=== PATIENT | female | born 1955 | race Caucasian/White ===

== ENCOUNTER 2018-04-10 16:06 | Emergency (ER) | payer OTHER ==
--- NOTE | 2018-04-10 16:34 | EDPHYS ---
Physician Documentation [facility] Name: Nicole Martínez Age: 62 yrs Sex: Female : 1955 Arrival Date: 04/10/2018 Time: 16:09 Bed 19 Private MD: ED Physician Mark Will HPI: 04/10 16:40 This 62 yrs old Female presents to ER via Ambulatory with complaints of Toe snw Injury. 16:40 The patient presents with pain, swelling, erythema . The complaints affect the Left snw first toenail. Context: The problem was sustained at home, resulted from a chronic condition. Onset: The symptoms/episode began/occurred pt states she noted problem today. Associated signs and symptoms: Pertinent positives: swelling, warmth. Severity of symptoms: At their worst the symptoms were mild, moderate. The patient has not experienced similar symptoms in the past. It is unknown whether or not the patient has recently seen a physician. Historical: - Allergies: 16:12 Percodan; la1 - PMHx: 16:12 None; la1 - PSHx: 16:18 ; tw2 - Immunization history:: Adult Immunizations up to date. - Social history:: Smoking status: Patient uses tobacco products, smokes one pack cigarettes per day. - Ebola Screening: : No symptoms or risks identified at this time. ROS: 16:39 Constitutional: Negative for fever, chills, and weight loss, Eyes: Negative for injury, snw pain, redness, and discharge, ENT: Negative for injury, pain, and discharge, Neck: Negative for injury, pain, and swelling, Cardiovascular: Negative for chest pain, palpitations, and edema, Respiratory: Negative for shortness of breath, cough, wheezing, and pleuritic chest pain, Abdomen/GI: Negative for abdominal pain, nausea, vomiting, diarrhea, and constipation, Back: Negative for injury and pain, : Negative for injury, bleeding, discharge, and swelling, Skin: Negative for injury, rash, and discoloration, Neuro: Negative for headache, weakness, numbness, tingling, and seizure. 16:39 MS/extremity: Positive for erythema, pain, swelling, of the left first toe. Exam: 16:36 Constitutional: This is a well developed, well nourished patient who is awake, alert, snw and in no acute distress. 16:36 Eyes: Pupils equal round and reactive to light, extra-ocular motions intact. Lids and lashes normal. Conjunctiva and sclera are non-icteric and not injected. Cornea within normal limits. Periorbital areas with no swelling, redness, or edema. ENT: Nares patent. No nasal discharge, no septal abnormalities noted. Tympanic membranes are normal and external auditory canals are clear. Oropharynx with no redness, swelling, or masses, exudates, or evidence of obstruction, uvula midline. Mucous membranes moist. Neck: Trachea midline, no thyromegaly or masses palpated, and no cervical lymphadenopathy. Supple, full range of motion without nuchal rigidity, or vertebral point tenderness. No Meningismus. Chest/axilla: Normal chest wall appearance and motion. Nontender with no deformity. No lesions are appreciated. Cardiovascular: Regular rate and rhythm with a normal S1 and S2. No gallops, murmurs, or rubs. Normal PMI, no JVD. No pulse deficits. Respiratory: Lungs have equal breath sounds bilaterally, clear to auscultation and percussion. No rales, rhonchi or wheezes noted. No increased work of breathing, no retractions or nasal flaring. Abdomen/GI: Soft, non-tender, with normal bowel sounds. No distension or tympany. No guarding or rebound. No evidence of tenderness throughout. Back: No spinal tenderness. No costovertebral tenderness. Full range of motion. MS/ Extremity: Pulses equal, no cyanosis. Neurovascular intact. Full, normal range of motion. Neuro: Awake and alert, GCS 15, oriented to person, place, time, and situation. Cranial nerves II-XII grossly intact. Motor strength 5/5 in all extremities. Sensory grossly intact. Cerebellar exam normal. Normal gait. Psych: Awake, alert, with orientation to person, place and time. Behavior, mood, and affect are within normal limits. 16:36 Head/face: Noted is swelling, rosacea appearance to nose. 16:36 Skin: Appearance: normal except for affected area, cellulitis, that is moderate, on the Left first toenail, nail brittle, raised, discolored with obvious fungal infection. Vital Signs: 16:12 BP 180 / 95; Pulse 75; Resp 18; Temp 97.8; Pulse Ox 97% on R/A; Weight 136.08 kg; la1 Height 5 ft. 4 in. (162.56 cm); 16:12 Body Mass Index 51.49 (136.08 kg, 162.56 cm) la1 MDM: 16:10 Patient medically screened. snw 16:40 Data reviewed: vital signs, nurses notes. Data interpreted: Pulse oximetry: on room air snw is 97 %. Interpretation: normal. Counseling: I had a detailed discussion with the patient and/or guardian regarding: the historical points, exam findings, and any diagnostic results supporting the discharge/admit diagnosis, the presence of at least one elevated blood pressure reading (>120/80) during this emergency department visit, the need for outpatient follow up, to return to the emergency department if symptoms worsen or persist or if there are any questions or concerns that arise at home. Special discussion: I have referred the patient to see his PCP for further evaluation of high blood pressure. I discussed in detail with the patient the higher chance of wound infection based on his presenting history. Based on the history and exam findings, there is no indication for further emergent testing or inpatient evaluation. I discussed with the patient/guardian the need to see the it training specialist for further evaluation of the symptoms. I discussed with the patient/guardian the need to see the primary care provider for further evaluation of the symptoms. Administered Medications: 16:33 Drug: DiFLUcan 200 mg Route: PO; tw2 16:46 Follow up: Response: No adverse reaction tw2 16:33 Drug: Clindamycin 300 mg Route: PO; tw2 16:46 Follow up: Response: No adverse reaction tw2 16:33 Drug: [place] 5 mg-325 mg 1 tabs Route: PO; tw2 16:45 Follow up: Response: No adverse reaction; Pain is decreased tw2 Disposition: 17:44 Co-signature as Attending Physician, Mark Will MD. rn Disposition: 04/10/18 16:34 Discharged to Home. Impression: Tinea unguium, Cellulitis of left toe. - Condition is Stable. - Discharge Instructions: Cellulitis, Adult, Hypertension, Fungal Nail Infection. - Prescriptions for Clindamycin HCl 300 mg Oral Capsule - take 1 capsule by ORAL route every 6 hours for 10 days; 40 capsule. - Medication Reconciliation Form, Thank You Letter, Antibiotic Education, Prescription Opioid Use form. - Follow up: Private Physician; When: 2 - 3 days; Reason: Recheck today's complaints, Continuance of care, Re-evaluation by your physician. Follow up: Emergency Department; When: As needed; Reason: Worsening of condition. Signatures: Nory Cam, YARDING ENGINEER-C YARDING ENGINEER-Csnw Mark Will MD MD rn Attema, JENNI Ribera RN la1 Rufina Kearns RN RN tw2 Corrections: (The following items were deleted from the chart) 16:46 16:34 04/10/2018 16:34 Discharged to Home. Impression: Tinea unguium; Cellulitis of tw2 left toe. Condition is Stable. Forms are Medication Reconciliation Form, Thank You Letter, Antibiotic Education, Prescription Opioid Use. Follow up: Private Physician; When: 2 - 3 days; Reason: Recheck today's complaints, Continuance of care, Re-evaluation by your physician. Follow up: Emergency Department; When: As needed; Reason: Worsening of condition. snw
--- NOTE | 2018-04-10 16:34 | ER ---
Nurse's Notes [facility] Name: Nicole Martínez Age: 62 yrs Sex: Female : 1955 Arrival Date: 04/10/2018 Time: 16:09 Bed 19 Private MD: Diagnosis: Tinea unguium;Cellulitis of left toe Presentation: 04/10 16:11 Presenting complaint: Patient states: My left big toe is big and red, I just noticed it la1 this morning. Transition of care: patient was not received from another setting of care. Onset of symptoms was April 10, 2018. Risk Assessment: Do you want to hurt yourself or someone else? Patient reports no desire to harm self or others. Initial Sepsis Screen: Does the patient meet any 2 criteria? No. Patient's initial sepsis screen is negative. Does the patient have a suspected source of infection? No. Patient's initial sepsis screen is negative. Care prior to arrival: None. 16:11 Method Of Arrival: Ambulatory la1 16:11 Acuity: KAELYN 3 la1 Historical: - Allergies: 16:12 Percodan; la1 - PMHx: 16:12 None; la1 - PSHx: 16:18 ; tw2 - Immunization history:: Adult Immunizations up to date. - Social history:: Smoking status: Patient uses tobacco products, smokes one pack cigarettes per day. - Ebola Screening: : No symptoms or risks identified at this time. Screenin:17 Abuse screen: Denies threats or abuse. Nutritional screening: No deficits noted. tw2 Tuberculosis screening: No symptoms or risk factors identified. Fall Risk None identified. Assessment: 16:24 General: Appears in no apparent distress. obese, unkempt, Behavior is calm, tw2 cooperative, appropriate for age. General: Smells of cigarette smoke. Pain: Complains of pain in left first toe and Left first toenail. Neuro: Level of Consciousness is awake, alert, obeys commands, Oriented to person, place, time, situation. Cardiovascular: Heart tones S1 S2 Capillary refill < 3 seconds Patient's skin is warm and dry. Respiratory: Airway is patent Respiratory effort is even, unlabored, Respiratory pattern is regular, symmetrical, Breath sounds are clear bilaterally. GI: No signs and/or symptoms were reported involving the gastrointestinal system. Abdomen is round non-distended, obese, Bowel sounds present X 4 quads. : No signs and/or symptoms were reported regarding the genitourinary system. EENT: No signs and/or symptoms were reported regarding the EENT system. Derm: Reports increased redness in LEFT great toe. Musculoskeletal: Circulation, motion, and sensation intact. Range of motion: intact in all extremities. 16:46 Reassessment: Patient appears in no apparent distress at this time. No changes from tw2 previously documented assessment. Patient is alert, oriented x 3, equal unlabored respirations, skin warm/dry/pink. Vital Signs: 16:12 BP 180 / 95; Pulse 75; Resp 18; Temp 97.8; Pulse Ox 97% on R/A; Weight 136.08 kg; la1 Height 5 ft. 4 in. (162.56 cm); 16:12 Body Mass Index 51.49 (136.08 kg, 162.56 cm) la1 ED Course: 16:09 Patient arrived in ED. mr 16:09 Nory Cam FNP-C [facility]. snw 16:09 Mark Will MD is Attending Physician. snw 16:12 Triage completed. la1 16:12 Arm band placed on right wrist. la1 16:16 Rufina Kearns, RN is Primary Nurse. tw2 16:17 Bed in low position. Call light in reach. Adult w/ patient. Pulse ox on. NIBP on. tw2 16:38 No provider procedures requiring assistance completed. Patient did not have IV access tw2 during this emergency room visit. Administered Medications: 16:33 Drug: DiFLUcan 200 mg Route: PO; tw2 16:46 Follow up: Response: No adverse reaction tw2 16:33 Drug: Clindamycin 300 mg Route: PO; tw2 16:46 Follow up: Response: No adverse reaction tw2 16:33 Drug: [place] 5 mg-325 mg 1 tabs Route: PO; tw2 16:45 Follow up: Response: No adverse reaction; Pain is decreased tw2 Outcome: 16:34 Discharge ordered by . snw 16:46 Discharged to home ambulatory, with family. tw2 16:46 Condition: stable 16:46 Discharge instructions given to patient, family, Instructed on discharge instructions, follow up and referral plans. medication usage, Demonstrated understanding of instructions, follow-up care, medications, Prescriptions given X 1. 16:46 Patient left the ED. tw2 Signatures: Nory Cam, ELLIEC LIBRARY CIRCULATION TECHNICIAN-[place] Brooek Diaz Lee RN RN la1 Rufina Kearns RN RN tw2
[2018-04-10] MEDS ORDERED: FLUCONAZOLE 100 MG TAB ONE (16:42)
[2018-04-10] MEDS ORDERED: CLINDAMYCIN HCL 150 MG CAP ONE (16:42)
[2018-04-10] MEDS ORDERED: HYDROCODONE/APAP 5/325 MG TAB ONE (16:42)
[2018-04-10 16:50] VITALS: BP 180/95; TEMP 97.8; O2SAT 97
== END 2018-04-10 16:46 | disposition home or self-care (01) ==
LOC: ER 16:06
DX: B35.1 Tinea unguium (principal); L03.032 Cellulitis of left toe; F17.210 Nicotine dependence, cigarettes, uncomplicated; Z88.5 Allergy status to narcotic agent
CPT/HCPCS: 99283

== ENCOUNTER 2018-04-19 08:31 | Observation (INO) | payer OTHER ==
[2018-04-19] MEDS ORDERED: METHYLPREDNISOLONE 125 MG INJ ONE (08:52)
[2018-04-19] MEDS ORDERED: LEVALBUTEROL 1.25 MG/3 ML NEB ONE (08:53)
[2018-04-19 09:09] LABS: Absolute Lymphocytes (CBC) 0.4 K/uL (0.7-4.9); Absolute Monocytes 0.5 K/uL (0.1-1.3); Absolute Neutrophil 7.3 K/uL (1.8-8.0); Basophils % 0.2 % (0-1.3); Eosinophils % 0.2 % (0-4.4); Hematocrit 47.1 % (36.0-45.0); Lymphocytes % 4.6 % (15.3-44.8); MPV 9.1 fL (7.6-11.3); Monocytes % 6.5 % (3.3-12.3); RBC Red Blood Cell Count 5.64 M/uL (3.86-4.86)
[2018-04-19 09:27] LABS: BUN Blood Urea Nitrogen 8 mg/dL (7-18); Bicarbonate 30 mmol/L (21-32); Glucose Level 198 mg/dL (74-106); NT PRO-BNP 442 pg/mL (<125); Sodium Level 134 mmol/L (136-145); Troponin (Emerg Dept Use Only) < 0.02 ng/mL (0.0-0.045)
--- NOTE | 2018-04-19 09:42 | RAD REPORT ---
EXAM DESCRIPTION: Susie Single View04/19/2018 9:26 am CLINICAL HISTORY: Cough COMPARISON: And 2015 FINDINGS: The lungs appear clear of acute infiltrate. The heart is mildly enlarged IMPRESSION: No acute abnormalities displayed
--- NOTE | 2018-04-19 10:26 | ER ---
Nurse's Notes [facility] Name: Nicole Martínez Age: 62 yrs Sex: Female : 1955 Arrival Date: 04/19/2018 Time: 08:34 Bed 4 Private MD: Diagnosis: Dyspnea, unspecified;Hypoxemia;Chronic obstructive pulmonary disease, unspecified Presentation: 04/19 08:34 Presenting complaint: EMS states: Called for difficulty breathing, Spo2 88% RA, believes that she has COPD but has not been dx, BP 180/90 HR 90-110, BGL 200, Spo2 improved to 95% on 4 LNC. Transition of care: patient was not received from another setting of care. Onset of symptoms was April 19, 2018. Risk Assessment: Do you want to hurt yourself or someone else? Patient reports no desire to harm self or others. Initial Sepsis Screen: Does the patient meet any 2 criteria? No. Patient's initial sepsis screen is negative. Does the patient have a suspected source of infection? Yes: Productive cough/pneumonia. Care prior to arrival: Glucose check: 200. 08:34 Method Of Arrival: EMS: [facility] 08:34 Acuity: KAELYN 2 hb Historical: - Allergies: 08:41 Percodan; ph - Home Meds: 08:41 Aspirin Oral [Active]; ph - PSHx: 08:41 ; ph - Immunization history:: Adult Immunizations unknown. - Social history:: Smoking status: Patient uses tobacco products, smokes two packs cigarettes per day. - Ebola Screening: : No symptoms or risks identified at this time. - Family history:: not pertinent. - Hospitalizations: : No recent hospitalization is reported. Screenin:00 Abuse screen: Denies threats or abuse. Denies injuries from another. Nutritional hb screening: No deficits noted. Tuberculosis screening: No symptoms or risk factors identified. Fall Risk Total David Fall Scale indicates Low Risk Score (25-44 pts). Fall prevention measures have been instituted. Side Rails Up X 2 Frequent Obs/Assesments occuring As available Patient and Family Educated on Fall Prevention Program and strategies. Assessment: 09:05 General: Appears in no apparent distress. Behavior is cooperative, anxious. Pain: hb Denies pain. Neuro: Level of Consciousness is awake, alert, obeys commands, Oriented to person, place, time, situation. Cardiovascular: Heart tones S1 S2 present Capillary refill < 3 seconds Patient's skin is warm and dry. Rhythm is regular. Respiratory: Airway is patent Trachea midline Respiratory effort is labored, Respiratory pattern is tachypnea Breath sounds are diminished bilaterally. GI: No signs and/or symptoms were reported involving the gastrointestinal system. : No signs and/or symptoms were reported regarding the genitourinary system. EENT: No signs and/or symptoms were reported regarding the EENT system. Derm: Skin is intact, is healthy with good turgor. Musculoskeletal: No signs and/or symptoms reported regarding the musculoskeletal system. 10:00 Reassessment: No changes from previously documented assessment. Patient and/or family hb updated on plan of care and expected duration. Pain level reassessed. 11:00 Reassessment: No changes from previously documented assessment. Patient and/or family hb updated on plan of care and expected duration. Pain level reassessed. 11:49 Reassessment: No changes from previously documented assessment. Patient and/or family hb updated on plan of care and expected duration. Pain level reassessed. Admission ordered, awaiting room assignment at this time. 12:45 Reassessment: No changes from previously documented assessment. Patient and/or family hb updated on plan of care and expected duration. Pain level reassessed. Vital Signs: 08:39 BP 159 / 81; Pulse 81; Resp 34; Temp 98.2; Pulse Ox 81% on R/A; Weight 136.08 kg; hb Height 4 ft. 54 in. (259.08 cm); 09:30 BP 146 / 68; Pulse 74; Resp 34; Pulse Ox 95% on 3 lpm NC; hb 10:09 BP 148 / 58; Pulse 78; Resp 30; Pulse Ox 94% on 3 lpm NC; hb 11:00 BP 142 / 79; Pulse 89; Resp 24; Pulse Ox 95% on 3 lpm NC; hb 08:39 Body Mass Index 20.27 (136.08 kg, 259.08 cm) hb 08:39 improved to 97% on 4L NC hb ED Course: 08:34 Patient arrived in ED. ph 08:35 Mark Will MD is Attending Physician. rn 08:39 Triage completed. ph 08:42 Arm band placed on. ph 08:43 Gloria Yin RN is Primary Nurse. ph 08:50 Patient has correct armband on for positive identification. Placed in gown. Bed in low hb position. Call light in reach. Side rails up X 1. 08:51 EKG done, by nutrition tech. reviewed by Mark Will MD. at1 09:05 Inserted saline lock: 20 gauge in right hand, using aseptic technique. Blood collected. hb 09:27 XRAY CXR (1 view) In Process Unspecified. EDMS 10:25 Sy Solorzano DO is Hospitalizing Provider. rn 13:50 No provider procedures requiring assistance completed. Patient admitted, IV remains in ph place. Administered Medications: 08:44 Drug: Xopenex (3) 1.25 mg Route: Inhalation; hb 09:40 Follow up: Response: No adverse reaction hb 08:59 Drug: SOLU-Medrol 125 mg Route: IVP; Site: right hand; hb 09:45 Follow up: Response: No adverse reaction hb Outcome: 10:25 Decision to Hospitalize by Provider. rn 13:04 Admitted to Med/surg accompanied by tech, via wheelchair, room 426, with oxygen, with hb chart, Report called to JENNI Velazquez 13:04 Condition: stable 13:04 Instructed on the need for admit, Demonstrated understanding of instructions. 13:55 Patient left the ED. ph Signatures: Dispatcher [employer] EDMS Mark Will MD MD rn Gonzales, Amanda, records section supervisor EKG Tat1 Gloria Yin RN RN ph Baxter, Heather, RN RN hb Corrections: (The following items were deleted from the chart) 09:00 08:34 Acuity: KAELYN 3 ph hb 10:10 08:39 BP 159 / 81; Pulse 81bpm; Resp 24bpm; Pulse Ox 81% RA; Temp 98.2F; 136.08 kg; hb Height 4 ft. 54 in.; BMI: 20.2; improved to 97% on 4L NC; ph 10:11 09:30 Pulse 74bpm; Resp 34bpm; Pulse Ox 95% 3 lpm Nasal Cannula; hb hb 11:49 10:00 Reassessment: No changes from previously documented assessment. Patient and/or hb family updated on plan of care and expected duration. Pain level reassessed. Patient is alert, oriented x 3, equal unlabored respirations, skin warm/dry/pink. hb
--- NOTE | 2018-04-19 10:27 | EDPHYS ---
Physician Documentation [facility] Name: Nicole Martínez Age: 62 yrs Sex: Female : 1955 Arrival Date: 04/19/2018 Time: 08:34 Bed 4 Private MD: ED Physician Mark Will HPI: 04/19 08:57 This 62 yrs old Female presents to ER via EMS with complaints of Breathing rn Difficulty. 08:57 The patient has shortness of breath at rest. Onset: The symptoms/episode began/occurred rn yesterday. Duration: The symptoms are continuous. The patient's shortness of breath is aggravated by coughing, light activity. Severity of symptoms: At their worst the symptoms were moderate in the emergency department the symptoms are unchanged. The patient has not experienced similar symptoms in the past. Reports subjective fever and chills, + cough, + sob, for 2 days, thinks may have COPD but no clear diagnosis. NO chest pain/abd pain.. Historical: - Allergies: 08:41 Percodan; ph - Home Meds: 08:41 Aspirin Oral [Active]; ph - PSHx: 08:41 ; ph - Immunization history:: Adult Immunizations unknown. - Social history:: Smoking status: Patient uses tobacco products, smokes two packs cigarettes per day. - Ebola Screening: : No symptoms or risks identified at this time. - Family history:: not pertinent. - Hospitalizations: : No recent hospitalization is reported. ROS: 08:57 Constitutional: + fever and chills Eyes: Negative for injury, pain, redness, and rn integrity, Neck: Negative for injury, pain, and swelling, Cardiovascular: Negative for chest pain, palpitations, and edema, Respiratory: + cough and sob Abdomen/GI: Negative for abdominal pain, nausea, vomiting, diarrhea, and constipation, MS/Extremity: Negative for injury and deformity, Skin: Negative for injury, rash, and discoloration, Neuro: Negative for headache, weakness, numbness, tingling, and seizure. Exam: 08:57 Constitutional: Overweight female, sitting upright with tachypnea Head/Face: rn Normocephalic, atraumatic. Eyes: Pupils equal round and reactive to light, extra-ocular motions intact. Lids and lashes normal. Conjunctiva and sclera are non-icteric and not injected. Cornea within normal limits. Periorbital areas with no swelling, redness, or edema. ENT: dry MM Cardiovascular: Regular rate and rhythm, No pulse deficits. Respiratory: + mild tachypnea, no retractions, no wheezing, diminished breath sounds bilateral lung harris. Abdomen/GI: soft, non-tender Skin: Warm, dry with normal turgor. Normal color with no rashes, no lesions, and no evidence of cellulitis. MS/ Extremity: Pulses equal, no cyanosis. Neurovascular intact. Full, normal range of motion. Equal circumference. Neuro: Awake and alert, GCS 15, oriented to person, place, time, and situation. Cranial nerves II-XII grossly intact. Motor strength 5/5 in all extremities. Sensory grossly intact Vital Signs: 08:39 BP 159 / 81; Pulse 81; Resp 34; Temp 98.2; Pulse Ox 81% on R/A; Weight 136.08 kg; hb Height 4 ft. 54 in. (259.08 cm); 09:30 BP 146 / 68; Pulse 74; Resp 34; Pulse Ox 95% on 3 lpm NC; hb 10:09 BP 148 / 58; Pulse 78; Resp 30; Pulse Ox 94% on 3 lpm NC; hb 11:00 BP 142 / 79; Pulse 89; Resp 24; Pulse Ox 95% on 3 lpm NC; hb 08:39 Body Mass Index 20.27 (136.08 kg, 259.08 cm) hb 08:39 improved to 97% on 4L NC hb MDM: 08:35 Patient medically screened. rn 10:24 Differential diagnosis: Chronic Obstructive Pulmonary Disease Myocardial Infarction rn pneumonia, Pneumothorax pulmonary edema. Data reviewed: vital signs, nurses notes, lab test result(s), EKG, radiologic studies, plain films, and as a result, I will admit patient. Counseling: I had a detailed discussion with the patient and/or guardian regarding: the historical points, exam findings, and any diagnostic results supporting the discharge/admit diagnosis, lab results, radiology results, the need for further work-up and treatment in the hospital. Response to treatment: the patient's symptoms have mildly improved after treatment, and as a result, I will admit patient. Admission orders: after a detailed discussion of the patient's condition and case, the admit orders are written by me. 04/19 08:36 Order name: Blood Culture Adult (2) rn 04/19 08:36 Order name: BMP; Complete Time: 09:44 rn 04/19 08:36 Order name: CBC with Diff rn 04/19 08:36 Order name: NT PRO-BNP; Complete Time: 09:44 rn 04/19 08:36 Order name: Troponin (emerg Dept Use Only); Complete Time: 09:44 rn 04/19 08:36 Order name: Procalcitonin; Complete Time: 09:44 rn 04/19 08:36 Order name: XRAY CXR (1 view); Complete Time: 09:44 rn 04/19 08:36 Order name: EKG; Complete Time: 08:37 rn 04/19 08:36 Order name: Cardiac monitoring; Complete Time: 10:14 rn 04/19 08:36 Order name: Lactate; Complete Time: 10:46 rn 04/19 08:36 Order name: Flu; Complete Time: 09:44 rn 04/19 12:59 Order name: Diet Regular; Complete Time: 13:00 bd 04/19 08:36 Order name: EKG - Nurse/Tech; Complete Time: 10:14 rn 04/19 08:36 Order name: IV Saline Lock; Complete Time: 10:14 rn 04/19 08:36 Order name: Labs collected and sent; Complete Time: 10:15 rn 04/19 08:36 Order name: O2 Per Protocol; Complete Time: 10:15 rn 04/19 08:36 Order name: O2 Sat Monitoring; Complete Time: 10:15 rn 04/19 09:11 Order name: Labs - recollect needed; Complete Time: 10:14 bd Administered Medications: 08:44 Drug: Xopenex (3) 1.25 mg Route: Inhalation; hb 09:40 Follow up: Response: No adverse reaction hb 08:59 Drug: SOLU-Medrol 125 mg Route: IVP; Site: right hand; hb 09:45 Follow up: Response: No adverse reaction hb Disposition: 04/19/18 10:25 Hospitalization ordered by Sy Solorzano for Inpatient Admission. Preliminary diagnosis are Dyspnea, unspecified, Hypoxemia, Chronic obstructive pulmonary disease, unspecified. - Bed requested for Telemetry/MedSurg (Inpatient). - Status is Inpatient Admission. ph - Condition is Stable. - Problem is new. - Symptoms have improved. UTI on Admission? No Signatures: Dispatcher [employer] EDMS Wandy Rutherford Ann-Marie Barros RN RN dw Mark Will MD MD rn Hall, Patricia, RN RN Kayla Walls RN RN Corrections: (The following items were deleted from the chart) 12:27 10:25 Hospitalization Ordered by Sy Solorzano DO for Inpatient Admission. Preliminary dw diagnosis is Dyspnea, unspecified; Hypoxemia; Chronic obstructive pulmonary disease, unspecified. Bed requested for Telemetry/MedSurg (Inpatient). Status is Inpatient Admission. Condition is Stable. Problem is new. Symptoms have improved. UTI on Admission? No. rn 13:55 12:27 04/19/2018 10:25 Hospitalization Ordered by Sy Solorzano DO for Inpatient ph Admission. Preliminary diagnosis is Dyspnea, unspecified; Hypoxemia; Chronic obstructive pulmonary disease, unspecified. Bed requested for Telemetry/MedSurg (Inpatient). Status is Inpatient Admission. Condition is Stable. Problem is new. Symptoms have improved. UTI on Admission? No. dw
--- NOTE | 2018-04-19 12:19 | EKG ---
Test Date: 2018-03-19 Test Time: 08:50:14 [employer] System Maintenance Supervisor: ELIAS MEASUREMENT RESULTS: Intervals: Rate: 78 MO: 134 QRSD: 80 QT: 364 QTc: 414 [place]: P: 7 MO: 134 QRS: 28 T: 87 INTERPRETIVE STATEMENTS: Normal sinus rhythm T wave abnormality, consider lateral ischemia Abnormal ECG Compared to ECG 03/07/2015 23:49:24 T-wave abnormality now present Possible ischemia now present Sinus tachycardia no longer present Myocardial infarct finding no longer present Electronically Signed On 04-19-18 12:18:43 ZYGLO TECHNICIAN by Nilson Estes
[2018-04-19] MEDS ORDERED: ONDANSETRON 4 MG/2 ML VIAL IV PRN (13:52)
[2018-04-19] MEDS ORDERED: ACETAMINOPHEN 500 MG TAB PO PRN (13:52)
[2018-04-19] MEDS ORDERED: TRAMADOL HCL 50 MG TAB PO PRN (13:52)
[2018-04-19 14:26] VITALS: BMI 50.8
[2018-04-19] MEDS: predniSONE 20 MG TAB PO SCH ×2 (14:57→20:39)
[2018-04-19] MEDS: ENOXAPARIN 40 MG/0.4 ML SQ SCH (14:57)
[2018-04-19] MEDS: GUAIFENESIN 600 MG SA TAB PO SCH ×2 (14:57→20:39)
[2018-04-19] MEDS: NICOTINE 21 MG/PAT TD SCH (14:57)
--- NOTE | 2018-04-19 15:29 | P.HP ---
Certification for Inpatient Patient admitted to: Observation With expected LOS: <2 Midnights Patient will require the following post-hospital care: None Practitioner: I am a practitioner with admitting privileges, knowledge of patient current condition, hospital course, and medical plan of care. Services: Services provided to patient in accordance with Admission requirements found in Title 42 Section 412.3 of the Code of Federal Regulations Patient History Date of Service: 04/19/18 Primary Care Provider: None Reason for admission: Shortness of breath History of Present Illness: 62-year-old female presented to emergency room with shortness of breath. This started over the past day. Patient reports history of chronic back pain and tobacco abuse. She does not taking any medication on a regular basis. Patient came to the ER for further evaluation. In the ER patient found to be hypoxic and tachypneic. Initial chest x-ray unremarkable. Initial lab work shows pro calcitonin negative. Troponin negative. Patient found to have COPD exacerbation. Patient was admitted for observation. When I saw the patient the ER, she appeared stable. Patient reports chronic back pain. She only takes aspirin. Patient still smokes on a regular basis but plans to quit. Allergies oxycodone HCl [From Percodan] Allergy (Unknown, Verified 04/19/18 14:31) Itching/Hives/Rash oxycodone terephthalate [From Percodan] Allergy (Unknown, Verified 04/19/18 14: 31) Itching/Hives/Rash Home Medications: Aspirin Chewable [Aspirin Chewable*] 81 mg PO DAILY 04/19/18 - Past Medical/Surgical History Has patient received pneumonia vaccine in the past: No Diabetic: No -: COPD -: Chronic back pain -: Obesity, BMI 50 -: Borderline diabetes -: x3 -: foot surgery-gangre abscess* -: "Bleeders" in R. eye that had to be repaired with a laser -: I&D of cysts to the left groin Psychosocial/ Personal History: Patient lives by herself but has a boyfriend. She has 3 children. She does not work. - Family History Mother -: Other (see notes) Notes: [employer] Father -: Heart disease, Hypertension Brother -: Stroke - Social History Smoking Status: Heavy Tobacco smoker (>10 cigarettes/day) Counseled patient to stop smoking for: less than 10 minutes Smoking therapy provided: Yes Patient receptive to therapy: Yes Alcohol use: No CD- Drugs: No Caffeine use: Yes Place of Residence: Home Review of Systems General: As per HPI Eyes: As per HPI, Unremarkable ENT: Nose Congestion, As per HPI Respiratory: Cough, Shortness of Breath, Wheezing, As per HPI Cardiovascular: Unremarkable Gastrointestinal: Unremarkable Genitourinary: Unremarkable Musculoskeletal: Back Pain, As per HPI Integumentary: Unremarkable Neurological: Unremarkable Lymphatics: Unremarkable Physical Examination - Vital Signs Temperature: 97.4 F Blood Pressure: 191/74 Pulse: 79 Respirations: 28 Pulse Ox (%): 96 - Physical Exam General: Alert, In no apparent distress, Oriented x3, Cooperative, Disheveled HEENT: Atraumatic, Normocephalic, Other (Nasal congestion noted) Neck: Supple, No Thyromegaly Respiratory: Expiratory wheezes, Inspiratory wheezes Cardiovascular: Normal pulses, Regular rate/rhythm Gastrointestinal: Normal bowel sounds, Soft and benign, Non-distended, No tenderness, No masses, No rebound, No guarding Musculoskeletal: No erythema, No tenderness, No warmth Integumentary: No tenderness/swelling, No erythema, No warmth, No cyanosis Neurological: Normal speech, Normal strength at 5/5 x4 extr, Normal tone, Normal affect - Studies Laboratory Data (last 24 hrs) 04/19/18 08:45: WBC 8.2, Hgb 15.4 H, Hct 47.1 H, Plt Count 255 04/19/18 08:45: Sodium 134 L, Potassium 4.0, BUN 8, Creatinine 0.72, Glucose 198 H Microbiology Data (last 24 hrs): 04/19/18 08:45 Nasopharnyx Influenza Type A Antigen Screen - Final 04/19/18 08:45 Nasopharnyx Influenza Type B Antigen Screen - Final Assessment and Plan - Plan Impression: Shortness of breath secondary to COPD exacerbation with hypoxia and tachypnea Tobacco abuse Chronic back pain Pre diabetes Obesity, BMI 50 Plan: Shortness of breath secondary to COPD exacerbation with hypoxia and tachypnea: Will start COPD treatment. This will include steroid medication and nebulized treatments. Will try to wean off oxygen. Anticipate discharge in the next 24- 48 hr. Patient will need COPD medication at discharge. Tobacco abuse: Tobacco cessation addressed in detail. Patient plans to quit. Will provide nicotine patch. Chronic back pain: Patient reports history of chronic back pain. Will provide medication as needed. Will check back x-ray. Pre diabetes: Will send for hemoglobin A1c. Will monitor closely. Obesity, BMI 50: Continue with lifestyle modification education. Discharge Plan: Home Plan to discharge in: 24 Hours - Advance Directives Does patient have a Living Will: No Does patient have a Durable POA for Healthcare: No - Code Status/Comfort Care Code Status Assessed: Yes (Patient full code.) Time Spent Managing Pts Care (In Minutes): 55
[2018-04-19 16:20] LABS: Thyroid Stimulating Hormone 0.388 uIU/mL (0.360-3.740)
[2018-04-19 16:26] LABS: Anisocytosis 1+; Blood Morphology Comment NOTED (NOT SEEN); Platelet Estimate ADEQ; Platelets, Giant PRESENT; Urine White Blood Cell Casts OK
--- NOTE | 2018-04-19 19:46 | RAD REPORT ---
EXAM DESCRIPTION: NM - Thoracolumbar Spine Ap Lat - 04/19/2018 7:22 pm CLINICAL HISTORY: BACK PAIN, CHRONIC Radiculopathy COMPARISON: No comparisons FINDINGS: Mild disc thinning is present throughout the thoracolumbar spine. No acute compression fra cture or significant malalignment seen. No aggressive marrow lesion. IMPRESSION: Mild spondylosis involving the thoracolumbar junction.
[2018-04-19] MEDS: IPRATROPIUM BROM 0.5MG/2.5ML NEB PRN (19:50)
[2018-04-19] MEDS: ALBUTEROL 2.5 MG/3 ML NEB SOL NEB PRN (19:50)
[2018-04-19] MEDS: DULERA 200/5 (MOMETASONE/FORMOTEROL) INHALER IH SCH (20:39)
[2018-04-19 20:47] LABS: Urine Appearance CLEAR; Urine Bilirubin NEGATIVE (NEG); Urine Blood 2+ (NEG); Urine Color YELLOW; Urine Glucose 3+ (NEG); Urine Microscopic Reflex ORDER UMIC; Urine Protein TRACE (NEG); Urine Specific Gravity 1.015 (1.005-1.030); Urine Urobilinogen 0.2 mg/dL (0.2-1.0); Urine pH 5.5 (5.0-7.0)
[2018-04-19 20:54] LABS: Urine Bacteria <20 /HPF (<20); Urine Culture Reflex Order NOT NEEDED; Urine RBC <5 /HPF (NONE SEEN)
[2018-04-20] MEDS: BENZONATATE 100 MG CAP PO PRN ×2 (03:55→19:36)
[2018-04-20 04:59] LABS: Absolute Lymphocytes (CBC) 0.9 K/uL (0.7-4.9); Absolute Monocytes 0.8 K/uL (0.1-1.3); Absolute Neutrophil 4.1 K/uL (1.8-8.0); Basophils % 0.2 % (0-1.3); Hematocrit 47.7 % (36.0-45.0); Lymphocytes % 15.2 % (15.3-44.8); Monocytes % 13.5 % (3.3-12.3); RBC Red Blood Cell Count 5.61 M/uL (3.86-4.86)
[2018-04-20 05:20] LABS: Magnesium 2.1 mg/dL (1.8-2.4); Potassium 4.1 mmol/L (3.5-5.1)
--- NOTE | 2018-04-20 07:26 | ECHO ---
HEIGHT: 5 ft 4 in WEIGHT: 296 lb 0 oz DATE OF STUDY: 04/19/[address]: Sy Solorzano DO 2-DIMENSIONAL: YES M.MODE: YES DOPPLER: YES COLOR FLOW: YES TDS: YES PORTABLE: DEFINITY: BUBBLE STUDY: DIAGNOSIS: SHORTNESS OF BREATH, EVALUATE FOR CONGESTIVE HEART FAILURE CARDIAC HISTORY: CATHERIZATION: NO SURGERY: NO PROSTHETIC VALVE: NO PACEMAKER: NO MEASUREMENTS (cm) DIASTOLIC (NORMALS) SYSTOLIC (NORMALS) IVSd (0.6-1.2) LA Diam (1.9-4.0) LVEF 50% LVIDd (3.5-5.7) LVIDs (2.0-3.5) %FS % LVPWd (0.6-1.2) Ao Diam (2.0-3.7) 2 DIMENSIONAL ASSESSMENT: RIGHT ATRIUM: LEFT ATRIUM: RIGHT VENTRICLE: LEFT VENTRICLE: TRICUSPID VALVE: MITRAL VALVE: PULMONIC VALVE: AORTIC VALVE: PERICARDIAL EFFUSION: AORTIC ROOT: LEFT VENTRICULAR WALL MOTION: TECHNICALLY DIFFICULT STUDY DOPPLER/COLOR FLOW: IMPAIRED LEFT VENTRICULAR RELAXATION. TECHNICALLY DIFFICULT STUDY. COMMENTS: LEFT VENTRICULAR EJECTION FRACTION MORE THAN 50%. IMPAIRED LEFT VENTRICULAR RELAXATION. TECHNICALLY DIFFICULT STUDY. TECHNOLOGIST: TISH MARIEE
[2018-04-20] MEDS: ALBUTEROL 2.5 MG/3 ML NEB SOL NEB PRN ×2 (07:35→14:09)
[2018-04-20] MEDS: IPRATROPIUM BROM 0.5MG/2.5ML NEB PRN ×2 (07:35→14:09)
[2018-04-20] MEDS: NICOTINE 21 MG/PAT TD SCH (09:00)
--- NOTE | 2018-04-20 09:13 | RAD REPORT ---
EXAM DESCRIPTION: RAD - Chest Pa And Lat (2 Views) - 04/20/2018 8:43 am CLINICAL HISTORY: follow up COPD Chest pain. COMPARISON: Chest Single View dated 04/19/2018; CHEST SINGLE VIEW dated 03/07/2015; CHEST SINGLE VIEW dated 07/20/2009 FINDINGS: The lungs are mildly emphysematous but clear. The heart is upper limit of normal in size. No displaced fractures. IMPRESSION: Mild cardiomegaly. Mild COPD
[2018-04-20] MEDS: ENOXAPARIN 40 MG/0.4 ML SQ SCH (09:50)
[2018-04-20] MEDS: predniSONE 20 MG TAB PO SCH ×2 (09:51→22:18)
[2018-04-20] MEDS: ASPIRIN 81 MG CHEWABLE TABLET PO SCH (09:51)
[2018-04-20] MEDS: DULERA 200/5 (MOMETASONE/FORMOTEROL) INHALER IH SCH ×2 (09:52→22:18)
[2018-04-20] MEDS: GUAIFENESIN 600 MG SA TAB PO SCH ×2 (09:52→22:18)
[2018-04-20] MEDS ORDERED: D50W 25 GM/50 ML SYRINGE IV PRN (09:57)
[2018-04-20] MEDS ORDERED: GLUCAGON 1 MG/VIAL IM PRN (09:57)
--- NOTE | 2018-04-20 09:59 | P.PN ---
Subjective Date of Service: 04/20/18 Primary Care Provider: None Chief Complaint: Shortness of breath Subjective: Improving (Patient doing better. Still with cough and congestion. Still requiring oxygen.) Physical Examination - Vital Signs Temperature: 97.9 F Blood Pressure: 153/59 Pulse: 72 Respirations: 20 Pulse Ox (%): 94 - Physical Exam General: Alert, In no apparent distress, Oriented x3 HEENT: Atraumatic Neck: Supple Respiratory: Expiratory wheezes, Inspiratory wheezes Cardiovascular: Normal pulses, Regular rate/rhythm Gastrointestinal: Normal bowel sounds, Soft and benign, Non-distended, No tenderness, No masses, No rebound, No guarding Musculoskeletal: No erythema, No tenderness, No warmth Integumentary: No erythema, No warmth, No cyanosis Neurological: Normal speech, Normal strength at 5/5 x4 extr, Normal tone, Normal affect - Studies Laboratory Data (last 24 hrs) 04/19/18 08:45: WBC 8.2, Hgb 15.4 H, Hct 47.1 H, Plt Count 255 Microbiology Data (last 24 hrs): 04/19/18 09:00 Blood - Blood Anaerobic Blood Culture - Final 04/19/18 08:45 Nasopharnyx Influenza Type A Antigen Screen - Final 04/19/18 08:45 Nasopharnyx Influenza Type B Antigen Screen - Final Medications List Reviewed: Yes Assessment & Plan Discharge Plan: Home Plan to discharge in: 24 Hours Physician Review Additional Text: Impression: Shortness of breath secondary to COPD exacerbation with hypoxia and tachypnea Tobacco abuse Chronic back pain with mild spondylosis to the thoracolumbar region Diabetes mellitus type 2 Hypertension Obesity, BMI 50 Plan: Shortness of breath secondary to COPD exacerbation with hypoxia and tachypnea: Patient doing well today but still requiring oxygen. Will continue with COPD treatment. Will wean off oxygen. Will consult pulmonology for further recommendation. Anticipate discharge in the next 24 hr. Patient still may require oxygen at discharge. At discharge patient will require PCP and possible home health. Tobacco abuse: Tobacco cessation addressed in detail. Patient plans to quit. Will provide nicotine patch if needed. Chronic back pain with mild spondylosis to the thoracolumbar region: Continue with medication for pain as needed. Will physical therapy assess ambulation. Patient may benefit with walker at discharge. Diabetes mellitus type 2: A1c 7.7. Will start metformin. Will teach on diabetic education. Patient will require medicine at discharge. Hypertension: Will start lisinopril. Will monitor and adjust appropriately. Obesity, BMI 50: Continue with lifestyle modification education. Time Spent Managing Pts Care (In Minutes): 55
[2018-04-20] MEDS: INSULIN -REGULAR HUMAN 50 UNIT/0.5 ML ML SQ SCH ×3 (11:30→21:00)
[2018-04-20] MEDS: METFORMIN HCL 500 MG TAB PO SCH (17:50)
[2018-04-21] MEDS: INSULIN -REGULAR HUMAN 50 UNIT/0.5 ML ML SQ SCH ×2 (07:30→11:30)
--- NOTE | 2018-04-21 08:45 | P.CNS ---
Date of Consult: 04/21/18 Primary Care Provider: None Chief Complaint: Shortness of breath History of Present Illness: Is 63 years of age a heavy smoker formal 3 pack-a-day currently smokes 1-1/2 packs admitted with acute onset of shortness of breath she has a history of obstructive airways disease as not take any bronchodilators or oxygen does not have any physicians does not take any inhalers or any other medications no other significant medical history had apart from some back problems she is to sleep upright complains of mild snoring a does not really ambulate much no prior history of coronary artery disease feeling better Allergies oxycodone HCl [From Percodan] Allergy (Unknown, Verified 04/19/18 14:31) Itching/Hives/Rash oxycodone terephthalate [From Percodan] Allergy (Unknown, Verified 04/19/18 14: 31) Itching/Hives/Rash Home Medications: Aspirin Chewable [Aspirin Chewable*] 81 mg PO DAILY 04/19/18 - Past Medical/Surgical History Diabetic: No -: COPD -: Chronic back pain -: Obesity, BMI 50 -: Borderline diabetes -: x3 -: foot surgery-gangre abscess* -: "Bleeders" in R. eye that had to be repaired with a laser -: I&D of cysts to the left groin Psychosocial/ Personal History: Patient lives by herself but has a boyfriend. She has 3 children. She does not work. - Family History Mother Medical History: Other (see notes) Notes: [employer] Father Medical History: Heart disease, Hypertension Brother Medical History: Stroke - Social History Smoking Status: Current every day smoker Alcohol use: No CD- Drugs: No Caffeine use: Yes Place of Residence: Home Review of Systems 10-point ROS is otherwise unremarkable Physical Examination Temp Pulse Resp BP Pulse Ox 97 F 66 20 120/70 96 04/21/18 08:00 04/21/18 08:00 04/21/18 08:00 04/21/18 08:00 04/21/18 08:00 General: Alert, Oriented x3 HEENT: Atraumatic Neck: Supple Respiratory: Clear to auscultation bilaterally, Diminished Cardiovascular: No edema, Regular rate/rhythm, Normal S1 S2 Gastrointestinal: Normal bowel sounds, Soft and benign - Problems (1) COPD exacerbation Onset Date: 04/20/18 Current Visit: Yes Status: Acute Plan: Patient is 63 years of age with a history of COPD very heavy smoker admitted with acute shortness of breath presumed COPD exacerbation patient has a normal echocardiogram chest x-ray no obvious infiltrates in can be discharged home on low-dose prednisone 10 mg twice a day for about 7 days in addition to the long- acting bronchodilator to be taken on a scheduled basis consultation not to smoke until follow up with me in 2 weeks she will need outpatient pulmonary function testing does not have a regular physician I have ordered arterial blood gases she may qualify for home O2 room-air sat was low
[2018-04-21] MEDS ORDERED: LISINOPRIL 10 MG TAB PO SCH (09:00)
[2018-04-21] MEDS: METFORMIN HCL 500 MG TAB PO SCH (09:16)
[2018-04-21] MEDS: predniSONE 20 MG TAB PO SCH (09:16)
[2018-04-21] MEDS: ASPIRIN 81 MG CHEWABLE TABLET PO SCH (09:16)
[2018-04-21] MEDS: GUAIFENESIN 600 MG SA TAB PO SCH (09:16)
[2018-04-21] MEDS: NICOTINE 21 MG/PAT TD SCH (09:17)
[2018-04-21] MEDS: DULERA 200/5 (MOMETASONE/FORMOTEROL) INHALER IH SCH (09:17)
[2018-04-21] MEDS: ENOXAPARIN 40 MG/0.4 ML SQ SCH (09:17)
--- NOTE | 2018-04-21 10:17 | P.DS ---
Admission Date: 04/19/18 Discharge Date: 04/21/18 Primary Care Provider: None Disposition: ROUTINE DISCHARGE Discharge Condition: GOOD Reason for Admission: Shortness of breath Consultations: Pulmonary-Dr. Cornell Procedures: CXR: COMPARISON: Chest Single View dated 04/19/2018; CHEST SINGLE VIEW dated 2014; CHEST SINGLE VIEW dated 07/20/2009 FINDINGS: The lungs are mildly emphysematous but clear. The heart is upper limit of normal in size. No displaced fractures. IMPRESSION: Mild cardiomegaly. Mild COPD ECHO: EF 50% LEFT VENTRICULAR WALL MOTION: TECHNICALLY DIFFICULT STUDY DOPPLER/COLOR FLOW: IMPAIRED LEFT VENTRICULAR RELAXATION. TECHNICALLY DIFFICULT STUDY. COMMENTS: LEFT VENTRICULAR EJECTION FRACTION MORE THAN 50%. IMPAIRED LEFT VENTRICULAR RELAXATION. TECHNICALLY DIFFICULT STUDY Xray: COMPARISON: No comparisons FINDINGS: Mild disc thinning is present throughout the thoracolumbar spine. No acute compression fracture or significant malalignment seen. No aggressive marrow lesion. IMPRESSION: Mild spondylosis involving the thoracolumbar junction. Impression: Shortness of breath secondary to COPD exacerbation with hypoxia and tachypnea Tobacco abuse Chronic back pain with mild spondylosis to the thoracolumbar region Diabetes mellitus type 2, new diagnosis Hypertension, new diagnosis Suspect obstructive sleep apnea Obesity, BMI 50 Brief History of Present Illness: 62-year-old female presented to emergency room with shortness of breath. This started over the past day. Patient reports history of chronic back pain and tobacco abuse. She does not taking any medication on a regular basis. Patient came to the ER for further evaluation. In the ER patient found to be hypoxic and tachypneic. Initial chest x-ray unremarkable. Initial lab work shows pro calcitonin negative. Troponin negative. Patient found to have COPD exacerbation. Patient was admitted for observation. When I saw the patient the ER, she appeared stable. Patient reports chronic back pain. She only takes aspirin. Patient still smokes on a regular basis but plans to quit. Hospital Course: Patient admitted for shortness of breath secondary to COPD exacerbation with hypoxia and tachypnea. Patient was treated in the hospital. Her symptoms improved. Chest x-ray showed no pneumonia. Echocardiogram showed normal ejection fraction. Patient seen and evaluated by pulmonology. COPD is a new diagnosis for the patient. At discharge patient will continue with prednisone 10 mg 1 pill twice daily for 5 days then 1 pill once daily for 5 days. At discharge she will continue with Dulera 2 puffs twice daily and Pro air 2 puffs 3 times a day as needed for shortness of breath. Patient will also be provided Mucinex 600 mg twice daily for congestion. Patient did qualify for home oxygen. She is to maintain sats above 90%. This can be weaned off with the help of pulmonology as an outpatient. Recommend to follow up with pulmonology in 1-2 weeks to follow up this hospitalization and continue her care. Patient will establish care with a PCP in the area. Patient with tobacco abuse. Patient desires to quit. Patient provided nicotine patch to help her in this process. This can be further addressed by her PCP. Patient with chronic back pain shows mild spondylosis of the thoracolumbar region. Patient may use Tylenol as needed for pain. A limited supply of tramadol 50 mg 1 pill 3 times a day as needed for pain will be provided. This can be further addressed by her PCP. Patient did work with physical therapy. Patient will continue with rolling walker to help with her progress. Fall precautions recommended. Patient has diabetes mellitus type 2. This is a new diagnosis for her. A1c 7.7. Patient was started on metformin. At discharge she will continue with metformin 500 mg 1 pill twice daily. Recommend to maintain blood sugars less 140 fasting and less than 200 after meals. Further adjustment can be done by her PCP. Patient has hypertension. This is a new diagnosis for the patient. Patient was started on medication. At discharge she will continue with lisinopril 10 mg daily. Recommend to maintain blood pressures less 150/80. Further adjustment can be done by her PCP. Patient likely has underlying obstructive sleep apnea. Patient will follow up with pulmonology to further evaluate. Lifestyle modification education will be provided. Vital Signs/Physical Exam: Temp Pulse Resp BP Pulse Ox 97 F 66 20 120/70 96 04/21/18 08:00 04/21/18 08:00 04/21/18 08:00 04/21/18 08:00 04/21/18 08:00 General: Alert, In no apparent distress, Oriented x3, Cooperative HEENT: Atraumatic Neck: Supple Respiratory: Clear to auscultation bilaterally, Normal air movement Cardiovascular: Normal pulses, Regular rate/rhythm Gastrointestinal: Normal bowel sounds, Soft and benign, Non-distended, No masses , No rebound, No guarding Musculoskeletal: No erythema, No tenderness, No warmth Integumentary: No tenderness/swelling, No erythema, No warmth, No cyanosis Neurological: Normal speech, Normal strength at 5/5 x4 extr, Normal tone, Normal affect Laboratory Data at Discharge: WBC 5.8 K/uL (4.3-10.9) D 04/20/18 04:39 Hgb 15.3 g/dL (12.0-15.0) H 04/20/18 04:39 Hct 47.7 % (36.0-45.0) H 04/20/18 04:39 Plt Count 234 K/uL (152-406) 04/20/18 04:39 Sodium 136 mmol/L (136-145) 04/20/18 04:39 Potassium 4.1 mmol/L (3.5-5.1) 04/20/18 04:39 BUN 13 mg/dL (7-18) 04/20/18 04:39 Creatinine 0.83 mg/dL (0.55-1.3) 04/20/18 04:39 Glucose 233 mg/dL (74-106) H 04/20/18 04:39 Magnesium 2.1 mg/dL (1.8-2.4) 04/20/18 04:39 Triglycerides 101 mg/dL (<150) 04/20/18 04:39 Cholesterol 159 mg/dL (<200) 04/20/18 04:39 HDL Cholesterol 40 mg/dL (40-60) 04/20/18 04:39 Cholesterol/HDL Ratio 3.98 04/20/18 04:39 Home Medications: Aspirin Chewable [Aspirin Chewable*] 81 mg PO DAILY 04/19/18 Albuterol Sulfate [Proair Hfa] 2 puff IH TID PRN #1 hfa.aer.ad 04/21/18 Guaifenesin [Mucinex] 600 mg PO BID #15 tab.er.12h 04/21/18 Lisinopril [Prinivil*] 10 mg PO DAILY #30 tab 04/21/18 Metformin HCl [Glucophage*] 500 mg PO BIDWM #60 tab 04/21/18 Mometasone/Formoterol [Dulera 200 Mcg/5 Mcg Inhaler] 2 puff IH BID #1 inhaler Nicotine [Nicoderm*] 21 mg TD DAILY #30 patch.td24 04/21/18 predniSONE [Deltasone*] 10 mg PO SEECOM #15 tab 04/21/18 traMADol HCL [Ultram*] 50 mg PO TID PRN #10 tab 04/21/18 New Medications: Albuterol Sulfate [Proair Hfa] 2 puff IH TID PRN #1 hfa.aer.ad PRN Reason: Shortness Of Breath Guaifenesin [Mucinex] 600 mg PO BID #15 tab.er.12h Lisinopril [Prinivil*] 10 mg PO DAILY #30 tab Metformin HCl [Glucophage*] 500 mg PO BIDWM #60 tab Mometasone/Formoterol [Dulera 200 Mcg/5 Mcg Inhaler] 2 puff IH BID #1 inhaler Nicotine [Nicoderm*] 21 mg TD DAILY #30 patch.td24 predniSONE [Deltasone*] 10 mg PO SEECOM #15 tab traMADol HCL [Ultram*] 50 mg PO TID PRN #10 tab PRN Reason: Pain Scale 5-7 (Moderate) Patient Discharge Instructions: 1. Patient will establish care with a PCP to follow up this hospitalization. 2. Patient admitted for shortness of breath secondary to COPD exacerbation with hypoxia and tachypnea. Patient was treated in the hospital. Her symptoms improved. Chest x-ray showed no pneumonia. Echocardiogram showed normal ejection fraction. Patient seen and evaluated by pulmonology. COPD is a new diagnosis for the patient. At discharge patient will continue with prednisone 10 mg 1 pill twice daily for 5 days then 1 pill once daily for 5 days. At discharge she will continue with Dulera 2 puffs twice daily and Pro air 2 puffs 3 times a day as needed for shortness of breath. Patient will also be provided Mucinex 600 mg twice daily for congestion. Patient did qualify for home oxygen. She is to maintain sats above 90%. This can be weaned off with the help of pulmonology as an outpatient. Recommend to follow up with pulmonology in 1-2 weeks to follow up this hospitalization and continue her care. Patient will establish care with a PCP in the area. 3. Patient with tobacco abuse. Patient desires to quit. Patient provided nicotine patch to help her in this process. This can be further addressed by her PCP. 4. Patient with chronic back pain shows mild spondylosis of the thoracolumbar region. Patient may use Tylenol as needed for pain. A limited supply of tramadol 50 mg 1 pill 3 times a day as needed for pain will be provided. This can be further addressed by her PCP. Patient did work with physical therapy. Patient will continue with rolling walker to help with her progress. Fall precautions recommended. 5. Patient has diabetes mellitus type 2. This is a new diagnosis for her. A1c 7.7. Patient was started on metformin. At discharge she will continue with metformin 500 mg 1 pill twice daily. Recommend to maintain blood sugars less 140 fasting and less than 200 after meals. Further adjustment can be done by her PCP. 6. Patient has hypertension. This is a new diagnosis for the patient. Patient was started on medication. At discharge she will continue with lisinopril 10 mg daily. Recommend to maintain blood pressures less 150/80. Further adjustment can be done by her PCP. 7. Patient likely has underlying obstructive sleep apnea. Patient will follow up with pulmonology to further evaluate. 8. Lifestyle modification education will be provided. Diet: ADA Activity: Fall precautions Time spent managing pt's care (in minutes): 55
[2018-04-21 12:05] LABS: Arterial Blood Carboxyhemoglob 1.4 % (0-1.5); Blood O2 Saturation 89.6 % (92-98.5)
[2018-04-21 12:28] VITALS: BP 139/65; TEMP 98.8
[2018-04-21 14:19] VITALS: O2SAT 96
== END 2018-04-21 15:37 | disposition home or self-care (01) ==
LOC: ER 08:31 → ERHOLD 11:10 → 4TH 13:07
PROVIDERS: ADMIT Family Medicine; ATTEND Family Medicine
DX: J44.1 Chronic obstructive pulmonary disease with (acute) exacerbation (principal); R09.02 Hypoxemia; R06.82 Tachypnea, not elsewhere classified; M47.895 Other spondylosis, thoracolumbar region; E11.9 Type 2 diabetes mellitus without complications; I10 Essential (primary) hypertension; E66.9 Obesity, unspecified; Z68.43 Body mass index [BMI] 50.0-59.9, adult; F17.210 Nicotine dependence, cigarettes, uncomplicated
CPT/HCPCS: 36415; 71045; 71046; 72080; 80048; 80061; 81003; 81015; 82805; 82962; 83036; 83605; 83735; 83880; 84145; 84439; 84443; 84484; 85025; 87040; 87070; 87077; 87086; 87088; 87186; 87205; 87804; 93005; 93306; 96374; 97162; 99285; G0378; J1650; J2930; J7512; J7606

== ENCOUNTER 2018-05-10 14:49 | Emergency (ER) | payer OTHER ==
[2018-05-10 16:10] LABS: Absolute Lymphocytes (CBC) 1.7 K/uL (0.7-4.9); Absolute Monocytes 0.5 K/uL (0.1-1.3); Absolute Neutrophil 4.7 K/uL (1.8-8.0); Basophils % 0.5 % (0-1.3); Eosinophils % 0.9 % (0-4.4); Hematocrit 46.2 % (36.0-45.0); Lymphocytes % 24.6 % (15.3-44.8); MPV 9.8 fL (7.6-11.3); Monocytes % 7.1 % (3.3-12.3); RBC Red Blood Cell Count 5.56 M/uL (3.86-4.86)
--- NOTE | 2018-05-10 16:24 | RAD REPORT ---
EXAM DESCRIPTION: US - Abdomen Exam Limited - 05/10/2018 3:40 pm CLINICAL HISTORY: Abdominal pain COMPARISON: None. FINDINGS: No gallstones, sludge or other abnormalities within the gallbladder lumen. There is no wal l thickening or pericholecystic fluid. No common duct stone or biliary tree dilatation identified. IMPRESSION: Normal gallbladder and biliary tree ultrasound.
[2018-05-10 16:35] LABS: ALT/SGPT 36 U/L (12-78); AST/SGOT 17 U/L (15-37); Albumin 3.2 g/dL (3.4-5.0); Alkaline Phosphatase 89 U/L (45-117); BUN Blood Urea Nitrogen 11 mg/dL (7-18); Bicarbonate 32 mmol/L (21-32); Bilirubin Direct < 0.1 mg/dL (0-0.2); Bilirubin Total 0.4 mg/dL (0.2-1.0); Glucose Level 124 mg/dL (74-106); Lipase 65 U/L (73-393); Potassium 3.9 mmol/L (3.5-5.1); Protein, Total 7.2 g/dL (6.4-8.2); Sodium Level 140 mmol/L (136-145)
--- NOTE | 2018-05-10 16:44 | RAD REPORT ---
EXAM DESCRIPTION: RAD - Chest Pa And Lat (2 Views) - 05/10/2018 3:46 pm CLINICAL HISTORY: Cough and congestion, hypertension COMPARISON: April 20 TECHNIQUE: PA and lateral views of the chest were obtained. FINDINGS: The lungs are normal volume. Stranding changes are present in each lung base not clearly d ifferent from comparison. Patient has an underlying interstitial fibrotic pattern. No consolidation i dentified. No failure or volume overload. Heart size is normal and central vasculature is within no rmal limits. No pleural effusion or pneumothorax seen. No acute bony finding noted. No aortic abno rmality. IMPRESSION: Interstitial fibrotic pattern not clearly different from April 20 imaging. Extent of chronic disease in each lung base could mask early interstitial edema or infiltrate.
--- NOTE | 2018-05-10 17:15 | EDPHYS ---
Physician Documentation [facility] Name: Nicole Martínez Age: 63 yrs Sex: Female : 1955 Arrival Date: 05/10/2018 Time: 14:57 Bed 23 Private MD: ED Physician Basil Henry HPI: 05/10 16:22 This 63 yrs old Female presents to ER via EMS with complaints of Cough and jr8 back pain. 16:23 Patient stated that she has coughing that has been persistent for the past couple of jr8 weeks. Now having mid right back pain radiating to right upper abdomen. Denies fevers, n/v/d, or shortness of breath. Also today started to have right nare epistaxis . Severity of symptoms: At their worst the symptoms were moderate in the emergency department the symptoms are unchanged. It is unknown whether or not the patient has had similar symptoms in the past. The patient has not recently seen a physician. Historical: - Allergies: 15:12 Percodan; mg2 - Home Meds: 15:12 Aspirin Oral [Active]; mg2 - PMHx: 15:12 Diabetes - NIDDM; Hypertension; mg2 - PSHx: 15:12 ; mg2 - Immunization history:: Flu vaccine is not up to date. - Social history:: Smoking status: Patient/guardian denies using tobacco, the patient reports quitting approximately .2 years ago, Patient/guardian denies using alcohol, street drugs, IV drugs. - Ebola Screening: : No symptoms or risks identified at this time. ROS: 16:23 Eyes: Negative for injury, pain, redness, and discharge, Neck: Negative for injury, jr8 pain, and swelling, Cardiovascular: Negative for chest pain, palpitations, and edema, MS/Extremity: Negative for injury and deformity, Skin: Negative for injury, rash, and discoloration, Neuro: Negative for headache, weakness, numbness, tingling, and seizure. 16:23 ENT: Positive for nose bleed, Negative for drainage from ear(s), ear pain, sinus congestion, sinus pain, difficulty swallowing, difficulty handling secretions, hoarseness. 16:23 Respiratory: Positive for cough, Negative for dyspnea on exertion, shortness of breath, sputum production, wheezing. 16:23 Abdomen/GI: Positive for abdominal pain, Negative for nausea, vomiting, and diarrhea, abdominal distension, anorexia, dysphagia, hematemesis, black/tarry stool, rectal pain, rectal bleeding, bowel incontinence, flatulence. 16:23 Back: Positive for pain at rest, pain with movement, of the right mid back. Exam: 16:25 Head/Face: Normocephalic, atraumatic. Eyes: Pupils equal round and reactive to light, jr8 extra-ocular motions intact. Lids and lashes normal. Conjunctiva and sclera are non-icteric and not injected. Cornea within normal limits. Periorbital areas with no swelling, redness, or edema. ENT: Nares patent. No nasal discharge, no septal abnormalities noted. Dried blood right nare. Tympanic membranes are normal and external auditory canals are clear. Oropharynx with no redness, swelling, or masses, exudates, or evidence of obstruction, uvula midline. Mucous membranes moist. Neck: Trachea midline, no thyromegaly or masses palpated, and no cervical lymphadenopathy. Supple, full range of motion without nuchal rigidity, or vertebral point tenderness. No Meningismus. Cardiovascular: Regular rate and rhythm with a normal S1 and S2. No gallops, murmurs, or rubs. Normal PMI, no JVD. No pulse deficits. Respiratory: Lungs have equal breath sounds bilaterally, clear to auscultation and percussion. No rales, rhonchi or wheezes noted. No increased work of breathing, no retractions or nasal flaring. Skin: Warm, dry with normal turgor. Normal color with no rashes, no lesions, and no evidence of cellulitis. MS/ Extremity: Pulses equal, no cyanosis. Neurovascular intact. Full, normal range of motion. Neuro: Awake and alert, GCS 15, oriented to person, place, time, and situation. Cranial nerves II-XII grossly intact. Motor strength 5/5 in all extremities. Sensory grossly intact. Cerebellar exam normal. Normal gait. 16:25 Abdomen/GI: Inspection: obese Bowel sounds: active, all quadrants, Palpation: soft, in all quadrants, moderate abdominal tenderness, in the right upper quadrant, mass, is not appreciated, rebound tenderness, is not appreciated, voluntary guarding, is not appreciated, involuntary guarding, is not appreciated, no appreciated organomegaly, Indicators: McBurney's point is not tender, Mcgrath's sign is negative, Rovsing's sign is negative, Obturator sign is negative, Psoas sign is negative, Liver: tenderness, is not appreciated. 16:25 Back: pain, that is mild, of the right mid back, ROM is painful, normal spinal alignment noted, vertebral tenderness, is not appreciated, muscle spasm, is not present. Vital Signs: 15:10 BP 180 / 86; Pulse 69; Resp 18; Temp 97.8; Pulse Ox 97% on R/A; Weight 136.08 kg; mg2 Height 5 ft. 4 in. (162.56 cm); Pain 0/10; 16:19 BP 156 / 85; Pulse 70; Resp 18; Pulse Ox 96% on R/A; Pain 0/10; mg2 17:31 BP 165 / 70; Pulse 71; Resp 8; Pulse Ox 100% on R/A; Pain 0/10; mg2 15:10 Body Mass Index 51.49 (136.08 kg, 162.56 cm) mg2 MDM: 15:06 Patient medically screened. jr8 17:11 Data reviewed: vital signs, nurses notes, lab test result(s), radiologic studies, plain jr8 films, ultrasound. Data interpreted: Pulse oximetry: on room air is 96 %. Interpretation: normal. Counseling: I had a detailed discussion with the patient and/or guardian regarding: the historical points, exam findings, and any diagnostic results supporting the discharge/admit diagnosis, the presence of at least one elevated blood pressure reading (>120/80) during this emergency department visit, lab results, radiology results, the need for outpatient follow up, a family practitioner, to return to the emergency department if symptoms worsen or persist or if there are any questions or concerns that arise at home. ED course: Discussed with patient that the back pain is more then likely musculoskeletal in nature. No acute pulmonary or abdominal findings. Labs normal. Will send home on BP meds since she had undesirable effects from her lisinopril. No nasal epistaxis any longer. Discussed close f/u. Patient has PCP f/u this upcoming week. Knows to come back if worse . 05/10 15:21 Order name: Basic Metabolic Panel; Complete Time: 16:40 jr8 05/10 15:21 Order name: CBC with Diff; Complete Time: 16:23 jr8 05/10 15:21 Order name: Creatinine for Radiology; Complete Time: 16:33 jr8 05/10 15:21 Order name: Hepatic Function; Complete Time: 16:40 8 05/10 15:21 Order name: Lipase; Complete Time: 16:40 8 05/10 15:21 Order name: XRAY Chest Pa And Lat (2 Views); Complete Time: 16:45 8 05/10 15:21 Order name: IV Saline Lock; Complete Time: 16:24 8 05/10 15:21 Order name: Labs collected and sent; Complete Time: 16:24 8 05/10 15:22 Order name: US Abdomen Limited; Complete Time: 16:33 jr8 Administered Medications: No medications were administered Disposition: 05/10/18 17:14 Discharged to Home. Impression: Muscle spasm of back, Epistaxis, Essential (primary) hypertension. - Condition is Stable. - Discharge Instructions: Nosebleed, Adult, Hypertension, Muscle Cramps and Spasms, Back Exercises, [id number], Heat Therapy. - Prescriptions for Norvasc 5 mg Oral Tablet - take 1 tablet by ORAL route once daily; 20 tablet. Robaxin 500 mg Oral Tablet - take 2 tablet by ORAL route every 6 hours As needed; 40 tablet. - Medication Reconciliation Form, Thank You Letter, Antibiotic Education, Prescription Opioid Use form. - Follow up: Mainor Joy DO; When: 2 - 3 days; Reason: Recheck today's complaints, Continuance of care, Re-evaluation by your physician. - Problem is new. - Symptoms have improved. Signatures: Dispatcher [employer] EDIN Hemanth Montoya PA PA jr8 Reyes Means RN RN mg2 Corrections: (The following items were deleted from the chart) 17:32 17:14 05/10/2018 17:14 Discharged to Home. Impression: Muscle spasm of back; Epistaxis; mg2 Essential (primary) hypertension. Condition is Stable. Forms are Medication Reconciliation Form, Thank You Letter, Antibiotic Education, Prescription Opioid Use. Follow up: Mainor Joy; When: 2 - 3 days; Reason: Recheck today's complaints, Continuance of care, Re-evaluation by your physician. Problem is new. Symptoms have improved. jr8
--- NOTE | 2018-05-10 17:15 | ER ---
Nurse's Notes [facility] Name: Nicole Martínez Age: 63 yrs Sex: Female : 1955 Arrival Date: 05/10/2018 Time: 14:57 Bed 23 Private MD: Diagnosis: Muscle spasm of back;Epistaxis;Essential (primary) hypertension Presentation: 05/10 15:07 Presenting complaint: EMS states: patient has nasal bleeding since 2 pm but controlled. mg2 been coughing since hospitalization here this first week of April. patient stopped taking her Lisinopril and metformin for 3 days because she feels nauseous from it. Transition of care: patient was not received from another setting of care. Onset of symptoms was May 10, 2018 at 14:00. Risk Assessment: Do you want to hurt yourself or someone else? Patient reports no desire to harm self or others. Initial Sepsis Screen: Does the patient meet any 2 criteria? No. Patient's initial sepsis screen is negative. Does the patient have a suspected source of infection? No. Patient's initial sepsis screen is negative. Care prior to arrival: None. 15:07 Method Of Arrival: EMS: [facility] mg2 15:07 Acuity: KAELYN 3 mg2 Triage Assessment: 15:33 General: Appears in no apparent distress. comfortable, Behavior is calm, cooperative. mg2 Pain: Denies pain. EENT: Nares with bleeding noted on right but controlled. . Neuro: Level of Consciousness is awake, alert, obeys commands, Oriented to person, place, time, situation. Cardiovascular: Capillary refill < 3 seconds Patient's skin is warm and dry. Respiratory: Airway is patent Respiratory effort is even, unlabored, Respiratory pattern is regular, symmetrical. GI: No signs and/or symptoms were reported involving the gastrointestinal system. : No signs and/or symptoms were reported regarding the genitourinary system. Derm: Skin is intact, is healthy with good turgor, Skin is pink, warm \T\ dry. normal. Musculoskeletal: Circulation, motion, and sensation intact. Capillary refill < 3 seconds. Historical: - Allergies: 15:12 Percodan; mg2 - Home Meds: 15:12 Aspirin Oral [Active]; mg2 - PMHx: 15:12 Diabetes - NIDDM; Hypertension; mg2 - PSHx: 15:12 ; mg2 - Immunization history:: Flu vaccine is not up to date. - Social history:: Smoking status: Patient/guardian denies using tobacco, the patient reports quitting approximately .2 years ago, Patient/guardian denies using alcohol, street drugs, IV drugs. - Ebola Screening: : No symptoms or risks identified at this time. Screenin:33 Abuse screen: Denies threats or abuse. Denies injuries from another. Nutritional mg2 screening: No deficits noted. Tuberculosis screening: No symptoms or risk factors identified. Fall Risk IV access (20 points). Assessment: 15:32 Reassessment: patient sent for ultrasound via wheelchair. mg2 Vital Signs: 15:10 BP 180 / 86; Pulse 69; Resp 18; Temp 97.8; Pulse Ox 97% on R/A; Weight 136.08 kg; mg2 Height 5 ft. 4 in. (162.56 cm); Pain 0/10; 16:19 BP 156 / 85; Pulse 70; Resp 18; Pulse Ox 96% on R/A; Pain 0/10; mg2 17:31 BP 165 / 70; Pulse 71; Resp 8; Pulse Ox 100% on R/A; Pain 0/10; mg2 15:10 Body Mass Index 51.49 (136.08 kg, 162.56 cm) mg2 ED Course: 14:57 Patient arrived in ED. ls4 15:06 Hemanth Montoya PA is PHCP. jr8 15:06 Basil Henry MD is Attending Physician. jr8 15:06 Reyes Means, RN is Primary Nurse. mg2 15:10 Triage completed. mg2 15:13 Arm band placed on. mg2 15:33 No provider procedures requiring assistance completed. mg2 15:38 Patient has correct armband on for positive identification. mg2 15:41 US Abdomen Limited In Process Unspecified. EDMS 15:45 XRAY Chest Pa And Lat (2 Views) In Process Unspecified. EDMS 16:22 Inserted saline lock: 20 gauge in left antecubital area, using aseptic technique. Blood mg2 collected. 17:13 Mainor Joy DO is Referral Physician. jr8 17:32 IV discontinued, intact, bleeding controlled, No redness/swelling at site. Pressure mg2 dressing applied. Administered Medications: No medications were administered Outcome: 17:14 Discharge ordered by . jr8 17:32 Discharged to home ambulatory, with family. mg2 17:32 Condition: stable 17:32 Discharge instructions given to patient, family, Instructed on discharge instructions, follow up and referral plans. medication usage, Demonstrated understanding of instructions, follow-up care, medications, Prescriptions given X 2. 17:32 Patient left the ED. mg2 Signatures: Dispatcher [employer] EDMS Hemanth Montoya PA PA jr8 Reyes Means RN RN mg2 Galina Priest RN RN ls4 Corrections: (The following items were deleted from the chart) 15:13 15:07 Presenting complaint: EMS states: patient has nasal bleeding since 2 pm but mg2 controlled. not on blood thinner. been coughing since hospitalization here this first week of April. patient stopped taking her Lisinopril and metformin for 3 days because she feels nauseous from it. mg2
[2018-05-10 17:51] VITALS: TEMP 97.8
[2018-05-10 17:52] VITALS: BP 165/70; O2SAT 100
== END 2018-05-10 17:32 | disposition home or self-care (01) ==
LOC: ER 14:49
DX: M62.830 Muscle spasm of back (principal); I10 Essential (primary) hypertension; R04.0 Epistaxis; Z79.82 Long term (current) use of aspirin; Z88.5 Allergy status to narcotic agent; Z87.891 Personal history of nicotine dependence
CPT/HCPCS: 36415; 71046; 76705; 80048; 80076; 83690; 85025; 99284

== ENCOUNTER 2018-10-27 01:59 | Emergency (ER) | payer OTHER ==
--- OUTSIDE RECORDS SUMMARY | 2018-10-27 02:01 | XMS REPORT ---
:1955 Author Organization eClinicalWorks Care Team Providers Name Role Phone Mainor Joy Provider Role Unavailable Allergies No Known Allergies Problems Problem Type Condition Code Onset Dates Condition Status Problem HTN, goal below 130/80 I10 Active Problem 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, unspecified spinal osteoarthritis complication status Problem Depression with anxiety F41.8 Active Problem Other chronic pain G89.29 Active Problem Low back pain M54.5 Active Problem Type 2 diabetes mellitus with E11.8 Active complication, without long-term current use of insulin Problem Asymptomatic hypertensive urgency I16.0 Active Problem Tobacco use disorder F17.200 Active Problem Chronic obstructive pulmonary J44.9 Active disease, unspecified COPD type Medications Medication Code Code Instructions Start End Date Status Dosage System Date Ree [facility] 92123503620 2.5-500 MG May 18, Inactive 1 tablet Orally Twice a 2019 with meals day Alhaji [facility] 40586069957 5 MG Orally Once June 17, Active 1 tablet a day 2019 Results No Known Results Summary Purpose eClinicalWorks Submission
--- OUTSIDE RECORDS SUMMARY | 2018-10-27 02:01 | XMS REPORT ---
:1955 Author Organization eClinicalWorks Care Team Providers Name Role Phone Mainor Joy Provider Role Unavailable Allergies No Known Allergies Problems Problem Type Condition Code Onset Dates Condition Status Problem Tobacco use disorder F17.200 Active Problem Depression with anxiety F41.8 Active Problem Other chronic pain G89.29 Active Assessment Type 2 diabetes mellitus with other E11.29 Active diabetic kidney complication Problem Chronic obstructive pulmonary J44.9 Active disease, unspecified COPD type Problem Type 2 diabetes mellitus with E11.8 Active complication, without long-term current use of insulin Problem Type 2 diabetes mellitus with other E11.29 Active diabetic kidney complication Problem 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, unspecified spinal osteoarthritis complication status Problem Low back pain M54.5 Active Problem Asymptomatic hypertensive urgency I16.0 Active Problem HTN, goal below 130/80 I10 Active Medications Medication Code System Code Instructions Start End Date Status Dosage Date GlipiZIDE [facility] 71542084150 5 MG Orally Once July 05, Active 1 tablet a day 2018 Tradjenta [facility] 81546284411 5 MG Orally Once June 17, Inactive 1 tablet a day 2019 Results No Known Results Summary Purpose eClinicalWorks Submission
--- OUTSIDE RECORDS SUMMARY | 2018-10-27 02:01 | XMS REPORT ---
:1955 Author Organization eClinicalWorks Care Team Providers Name Role Phone Mainor Joy Provider Role Unavailable Allergies No Known Allergies Problems Problem Type Condition Code Onset Dates Condition Status Problem Tobacco use disorder F17.200 Active Problem Depression with anxiety F41.8 Active Problem Other chronic pain G89.29 Active Problem Chronic obstructive pulmonary J44.9 Active [...] below 130/80 I10 Active Medications Medication Code Code Instructions Start End Status Dosage System Date Date Tramadol HCl NDC 0 Active not defined Losartan [facility] 26109159951 25 MG Orally June Active 1 tablet Potassium Once a day 2018 Methocarbamol [facility] [address]-21 Active not defined ProAir HFA [facility] 80748182719 108 (90 Base) Active 2 puffs MCG/ACT as needed Inhalation every 6 hrs GlipiZIDE [facility] 35557372096 5 MG Orally June Active 1 tablet Once a day 2018 Robaxin [facility] 79902801691 500 MG Orally Active 1.5 every 4 hrs tablets Dulera [facility] 98239966519 200-5 MCG/ACT Active 2 puffs Inhalation Twice a day Results No Known Results Summary Purpose eClinicalWorks Submission
--- OUTSIDE RECORDS SUMMARY | 2018-10-27 02:01 | XMS REPORT ---
:1955 Author Organization eClinicalWorks Care Team Providers Name Role Phone Eben Stephens Provider Role Unavailable Allergies No Known Allergies [...] HTN, goal below 130/80 I10 Active Medications No Known Medications Results No Known Results Summary Purpose eClinicalWorks Submission
--- OUTSIDE RECORDS SUMMARY | 2018-10-27 02:01 | XMS REPORT ---
:1955 Author Organization eClinicalWorks Care Team Providers Name Role Phone Mainor Joy Provider Role Unavailable Allergies, Adverse Reactions, Alerts Substance Reaction Event Type Metformin HCl diarrhea Drug Allergy Lisinopril Cough Drug Allergy Amlodipine Besylate LE Swelling Drug Allergy Problems Problem Type Condition Code Onset Dates Condition Status Problem Tobacco use disorder F17.200 Active Problem Depression with anxiety F41.8 Active Problem Other chronic pain G89.29 Active Problem Chronic obstructive pulmonary J44.9 Active disease, unspecified COPD type Assessment Other chronic pain G89.29 Active Problem Type 2 diabetes mellitus with E11.8 Active complication, without long-term current use of insulin Assessment Asymptomatic bacteriuria R82.71 Active Problem Type 2 diabetes mellitus with other E11.29 Active diabetic kidney complication Problem 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, unspecified spinal osteoarthritis complication status Problem Low back pain M54.5 Active Problem Asymptomatic hypertensive urgency I16.0 Active Problem HTN, goal below 130/80 I10 Active Assessment Low back pain M54.5 Active Assessment HTN, goal below 130/80 I10 Active Assessment 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, unspecified spinal osteoarthritis complication status Assessment Tobacco use disorder F17.200 Active Assessment Proteinuria, unspecified R80.9 Active Assessment Chronic obstructive pulmonary J44.9 Active disease, unspecified COPD type Assessment Left shoulder pain, unspecified M25.512 Active chronicity Assessment Type 2 diabetes mellitus with other E11.29 Active diabetic kidney complication Assessment Depression with anxiety F41.8 Active Medications Medication Code Code Instructions Start End Status Dosage System Date Date Zoloft [facility] 29736708562 50 MG Orally Inactive take 1/2 Once a day tab qd x 1 week then take 1 tab qd Losartan ND 07361945309 25 MG Orally June Active 1 tablet Potassium Once a day 2018 Tradjenta [facility] 32561231589 5 MG Orally June Active 1 tablet Once a day 2018 ProAir HFA [facility] 31032728771 108 (90 Base) Active 2 puffs as MCG/ACT needed Inhalation every 6 hrs Dulera [facility] 28336426570 200-5 MCG/ACT Active 2 puffs Inhalation Twice a day Robaxin [facility] 36299243810 500 MG Orally Active 1.5 every 4 hrs tablets Norvasc [facility] 72461494088 10 MG Orally Inactive 1 tablet Once a day Results No Known Results Summary Purpose eClinicalWorks Submission
--- OUTSIDE RECORDS SUMMARY | 2018-10-27 02:01 | XMS REPORT ---
:1955 Author Organization eClinicalWorks Care Team Providers Name Role Phone JoyMainor Provider Role Unavailable Allergies No Known Allergies [...]
--- OUTSIDE RECORDS SUMMARY | 2018-10-27 02:01 | XMS REPORT ---
:1955 Author Organization eClinicalWorks Care Team Providers Name Role Phone Rufino Mainor Provider Role Unavailable Allergies No Known Allergies [...] J44.9 Active disease, unspecified COPD type Medications No Known Medications Results No Known Results Summary Purpose eClinicalWorks Submission
--- OUTSIDE RECORDS SUMMARY | 2018-10-27 02:02 | XMS REPORT ---
:1955 Author Organization eClinicalWorks Care Team Providers Name Role Phone Eben Stephens Provider Role Unavailable Allergies, Adverse Reactions, Alerts Substance Reaction Event Type Metformin HCl diarrhea Drug Allergy Lisinopril Cough Drug Allergy Amlodipine Besylate LE Swelling Drug Allergy Problems Problem Type Condition Code Onset Dates Condition Status Problem Tobacco use disorder F17.200 Active Problem Depression with anxiety F41.8 Active Problem Other chronic pain G89.29 Active Assessment Cervical radiculopathy M54.12 Active Assessment Pain, joint, shoulder, left M25.512 Active Problem Chronic obstructive pulmonary J44.9 Active [...] Start End Status Dosage System Date Date Losartan [facility] 03866527263 25 MG Orally June Active 1 tablet Potassium Once a day 2018 GlipiZIDE [facility] 48474560699 5 MG Orally June Active 1 tablet Once a day 2018 ProAir HFA [facility] 89980224467 108 (90 Base) Active 2 puffs MCG/ACT as needed Inhalation every 6 hrs Dulera [facility] 01757724137 200-5 MCG/ACT Active 2 puffs Inhalation Twice a day Robaxin [facility] 78336111281 500 MG Orally Active 1.5 every 4 hrs tablets Methocarbamol [facility] [address]-00 Active not defined Tramadol HCl NDC 0 Active not defined Results No Known Results Summary Purpose eClinicalWorks Submission
[2018-10-27 03:08] LABS: Absolute Lymphocytes (CBC) 2.3 K/uL (0.7-4.9); Basophils % 0.3 % (0-1.3); Hematocrit 41.4 % (36.0-45.0); Lymphocytes % 27.7 % (15.3-44.8); MPV 9.3 fL (7.6-11.3); RBC Red Blood Cell Count 4.92 M/uL (3.86-4.86)
[2018-10-27 03:26] LABS: Potassium 3.9 mmol/L (3.5-5.1)
--- NOTE | 2018-10-27 04:55 | ER ---
Nurse's Notes [facility] Name: Nicole Martínez Age: 63 yrs Sex: Female : 1955 Arrival Date: 10/27/2018 Time: 02:02 Bed 5 Private MD: Diagnosis: Otalgia;Edema, unspecified Presentation: 10/27 02:14 Presenting complaint: Patient states: " I am having pain in my right ear and down into jd3 my throat. It is extremely painful to swallow and both my legs are swollen.". Transition of care: patient was not received from another setting of care. Onset of symptoms was October 27, 2018. Risk Assessment: Do you want to hurt yourself or someone else? Patient reports no desire to harm self or others. Initial Sepsis Screen: Does the patient meet any 2 criteria? No. Patient's initial sepsis screen is negative. Does the patient have a suspected source of infection? No. Patient's initial sepsis screen is negative. Care prior to arrival: None. 02:14 Method Of Arrival: Ambulatory jd3 02:14 Acuity: KAELYN 2 jd3 Historical: - Allergies: 02:20 Percodan; jd3 - Home Meds: 02:20 proair [Active]; Dulera inhalation inhalation [Active]; jd3 - PMHx: 02:20 Diabetes - NIDDM; Hypertension; jd3 - PSHx: 02:20 ; jd3 - Immunization history:: Adult Immunizations up to date. - Social history:: Smoking status: Patient uses tobacco products, denies chronic smoking, but will smoke occasionally. - Ebola Screening: : Patient negative for fever greater than or equal to 101.5 degrees Fahrenheit, and additional compatible Ebola Virus Disease symptoms. Screenin:13 Abuse screen: Denies threats or abuse. Denies injuries from another. Nutritional cc3 screening: No deficits noted. Tuberculosis screening: No symptoms or risk factors identified. Fall Risk Ambulatory Aid- None/Bed Rest/Nurse Assist (0 pts). Gait- Normal/Bed Rest/Wheelchair (0 pts) Mental Status- Oriented to own ability (0 pts). Assessment: 02:13 General: Appears in no apparent distress. uncomfortable, Behavior is calm, cooperative, cc3 appropriate for age. Pain: Complains of pain in right ear and neck pain. Neuro: Level of Consciousness is awake, alert, obeys commands, Oriented to person, place, time, situation, Appropriate for age. Cardiovascular: Denies chest pain, Capillary refill < 3 seconds Patient's skin is warm and dry. Respiratory: Airway is patent Respiratory effort is even, unlabored, Respiratory pattern is regular, symmetrical. GI: Abdomen is round obese. : No signs and/or symptoms were reported regarding the genitourinary system. EENT: Throat with gag reflex present. Derm: Skin is intact, is fragile, Skin is pink, warm \\T\\ dry. normal. Musculoskeletal: Circulation, motion, and sensation intact. Range of motion: intact in all extremities. 02:13 Respiratory: Breath sounds are clear bilaterally. cc3 03:18 Reassessment: Patient appears in no apparent distress at this time. Patient and/or cc3 family updated on plan of care and expected duration. Pain level reassessed. Patient is alert, oriented x 3, equal unlabored respirations, skin warm/dry/pink. 04:26 Reassessment: Patient appears in no apparent distress at this time. Patient and/or cc3 family updated on plan of care and expected duration. Pain level reassessed. Patient is alert, oriented x 3, equal unlabored respirations, skin warm/dry/pink. Patient came back from CT scan department, awaiting result. Patient denies pain at this time. 05:00 Reassessment: Patient appears in no apparent distress at this time. Patient and/or cc3 family updated on plan of care and expected duration. Pain level reassessed. Patient is alert, oriented x 3, equal unlabored respirations, skin warm/dry/pink. Dr. Bennett discharged the patient home, no prescription given. IV cannula removed and patient left ER vitally stable by wheelchair escorted by her son. No valuables left in the patient's room. Patient denies pain at this time. Patient states symptoms have improved. Vital Signs: 02:16 BP 225 / 92; Pulse 82; Resp 19 S; Temp 97.9(O); Pulse Ox 97% on R/A; Weight 136.08 kg jd3 (R); Height 5 ft. 4 in. (162.56 cm) (R); Pain 5/10; 03:42 BP 171 / 95; Pulse 65; Resp 20 S; Pulse Ox 95% on R/A; cc3 04:50 BP 170 / 73; Pulse 68; Resp 19 S; Pulse Ox 96% on R/A; cc3 02:16 Body Mass Index 51.49 (136.08 kg, 162.56 cm) j ED Course: 02:02 Patient arrived in ED. cl3 02:13 Lien Hong is Primary Nurse. cc3 02:13 Patient has correct armband on for positive identification. Bed in low position. Call cc3 light in reach. Side rails up X 1. Pulse ox on. NIBP on. 02:16 Triage completed. jd3 02:16 Arm band placed on. jd3 02:25 Reese Bennett MD is Attending Physician. 02:35 Radiology exam delayed due to lab results not completed at this time. (BUN/Creatinine). 02:47 Inserted saline lock: 20 gauge in left antecubital area, using aseptic technique. Blood oe collected. 03:17 Radiology exam delayed due to lab results not completed at this time. (BUN/Creatinine). 04:00 Radiology exam delayed due to IV insertion attempt and/or patient not having appropriate IV at this time. 04:19 CT completed. Patient tolerated procedure well. Patient moved to CT via wheelchair. Patient moved back from CT. 04:29 Soft Tissue Neck W/Contr In Process Unspecified. EDMS 05:00 No provider procedures requiring assistance completed. IV discontinued, intact, cc3 bleeding controlled, No redness/swelling at site. Pressure dressing applied. Administered Medications: No medications were administered Outcome: 04:54 Discharge ordered by . 05:00 Discharged to home via wheelchair, with family. cc3 05:00 Condition: stable 05:00 Discharge instructions given to patient, Instructed on discharge instructions, follow up and referral plans. Demonstrated understanding of instructions, follow-up care. 05:11 Patient left the ED. cc3 Signatures: Dispatcher [employer] [facility] Robbin Khoury Edison Nam Reese Benntet MD MD Tai Cuevas, RN RN j Lien Hong cc3 Gladys Connell cl3
--- NOTE | 2018-10-27 04:55 | EDPHYS ---
Physician Documentation [facility] Name: Nicole Martínez Age: 63 yrs Sex: Female : 1955 Arrival Date: 10/27/2018 Time: 02:02 Bed 5 Private MD: ED Physician Reese Bennett HPI: 10/27 05:02 This 63 yrs old Female presents to ER via Ambulatory with complaints of Sore gs Throat, Ear Pain, Swelling of Lower Extremity. 05:02 The patient presents with sore throat. The patient describes throat pain as scratchy. gs Onset: The symptoms/episode began/occurred 2 day(s) ago. 05:06 Severity of symptoms: At their worst the symptoms were mild. Associated signs and gs symptoms: Pertinent positives: r ear ache. The patient has experienced similar episodes in the past, a few times. The patient has not recently seen a physician. Historical: - Allergies: 02:20 Percodan; jd3 - Home Meds: 02:20 proair [Active]; Dulera inhalation inhalation [Active]; jd3 - PMHx: 02:20 Diabetes - NIDDM; Hypertension; jd3 - PSHx: 02:20 ; jd3 - Immunization history:: Adult Immunizations up to date. - Social history:: Smoking status: Patient uses tobacco products, denies chronic smoking, but will smoke occasionally. - Ebola Screening: : Patient negative for fever greater than or equal to 101.5 degrees Fahrenheit, and additional compatible Ebola Virus Disease symptoms. ROS: 05:06 All other systems are negative. gs Exam: 05:06 Head/Face: Normocephalic, atraumatic. Eyes: Pupils equal round and reactive to light, gs extra-ocular motions intact. Lids and lashes normal. Conjunctiva and sclera are non-icteric and not injected. Cornea within normal limits. Periorbital areas with no swelling, redness, or edema. Chest/axilla: Normal chest wall appearance and motion. Nontender with no deformity. No lesions are appreciated. Cardiovascular: Regular rate and rhythm with a normal S1 and S2. No gallops, murmurs, or rubs. Normal PMI, no JVD. No pulse deficits. Respiratory: Lungs have equal breath sounds bilaterally, clear to auscultation and percussion. No rales, rhonchi or wheezes noted. No increased work of breathing, no retractions or nasal flaring. Abdomen/GI: Soft, non-tender, with normal bowel sounds. No distension or tympany. No guarding or rebound. No evidence of tenderness throughout. Back: No spinal tenderness. No costovertebral tenderness. Full range of motion. Skin: Warm, dry with normal turgor. Normal color with no rashes, no lesions, and no evidence of cellulitis. MS/ Extremity: Pulses equal, no cyanosis. Neurovascular intact. Full, normal range of motion. Neuro: Awake and alert, GCS 15, oriented to person, place, time, and situation. Cranial nerves II-XII grossly intact. Motor strength 5/5 in all extremities. Sensory grossly intact. Cerebellar exam normal. Normal gait. 05:06 Constitutional: The patient appears alert, awake. 05:06 ENT: TM's: dullness, Posterior pharynx: is normal. 05:06 Musculoskeletal/extremity: Pulses: are normal with no appreciated deficits, Edema, 1+ to the right ankle is noted, DVT Exam: tenderness, that is mild, of the right leg. Vital Signs: 02:16 BP 225 / 92; Pulse 82; Resp 19 S; Temp 97.9(O); Pulse Ox 97% on R/A; Weight 136.08 kg jd3 (R); Height 5 ft. 4 in. (162.56 cm) (R); Pain 5/10; 03:42 BP 171 / 95; Pulse 65; Resp 20 S; Pulse Ox 95% on R/A; cc3 04:50 BP 170 / 73; Pulse 68; Resp 19 S; Pulse Ox 96% on R/A; cc3 02:16 Body Mass Index 51.49 (136.08 kg, 162.56 cm) jd3 MDM: 02:25 Patient medically screened. gs 05:06 Differential diagnosis: pharyngitis, dvt, neck mass. Data reviewed: vital signs, nurses gs notes. Counseling: I had a detailed discussion with the patient and/or guardian regarding: the historical points, exam findings, and any diagnostic results supporting the discharge/admit diagnosis, lab results, radiology results, the need for outpatient follow up. Response to treatment: the patient's condition has returned to base line. 10/27 02:29 Order name: CBC with Diff gs 10/27 02:29 Order name: Basic Metabolic Panel; Complete Time: 04:52 10/27 02:29 Order name: D-Dimer; Complete Time: 04:52 10/27 02:29 Order name: Strep; Complete Time: 04:52 10/27 02:31 Order name: CBC with Automated Diff; Complete Time: 04:52 EDMS 10/27 03:55 Order name: Throat Culture EDMS 10/27 02:33 Order name: Soft Tissue Neck W/Contr EDMS Administered Medications: No medications were administered Disposition: 10/27/18 04:54 Discharged to Home. Impression: Otalgia, Edema, unspecified. - Condition is Stable. - Discharge Instructions: Earache, Adult, Peripheral Edema. - Medication Reconciliation Form, Thank You Letter, Antibiotic Education, Prescription Opioid Use form. - Follow up: Private Physician; When: 1 - 2 days; Reason: Re-evaluation by your physician. Signatures: Dispatcher [facility] Reese Bennett MD MD gs Davies, Jonathon, RN RN Lien Rubio cc3 Corrections: (The following items were deleted from the chart) 05:11 04:54 10/27/2018 04:54 Discharged to Home. Impression: Otalgia; Edema, unspecified. cc3 Condition is Stable. Forms are Medication Reconciliation Form, Thank You Letter, Antibiotic Education, Prescription Opioid Use. Follow up: Private Physician; When: 1 - 2 days; Reason: Re-evaluation by your physician.
[2018-10-27 06:01] VITALS: TEMP 97.9
[2018-10-27 06:07] VITALS: BP 171/95; O2SAT 95
--- NOTE | 2018-10-27 09:15 | RAD REPORT ---
EXAM DESCRIPTION: CT - Soft Tissue Neck W/Contr - 10/27/2018 6:48 am CLINICAL HISTORY: The patient is 63 years old and is Female; dysphagia TECHNIQUE: Axial computed tomography images of the neck with intravenous contrast. Sagittal and co aurea reformatted images were created and reviewed. This CT exam was performed using one or more of the following dose reduction techniques: automated exposure control, adjustment of the mA and/or k V according to patient size, and/or use of iterative reconstruction technique. COMPARISON: No relevant prior studies available. FINDINGS: OROPHARYNX: Unremarkable. No significant tonsillar enlargement. No peritonsillar abs cess. HYPOPHARYNX: Unremarkable. LARYNX: Unremarkable. Normal epiglottis. TRACHEA: Unremarkable. RETROPHARYNGEAL SPACE: Unremarkable. SUBMANDIBULAR/PAROTID GLANDS: Unremarkable. Glands are normal in size. THYROID: Unremarkable. No enlarged or calcified nodules. BONES/JOINTS: Minimal degenerative change of the spine is present. SOFT TISSUES: The soft tissues are normal. VASCULATURE: Unremarkable. Normal in course and caliber. LYMPH NODES: Unremarkable. No enlarged lymph nodes. LUNG APICES: The lung apices are clear. IMPRESSION: No acute findings. Electronically signed by: Deya Foster MD 10/27/2018 4:44 AM CDT Due to temporary technical issues with the PACS/Fluency reporting system, reports are being signed by the in house radiologist as a courtesy to ensure prompt reporting. The interpreting radiologist is f ully responsible for the content of the report.
== END 2018-10-27 05:11 | disposition home or self-care (01) ==
LOC: ER 01:59
DX: H92.01 Otalgia, right ear (principal); R60.9 Edema, unspecified; E11.9 Type 2 diabetes mellitus without complications; I10 Essential (primary) hypertension; Z72.0 Tobacco use
CPT/HCPCS: 87070; 85025; 80048; 36415; 85379; 87081; 70491; Q9967; 99284

== ENCOUNTER 2019-02-02 16:44 | Emergency (ER) | payer OTHER ==
--- OUTSIDE RECORDS SUMMARY | 2019-02-02 16:47 | XMS REPORT ---
[...] End Status Dosage System Date Date Zoloft [facility] 53086207847 50 MG Orally Inactive take 1/2 Once a day tab qd x 1 week then take 1 tab qd Losartan [place] 23174151838 25 MG Orally June Active 1 tablet Potassium Once a day 2018 Tradjenta [facility] 62244921868 5 MG Orally June Active 1 tablet Once a day 2018 ProAir HFA [facility] 24203700737 108 (90 Base) Active 2 puffs as MCG/ACT needed Inhalation every 6 hrs Dulera [facility] 48895648189 200-5 MCG/ACT Active 2 puffs Inhalation Twice a day Robaxin [facility] 75346594089 500 MG Orally Active 1.5 every 4 hrs tablets Norvasc [facility] 95696443568 10 MG Orally Inactive 1 tablet Once a day Results No Known Results Summary Purpose eClinicalWorks Submission
--- OUTSIDE RECORDS SUMMARY | 2019-02-02 16:47 | XMS REPORT ---
[...] End Status Dosage System Date Date Losartan [facility] 17301880488 25 MG Orally June Active 1 tablet Potassium Once a day 2018 GlipiZIDE [facility] 81146214868 5 MG Orally June Active 1 tablet Once a day 2018 ProAir HFA [facility] 50225398458 108 (90 Base) Active 2 puffs MCG/ACT as needed Inhalation every 6 hrs Dulera [facility] 91790705425 200-5 MCG/ACT Active 2 puffs Inhalation Twice a day Robaxin [facility] 31863473326 500 MG Orally Active 1.5 every 4 hrs tablets Methocarbamol [facility] [address]-06 Active not defined Tramadol HCl NDC 0 Active not defined Results No Known Results Summary Purpose eClinicalWorks Submission
--- OUTSIDE RECORDS SUMMARY | 2019-02-02 16:47 | XMS REPORT ---
[...] End Date Status Dosage System Date Ree [facility] 01110325631 2.5-500 MG May 18, Inactive 1 tablet Orally Twice a 2019 with meals day Alhaji [facility] 32673301009 5 MG Orally Once June 17, Active 1 tablet a day 2019 Results No Known Results Summary Purpose eClinicalWorks Submission
--- OUTSIDE RECORDS SUMMARY | 2019-02-02 16:47 | XMS REPORT ---
[...] Start End Date Status Dosage Date GlipiZIDE [facility] 43111572088 5 MG Orally Once July 05, Active 1 tablet a day 2018 Tradjenta [facility] 81228582698 5 MG Orally Once June 17, Inactive 1 tablet a day 2019 Results No Known Results Summary Purpose eClinicalWorks Submission
--- OUTSIDE RECORDS SUMMARY | 2019-02-02 16:47 | XMS REPORT ---
[...] HCl NDC 0 Active not defined Losartan [facility] 94691470400 25 MG Orally June Active 1 tablet Potassium Once a day 2018 Methocarbamol [facility] [address]-76 Active not defined ProAir HFA [facility] 66488568496 108 (90 Base) Active 2 puffs MCG/ACT as needed Inhalation every 6 hrs GlipiZIDE [facility] 24147400329 5 MG Orally June Active 1 tablet Once a day 2018 Robaxin [facility] 02976537365 500 MG Orally Active 1.5 every 4 hrs tablets Dulera [facility] 65746682821 200-5 MCG/ACT Active 2 puffs Inhalation Twice a day Results No Known Results Summary Purpose eClinicalWorks Submission
--- OUTSIDE RECORDS SUMMARY | 2019-02-02 16:47 | XMS REPORT ---
:1955 [facility] Address [address] [place] [address] Dr. Phillip [address] [place] [address] Care Team Providers Name Role Phone Unavailable Unavailable Unavailable Problems This patient has no known problems. Allergies, Adverse Reactions, Alerts This patient has no known allergies or adverse reactions. Medications This patient has no known medications.
--- NOTE | 2019-02-02 19:10 | RAD REPORT ---
EXAM DESCRIPTION: RAD - Knee Right 3 View - 02/02/2019 6:57 pm CLINICAL HISTORY: Right knee pain FINDINGS: No fracture or dislocation is seen. Diffuse edema is present within the subcutaneous tissues. Mild to moderate osteoarthritis medial compartment consisting joint space narrowing and osteophytes
--- NOTE | 2019-02-02 19:52 | RAD REPORT ---
[facility] DESCRIPTION[facility] 7[facility]43 pm CLINICAL HISTORY: Right leg pain and swelling. COMPARISON: 2014 FINDINGS: Right common femoral, superficial femoral, popliteal and right posterior tibial veins are compressible and demonstrate augmentation. Doppler demonstrates good flow. 3.2 centimeter Hernández's cyst IMPRESSION: No evidence of deep venous thrombosis involving the right lower extremity.
[2019-02-02] MEDS ORDERED: HYDROCODONE/APAP 7.5/325 MG TAB ONE (20:19)
--- NOTE | 2019-02-02 20:21 | EDPHYS ---
Physician Documentation [facility] Name: Nicole Martínez Age: 63 yrs Sex: Female : 1955 Arrival Date: 02/02/2019 Time: 16:46 Bed 16 Private MD: ED Physician Mark Will HPI: 02/02 19:11 This 63 yrs old Female presents to ER via Wheelchair with complaints of Leg jr8 Swelling. 19:11 The patient presents with pain, swelling, tenderness. The complaints affect the right jr8 knee. Onset: The symptoms/episode began/occurred gradually, 5 day(s) ago. Modifying factors: The symptoms are alleviated by nothing. the symptoms are aggravated by movement, weight bearing. Associated signs and symptoms: The patient has no apparent associated signs or symptoms. Severity of symptoms: At their worst the symptoms were moderate, in the emergency department the symptoms are unchanged. The patient has not experienced similar symptoms in the past. The patient has not recently seen a physician. Patient stated that about 5 days ago started to have knee pain. Now having lower extremity swelling. Has never had this in the past. Denies trauma . Historical: - Allergies: 16:59 Percodan; ae4 - Home Meds: 16:59 proair [Active]; Dulera inhalation [Active]; ae4 - PMHx: 16:59 Diabetes - NIDDM; Hypertension; ae4 - PSHx: 16:59 ; ae4 - Immunization history:: Adult Immunizations Flu vaccine is not up to date. - Social history:: Smoking status: Patient/guardian denies using tobacco, but has a distant history of tobacco abuse. - Ebola Screening: : Patient denies travel to an Ebola-affected area in the 21 days before illness onset. ROS: 19:11 Eyes: Negative for injury, pain, redness, and discharge, ENT: Negative for injury, jr8 pain, and discharge, Neck: Negative for injury, pain, and swelling, Cardiovascular: Negative for chest pain, palpitations, and edema, Respiratory: Negative for shortness of breath, cough, wheezing, and pleuritic chest pain, Abdomen/GI: Negative for abdominal pain, nausea, vomiting, diarrhea, and constipation, Back: Negative for injury and pain, Skin: Negative for injury, rash, and discoloration, Neuro: Negative for headache, weakness, numbness, tingling, and seizure. 19:11 MS/extremity: Positive for decreased range of motion, pain, swelling, tenderness, of the right leg. Exam: 19:11 Eyes: Pupils equal round and reactive to light, extra-ocular motions intact. Lids and jr8 lashes normal. Conjunctiva and sclera are non-icteric and not injected. Cornea within normal limits. Periorbital areas with no swelling, redness, or edema. ENT: Nares patent. No nasal discharge, no septal abnormalities noted. Tympanic membranes are normal and external auditory canals are clear. Oropharynx with no redness, swelling, or masses, exudates, or evidence of obstruction, uvula midline. Mucous membranes moist. Neck: Trachea midline, no thyromegaly or masses palpated, and no cervical lymphadenopathy. Supple, full range of motion without nuchal rigidity, or vertebral point tenderness. No Meningismus. Cardiovascular: Regular rate and rhythm with a normal S1 and S2. No gallops, murmurs, or rubs. Normal PMI, no JVD. No pulse deficits. Respiratory: Lungs have equal breath sounds bilaterally, clear to auscultation and percussion. No rales, rhonchi or wheezes noted. No increased work of breathing, no retractions or nasal flaring. Abdomen/GI: Soft, non-tender, with normal bowel sounds. No distension or tympany. No guarding or rebound. No evidence of tenderness throughout. Back: No spinal tenderness. No costovertebral tenderness. Full range of motion. Skin: Warm, dry with normal turgor. Normal color with no rashes, no lesions, and no evidence of cellulitis. Neuro: Awake and alert, GCS 15, oriented to person, place, time, and situation. Cranial nerves II-XII grossly intact. Motor strength 5/5 in all extremities. Sensory grossly intact. Cerebellar exam normal. Normal gait. 19:11 Musculoskeletal/extremity: Extremities: grossly normal except: noted in the right leg: Patient has increased circumferential swelling to right lower leg when compared to left side. Tenderness present to right knee on both the anterior and posterior surfaces. Patient able to walk, flex, and extend knee but with pain , Circulation is intact in all extremities. Sensation intact. Vital Signs: 16:55 BP 157 / 94; Pulse 71; Resp 19; Temp 98.3(O); Pulse Ox 98% on R/A; Weight 140.61 kg ae4 (R); Pain 10/10; 17:40 BP 157 / 91; Pulse 69; Resp 19; Pulse Ox 99% on R/A; Pain 10/10; rb1 18:41 BP 162 / 90; Pulse 64; Resp 20; Pulse Ox 100% on R/A; Pain 10/10; rb1 20:30 BP 150 / 90; Pulse 60; Resp 18; Pulse Ox 99% ; ea MDM: 18:01 Patient medically screened. jr8 20:12 Data reviewed: vital signs, nurses notes, radiologic studies, plain films, ultrasound, jr8 and as a result, I will discharge patient. Data interpreted: Pulse oximetry: on room air is 100 %. Interpretation: normal. Counseling: I had a detailed discussion with the patient and/or guardian regarding: the historical points, exam findings, and any diagnostic results supporting the discharge/admit diagnosis, radiology results, the need for outpatient follow up, a family practitioner, to return to the emergency department if symptoms worsen or persist or if there are any questions or concerns that arise at home. 02/02 18:19 Order name: US Extremity Venous Unilateral Ltd; Complete Time: 20:12 jr8 02/02 18:19 Order name: XRAY Knee RIGHT 3 view; Complete Time: 19:14 jr8 Administered Medications: 20:27 Drug: [place] (7.5 mg-325 mg) 1 tabs {Note: RASS 1.} Route: PO; ea 21:01 Follow up: Response: No adverse reaction ea Disposition: 02/02/19 20:19 Discharged to Home. Impression: Synovial cyst of popliteal space [Hernández], right knee. - Condition is Stable. - Discharge Instructions: Hernández Cyst. - Prescriptions for Mobic 7.5 mg Oral Tablet - take 1 tablet by ORAL route once daily take with food; 20 tablet. Tylenol- Codeine #3 300-30 mg Oral Tablet - take 2 tablets by ORAL route every 6 hours As needed; 12 tablet. - Medication Reconciliation Form, Thank You Letter, Antibiotic Education, Prescription Opioid Use, Family Work Release form. - Follow up: Dimitrios Mendoza MD; When: 5 - 6 days; Reason: Recheck today's complaints, Continuance of care, Re-evaluation by your physician. - Problem is new. - Symptoms have improved. Signatures: Dispatcher [employer] EDMS Hemanth Montoya PA PA jr8 Cherry Dobbins, RN RN Vidal Pandey RN RN ae4 Corrections: (The following items were deleted from the chart) 21:09 20:19 02/02/2019 20:19 Discharged to Home. Impression: Synovial cyst of popliteal space ea [Edgar], right knee. Condition is Stable. Forms are Medication Reconciliation Form, Thank You Letter, Antibiotic Education, Prescription Opioid Use. Follow up: Dimitrios Mendoza; When: 5 - 6 days; Reason: Recheck today's complaints, Continuance of care, Re-evaluation by your physician. Problem is new. Symptoms have improved. jr8
--- NOTE | 2019-02-02 20:21 | ER ---
Nurse's Notes [facility] Name: Nicole Martínez Age: 63 yrs Sex: Female : 1955 Arrival Date: 02/02/2019 Time: 16:46 Bed 16 Private MD: Diagnosis: Synovial cyst of popliteal space [Hernández], right knee Presentation: 02/02 16:57 Presenting complaint: Patient states: Patient states she noticed right knee swelling ae4 that started 4 days prior. Denies injury, states she see a "vascular specialist". Transition of care: patient was not received from another setting of care. Onset of symptoms was January 30, 2019. 16:57 Method Of Arrival: Wheelchair ae4 16:57 Acuity: KAELYN 3 ae4 17:05 Risk Assessment: Do you want to hurt yourself or someone else? Patient reports no rb1 desire to harm self or others. Initial Sepsis Screen: Does the patient meet any 2 criteria? No. Patient's initial sepsis screen is negative. Does the patient have a suspected source of infection? No. Patient's initial sepsis screen is negative. Care prior to arrival: None. Triage Assessment: 17:16 General: Appears in no apparent distress. uncomfortable, obese, Behavior is ae4 cooperative, talkative.. Pain: Complains of pain in posterior aspect of right knee and medial aspect of right knee Pain currently is 10 out of 10 on a pain scale. Neuro: Level of Consciousness is awake, alert, obeys commands, Oriented to person, place, time, situation, Appropriate for age. Cardiovascular: Pulses Pedal pulse faint and present to right foot. Edema is 1+ to right knee. Respiratory: Airway is patent Respiratory effort is even, unlabored, Respiratory pattern is regular, symmetrical. GI: Abdomen is round obese. : No signs and/or symptoms were reported regarding the genitourinary system. Derm: Skin is flushed. Musculoskeletal: Reports pain in lateral aspect of right knee, posterior aspect of right knee, medial aspect of right knee and right knee. Historical: - Allergies: 16:59 Percodan; ae4 - Home Meds: 16:59 proair [Active]; Dulera inhalation [Active]; ae4 - PMHx: 16:59 Diabetes - NIDDM; Hypertension; ae4 - PSHx: 16:59 ; ae4 - Immunization history:: Adult Immunizations Flu vaccine is not up to date. - Social history:: Smoking status: Patient/guardian denies using tobacco, but has a distant history of tobacco abuse. - Ebola Screening: : Patient denies travel to an Ebola-affected area in the 21 days before illness onset. Screenin:05 Abuse screen: Denies threats or abuse. Nutritional screening: No deficits noted. rb1 Tuberculosis screening: No symptoms or risk factors identified. Fall Risk None identified. Assessment: 17:05 General: Appears in no apparent distress. comfortable, Behavior is calm, cooperative, rb1 Denies fever, Pt. was crocheting when I went in the room to do my assessment. General: Pt. denies injury. Pain: Complains of pain in right knee and medial aspect of right knee Pain currently is 10 out of 10 on a pain scale. Pain began 4-5 days ago Aggravated by increased activity, weight bearing. Neuro: Level of Consciousness is awake, alert, obeys commands, Oriented to person, place, time, situation. Cardiovascular: Capillary refill < 3 seconds is brisk. Respiratory: Airway is patent Respiratory effort is even, unlabored, Respiratory pattern is regular, symmetrical. GI: Reports nausea. : No signs and/or symptoms were reported regarding the genitourinary system. Derm: Skin is pink, warm \\T\\ dry. Musculoskeletal: Reports swelling in the right knee. 18:00 Reassessment: Patient appears in no apparent distress at this time. No changes from rb1 previously documented assessment. 18:43 Reassessment: Patient appears in no apparent distress at this time. Patient and/or rb1 family updated on plan of care and expected duration. Pain level reassessed. Patient is alert, oriented x 3, equal unlabored respirations, skin warm/dry/pink. 19:10 Reassessment: Ultrasound at bedside. General: Appears in no apparent distress. Behavior ea is calm, cooperative. Pain: Complains of pain in right knee and right leg. Pain: Pain currently is 10 out of 10 on a pain scale. Aggravated by increased activity, weight bearing. Neuro: Level of Consciousness is awake, alert, obeys commands, Oriented to person, place, time, situation. Cardiovascular: Patient's skin is warm and dry. Respiratory: Airway is patent Respiratory effort is even, unlabored, Respiratory pattern is regular, symmetrical. Derm: Skin is pink, warm \\T\\ dry. 20:48 Reassessment: Patient and/or family updated on plan of care and expected duration. Pain ea level reassessed. Patient is alert, oriented x 3, equal unlabored respirations, skin warm/dry/pink. Provider at bedside updating pt on plan of care. 21:09 Reassessment: Patient and/or family updated on plan of care and expected duration. Pain ea level reassessed. Patient is alert, oriented x 3, equal unlabored respirations, skin warm/dry/pink. Discharge instruction given to patient, verbalized the understanding of instruction, pt left ED via wheelchair per family member, tolerating well. Vital Signs: 16:55 BP 157 / 94; Pulse 71; Resp 19; Temp 98.3(O); Pulse Ox 98% on R/A; Weight 140.61 kg ae4 (R); Pain 10/10; 17:40 BP 157 / 91; Pulse 69; Resp 19; Pulse Ox 99% on R/A; Pain 10/10; rb1 18:41 BP 162 / 90; Pulse 64; Resp 20; Pulse Ox 100% on R/A; Pain 10/10; rb1 20:30 BP 150 / 90; Pulse 60; Resp 18; Pulse Ox 99% ; ea ED Course: 16:46 Patient arrived in ED. as 16:59 Triage completed. ae4 17:00 Arm band placed on left wrist. ae4 17:05 Patient has correct armband on for positive identification. Bed in low position. Call rb1 light in reach. Side rails up X 1. Pulse ox on. NIBP on. 17:18 Adult w/ patient. Patient is sitting in wheelchair with boyfriend at bedside. ae4 18:01 Hemanth Montoya PA is PHCP. jr8 18:01 Mark Will MD is Attending Physician. jr8 18:23 Iris Haddad, JENNI is Primary Nurse. rb1 18:58 XRAY Knee RIGHT 3 view In Process Unspecified. EDMS 19:00 Report given to JENNI Carey. rb1 19:52 US Extremity Venous Unilateral Ltd In Process Unspecified. EDMS 20:18 Dimitrios Mendoza MD is Referral Physician. jr8 21:01 No provider procedures requiring assistance completed. Patient did not have IV access ea during this emergency room visit. Administered Medications: 20:27 Drug: [place] (7.5 mg-325 mg) 1 tabs {Note: RASS 1.} Route: PO; ea 21:01 Follow up: Response: No adverse reaction ea Outcome: 20:19 Discharge ordered by MD. rod 21:09 Discharged to home via wheelchair, with family. ea 21: Condition: stable 21:09 Discharge instructions given to patient, Instructed on discharge instructions, follow up and referral plans. medication usage, Demonstrated understanding of instructions, follow-up care, medications, Prescriptions given X 2. 21:09 Patient left the ED. ea Signatures: Dispatcher [employer] EDMS Lindsay Vega Josh, PA PA jr8 Iris Haddad RN RN Cherry Bass RN RN ea Elliott, Andrea, RN RN ae4 Corrections: (The following items were deleted from the chart) 20:30 20:27 [place] (7.5 mg-325 mg) 1 tabs PO ea ea
[2019-02-02 21:32] VITALS: TEMP 98.3
[2019-02-02 21:38] VITALS: BP 150/90; O2SAT 99
== END 2019-02-02 21:09 | disposition home or self-care (01) ==
LOC: ER 16:44
DX: M71.21 Synovial cyst of popliteal space [Baker], right knee (principal); I10 Essential (primary) hypertension; E11.9 Type 2 diabetes mellitus without complications; Z88.6 Allergy status to analgesic agent
CPT/HCPCS: 93971; 99284

== ENCOUNTER 2019-02-19 16:07 | Emergency (ER) | payer OTHER ==
--- OUTSIDE RECORDS SUMMARY | 2019-02-19 16:10 | XMS REPORT ---
:1955 [facility] Address [address] [place] [address] Dr. Phillip [address] [place] [id number] Care Team Providers Name Role Phone Unavailable Unavailable Unavailable Problems This patient has no known problems. Allergies, Adverse Reactions, Alerts This patient has no known allergies or adverse reactions. Medications This patient has no known medications.
--- OUTSIDE RECORDS SUMMARY | 2019-02-19 16:10 | XMS REPORT ---
[...] Start End Date Status Dosage Date GlipiZIDE [facility] 97825199914 5 MG Orally Once July 05, Active 1 tablet a day 2018 Tradjenta [facility] 58340637540 5 MG Orally Once June 17, Inactive 1 tablet a day 2019 Results No Known Results Summary Purpose eClinicalWorks Submission
--- OUTSIDE RECORDS SUMMARY | 2019-02-19 16:10 | XMS REPORT ---
[...] HCl NDC 0 Active not defined Losartan [facility] 35448009508 25 MG Orally June Active 1 tablet Potassium Once a day 2018 Methocarbamol [facility] [address]-94 Active not defined ProAir HFA [facility] 97977567429 108 (90 Base) Active 2 puffs MCG/ACT as needed Inhalation every 6 hrs GlipiZIDE [facility] 48878952892 5 MG Orally June Active 1 tablet Once a day 2018 Robaxin [facility] 41579296082 500 MG Orally Active 1.5 every 4 hrs tablets Dulera [facility] 76119452877 200-5 MCG/ACT Active 2 puffs Inhalation Twice a day Results No Known Results Summary Purpose eClinicalWorks Submission
--- OUTSIDE RECORDS SUMMARY | 2019-02-19 16:10 | XMS REPORT ---
[...] End Date Status Dosage System Date Ree [facility] 01032066660 2.5-500 MG May 18, Inactive 1 tablet Orally Twice a 2019 with meals day Alhaji [facility] 06918626830 5 MG Orally Once June 17, Active 1 tablet a day 2019 Results No Known Results Summary Purpose eClinicalWorks Submission
--- OUTSIDE RECORDS SUMMARY | 2019-02-19 16:10 | XMS REPORT ---
[...] End Status Dosage System Date Date Zoloft [facility] 83369644618 50 MG Orally Inactive take 1/2 Once a day tab qd x 1 week then take 1 tab qd Losartan [place] 86887627980 25 MG Orally June Active 1 tablet Potassium Once a day 2018 Tradjenta [facility] 67230043477 5 MG Orally June Active 1 tablet Once a day 2018 ProAir HFA [facility] 97216806386 108 (90 Base) Active 2 puffs as MCG/ACT needed Inhalation every 6 hrs Dulera [facility] 86264403042 200-5 MCG/ACT Active 2 puffs Inhalation Twice a day Robaxin [facility] 54486821279 500 MG Orally Active 1.5 every 4 hrs tablets Norvasc [facility] 51810775887 10 MG Orally Inactive 1 tablet Once a day Results No Known Results Summary Purpose eClinicalWorks Submission
--- OUTSIDE RECORDS SUMMARY | 2019-02-19 16:11 | XMS REPORT ---
[...] End Status Dosage System Date Date Losartan [facility] 34232581377 25 MG Orally June Active 1 tablet Potassium Once a day 2018 GlipiZIDE [facility] 47542924582 5 MG Orally June Active 1 tablet Once a day 2018 ProAir HFA [facility] 38278748711 108 (90 Base) Active 2 puffs MCG/ACT as needed Inhalation every 6 hrs Dulera [facility] 69253724453 200-5 MCG/ACT Active 2 puffs Inhalation Twice a day Robaxin [facility] 40074576766 500 MG Orally Active 1.5 every 4 hrs tablets Methocarbamol [facility] [address]-96 Active not defined Tramadol HCl NDC 0 Active not defined Results No Known Results Summary Purpose eClinicalWorks Submission
[2019-02-19] MEDS ORDERED: MORPHINE 4 MG/ML SYR ONE (18:40)
[2019-02-19] MEDS ORDERED: ONDANSETRON 4 MG (ODT) TAB ONE (18:41)
--- NOTE | 2019-02-19 19:24 | EDPHYS ---
Physician Documentation [facility] Name: Nicole Martínez Age: 63 yrs Sex: Female : 1955 Arrival Date: 02/19/2019 Time: 16:10 Bed 5 Private MD: Mainor Joy ED Physician David Pacheco HPI: 02/19 16:26 This 63 yrs old Female presents to ER via Wheelchair with complaints of Leg jmm feels Cold. 16:26 The patient presents with pain. Onset: The symptoms/episode began/occurred gradually, 1 jmm day(s) ago. Modifying factors: The symptoms are alleviated by nothing. the symptoms are aggravated by nothing. This is a 63 year old female with a history of DM, HTN, Bakers Cyst that presents to the ED with complaints of increased pain to her right leg. Was recently diagnosed with a bakers cyst. Patient states her pain radiates down her leg. . Historical: - Allergies: 16:16 Percodan; sg - PMHx: 16:16 Diabetes - NIDDM; Hypertension; Hernández Cyst; sg - PSHx: 16:16 ; sg - Immunization history:: Adult Immunizations up to date. - Social history:: Smoking status: Patient/guardian denies using tobacco. - Ebola Screening: : Patient negative for fever greater than or equal to 101.5 degrees Fahrenheit, and additional compatible Ebola Virus Disease symptoms Patient denies exposure to infectious person Patient denies travel to an Ebola-affected area in the 21 days before illness onset No symptoms or risks identified at this time. ROS: 16:26 Constitutional: Negative for fever, chills, and weight loss, Cardiovascular: Negative jmm for chest pain, palpitations, and edema, Respiratory: Negative for shortness of breath, cough, wheezing, and pleuritic chest pain, Abdomen/GI: Negative for abdominal pain, nausea, vomiting, diarrhea, and constipation. 16:26 MS/extremity: Positive for pain. 16:26 All other systems are negative. Exam: 16:26 Constitutional: This is a well developed, well nourished patient who is awake, alert, jmm and in no acute distress. Head/Face: atraumatic. Eyes: EOMI, no conjunctival erythema appreciated ENT: Moist Mucus Membranes Neck: Trachea midline, Supple Chest/axilla: Normal chest wall appearance and motion. Cardiovascular: Regular rate and rhythm. No edema appreciated Respiratory: Normal respirations, no respiratory distress appreciated Abdomen/GI: Non distended, soft Back: Normal ROM Skin: General appearance color normal 16:26 Musculoskeletal/extremity: full dorsalis pulse, pedal edema appreciated, no erythema or induration appreciated, NVI. 16:26 Skin: Appearance: Color: normal in color. 16:26 Neuro: Orientation: is normal, Mentation: is normal, Memory: is normal. Vital Signs: 16:15 BP 148 / 80; Pulse 82; Resp 18; Temp 97.2; Pulse Ox 96% on R/A; Pain 8/10; sg 17:37 BP 172 / 66; Pulse 65; Resp 17; Pulse Ox 97% ; bp 18:45 BP 190 / 83; Pulse 71; Resp 16; Pulse Ox 98% ; bp 19:15 BP 169 / 79; Pulse 69; Resp 16; Pulse Ox 96% on R/A; jb4 MDM: 16:35 Patient medically screened. lorenzo 19:21 Data reviewed: vital signs, nurses notes. Counseling: I had a detailed discussion with lorenzo the patient and/or guardian regarding: the historical points, exam findings, and any diagnostic results supporting the discharge/admit diagnosis, radiology results, the need for outpatient follow up, to return to the emergency department if symptoms worsen or persist or if there are any questions or concerns that arise at home. ED course: Patient is alert and non toxic in appearance in the ED. I do not suspect arterial occlusion, dorsalis pulse appreciated. US negative for DVT. Advised to follow up with ortho tomorrow for reevaluation. Patient understood and agrees with the plan of care. . 02/19 16:26 Order name: US Extremity Venous Unilateral Ltd [facility] Administered Medications: 18:40 Drug: morphine 4 mg Route: IM; Site: right deltoid; bp 19:34 Follow up: Response: No adverse reaction; Pain is decreased; RASS: Alert and Calm (0) jb4 18:40 Drug: Zofran 4 mg Route: PO; bp 19:34 Follow up: Response: No adverse reaction; Nausea is decreased jb4 Disposition: 02/20 08:52 Co-signature as Attending Physician, David Pacheco MD I agree with the assessment and kdr plan of care. Disposition: 02/19/19 19:23 Discharged to Home. Impression: Synovial cyst of popliteal space [Hernández]. - Condition is Stable. - Discharge Instructions: Hernández Cyst. - Medication Reconciliation Form, Thank You Letter, Antibiotic Education, Prescription Opioid Use form. - Follow up: Dimitrios Mendoza MD; When: 2 - 3 days; Reason: Recheck today's complaints, Continuance of care, Re-evaluation by your physician. Signatures: Dispatcher [employer] EDHakan Bates, RN RN David Pacheco MD MD [facility] Danilo Downs PA PA Juan Diego Gonzalez RN RN jb4 Joshua Alba RN RN bp Corrections: (The following items were deleted from the chart) 02/19 19:35 19:23 02/19/2019 19:23 Discharged to Home. Impression: Synovial cyst of popliteal space jb4 [Hernández]. Condition is Stable. Forms are Medication Reconciliation Form, Thank You Letter, Antibiotic Education, Prescription Opioid Use. Follow up: Dimitrios Mendoza; When: 2 - 3 days; Reason: Recheck today's complaints, Continuance of care, Re-evaluation by your physician. lorenzo
--- NOTE | 2019-02-19 19:24 | ER ---
Nurse's Notes [facility] Name: Nicole Martínez Age: 63 yrs Sex: Female : 1955 Arrival Date: 02/19/2019 Time: 16:10 Bed 5 Private MD: Mainor Joy Diagnosis: Synovial cyst of popliteal space [Edgar] Presentation: 02/19 16:15 Presenting complaint: Patient states: Right leg and right calf pain, described as " if sg there was a sticker bur in my leg." reports the left feels cold to touch as well, starting today. Transition of care: patient was not received from another setting of care. Onset of symptoms was February 19, 2019. Risk Assessment: Do you want to hurt yourself or someone else? Patient reports no desire to harm self or others. Initial Sepsis Screen: Does the patient meet any 2 criteria? No. Patient's initial sepsis screen is negative. Does the patient have a suspected source of infection? No. Patient's initial sepsis screen is negative. Care prior to arrival: None. 16:15 Method Of Arrival: Wheelchair 16:15 Acuity: KAELYN 3 sg Triage Assessment: 16:21 General: Appears in no apparent distress. comfortable, Behavior is cooperative, bp appropriate for age, anxious. Pain: Complains of pain in right leg. EENT: No deficits noted. Neuro: No deficits noted. Cardiovascular: No deficits noted. Respiratory: No deficits noted. GI: No signs and/or symptoms were reported involving the gastrointestinal system. : No signs and/or symptoms were reported regarding the genitourinary system. Derm: No deficits noted. Musculoskeletal: No deficits noted. Historical: - Allergies: 16:16 Percodan; sg - PMHx: 16:16 Diabetes - NIDDM; Hypertension; Hernández Cyst; sg - PSHx: 16:16 ; sg - Immunization history:: Adult Immunizations up to date. - Social history:: Smoking status: Patient/guardian denies using tobacco. - Ebola Screening: : Patient negative for fever greater than or equal to 101.5 degrees Fahrenheit, and additional compatible Ebola Virus Disease symptoms Patient denies exposure to infectious person Patient denies travel to an Ebola-affected area in the 21 days before illness onset No symptoms or risks identified at this time. Screenin:15 Abuse screen: Denies threats or abuse. Denies injuries from another. Nutritional bp screening: No deficits noted. Tuberculosis screening: No symptoms or risk factors identified. Fall Risk None identified. Assessment: 16:15 General: SEE TRIAGE NOTE. bp 17:38 Reassessment: U/S PENDING FOR R/O DVT. bp 18:44 Reassessment: U/S PENDING. B/S DOPPLER BY PROVIDER. bp 18:54 Reassessment: U/S AT BEDSIDE. bp 19:31 Reassessment: Patient appears in no apparent distress at this time. Patient and/or jb4 family updated on plan of care and expected duration. Pain level reassessed. Patient is alert, oriented x 3, equal unlabored respirations, skin warm/dry/pink. PT verbalized understanding of d/c and follow up instructions. Pt assisted to vehicle via wheelchair. Vital Signs: 16:15 BP 148 / 80; Pulse 82; Resp 18; Temp 97.2; Pulse Ox 96% on R/A; Pain 8/10; sg 17:37 BP 172 / 66; Pulse 65; Resp 17; Pulse Ox 97% ; bp 18:45 BP 190 / 83; Pulse 71; Resp 16; Pulse Ox 98% ; bp 19:15 BP 169 / 79; Pulse 69; Resp 16; Pulse Ox 96% on R/A; jb4 ED Course: 16:10 Patient arrived in ED. mr 16:11 Mainor Joy, DO is Private Physician. mr 16:12 Joshua Alba, RN is Primary Nurse. bp 16:15 Triage completed. sg 16:15 Arm band placed on. sg 16:15 Patient has correct armband on for positive identification. Bed in low position. Call bp light in reach. Side rails up X2. 16:16 Danilo Downs PA is PHCP. [facility] 16:16 David Pacheco MD is Attending Physician. jmm 18:47 Patient taken to ultrasound. via wheelchair. lc3 19:15 No provider procedures requiring assistance completed. Patient did not have IV access jb4 during this emergency room visit. 19:18 US Extremity Venous Unilateral Ltd In Process Unspecified. EDMS 19:23 Dimitrios Mendoza MD is Referral Physician. jmm Administered Medications: 18:40 Drug: morphine 4 mg Route: IM; Site: right deltoid; bp 19:34 Follow up: Response: No adverse reaction; Pain is decreased; RASS: Alert and Calm (0) jb4 18:40 Drug: Zofran 4 mg Route: PO; bp 19:34 Follow up: Response: No adverse reaction; Nausea is decreased jb4 Outcome: 19:23 Discharge ordered by . kim 19:34 Discharged to home via wheelchair, with family. jb4 19:34 Condition: stable 19:34 Discharge instructions given to patient, family, Instructed on discharge instructions, follow up and referral plans. Demonstrated understanding of instructions, follow-up care. 19:35 Patient left the ED. 4 Signatures: Dispatcher [employer] EDMS Hakan Archibald, RN RN Danilo Downs PA PA [facility] Brooke Diaz mr Lynda Reilly James, RN RN [facility] Joshua Alba RN RN bp Corrections: (The following items were deleted from the chart) 19:34 19:15 Discharged to home via wheelchair, with family, [place] [id number] 19:34 19:15 Condition: stable jb jb 19:34 19:15 Discharge instructions given to patient, family, Instructed on discharge [facility] instructions, follow up and referral plans. Demonstrated understanding of instructions, follow-up care, [facility]
--- NOTE | 2019-02-19 19:25 | RAD REPORT ---
EXAM DESCRIPTION: US - Extremity Venous Uni Ltd - 02/19/2019 7:17 pm CLINICAL HISTORY: Right leg pain and swelling COMPARISON: None. TECHNIQUE: Real-time sonographic evaluation of the right lower extremity deep venous systems was per formed. FINDINGS: Normal compressibility, flow augmentation, phasic flow and spontaneous flow are identified in the right lower extremity common femoral, superficial femoral, popliteal and posterior tibial vei ns. No intraluminal filling defects seen. A 2 centimeter popliteal fossa cyst is present without cyst rupture or hemorrhage findings. IMPRESSION: No DVT in the right lower extremity.
[2019-02-19 22:46] VITALS: TEMP 97.2; O2SAT 96
[2019-02-19 22:54] VITALS: BP 169/79
== END 2019-02-19 19:35 | disposition home or self-care (01) ==
LOC: ER 16:07
DX: M71.21 Synovial cyst of popliteal space [Baker], right knee (principal); I10 Essential (primary) hypertension; Z88.5 Allergy status to narcotic agent
CPT/HCPCS: 93971; 96372; 99284

== ENCOUNTER 2019-09-28 12:29 | Emergency (ER) | payer OTHER ==
--- OUTSIDE RECORDS SUMMARY | 2019-09-28 12:31 | XMS REPORT | Continuity of Care Document ---
:1955 Author Organization [facility] t Address [address] [place] [address] Care Team Providers Name Role Phone Latasha PROCTOR, L Attending Clinician Eliazar PROCTOR Attending Clinician Problems Condition Condition Condition Status Onset Resolution Last Treating Co mments Source Name Details Category Date Date Treatment Clinician Date HTN, goal HTN, goal Diagnosis Active [facility] 130/80 130/[facility] Osteoarthr Osteoarthr Problem Active [facility] itis of itis of [facility] - thoracolum thoracolum Me moria bar spine, bar spine, l unspecifie unspecifie Ou tpati d spinal d spinal ent osteoarthr osteoarthr Cl inics itis itis complicati complicati on status on status Depression Depression Diagnosis Active [facility] with [facility] anxiety anxiety [facility] Other Other Diagnosis Active [facility] chronic chronic [facility] pain pain [facility] Low back Low back Diagnosis Active [facility] pain pain [facility] Type 2 Type [address] [facility] diabetes diabetes [facility] - mellitus mellitus Memori a with with l complicati complicati Ou tpati on, on, ent without without Clinics long-term long-term current current use of use of insulin insulin Asymptomat Asymptomat Problem Active [facility] ic ic [facility] - hypertensi hypertensi Me moria ve urgency ve urgency l [facility] Tobacco Tobacco Diagnosis Active [facility] use [facility] disorder disorder [facility] Chronic Chronic Diagnosis Active [facility] obstructiv obstructiv Angy kes - e e Memoria pulmonary pulmonary l disease, disease, Outpat i unspecifie unspecifie en t d COPD d COPD Clinics type type Type 2 Type [address] [facility] diabetes diabetes [facility] - mellitus mellitus Memori a with other with other l diabetic diabetic Outpat i kidney kidney ent complicati complicati Cl inics on on Left Left Diagnosis Active [facility] shoulder shoulder [facility] - pain, pain, Memoria unspecifie unspecifie l d d Outpati chronicity chronicity en t Clinics Encounter Encounter Diagnosis Active [facility] for for [facility] - screening screening Alex michael for other for other l viral viral Outpati diseases diseases ent Clinics Proteinuri Proteinuri Diagnosis Active [facility] a, a, [facility] - unspecifie unspecifie Me moria d d l Outpati ent Clinics Encounter Encounter Diagnosis Active [facility] for for [facility] - wellness wellness Memori a examinatio examinatio l n in adult n in adult Ou tpati ent Clinics Right knee Right knee Diagnosis Active [facility] pain, pain, [facility] - unspecifie unspecifie Me moria d d l chronicity chronicity Ou tpati ent Clinics Allergies, Adverse Reactions, Alerts Allergy Allergy Status Severity Reaction(s) Onset Inactive Treating Comm ents Source Name Type Date Date Clinician Metformi Adverse Active diarrhea [facility] HCl [facility] Lisinopr Adverse Active Cough [facility] il Reaction [facility] Amlodipi Adverse Active LE Swelling [facility] ne Reaction [facility] Besylate [facility] Medications Ordered Filled Start Stop Current Ordering Indication Dosage Frequency Signature Comments Components Source Medication Medication Date Date Medication? Clinician (SIG) Name Name Hydrochloro Hydrochloro Yes Mainor [address] [facility] thiazide thiazide 7-06 [facility] in the [facility] - 00:00: morning [facility] 00 l [facility] Losartan Losartan Yes Mainor [address] [facility] Potassium Potassium 4-15 Joy [facility] - 00:00: [facility] 00 l [facility] Tramadol Tramadol Yes Mainor not [facility] HCl HCl [facility] defined [facility] Methocarbam Methocarbam Yes Mainor not [facility] ol ol Joy defined [facility] ProAir HFA ProAir HFA Yes Mainor [address] [facility] Joy needed [facility] Robaxin Robaxin Yes Mainor 1.[address] [facility] Joy tablets [facility] Dulera Dulera Yes Mainor [address] [facility] Norvasc Norvasc Yes Mainor [address] [facility] Tradjenta Tradjenta Yes Mainor [address] [facility] Zoloft Zoloft Yes Mainor take 1/2 [facility] tab qd x 1 [facility] - week then Memoria take 1 tab l qd Outpati ent Clinics Procedures This patient has no known procedures. Encounters Start End Encounter Admission Attending Care Care Encounter Source Date/Time Date/Time Type Type Clinicians Facility Department ID 2019-09-18 2019-09-18 Outpatient Stephen Mitchellt [id number] [facility] 15:15:00 15:15:00 [employer] [facility] - [facility] Family Medicine Medicine Outpati ent Clinics 2019-06-23 2019-06-23 [facility] [id number] 00:00:00 00:00:00 [facility] [id number] Surgical [id number] Specialti [id number] es [address] [place] 2019-04-17 2019-04-17 [facility] [id number] 00:00:00 00:00:00 [facility] [id number] Surgical [id number] Specialti [id number] es [address] [place] 2018-10-31 2018-10-31 Emergency [facility] [id number] 21:12:42 23:51:00 [place] [id number] [facility] [id number] [facility] [id number] 2018-09-26 2018-09-26 Outpatient Stephen Mitchellt [id number] [facility] 14:49:00 14:49:[address] [employer] [facility] - Drive [facility] Medicine Outpati ent Clinics 2018-07-19 2018-07-19 [facility] [id number] 14:26:00 14:26:[address] [facility] - [address] [facility] Medicine Outpati ent Clinics 2018-07-18 2018-07-18 [facility] [id number] 13:44:00 13:44:00 t [facility] [place] Clinics 2018-07-18 2018-07-18 [facility] [id number] 08:30:00 08:30:00 t [facility] [place] Clinics 2018-07-04 2018-07-04 [facility] [id number] 09:54:00 09:54:00 [place] [employer] [facility] - Drive [facility] Outpati ent Clinics 2018-06-27 2018-06-27 [facility] [id number] 10:28:00 10:28:00 [place] [employer] [facility] - Drive [facility] Outpati ent Clinics 2018-06-27 2018-06-27 [facility] [id number] 10:15:00 10:15:00 [place] [employer] - Drive [facility] Medicine Outpati ent Clinics 2018-06-16 2018-06-16 [facility] [id number] 15:35:00 15:35:00 [place] [employer] - [address] [facility] Medicine Outpati ent Clinics 2018-05-24 2018-05-24 [facility] [id number] 12:25:00 12:25:00 t [place] [employer] s - Drive [facility] Results This patient has no known results.
--- OUTSIDE RECORDS SUMMARY | 2019-09-28 12:31 | XMS REPORT ---
:1955 Author Organization [employer] Care Team Providers Name Role Phone JoyMainor Provider Role Unavailable Allergies, Adverse Reactions, Alerts Substance Reaction Event Type Metformin HCl diarrhea Drug Allergy Lisinopril Cough Drug Allergy Amlodipine Besylate LE Swelling Drug Allergy Problems Problem Type Condition Code Onset Dates Condition Statu s Problem Tobacco use disorder F17.200 Active Problem Depression with anxiety F41.8 Acti ve Problem Other chronic pain G89.29 Active Problem Chronic obstructive pulmonary J44.9 Active disease, unspecified COPD type Assessment Tobacco use disorder F17.200 Active Problem Type 2 diabetes mellitus with E11.8 Active complication, without long-term current use of insulin Assessment 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, unspecified spinal osteoarthritis complication status Assessment Other chronic pain G89.29 Active Problem Type 2 diabetes mellitus with other E11.29 Active diabetic kidney complication Problem 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, unspecified spinal osteoarthritis complication status Problem Low back pain M54.5 Active Problem Asymptomatic hypertensive urgency I16.0 Active Problem HTN, goal below 130/80 I10 Activ e Assessment Left shoulder pain, unspecified M25.512 Active chronicity Assessment Depression with anxiety F41.8 Acti ve Assessment Low back pain M54.5 Active Assessment HTN, goal below 130/80 I10 Activ e Assessment Type 2 diabetes mellitus with other E11.29 Active diabetic kidney complication Assessment Encounter for screening for other Z11.59 Active viral diseases Assessment Proteinuria, unspecified R80.9 Act suzanne Assessment Encounter for wellness examination Z00.00 Active in adult Assessment Right knee pain, unspecified M25.561 Active chronicity Assessment Chronic obstructive pulmonary J44.9 Active disease, unspecified COPD type Medications Medication Code Code Instructions Start End Status Dosage System Date Date ProAir HFA [facility] 83520801150 108 (90 Base) Active 2 p uffs MCG/ACT as Inhalation needed every 6 hrs Dulera [facility] 97165141484 200-5 MCG/ACT Active 2 puff s Inhalation Twice a day Hydrochlorothiazide [facility] 90749304797 25 MG Orally September Act suzanne 1 tablet Once a day 06, in the 2019 morning Norvasc [facility] 26794181611 10 MG Orally Inactive 1 tabl et Once a day Tradjenta [facility] 72932691776 5 MG Orally Inactive 1 tab let Once a day Robaxin [facility] 52139025962 500 MG Orally Active 1.5 every 4 hrs tablets Tramadol HCl ND 0 Active not defined Methocarbamol [facility] [address]-20 Active not defined Losartan Potassium [facility] 22680231226 25 MG Orally Inac tive 1 tablet Once a day Zoloft [facility] 51276033689 50 MG Orally Inactive take 1 /2 Once a day tab qd x 1 week then take 1 tab qd Results No Known Results Summary Purpose [employer] Submission
[2019-09-28] MEDS ORDERED: HYDROCODONE/APAP 10/325 TAB ONE (13:10)
--- NOTE | 2019-09-28 14:23 | RAD REPORT ---
[facility] 1:45 pm CLINICAL HISTORY: Right leg pain COMPARISON: 2019 FINDINGS: Right common femoral, superficial femoral, popliteal and right posterior tibial veins are compressible and demonstrate augmentation. Doppler demonstrates good flow. 8 millimeter right Hernández's cyst IMPRESSION: No evidence of deep venous thrombosis involving the right lower extremity.
--- NOTE | 2019-09-28 15:08 | EDPHYS ---
Physician Documentation [facility] Name: Nicole Martínez Age: 64 yrs Sex: Female : 1955 Arrival Date: 09/28/2019 Time: 12:31 Bed 5 Private MD: Mainor Joy ED Physician Mark Will HPI: 09/27 13:54 This 64 yrs old Female presents to ER via Wheelchair with complaints of Knee rn Pain, Trouble Walking. 13:54 The patient presents with pain. The complaints affect the right leg. Onset: The rn symptoms/episode began/occurred 4 month(s) ago. Modifying factors: The symptoms are alleviated by nothing. the symptoms are aggravated by movement, weight bearing, bending knee. Severity of symptoms: At their worst the symptoms were mild, in the emergency department the symptoms are unchanged. The patient has experienced similar episodes in the past. Reports atleast 4 months of right leg pain/knee pain, no injury, diagnosed with hernández's cyst at beginning of this, unable to follow up due to COVID, has appt with ortho tomorrow, no injury, reports pain from ankle to knee, at times radiates up to back, has known L4-L5 problems. Wearing compression stockings not helping. . Historical: - Allergies: 12:38 Percodan; ca1 - Home Meds: 12:41 hydrochlorothiazide Oral [Active]; Tramadol Oral [Active]; rb1 - PMHx: 12:38 Hernández Cyst; Diabetes - NIDDM; Hypertension; ca1 - PSHx: 12:38 ; ca1 - Immunization history:: Adult Immunizations not up to date. - Social history:: Smoking status: Patient/guardian denies using tobacco, the patient reports quitting approximately 1.6 years ago. - Family history:: not pertinent. - Hospitalizations: : No recent hospitalization is reported. ROS: 13:54 Constitutional: Negative for fever, chills, and weight loss, Eyes: Negative for injury, rn pain, redness, and discharge, Neck: Negative for injury, pain, and swelling, Cardiovascular: Negative for chest pain, palpitations, and edema, Respiratory: Negative for shortness of breath, cough, wheezing, and pleuritic chest pain, Abdomen/GI: Negative for abdominal pain, nausea, vomiting, diarrhea, and constipation, MS/Extremity: Negative for injury and deformity, Skin: Negative for injury, rash, and discoloration, Neuro: Negative for headache, weakness, numbness, tingling, and seizure. Exam: 13:54 Constitutional: Overweight female, no acute distress Skin: Warm, dry with normal rn turgor. Normal color with no rashes, no lesions, and no evidence of cellulitis. MS/ Extremity: Pulses equal, no cyanosis. Neurovascular intact. Full, normal range of motion. Equal circumference. Neuro: Awake and alert, GCS 15, oriented to person, place, time, and situation. Cranial nerves II-XII grossly intact. Motor strength 5/5 in all extremities. Sensory grossly intact. Vital Signs: 12:35 BP 192 / 95; Pulse 76; Resp 18 S; Temp 97(TE); Pulse Ox 97% on R/A; Weight 145.15 kg ca1 (R); Height 5 ft. 4 in. (162.56 cm) (R); Pain 10/10; 13:38 rb1 13:59 BP 102 / 75; Pulse 72; Resp 18; Pulse Ox 100% ; Pain 6/10; rb1 14:59 BP 149 / 81; Pulse 67; Resp 17; Pulse Ox 96% ; rb1 12:35 Body Mass Index 54.93 (145.15 kg, 162.56 cm) ca1 13:38 Pt. is in US rb1 MDM: 12:44 Patient medically screened. rn 15:05 Differential diagnosis: tendonitis, arthritis, hernández's cyst, DVT. Data reviewed: vital rn signs, nurses notes, lab test result(s), radiologic studies, doppler, ultrasound, and as a result, I will discharge patient. Counseling: I had a detailed discussion with the patient and/or guardian regarding: the historical points, exam findings, and any diagnostic results supporting the discharge/admit diagnosis, radiology results, the need for outpatient follow up, to return to the emergency department if symptoms worsen or persist or if there are any questions or concerns that arise at home. Special discussion: I discussed with the patient/guardian in detail that at this point there is no indication for admission to the hospital. It is understood, however, that if the symptoms persist or worsen the patient needs to return immediately for re-evaluation. ED course: No acute findings on ultrasounds of legs, has ortho appt tomorrow, present for 6 months, + Hernández's cyst. Will dc home with OTC pain meds. . 09/27 12:57 Order name: Lower Extremity Artery Uni Ltd US rn 09/27 12:57 Order name: Extremity Venous Uni Ltd US rn Administered Medications: 13:06 Drug: [place] 10 mg-325 mg 1 tabs Route: PO; rb1 13:50 Follow up: Response: No adverse reaction; Pain is decreased rb1 Disposition: 09/28/19 15:07 Discharged to Home. Impression: Synovial cyst of popliteal space [Hernández], right knee, Radiculopathy, lumbosacral region. - Condition is Stable. - Discharge Instructions: Hernández Cyst, Lumbosacral Radiculopathy. - Prescriptions for Medrol (Sammy) 4 mg Oral Tablets, Dose Pack - take 1 tablet by ORAL route as directed - follow package instructions; 1 packet. - Medication Reconciliation Form, Thank You Letter, Antibiotic Education, Prescription Opioid Use form. - Follow up: Private Physician; When: Tomorrow; Reason: Recheck today's complaints, Re-evaluation by your physician. - Problem is an ongoing problem. - Symptoms are unchanged. Signatures: Dispatcher [employer] EDMS Mark Will MD MD rn Barber, Rebecca, RN RN rb1 Nicole Fair RN RN ca1 Corrections: (The following items were deleted from the chart) 15:31 15:07 09/28/2019 15:07 Discharged to Home. Impression: Synovial cyst of popliteal space rb1 [Hernández], right knee; Radiculopathy, lumbosacral region. Condition is Stable. Forms are Medication Reconciliation Form, Thank You Letter, Antibiotic Education, Prescription Opioid Use. Follow up: Private Physician; When: Tomorrow; Reason: Recheck today's complaints, Re-evaluation by your physician. Problem is an ongoing problem. Symptoms are unchanged. rn
--- NOTE | 2019-09-28 15:08 | ER ---
Nurse's Notes [facility] Name: Nicole Martínez Age: 64 yrs Sex: Female : 1955 Arrival Date: 09/28/2019 Time: 12:31 Bed 5 Private MD: Mainor Joy Diagnosis: Synovial cyst of popliteal space [Hernández], right knee;Radiculopathy, lumbosacral region Presentation: 09/27 12:35 Chief complaint: Patient states: R knee and R leg pain since last night. Denies injury ca1 to the R leg or knee. Pain has been going on for months but has been worse last night. Coronavirus screen: Proceed with normal triage. Patient denies a cough. Patient denies shortness of breath or difficulty breathing. Patient denies measured and/or subjective temperature greater than 100.4F prior to today's visit. Patient denies travel on a cruise ship or to a country the [facility] currently lists as an affected area. Patient denies contact with known and/or suspected case of COVID-19. Ebola Screen: Patient negative for fever greater than or equal to 101.5 degrees Fahrenheit, and additional compatible Ebola Virus Disease symptoms Patient denies exposure to infectious person. Patient denies travel to an Ebola-affected area in the 21 days before illness onset. No symptoms or risks identified at this time. Initial Sepsis Screen: Does the patient meet any 2 criteria? No. Patient's initial sepsis screen is negative. Does the patient have a suspected source of infection? No. Patient's initial sepsis screen is negative. Risk Assessment: Do you want to hurt yourself or someone else? Patient reports no desire to harm self or others. Onset of symptoms was September 28, 2019. 12:35 Method Of Arrival: Wheelchair ca1 12:35 Acuity: KAELYN 3 ca1 Historical: - Allergies: 12:38 Percodan; ca1 - Home Meds: 12:41 hydrochlorothiazide Oral [Active]; Tramadol Oral [Active]; rb1 - PMHx: 12:38 Hernández Cyst; Diabetes - NIDDM; Hypertension; ca1 - PSHx: 12:38 ; ca1 - Immunization history:: Adult Immunizations not up to date. - Social history:: Smoking status: Patient/guardian denies using tobacco, the patient reports quitting approximately 1.6 years ago. - Family history:: not pertinent. - Hospitalizations: : No recent hospitalization is reported. Screenin:41 Abuse screen: Denies threats or abuse. Nutritional screening: No deficits noted. rb1 Tuberculosis screening: No symptoms or risk factors identified. Fall Risk No fall in past 12 months (0 pts). Secondary diagnosis (15 points) weakness in the right leg. No IV (0 pts). Ambulatory Aid- None/Bed Rest/Nurse Assist (0 pts). Gait- Weak (10 pts.). Mental Status- Oriented to own ability (0 pts). Total David Fall Scale indicates Low Risk Score (25-44 pts). Fall prevention measures have been instituted. Side Rails Up X 2 Placed close to Nursing Station 1:1 attendant Assigned to Pt. Frequent Obs/Assesments occuring As available Patient and Family Educated on Fall Prevention Program and strategies. Assessment: 12:41 General: Appears uncomfortable, Behavior is calm, cooperative. Pain: Complains of pain rb1 in right leg Pain currently is 10 out of 10 on a pain scale. Pain began Pt. reports that the pain has been going on for months. History of arthritis. Neuro: Level of Consciousness is awake, alert, obeys commands, Oriented to person, place, time, situation. Cardiovascular: Capillary refill < 3 seconds. Respiratory: Airway is patent Respiratory effort is even, unlabored, Respiratory pattern is regular, symmetrical. GI: No signs and/or symptoms were reported involving the gastrointestinal system. : No signs and/or symptoms were reported regarding the genitourinary system. Derm: Skin is pink, warm \T\ dry. 13:13 Reassessment: Pt. went to US. rb1 13:51 Reassessment: Patient appears in no apparent distress at this time. Patient and/or rb1 family updated on plan of care and expected duration. Pain level reassessed. Patient is alert, oriented x 3, equal unlabored respirations, skin warm/dry/pink. 14:50 Reassessment: Patient appears in no apparent distress at this time. No changes from rb1 previously documented assessment. Vital Signs: 12:35 BP 192 / 95; Pulse 76; Resp 18 S; Temp 97(TE); Pulse Ox 97% on R/A; Weight 145.15 kg ca1 (R); Height 5 ft. 4 in. (162.56 cm) (R); Pain 10/10; 13:38 rb1 13:59 BP 102 / 75; Pulse 72; Resp 18; Pulse Ox 100% ; Pain 6/10; rb1 14:59 BP 149 / 81; Pulse 67; Resp 17; Pulse Ox 96% ; rb1 12:35 Body Mass Index 54.93 (145.15 kg, 162.56 cm) ca1 13:38 Pt. is in US rb1 ED Course: 12:31 Patient arrived in ED. ag5 12:31 Mainor Joy DO is Private Physician. ag5 12:38 Triage completed. ca1 12:38 Arm band placed on right wrist. ca1 12:41 Patient has correct armband on for positive identification. Bed in low position. Call rb1 light in reach. Side rails up X 1. Pulse ox on. NIBP on. 12:44 Mark Will MD is Attending Physician. rn 12:57 Iris Haddad, RN is Primary Nurse. rb1 13:35 Lower Extremity Artery Uni Ltd US In Process Unspecified. EDMS 13:35 Extremity Venous Uni Ltd US In Process Unspecified. EDMS 15:31 No provider procedures requiring assistance completed. Patient did not have IV access rb1 during this emergency room visit. Administered Medications: 13:06 Drug: [place] 10 mg-325 mg 1 tabs Route: PO; rb1 13:50 Follow up: Response: No adverse reaction; Pain is decreased rb1 Outcome: 15:07 Discharge ordered by . rn 15:31 Discharged to home via wheelchair, with family. rb1 15:31 Condition: stable 15:31 Discharge instructions given to patient, Instructed on discharge instructions, follow up and referral plans. medication usage, Demonstrated understanding of instructions, follow-up care, medications, Prescriptions given X 1. 15:31 Patient left the ED. rb1 Signatures: Dispatcher [employer] EDMS Mark Will MD MD rn Barber, Rebecca, JENNI RN rb1 Nicole Fair RN RN ca1 Wang Harris ag5
[2019-09-28 16:05] VITALS: TEMP 97
[2019-09-28 16:09] VITALS: BP 149/81; O2SAT 96
--- NOTE | 2019-09-28 17:21 | RAD REPORT ---
EXAM DESCRIPTION: US - Lower Extremity Artery Uni Ltd - 09/28/2019 1:35 pm CLINICAL HISTORY: Leg pain COMPARISON: 2019 FINDINGS: The waveforms of the right common femoral, right superficial femoral and right popliteal a rteries are biphasic The waveform of the right posterior tibial artery is triphasic The right dorsalis pedis is patent. Waveforms were not obtained. IMPRESSION: No high-grade stenosis/occlusion within the right lower extremity
== END 2019-09-28 15:31 | disposition home or self-care (01) ==
LOC: ER 12:29
DX: M71.21 Synovial cyst of popliteal space [Baker], right knee (principal); M54.17 Radiculopathy, lumbosacral region; I10 Essential (primary) hypertension; E11.9 Type 2 diabetes mellitus without complications; Z88.5 Allergy status to narcotic agent
CPT/HCPCS: 93926; 93971; 99284

== ENCOUNTER 2020-04-09 09:07 | Emergency (ER) | payer OTHER ==
--- OUTSIDE RECORDS SUMMARY | 2020-04-09 10:08 | XMS REPORT | Continuity of Care Document ---
:1955 Author Organization [facility] t Address [address] [place] [address] Care Team Providers Name Role Phone Doctor Unassigned, Name Attending Clinician Unavailable Latasha PROCTOR, L Attending Clinician Eliazar PROCTOR Attending Clinician Problems This patient has no known problems. Allergies, Adverse Reactions, Alerts Allergy Allergy Status Severity Reaction(s) Onset Inactive Treating Comm ents Source Name Type Date Date Clinician Metformi Adverse Active [facility] Lisinopr Adverse Active Cough [facility] Amlodipi Adverse Active LE Swelling [facility] Medications Ordered Filled Start Stop Current Ordering Indication Dosage Frequency Signature Comments Components Source Medication Medication Date Date Medication? Clinician (SIG) Name Name Byrosendo Bysandrareon Yes Mainor [address] [facility] 8-04 Joy [facility] 00 [facility] Bydureon Bydureon 2020- No Mainor as [facility] BCise BCise 7-21 10-19 Joy directed [facility]: [facility]00 [facility] 00 :00 [facility] Tramadol Tramadol 0 Yes Mainor [address] [facility] HCl HCl 7-20 Joy as needed [facility] 00 [facility]ics Hydrochloro Hydrochloro Yes Mainor [address] [facility] thiazide thiazide 7-06 Joy in the [facility] - 00:00: morning [facility] Clin[facility] Tramadol Tramadol Yes Mainor not [facility] HCl HCl Joy defined [facility] Methocarbam Methocarbam Yes Mainor not [...] [facility] Motrin IB Motrin IB Yes Mainor not [facility] Joy defined [facility] Procedures This patient has no known procedures. Encounters Start End Encounter Admission Attending Care Care Encounter Source Date/Time Date/Time Type Type Clinicians Facility Department ID 2020-04-03 2020-04-03 [id number] 2019-10-17 2019-10-17 Outpatient Stephen Pendleton [id number] [facility] 10:00[facility]00 10:00:00 [facility] Clin[facility] 2019-10-06 2019-10-06 Outpatient Stephen Pendleton [id number] [facility] 13:31:00 13:31:00 [facility] 2019-10-06 2019-10-06 Orders Doctor MONACO [id number] 00:00:00 00:00:00 Only Unassigned, RUPINDER [id number] [place] [facility] [id number] 2019-10-02 2019-10-02 Outpatient Stephen Mitchellt [id number] [facility] 10:15:00 10:15:00 [facility] 2019-09-29 2019-09-29 [facility] [id number] 08:30:00 08:30:00 t [facility] 2019-09-28 2019-09-28 [facility] [id number] [address] 16:11:00 16:11:00 t Bone [facility] 2019-09-28 2019-09-28 [facility] [id number] 16:09:00 16:09:00 t Bone [facility] 2019-09-28 2019-09-28 [facility] [id number] 11:16:00 11:16:00 t Tangler scanR [facility] 2019-09-28 2019-09-28 [facility] [id number] 00:00:00 00:00:00 [facility] Health [id number] Surgical [id number] Specialti [id number] es [address] [place] 2019-09-27 2019-09-27 Orders Doctor MONACO [id number] 00:00:00 00:00:00 Only Unassigned, RUPINDER [id number] [place] [facility] [id number] 2019-09-18 2019-09-18 Outpatient Stephen Mitchellt [id number] [address] 15:15:00 15:15:00 t Tangler scanR [facility] 2019-06-23 2019-06-23 [facility] [id number] 00:00:00 00:00:00 [facility] Health [id number] Surgical [id number] Specialti [id number] es [address] [place] 2019-04-17 2019-04-17 Refchet Pagan, [facility] [id number] 00:00:00 00:00:00 [facility] [id number] [facility] [id number] [facility] [id number] leticia Knapp 2018-10-31 2018-10-31 Emergency [place], [facility] [id number] 21:12:42 23:51:00 [place] [id number] [place] [id number] [place] [id number] 2018-09-26 2018-09-26 [facility] [id number] [facility] 14:49:00 14:49:00 t Wray [employer]et[employer] [facility] ent Clinics 2018-07-19 2018-07-19 [facility] [id number] [facility] 14:26:00 14:26:00 t Wray [employer]et[employer] s [facility] ent Clinics 2018-07-18 2018-07-18 [facility] [id number] [address] 13:44:00 13:44:00 t Bone [facility] ent Clinics 2018-07-18 2018-07-18 [facility] [id number] 08:30:00 08:30:00 t Bone [facility] Clinics 2018-07-04 2018-07-04 [facility] [id number] 09:54:00 09:54:00 t Wray [employer]et[employer] s - [facility] 2018-06-27 2018-06-27 [facility] [id number] 10:28:00 10:28:00 t Wray [employer] s [facility] 2018-06-27 2018-06-27 [facility] [id number] [address] 10:15:00 10:15:00 t Wray [employer]et[employer] s [facility] ent Clinics 2018-06-16 2018-06-16 Outpatient Stephen Pendleton [id number] [facility] 15:35:00 15:35:00 t Diet TV [facility] 2018-05-24 2018-05-24 Outpatient Stephen Pendleton [id number] 12:25:00 12:25:00 t Diet TV [facility] ent Clinics Results This patient has no known results.
--- OUTSIDE RECORDS SUMMARY | 2020-04-09 10:08 | XMS REPORT ---
:1955 Author Organization [facility] Address [address] [place] [address] Care Team Providers Name Role Phone Eben Stephens Unavailable [phone] PROBLEMS Type Condition ICD9-CM [id number] Onset Condition SNOMED Code Notes Code Code Dates Status Problem HTN, goal below I10 Active 87698081 130/80 Problem Osteoarthritis of M47.815 Active 9063508 thoracolumbar spine, unspecified spinal osteoarthritis complication status Problem Depression with F41.8 Active 07609775 anxiety Problem Low back pain M54.5 Active 982882807 Problem Tobacco use F17.200 Active 702960058 disorder Problem Mixed E78.2 Active 194103759 hyperlipidemia Problem Type 2 diabetes E11.8 Active 20781161 mellitus with complication, without long-term current use of insulin Problem Primary M17.11 Active [id number] osteoarthritis of right knee Problem Asymptomatic I16.0 Active 242449031 hypertensive urgency Problem Other chronic G89.29 Active 71712524 pain Problem Chronic J44.9 Active 47300369 obstructive pulmonary disease, unspecified COPD type Problem Type 2 diabetes E11.29 Active 08579229 mellitus with other diabetic kidney complication Problem Noncompliance Z91.11 Active 202137075 with dietary restriction ALLERGIES Allergen (clinical Drug/Non Drug Reaction Allergy Type Onset Date S tatus drug ingredient) Allergy documented on EMR lisinopril Lisinopril(NCC Cough Drug Allergy Active Code:[address]-78) amlodipine Amlodipine LE Swelling Drug Allergy Active Besylate(NDC Code:[address]-82) metformin Metformin HCl(ND diarrhea Drug Allergy Activ e Code:[address]-70) ENCOUNTERS from 1955 to 2020-04-03 Encounter Location Date Provider Diagnosis [facility] [address] [facility] [address], [place] [address] IMMUNIZATIONS Vaccine Route Administration Date Status Bupivicaine [place] Unknown September 29, 2019 Administered Kenalog (Triamcinolone) Unknown September 29, 2019 Administ ered SOCIAL HISTORY Tobacco Use: Social History Observation Description Date Details (start date - stop date) Former Smoker Sex Assigned At : Social History Observation Description Sex Assigned At Unknown PHQ9 Question Answer Notes Little interest or pleasure in doing things Not at all Feeling down, depressed, or hopeless Nearly every day Trouble falling or staying asleep or sleeping too much Nearl y every day Feeling tired or having little energy Nearly every day Poor appetite or overeating Several days Feeling bad about yourself, or that you are a failure, or No t at all have let yourself or your family down Trouble concentrating on things, such as reading the Not at all newspaper or watching television Moving or speaking so slowly that other people could have No t at all noticed; or the opposite, being so fidgety or restless that you have been moving around a lot more than usual Total Score 10 Interpretation Moderate Depression Thoughts that you would be better off or of hurting Not at all yourself in some way Alcohol Screen Question Answer Notes Did you have a drink containing alcohol in the past year? No Points 0 Interpretation Negative Tobacco Use/Smoking Question Answer Notes Are you a former smoker REASON FOR REFERRAL No Information VITAL SIGNS No information MEDICATIONS Medication SIG (Take, Route, Notes Start Date End Date Status Frequency, Duration) Tramadol HCl 50 MG 1 tablet as needed Sep, Active Orally every 6 hrs Hydrochlorothiazide 25 MG 1 tablet in the Active morning Orally Once a day for 30 day(s) Tramadol HCl Not-Taking Bydureon 2 MG 2 mg Subcutaneous Oct, Ac tive once a week for 28 days Dulera 200-5 MCG/ACT 2 puffs Inhalation Active Twice a day Methocarbamol Not-Taking ProAir HFA 108 (90 Base) 2 puffs as needed Active MCG/ACT Inhalation every 6 hrs Robaxin 500 MG 1.5 tablets Orally Ac tive every 4 hrs Motrin IB Active Bydureon BCise 2 MG/0.85ML as directed Active Subcutaneous Once a week for 30 days PROCEDURES No Information RESULTS No Results REASON FOR VISIT Message MEDICAL (GENERAL) HISTORY Type Description Date Medical History Chronic obstructive pulmonary disease, u nspecified COPD type Medical History Type 2 diabetes mellitus with complicati on, without long-term current use of insulin Medical History HTN, goal below 130/80 Medical History Low back pain Medical History Other chronic pain Medical History Tobacco use disorder Medical History Osteoarthritis of thoracolumbar spine, u nspecified spinal osteoarthritis complication statu s Medical History HBP Surgical History C sections 1979,1984,1992 Surgical History ABSCESS OF LEFT GROIN 02/2015 Surgical History FOOT Goals Section No Information Health Concerns No Information MEDICAL EQUIPMENT No Information MENTAL STATUS No Information FUNCTIONAL STATUS No Information ASSESSMENTS No Information PLAN OF TREATMENT Medication Medication Name Sig Start Date Stop Date ProAir HFA 108 (90 Base) MCG/ACT 2 puffs as needed Inhalation every 6 hrs Robaxin 500 MG 1.5 tablets Orally every 4 hrs Bydureon 2 MG 2 mg Subcutaneous once a week Oct, for 28 days Dulera 200-5 MCG/ACT 2 puffs Inhalation Twice a day Hydrochlorothiazide 25 MG 1 tablet in the morning Orally Once a day for 30 day(s) Bydureon BCise 2 MG/0.85ML as directed Subcutaneous Once a week for 30 days Next Appt Details Provider Name:Eben Stephens, 2020-04-09 0 8:30:00 AM, [address] [place] [address], [phone], Insurance Providers Payer Name Payer Payer Insured Patient Coverage Coverage Address Phone Name Relationship to Start Date End Date Insured [facility] [phone] TanyaNicole self [address] [address]
--- NOTE | 2020-04-09 11:04 | EDPHYS ---
Physician Documentation [facility] Name: Nicole Martínez Age: 64 yrs Sex: Female : 1955 Arrival Date: 04/09/2020 Time: 09:13 Bed 23 Private MD: Rufino [facility] ED Physician Basil Henry HPI: 04/09 10:54 This 64 yrs old Female presents to ER via Ambulatory with complaints of Tooth cp Pain. 10:55 The patient presents with pain. The problem is located in the left lower tooth. Onset: cp The symptoms/episode began/occurred 1 week(s) ago, and became worse last night. Associated signs and symptoms: Pertinent positives: radiating pain to left jaw and left ear, Pertinent negatives: anorexia, dysphagia, fever, inability to eat. Severity of symptoms: in the emergency department the symptoms are unchanged, despite home interventions. Historical: - Allergies: 09:44 Percodan; ss - PMHx: 09:44 Hernández Cyst; Diabetes - NIDDM; Hypertension; ss - PSHx: 09:44 ; ss - Immunization history:: Adult Immunizations not up to date. - Social history:: Smoking status: Patient denies any tobacco usage or history of. ROS: 10:57 Constitutional: Negative for body aches, chills, fever, poor PO intake. cp 10:57 Eyes: Negative for injury, pain, redness, and discharge. cp 10:57 ENT: Positive for dental pain, ear pain, left jaw pain, Negative for drainage from ear(s), difficulty swallowing, difficulty handling secretions. 10:57 Cardiovascular: Negative for chest pain. 10:57 Respiratory: Negative for cough, shortness of breath, wheezing. 10:57 Abdomen/GI: Negative for abdominal pain, nausea, vomiting, and diarrhea. 10:57 Skin: Negative for cellulitis, rash. 10:57 Neuro: Negative for altered mental status, headache, weakness. 10:57 All other systems are negative. Exam: 11:00 Head/Face: Normocephalic, atraumatic. cp 11:00 Constitutional: The patient appears in no acute distress, alert, awake, non-toxic, well developed, well nourished, obese. 11:00 Eyes: Periorbital structures: appear normal, Conjunctiva: normal, no exudate, no injection, Sclera: no appreciated abnormality, Lids and lashes: appear normal, bilaterally. 11:00 ENT: External ear(s): are unremarkable, Ear canal(s): are normal, clear, TM's: dullness, on the left, Nose: is normal, Mouth: Lips: moist, Oral mucosa: pink and intact, moist, abscess, is not appreciated, Posterior pharynx: Airway: no evidence of obstruction, patent, Dental exam: abscess, is not appreciated, dental caries, that is severe, gum swelling, not appreciated, pain, that is moderate, specifically in the lower left first bicuspid (#21). 11:00 Neck: External neck: is normal, ROM/movement: is normal, is supple, Lymph nodes: lymphadenopathy is appreciated, submandibular nodes. Vital Signs: 09:41 BP 156 / 71; Pulse 76; Resp 16; Temp 97.4(TE); Pulse Ox 98% ; Weight 136.08 kg; Height ss 5 ft. 3 in. (160.02 cm); Pain 10; 09:41 Body Mass Index 53.14 (136.08 kg, 160.02 cm) ss MDM: 10:45 Patient medically screened. cp 11:00 Differential diagnosis: dental caries, dental abscess, pericoronitis. cp 11:03 Data reviewed: vital signs, nurses notes. cp Administered Medications: No medications were administered Disposition: 17:31 Co-signature as Attending Physician, Basil Henry MD I agree with the assessment and [facility] plan of care. Disposition: 04/09/20 11:04 Discharged to Home. Impression: Other specified disorders of teeth and supporting structures. - Condition is Stable. - Discharge Instructions: Dental Pain. - Prescriptions for Amoxicillin 875 mg Oral Tablet - take 1 tablet by ORAL route every 12 hours for 10 days; 20 tablet. Tramadol 50 mg Oral Tablet - take 1 tablet by ORAL route every 8 hours as needed; 12 tablet. - Medication Reconciliation Form, Thank You Letter, Antibiotic Education, Prescription Opioid Use form. - Follow up: Private Physician; When: 1 - 2 days; Reason: Recheck today's complaints. - Problem is new. - Symptoms are unchanged. Signatures: Basil Henry MD MD cha Smirch, Shelby, RN RN ss Basil Patten PA PA cp Corrections: (The following items were deleted from the chart) 11:21 11:04 04/09/2020 11:04 Discharged to Home. Impression: Other specified disorders of ss teeth and supporting structures. Condition is Stable. Forms are Medication Reconciliation Form, Thank You Letter, Antibiotic Education, Prescription Opioid Use. Follow up: Private Physician; When: 1 - 2 days; Reason: Recheck today's complaints. Problem is new. Symptoms are unchanged. cp
--- NOTE | 2020-04-09 11:04 | ER ---
Nurse's Notes [facility] Name: Nicole Martínez Age: 64 yrs Sex: Female : 1955 Arrival Date: 04/09/2020 Time: 09:13 Bed 23 Private MD: Mainor Joy Diagnosis: Other specified disorders of teeth and supporting structures Presentation: 04/09 09:41 Chief complaint: Patient states: dental pain that began 1 week ago. "It's shooting pain ss into my ear and jaw.". Coronavirus screen: Client denies travel out of the [place] in the last 14 days. Ebola Screen: Patient denies exposure to infectious person. Patient denies travel to an Ebola-affected area in the 21 days before illness onset. Initial Sepsis Screen: Does the patient meet any 2 criteria? No. Patient's initial sepsis screen is negative. Does the patient have a suspected source of infection? No. Patient's initial sepsis screen is negative. Risk Assessment: Do you want to hurt yourself or someone else? Patient reports no desire to harm self or others. Onset of symptoms was April 03, 2020. 09:41 Method Of Arrival: Ambulatory ss 09:41 Acuity: KAELYN 5 ss Historical: - Allergies: 09:44 Percodan; ss - PMHx: 09:44 Hernández Cyst; Diabetes - NIDDM; Hypertension; ss - PSHx: 09:44 ; ss - Immunization history:: Adult Immunizations not up to date. - Social history:: Smoking status: Patient denies any tobacco usage or history of. Screenin:20 Abuse screen: Denies threats or abuse. Denies injuries from another. Nutritional ss screening: No deficits noted. Tuberculosis screening: Never had TB. Fall Risk None identified. Assessment: 09:41 General: Appears in no apparent distress. comfortable, Behavior is calm, cooperative, ss Denies fever, feeling ill, fatigue, chills. Pain: Complains of pain in lower left first bicuspid (#21) Pain currently is 10 out of 10 on a pain scale. Quality of pain is described as aching, Is continuous. Neuro: Level of Consciousness is awake, alert, obeys commands, Oriented to person, place, time, situation. Cardiovascular: Capillary refill < 3 seconds is brisk in bilateral fingers Patient's skin is warm and dry. Respiratory: Airway is patent Respiratory effort is even, unlabored, Respiratory pattern is regular, symmetrical. GI: Patient currently denies abdominal pain, nausea, vomiting. EENT: Dental caries noted in lower left first bicuspid (#21). Derm: Skin is pink, warm \\T\\ dry. normal. Vital Signs: 09:41 BP 156 / 71; Pulse 76; Resp 16; Temp 97.4(TE); Pulse Ox 98% ; Weight 136.08 kg; Height ss 5 ft. 3 in. (160.02 cm); Pain 10; 09:41 Body Mass Index 53.14 (136.08 kg, 160.02 cm) ss ED Course: 09:13 Patient arrived in ED. am4 09:14 Mainor Joy DO is Private Physician. am4 09:43 Triage completed. ss 09:44 Arm band placed on right wrist. ss 10:41 Basil Patten PA is PHCP. cp 10:41 Basil Henry MD is Attending Physician. cp 11:20 Annabella Velasco RN is Primary Nurse. ss 11:20 Patient has correct armband on for positive identification. Bed in low position. Call ss light in reach. 11:20 No provider procedures requiring assistance completed. Patient did not have IV access ss during this emergency room visit. Administered Medications: No medications were administered Outcome: 11:04 Discharge ordered by MD. cp 11:20 Discharged to home via wheelchair, with family. ss 11:20 Condition: good 11:20 Discharge instructions given to patient, Instructed on discharge instructions, follow up and referral plans. medication usage, Demonstrated understanding of instructions, follow-up care, medications, Prescriptions given X 2. 11:21 Patient left the ED. ss Signatures: Annabella Velasco RN RN Basil Patten PA PA Marie Reza am4
[2020-04-09 11:33] VITALS: BP 156/71; TEMP 97.4; O2SAT 98
== END 2020-04-09 11:21 | disposition home or self-care (01) ==
LOC: ER 09:07
DX: K08.89 Other specified disorders of teeth and supporting structures (principal); I10 Essential (primary) hypertension; Z88.5 Allergy status to narcotic agent
CPT/HCPCS: 99282

== ENCOUNTER 2020-04-28 15:27 | Emergency (ER) | payer OTHER ==
[2020-04-28 18:32] LABS: SARS-COV-2 RT PCR POSITIVE (NEGATIVE)
[2020-04-28] MEDS ORDERED: TRAMADOL HCL 50 MG TAB ONE (18:33)
--- NOTE | 2020-04-28 18:37 | EDPHYS ---
Physician Documentation [facility] Name: Nicole Martínez Age: 65 yrs Sex: Female : 1955 Arrival Date: 04/28/2020 Time: 15:31 Bed 5 Private MD: ED Physician Jl Devries HPI: 04/28 18:39 This 65 yrs old Female presents to ER via Wheelchair with complaints of Sore tw4 Throat, Cough, Ear Pain. 18:39 The patient presents with sore throat. The patient describes throat pain as raw. Onset: tw4 The symptoms/episode began/occurred yesterday. Severity of symptoms: At their worst the symptoms were moderate. The patient has not experienced similar symptoms in the past. Historical: - Allergies: 15:36 Percodan; ll1 - PMHx: 15:36 Diabetes - NIDDM; Hernández Cyst; Hypertension; ll1 - PSHx: 15:36 ; Hysterectomy; ll1 - Immunization history:: Flu vaccine is not up to date. - Social history:: Smoking status: Patient denies any tobacco usage or history of. ROS: 18:39 Constitutional: Negative for fever, chills, and weight loss, Eyes: Negative for injury, tw4 pain, redness, and discharge. 18:39 Cardiovascular: Negative for chest pain, palpitations, and edema, Respiratory: Negative for shortness of breath, cough, wheezing, and pleuritic chest pain, Abdomen/GI: Negative for abdominal pain, nausea, vomiting, diarrhea, and constipation, Back: Negative for injury and pain, MS/Extremity: Negative for injury and deformity, Skin: Negative for injury, rash, and discoloration, Neuro: Negative for headache, weakness, numbness, tingling, and seizure. 18:39 ENT: Positive for sore throat. Exam: 18:39 Constitutional: This is a well developed, well nourished patient who is awake, alert, tw4 and in no acute distress. Head/Face: Normocephalic, atraumatic. 18:39 Chest/axilla: Normal chest wall appearance and motion. Nontender with no deformity. No lesions are appreciated. Cardiovascular: Regular rate and rhythm with a normal S1 and S2. No gallops, murmurs, or rubs. Normal PMI, no JVD. No pulse deficits. Respiratory: Lungs have equal breath sounds bilaterally, clear to auscultation and percussion. No rales, rhonchi or wheezes noted. No increased work of breathing, no retractions or nasal flaring. Abdomen/GI: Soft, non-tender, with normal bowel sounds. No distension or tympany. No guarding or rebound. No evidence of tenderness throughout. Back: No spinal tenderness. No costovertebral tenderness. Full range of motion. MS/ Extremity: Pulses equal, no cyanosis. Neurovascular intact. Full, normal range of motion. Neuro: Awake and alert, GCS 15, oriented to person, place, time, and situation. Cranial nerves II-XII grossly intact. Motor strength 5/5 in all extremities. Sensory grossly intact. Cerebellar exam normal. Normal gait. 18:39 ENT: Posterior pharynx: erythema. Vital Signs: 15:36 BP 152 / 110; Pulse 89; Resp 18; Temp 99.0; Pulse Ox 95% ; Weight 136.08 kg; Height 5 ll1 ft. 4 in. (162.56 cm); Pain 7/10; 18:30 BP 148 / 99; Pulse 87; Resp 18; Pulse Ox 95% on R/A; ph 15:36 Body Mass Index 51.49 (136.08 kg, 162.56 cm) ll1 MDM: 18:36 Patient medically screened. tw4 18:39 Data reviewed: vital signs, nurses notes, EMS record. Counseling: I had a detailed discussion with the patient and/or guardian regarding: the historical points, exam findings, and any diagnostic results supporting the discharge/admit diagnosis, lab results, radiology results. 04/28 16:52 Order name: Strep 04/28 17:25 Order name: Flu 04/28 17:25 Order name: COVID-19 : Document "Date of Symptom Onset" if Symptomatic. 04/28 17:38 Order name: Influenza Screen (A EDWY 04/28 17:39 Order name: CORONAVIRUS EDWY 04/28 17:59 Order name: Group A Streptococcus Rapid Sc; Complete Time: 19:09 EDWY 04/28 18:10 Order name: CXR XRAY 04/28 18:32 Order name: COVID-19/FLU A+B; Complete Time: 19:09 EDWY 04/28 19:19 Order name: ERIN; Complete Time: 19:21 EDWY Administered Medications: 18:19 Drug: traMADol 50 mg Route: PO; ph 19:04 Follow up: Response: No adverse reaction ph 19:57 Drug: Decadron 10 mg Route: IM; Site: right deltoid; rv 19:58 Follow up: Response: Medication administered at discharge. rv 19:57 Drug: AZITHromycin 500 mg Route: PO; rv 19:58 Follow up: Response: Medication administered at discharge. rv Disposition: 04/28/20 18:36 Discharged to Home. Impression: Coronavirus infection, unspecified. - Condition is Stable. - Discharge Instructions: Upper Respiratory Infection, Adult, Viral Respiratory Infection, Mcns-Vg-Jgje, COVID-19. - Prescriptions for Zithromax Z- Sammy 250 mg Oral Tablet - take 1 tablet by ORAL route as directed for 5 days Day 1 - take two (2) tablets one time. Day 2, 3, 4 , 5 take one (1) tablet once daily.; 6 tablet. Medrol (Sammy) 4 mg Oral Tablets, Dose Pack - take 1 tablet by ORAL route as directed - follow package instructions; 1 packet. Albuterol Sulfate 90 mcg/actuation - inhale 1-2 puff by INHALATION route every 4-6 hours; 1 Inhaler. - Medication Reconciliation Form, Thank You Letter, Antibiotic Education, Prescription Opioid Use form. - Follow up: Private Physician; When: Upon discharge from the Emergency Department; Reason: Recheck today's complaints, Continuance of care, Re-evaluation by your physician. - Problem is new. - Symptoms have improved. Signatures: Dispatcher [employer] [facility] Gloria Yin RN RN Jl Devries MD MD tw4 Vitaliy Duque RN RN rv Lewis, Lynsay, RN RN ll1 Jam Wagner MD MD mh7 Corrections: (The following items were deleted from the chart) 19:59 18:36 04/28/2020 18:36 Discharged to Home. Impression: Coronavirus infection, rv unspecified. Condition is Stable. Forms are Medication Reconciliation Form, Thank You Letter, Antibiotic Education, Prescription Opioid Use. Follow up: Private Physician; When: Upon discharge from the Emergency Department; Reason: Recheck today's complaints, Continuance of care, Re-evaluation by your physician. Problem is new. Symptoms have improved. tw4
--- NOTE | 2020-04-28 18:37 | ER ---
Nurse's Notes [facility] Name: Nicole Martínez Age: 65 yrs Sex: Female : 1955 Arrival Date: 04/28/2020 Time: 15:31 Bed 5 Private MD: Diagnosis: Coronavirus infection, unspecified Presentation: 04/28 15:36 Chief complaint: Patient states: Bilateral ear draining, sinus drying up, coughing up ll1 phlegm for 2 days. Sore throat for 1 day, weakness and fatigue. Low grade fever 99.4. Coronavirus screen: Client denies travel out of the [place] in the last 14 days. cough unrelated to allergies, fatigue, sore throat, Client presents with at least one sign or symptom that may indicate coronavirus-19. Standard/surgical mask placed on the client. Ebola Screen: Patient denies travel to an Ebola-affected area in the 21 days before illness onset. Initial Sepsis Screen: Does the patient meet any 2 criteria? No. Patient's initial sepsis screen is negative. Does the patient have a suspected source of infection? Yes: Other: sore throat. Risk Assessment: Do you want to hurt yourself or someone else? Patient reports no desire to harm self or others. Onset of symptoms was April 27, 2020. 15:36 Method Of Arrival: Wheelchair ll1 15:36 Acuity: KAELYN 3 ll1 Historical: - Allergies: 15:36 Percodan; ll1 - PMHx: 15:36 Diabetes - NIDDM; Hernández Cyst; Hypertension; ll1 - PSHx: 15:36 ; Hysterectomy; ll1 - Immunization history:: Flu vaccine is not up to date. - Social history:: Smoking status: Patient denies any tobacco usage or history of. Screenin:02 Abuse screen: Denies threats or abuse. Denies injuries from another. Nutritional ph screening: No deficits noted. Tuberculosis screening: No symptoms or risk factors identified. Fall Risk None identified. Assessment: 18:19 General: Appears in no apparent distress. comfortable, Behavior is calm, cooperative, ph appropriate for age, Reports fever for 12-24 hours, fatigue for 1-2 days. Pain: Complains of pain in back and throat. Neuro: Level of Consciousness is awake, alert, obeys commands, Oriented to person, place, time, situation. Cardiovascular: Capillary refill < 3 seconds in bilateral fingers Patient's skin is warm and dry. Respiratory: Reports cough that is productive, Airway is patent Respiratory effort is even, unlabored, Respiratory pattern is regular, symmetrical, Denies shortness of breath. GI: No signs and/or symptoms were reported involving the gastrointestinal system. EENT: Reports pain in left ear and right ear when swallowing. Derm: Skin is intact, is healthy with good turgor, Skin is pink, warm \T\ dry. 19:58 Respiratory: Breath sounds are clear bilaterally. rv Vital Signs: 15:36 BP 152 / 110; Pulse 89; Resp 18; Temp 99.0; Pulse Ox 95% ; Weight 136.08 kg; Height 5 ll1 ft. 4 in. (162.56 cm); Pain 7/10; 18:30 BP 148 / 99; Pulse 87; Resp 18; Pulse Ox 95% on R/A; ph 15:36 Body Mass Index 51.49 (136.08 kg, 162.56 cm) ll1 ED Course: 15:31 Patient arrived in ED. ds1 15:35 Arm band placed on. ll1 15:40 Triage completed. ll1 17:24 Jl Devries MD is Attending Physician. tw4 18:02 Gloria Yin, RN is Primary Nurse. ph 18:21 Patient has correct armband on for positive identification. Placed in gown. Bed in low ph position. Call light in reach. Pulse ox on. NIBP on. Door closed. Noise minimized. Warm blanket given. 19:14 Primary Nurse role handed off by Gloria Yin, RN mw2 19:58 No provider procedures requiring assistance completed. Patient did not have IV access rv during this emergency room visit. Administered Medications: 18:19 Drug: traMADol 50 mg Route: PO; ph 19:04 Follow up: Response: No adverse reaction ph 19:57 Drug: Decadron 10 mg Route: IM; Site: right deltoid; rv 19:58 Follow up: Response: Medication administered at discharge. rv 19:57 Drug: AZITHromycin 500 mg Route: PO; rv 19:58 Follow up: Response: Medication administered at discharge. rv Outcome: 18:36 Discharge ordered by . tw4 19:59 Discharged to home ambulatory. rv 19:59 Condition: good 19:59 Discharge instructions given to patient, Instructed on discharge instructions, follow up and referral plans. medication usage, Demonstrated understanding of instructions, follow-up care, medications, Prescriptions given X 3. 19:59 Patient left the ED. rv Signatures: Kiera Evans ds1 Gloria Yin, RN RN Jl Devries MD MD tw4 Krunal Marie mw2 Vitaliy Duque RN RN rv Sujatha Connell RN RN ll1
[2020-04-28] MEDS ORDERED: AZITHROMYCIN 250 MG TAB ONE (19:08)
[2020-04-28] MEDS ORDERED: dexAMETHasone 10 MG/ML VIAL ONE (19:08)
--- NOTE | 2020-04-28 19:18 | RAD REPORT ---
EXAM DESCRIPTION: Susie Single View04/28/2020 6:47 pm CLINICAL HISTORY: Cough COMPARISON: 2019 FINDINGS: Lung bases are hazy. The heart is normal size IMPRESSION: Lung bases are hazy which could be secondary to overlying soft tissue or infiltrate. PA and lateral chest series recommended
[2020-04-28 20:03] VITALS: TEMP 99; O2SAT 95
[2020-04-28 20:04] VITALS: BP 148/99
== END 2020-04-28 19:59 | disposition home or self-care (01) ==
LOC: ER 15:27
DX: U07.1 COVID-19 (principal); I10 Essential (primary) hypertension; Z88.5 Allergy status to narcotic agent
CPT/HCPCS: 87070; 87081; 0240U; 71045; 96372; 99283; J1100

== ENCOUNTER 2020-05-05 15:55 | Observation (INO) | payer OTHER ==
--- OUTSIDE RECORDS SUMMARY | 2020-05-05 15:59 | XMS REPORT | Continuity of Care Document ---
:1955 Author Organization [facility] t Address [address] [place] [address] Care Team Providers Name Role Phone Doctor Unassigned, Name Attending Clinician Unavailable Latasha PROCTOR, L Attending Clinician Eliazar PROCTOR Attending Clinician Problems This patient has no known problems. Allergies, Adverse Reactions, Alerts Allergy Allergy Status Severity Reaction(s) Onset Inactive Treating Comm ents Source Name Type Date Date Clinician Metformi Adverse Active diarrhea [facility] Lisinopr Adverse Active Cough [facility] Amlodipi Adverse Active LE Swelling [facility] Reaction [facility] Clinics Medications Ordered Filled Start Stop Current Ordering Indication Dosage Frequency Signature Comments Components Source Medication Medication Date Date Medication? Clinician (SIG) Name Name Byrosendo Bydureon Yes [facility] [address] [facility] 8-04 [facility] Bydureon Bydureon 2020- No [facility] as [facility] BCise BCise 7-21 10-19 Joy directed [facility] Tramadol Tramadol Yes [facility] [address] [facility] HCl HCl 7-20 Joy as needed [facility] Hydrochloro Hydrochloro Yes Main[facility] 1 [...] Date/Time Type Type Clinicians Facility Department ID 2020-04-09 2020-04-09 Outpatient [facility] [id number] [facility] 2020-04-03 2020-04-03 Outpatient [facility] [id number] [facility] 2019-10-17 2019-10-17 [facility] [id number] 10:00:00 10:00:00 [facility] [place] [facility] Medicine Outpati ent Clinics 2019-10-06 2019-10-06 [facility] [id number] 13:31:00 13:31:00 [facility] Medicine Medicine Outpati ent Clinics 2019-10-06 2019-10-06 Orders Doctor MONACO [id number] 00:00:00 00:00:00 Only Unassigned, RUPINDER [id number] [place] [facility] [id number] 2019-10-02 2019-10-02 [facility] [id number] 10:15:00 10:15:00 [facility] 2019-09-29 2019-09-29 [facility] [id number] 08:30:00 08:30:00 [facility] 2019-09-28 2019-09-28 [facility] [id number] 16:11:00 16:11:00 [facility] 2019-09-28 2019-09-28 Outpatient [facility] [id number] 16:09:00 16:09:00 [facility] 2019-09-28 2019-09-28 Outpatient [facility] [id number] 11:16:00 11:16:00 [facility] 2019-09-28 2019-09-28 Telephone MIS Pagan [id number] 00:00:00 00:00:00 Dimitrios [id number] Surgical [id number] Special [id number] [address] 2019-09-27 2019-09-27 Orders Doctor JACINDA [id number] 00:00:00 00:00:00 Only Unassigned, RUPINDER [id number] [place] [facility] [id number] 2019-09-18 2019-09-18 Outpatient Stephen [facility] [id number] 15:15:00 15:15:00 [facility] [place] [facility] 2019-06-23 2019-06-23 Refill MIS Pagan [id number] 00:00:00 00:00:00 [facility] [id number] Surgical [id number] Specialti [id number] es [address] 2019-04-17 2019-04-17 [facility] [id number] 00:00:00 00:00:00 Dimitrios [facility] [id number] Surgical [id number] Specialti [id number] es [address] 2018-10-31 2018-10-31 [facility] [id number] 21:12:42 23:51:00 [place] [id number] [facility] [id number] [place] [id number] 2018-09-26 2018-09-26 [facility] [id number] 14:49:00 14:49:00 [facility] 2018-07-19 2018-07-19 [facility] [id number] 14:26:00 14:26:00 t [facility] 2018-07-18 2018-07-18 [facility] [id number] 13:44:00 13:44:00 [facility] 2018-07-18 2018-07-18 [facility] [id number] 08:30:00 08:30:00 [facility] 2018-07-04 2018-07-04 [facility] [id number] 09:54:00 09:54:00 t [facility] 2018-06-27 2018-06-27 [facility] [id number] 10:28:00 10:28:00 t [facility] 2018-06-27 2018-06-27 [facility] [id number] 10:15:00 10:15:00 [facility] [place] 2018-06-16 2018-06-16 Outpatient Stephen [facility] [id number] 15:35:00 15:35:00 [facility] [place] 2018-05-24 2018-05-24 Outpatient Stephen [facility] [id number] [facility] 12:25:00 12:25:00 [facility] [place] [facility] ent Clinics Results This patient has no known results.
--- NOTE | 2020-05-05 17:16 | RAD REPORT ---
EXAM DESCRIPTION: RAD - Chest Single View - 05/05/2020 5:04 pm CLINICAL HISTORY: SOB, COVID positive COMPARISON: April 28 TECHNIQUE: AP portable chest image was obtained 05/05/2020 5:04 pm . FINDINGS: Lung volumes are low. Lung base assessment is significantly limited due to the shallow ins piration and large body habitus. No definitive infiltrates seen though CT chest imaging would be more sensitive for subtle or early COVID-19 pneumonia changes. Heart and vasculature are normal. No pneum othorax. Pleural effusions could be masked by the exam limitations. No acute bony abnormality seen. N o acute aortic findings suspected. IMPRESSION: Limited chest examination shows no acute cardiopulmonary finding. Pleural effusions and lung base assessment are limited by shallow inspiration and large body habitus.
[2020-05-05 17:25] LABS: Absolute Lymphocytes (CBC) 0.7 K/uL (0.7-4.9); Basophils % 0.3 % (0-1.3); Hematocrit 47.2 % (36.0-45.0); MPV 9.3 fL (7.6-11.3); RBC Red Blood Cell Count 5.61 M/uL (3.86-4.86)
[2020-05-05 17:29] LABS: Protime INR 1.14
[2020-05-05 17:46] LABS: ALT/SGPT 31 U/L (12-78); AST/SGOT 19 U/L (15-37); Alkaline Phosphatase 88 U/L (45-117); BUN Blood Urea Nitrogen 11 mg/dL (7-18); Bicarbonate 30 mmol/L (21-32); Bilirubin Direct 0.2 mg/dL (0-0.2); Ferritin 568.5 ng/mL (8-388); Glucose Level 302 mg/dL (74-106); Lipase 63 U/L (73-393); Potassium 3.7 mmol/L (3.5-5.1); Protein, Total 7.7 g/dL (6.4-8.2); Sodium Level 134 mmol/L (136-145); Troponin (Emerg Dept Use Only) < 0.02 ng/mL (0.0-0.045)
[2020-05-05 18:02] LABS: Urine Blood NEGATIVE (NEG); Urine Glucose 2+ (NEG); Urine Protein 3+ (NEG); Urine Specific Gravity 1.025 (1.005-1.030)
[2020-05-05 18:19] LABS: Urine Bacteria LOADED /HPF (<20); Urine Mucus N /HPF (NONE SEEN); Urine RBC <5 /HPF (NONE SEEN)
[2020-05-05] MEDS ORDERED: IPRATROPIUM BROM 0.5MG/2.5ML ONE (20:15)
[2020-05-05] MEDS ORDERED: METHYLPREDNISOLONE 125 MG INJ ONE (20:15)
[2020-05-05] MEDS ORDERED: ALBUTEROL 2.5 MG/3 ML NEB SOL ONE (20:16)
--- NOTE | 2020-05-05 20:48 | ER ---
Nurse's Notes [facility] Name: Nicole Martínez Age: 65 yrs Sex: Female : 1955 Arrival Date: 05/05/2020 Time: 15:59 Bed 15 Private MD: Diagnosis: Urinary tract infection, site not specified;Coronavirus infection, unspecified;Hypoxia;Shortness of breath Presentation: 05/05 16:20 Chief complaint: Chief complaint: Patient states: Covid+ 04/28/2020. S/S started ca1 04/26/2020. Reports abdominal pain, loss of appetite, diarrhea, nausea, dizzy, cough and SOB. 16:20 Method Of Arrival: Wheelchair ca1 16:22 Coronavirus screen: Client denies travel out of the [place] in the last 14 days. Client ca1 reports previous positive COVID test result. Date of collection: April 28, 2020. Ebola Screen: Patient negative for fever greater than or equal to 101.5 degrees Fahrenheit, and additional compatible Ebola Virus Disease symptoms Patient denies exposure to infectious person. Patient denies travel to an Ebola-affected area in the 21 days before illness onset. No symptoms or risks identified at this time. Initial Sepsis Screen: Does the patient meet any 2 criteria? No. Patient's initial sepsis screen is negative. Does the patient have a suspected source of infection? No. Patient's initial sepsis screen is negative. Risk Assessment: Do you want to hurt yourself or someone else? Patient reports no desire to harm self or others. Onset of symptoms was May 05, 2020. 16:22 Acuity: KAELYN 2 ca1 Triage Assessment: 21:54 Respiratory: Reports shortness of breath cough that is Onset: The symptoms/episode ll2 began/occurred 04/28/20, the patient has moderate shortness of breath. Historical: - Allergies: 16:25 Percodan; ca1 - PMHx: 16:25 Hernández Cyst; Diabetes - NIDDM; Hypertension; ca1 - PSHx: 16:25 ; Hysterectomy; ca1 - Immunization history:: Flu vaccine is not up to date. - Social history:: Smoking status: Patient/guardian denies using tobacco, the patient reports quitting approximately 3 years ago. Screenin:00 Abuse screen: Denies threats or abuse. Denies injuries from another. Nutritional jl7 screening: No deficits noted. Tuberculosis screening: No symptoms or risk factors identified. Fall Risk IV access (20 points). Total David Fall Scale indicates No Risk (0-24 pts). Assessment: 17:00 General: Appears in no apparent distress. uncomfortable, Behavior is calm, cooperative, jl7 appropriate for age. Neuro: Level of Consciousness is awake, alert, obeys commands, Oriented to person, place, time, situation. Cardiovascular: Patient's skin is warm and dry. Rhythm is sinus rhythm. Respiratory: Airway is patent Respiratory effort is even, unlabored, Respiratory pattern is symmetrical, tachypnea. Derm: Skin is pink, warm \T\ dry. 18:00 Reassessment: Patient appears in no apparent distress at this time. No changes from jl7 previously documented assessment. Patient and/or family updated on plan of care and expected duration. Pain level reassessed. Patient is alert, oriented x 3, equal unlabored respirations, skin warm/dry/pink. 21:30 Reassessment: pt rang call light for potty, upon entering room O2 sats were in the ll2 80's. pt instructed to remain in bed on N/C and bedside commode was obtained. ERP notified. 21:44 Reassessment: report called to JENNI Laughlin, reported pt going to bed 415. ll2 21:54 Respiratory: Breath sounds are coarse. ll2 Vital Signs: 16:22 BP 149 / 55; Pulse 75; Resp 19 S; Temp 97.8(TE); Pulse Ox 88% on R/A; Weight 136.08 kg ca1 (R); Height 5 ft. 4 in. (162.56 cm) (R); 18:52 BP 147 / 70; Pulse 76; Resp 28; Pulse Ox 95% on 2 lpm NC; mh5 19:20 BP 129 / 84; Pulse 79; Resp 26; Pulse Ox 95% on 2 lpm NC; jl7 16:22 Body Mass Index 51.49 (136.08 kg, 162.56 cm) ca1 ED Course: 15:59 Patient arrived in ED. ag5 16:24 Triage completed. ca1 16:25 Arm band placed on right wrist. ca1 16:26 Harsha Millan NP is PHCP. pm1 16:26 Mark Will MD is Attending Physician. pm1 16:27 Iris Haddad, RN is Primary Nurse. rb3 16:54 Initial lab(s) drawn, by me, sent to lab. Inserted saline lock: 20 gauge in right iw antecubital area, using aseptic technique. Blood collected. 17:04 CXR XRAY In Process Unspecified. EDMS 17:30 Flu and/or RSV swab sent to lab. Strep swab sent to lab. jl7 17:47 Urine Microscopic Only Sent. jd3 17:49 Rasihd Ch, RN is Primary Nurse. jl7 18:00 Patient has correct armband on for positive identification. Placed in gown. Bed in low jl7 position. Call light in reach. Side rails up X 1. alarm security or surveillance monitor on. Pulse ox on. NIBP on. Warm blanket given. 18:50 EKG done, by ED staff, reviewed by Mark Will MD. [facility] 20:47 Alissa Giles MD is Hospitalizing Provider. pm1 21:53 No provider procedures requiring assistance completed. Patient admitted, IV remains in ll2 place. Administered Medications: 20:25 Drug: SOLU-Medrol 125 mg Route: IVP; Site: left antecubital; 2 21:20 Follow up: Response: No adverse reaction 2 20:26 Drug: Albuterol - atroVENT (3:1) (2.5 mg - 0.5 mg) 3 ml Route: Nebulizer; 2 21:20 Follow up: Response: No adverse reaction 2 21:11 Drug: Rocephin 1 grams Route: IV; Rate: calculated rate; Site: right antecubital; 2 21:45 Follow up: Response: No adverse reaction 2 Outcome: 20:47 Decision to Hospitalize by Provider. pm1 21:53 Admitted to Med/surg accompanied by tech, via stretcher, with oxygen, Report called to 2 JENNI laughlin 21:53 Condition: stable 21:53 Instructed on the need for admit. 21:54 Patient left the ED. 2 Signatures: Dispatcher [employer] EDMS Tiffany Messina RN RN iw Harsha Millan, RAYON TESTER RAYON TESTER pm1 Linda Vega 5 Rashid Ch RN RN jl7 Tai Cuevas RN RN jd3 Acob, Cheryl, RN RN ca1 Gaskin, Ajare ag5 Sita Fuller RN RN ll2 Iris Haddad RN RN rb3 Corrections: (The following items were deleted from the chart) 16:24 16:20 Chief complaint: ca1 ca1
--- NOTE | 2020-05-05 20:48 | EDPHYS ---
Physician Documentation [facility] Name: Nicole Martínez Age: 65 yrs Sex: Female : 1955 Arrival Date: 05/05/2020 Time: 15:59 Bed 15 Private MD: ED Physician Mark Will HPI: 05/05 21:33 This 65 yrs old Female presents to ER via Wheelchair with complaints of pm1 COVID+, Decreased Appetite, Breathing Difficulty. 21:33 The patient has shortness of breath at rest. Onset: The symptoms/episode began/occurred pm1 9 day(s) ago. Duration: The symptoms are continuous, and are markedly worse than the original presentation. The patient's shortness of breath is aggravated by nothing, is alleviated by nothing. Associated signs and symptoms: Pertinent positives: chest pain, productive cough, nausea, Diarrhea, Abdominal pain, Decreased appetite. Severity of symptoms: in the emergency department the symptoms are worse. Tested positive for covid on 04/28. Historical: - Allergies: 16:25 Percodan; ca1 - PMHx: 16:25 Hernández Cyst; Diabetes - NIDDM; Hypertension; ca1 - PSHx: 16:25 ; Hysterectomy; ca1 - Immunization history:: Flu vaccine is not up to date. - Social history:: Smoking status: Patient/guardian denies using tobacco, the patient reports quitting approximately 3 years ago. ROS: 21:35 Neck: Negative for injury, pain, and swelling, Cardiovascular: Negative for chest pain, pm1 palpitations, and edema, Respiratory: Negative for shortness of breath, cough, wheezing, and pleuritic chest pain. 21:35 Back: Negative for injury and pain, : Negative for injury, bleeding, discharge, and swelling, MS/Extremity: Negative for injury and deformity, Skin: Negative for injury, rash, and discoloration, Neuro: Negative for headache, weakness, numbness, tingling, and seizure. 21:35 Constitutional: Positive for body aches, poor PO intake, Negative for fever. 21:35 Abdomen/GI: Positive for abdominal pain, nausea, diarrhea, Negative for constipation. Exam: 21:35 Head/Face: Normocephalic, atraumatic. Neck: Trachea midline, no thyromegaly or masses pm1 palpated, and no cervical lymphadenopathy. Supple, full range of motion without nuchal rigidity, or vertebral point tenderness. No Meningismus. Chest/axilla: Normal chest wall appearance and motion. Nontender with no deformity. No lesions are appreciated. 21:35 Back: No spinal tenderness. No costovertebral tenderness. Full range of motion. Skin: Warm, dry with normal turgor. Normal color with no rashes, no lesions, and no evidence of cellulitis. MS/ Extremity: Pulses equal, no cyanosis. Neurovascular intact. Full, normal range of motion. 21:35 Constitutional: The patient appears well developed, well hydrated, well groomed, well nourished, obviously ill. 21:35 Cardiovascular: Rate: normal, Rhythm: regular, Pulses: no pulse deficits are appreciated, Edema: is not appreciated. 21:35 Respiratory: the patient does not display signs of respiratory distress, Breath sounds: are clear throughout. 21:35 Abdomen/GI: Inspection: obese Palpation: abdomen is soft and non-tender, in all quadrants. 21:35 Neuro: Exam negative for acute changes, Orientation: is normal, Mentation: is normal, Motor: is normal, moves all fours. Vital Signs: 16:22 BP 149 / 55; Pulse 75; Resp 19 S; Temp 97.8(TE); Pulse Ox 88% on R/A; Weight 136.08 kg ca1 (R); Height 5 ft. 4 in. (162.56 cm) (R); 18:52 BP 147 / 70; Pulse 76; Resp 28; Pulse Ox 95% on 2 lpm NC; mh5 19:20 BP 129 / 84; Pulse 79; Resp 26; Pulse Ox 95% on 2 lpm NC; jl7 16:22 Body Mass Index 51.49 (136.08 kg, 162.56 cm) ca1 MDM: 16:26 Patient medically screened. pm1 20:43 Data reviewed: vital signs. Data interpreted: Pulse oximetry: on 2L(s) per nasal pm1 canula, is 95 %. Interpretation: normal. 20:45 Counseling: I had a detailed discussion with the patient and/or guardian regarding: the pm1 historical points, exam findings, and any diagnostic results supporting the discharge/admit diagnosis, lab results, radiology results, the need for further work-up and treatment in the hospital. 21:40 ED course: Patient took off her oxygen to use bedside commode. Got short of breath and pm1 hit the call light due to shortness of breath. Patient at 83% and patient returned to oxygen. Patient needs admission for supplemental oxygen therapy. 05/05 16:38 Order name: Blood Culture Adult (2) pm1 05/05 16:38 Order name: BMP; Complete Time: 19:02 pm1 05/05 16:38 Order name: C-Reactive Protein; Complete Time: 19:02 pm05/05 16:38 Order name: CBC with Diff; Complete Time: 17:33 pm05/05 16:38 Order name: D-Dimer; Complete Time: 17:33 pm1 05/05 16:38 Order name: Ferritin; Complete Time: 19:02 pm05/05 16:38 Order name: Lactate; Complete Time: 19:02 pm05/05 16:38 Order name: LFT's; Complete Time: 19:02 pm1 05/05 16:38 Order name: Lipase; Complete Time: 19:02 pm05/05 16:38 Order name: Procalcitonin; Complete Time: 19:02 pm05/05 16:38 Order name: PT-INR; Complete Time: 17:33 pm05/05 16:38 Order name: Ptt, Activated; Complete Time: 17:33 pm05/05 16:38 Order name: Strep; Complete Time: 19:02 pm05/05 16:38 Order name: Troponin (emerg Dept Use Only); Complete Time: 19:02 pm05/05 16:38 Order name: Urine Microscopic Only; Complete Time: 19:02 pm05/05 16:38 Order name: CXR XRAY; Complete Time: 17:33 pm05/05 16:38 Order name: EKG; Complete Time: 16:40 pm05/05 16:38 Order name: Cardiac monitoring; Complete Time: 18:50 pm05/05 16:38 Order name: Droplet/Contact Precautions; Complete Time: 17:50 pm05/05 16:38 Order name: EKG - Nurse/Tech; Complete Time: 18:49 pm1 05/05 16:38 Order name: IV Start; Complete Time: 17:47 pm05/05 16:38 Order name: Labs collected and sent; Complete Time: 17:50 pm05/05 16:38 Order name: Flu; Complete Time: 19:02 pm1 05/05 17:46 Order name: Throat Culture EDVT 05/05 17:56 Order name: Urine Dipstick--Ancillary (enter results) eb 05/05 17:57 Order name: Urine Dipstick-Ancillary; Complete Time: 19:02 EDMS 05/05 16:38 Order name: O2 Per Protocol; Complete Time: 17:47 pm1 05/05 16:38 Order name: O2 Sat Monitoring; Complete Time: 17:47 pm1 05/05 16:38 Order name: Urine Dipstick-Ancillary (obtain specimen); Complete Time: 17:47 pm1 Administered Medications: 20:25 Drug: SOLU-Medrol 125 mg Route: IVP; Site: left antecubital; ll2 21:20 Follow up: Response: No adverse reaction ll2 20:26 Drug: Albuterol - atroVENT (3:1) (2.5 mg - 0.5 mg) 3 ml Route: Nebulizer; ll2 21:20 Follow up: Response: No adverse reaction ll2 21:11 Drug: Rocephin 1 grams Route: IV; Rate: calculated rate; Site: right antecubital; ll2 21:45 Follow up: Response: No adverse reaction ll2 Disposition: 05/06 16:54 Co-signature as Attending Physician, Mark Will MD. rn Disposition: 05/05/20 20:47 Hospitalization ordered by Alissa Giles for Observation. Preliminary diagnosis are Coronavirus infection, unspecified, Urinary tract infection, site not specified, Hypoxia, Shortness of breath. - Bed requested for Telemetry/MedSurg (observation). - Status is Observation. ll2 - Condition is Stable. - Problem is new. - Symptoms have improved. Signatures: Dispatcher [employer] [facility] Mark Will MD MD rn Garcia, Cindy, RN RN cg Harsha Millan, CONVERTING TECHNICIAN CONVERTING TECHNICIAN pm1 Nicole Fair RN RN ca1 Sita Fuller RN RN ll2 Corrections: (The following items were deleted from the chart) 05/05 20:47 16:38 Villanueva ordered. pm1 ca1 21:32 20:47 Hospitalization Ordered by Alissa Giles MD for Observation. Preliminary cg diagnosis is Coronavirus infection, unspecifiedUrinary tract infection, site not specified; Hypoxia; Shortness of breath. Bed requested for Telemetry/MedSurg (observation). Status is Observation. Condition is Stable. Problem is new. Symptoms have improved. pm1 21:54 21:32 05/05/2020 20:47 Hospitalization Ordered by Alissa Giles MD for Observation. ll2 Preliminary diagnosis is Coronavirus infection, unspecifiedUrinary tract infection, site not specified; Hypoxia; Shortness of breath. Bed requested for Telemetry/MedSurg (observation). Status is Observation. Condition is Stable. Problem is new. Symptoms have improved. cg
[2020-05-05] MEDS ORDERED: CEFTRIAXONE/SWI 1gm 1 GM/10 ML SYR ONE (21:06)
[2020-05-05] MEDS ORDERED: HYDROCODONE/APAP 5/325 MG TAB PO PRN (21:30)
[2020-05-05] MEDS ORDERED: MELATONIN 5 MG TABLET PO PRN (21:30)
[2020-05-05] MEDS ORDERED: BENZONATATE 100 MG CAP PO PRN (21:30)
[2020-05-05] MEDS ORDERED: ACETAMINOPHEN 500 MG TAB PO PRN (21:30)
[2020-05-05] MEDS ORDERED: ONDANSETRON 4 MG/2 ML VIAL IV PRN (21:30)
--- NOTE | 2020-05-05 21:57 | P.HP ---
Certification for Inpatient Patient admitted to: Observation With expected LOS: <2 Midnights Patient will require the following post-hospital care: None Practitioner: I am a practitioner with admitting privileges, knowledge of patient current condition, hospital course, and medical plan of care. Services: Services provided to patient in accordance with Admission requirements found in Title 42 Section 412.3 of the Code of Federal Regulations <ArlineBacilio - Last Filed: 05/05/20 21:55> Patient History Date of Service: 05/05/20 Reason for admission: COVID pneumonia with hypoxia History of Present Illness: 65-year-old female history of diabetes mellitus type 2, hypertension, hyperlipidemia, questionable COPD presents emergency department for shortness of breath, back pain. Patient reports testing positive for Cummings virus on 04/29/2020. Patient reports increasing shortness of breath at rest at home, presented to the emergency department was found to be 88% on room air upon arrival to the emergency department. Lab significant for elevated CRP level 97.5, ferritin 568.5. Patient also noted to have urinary tract infection nitrite positive with loaded bacteria. Patient started on Rocephin, steroids in the emergency department, ED provider wishes to admit for further evaluation and management. - Past Medical/Surgical History Diabetic: No -: COPD -: Chronic back pain -: Obesity, BMI 50 -: Diabetes mellitus type 2 -: Hypertension -: x3 -: foot surgery-gangre abscess* -: "Bleeders" in R. eye that had to be repaired with a laser -: I&D of cysts to the left groin Psychosocial/ Personal History: Patient lives by herself but has a boyfriend. She has 3 children. She does not work. - Family History Mother -: Other (see notes) Notes: [employer] Father -: Heart disease, Hypertension Brother -: Stroke - Social History Smoking Status: Former smoker Alcohol use: No CD- Drugs: No Caffeine use: Yes Place of Residence: Home <Bacilio Nunn - Last Filed: 05/05/20 21:55> Date of Service: 05/05/20 <Alissa Giles - Last Filed: 05/28/20 03:19> Allergies oxycodone HCl [From Percodan] Allergy (Unknown, Verified 04/19/18 14:31) Itching/Hives/Rash oxycodone terephthalate [From Percodan] Allergy (Unknown, Verified 04/19/18 14:31) Itching/Hives/Rash metformin Allergy (Verified 05/06/20 15:55) Nausea/Vomiting Home Medications: traMADol HCL [Ultram*] 50 mg PO TID PRN #10 tab 04/21/18 Albuterol Sulfate [Proair Respiclick] 1 puff IH TIDP PRN 05/05/20 Aspirin [Aspirin EC 81 MG] 81 mg PO DAILYPRN PRN 05/05/20 Mometasone/Formoterol [Dulera 100 Mcg-5 Mcg Inhaler] 1 puff IH TIDP PRN 05/05/20 Ascorbic Acid [Vitamin C*] 500 mg PO QID #60 tablet 05/07/20 Atorvastatin Calcium [Lipitor] 40 mg PO BEDTIME #30 tab 05/07/20 Benzonatate [Tessalon Perle*] 100 mg PO TID PRN #60 cap 05/07/20 Cholecalciferol (Vitamin D3) [Vitamin D 1000 Iu Tab*] 4,000 unit PO DAILY #120 tab 05/07/20 Glimepiride [Amaryl] 1 mg PO DAILY #30 tablet 05/07/20 Insulin Glargine Human [Lantus*] 15 units SQ DAILY WITH BREAKFAST #2 syr 05/07/20 Melatonin 5 mg PO BEDTIME PRN PRN #20 tablet 05/07/20 Zinc Sulfate [Zinc Sulfate*] 220 mg PO DAILY #30 cap 05/07/20 predniSONE [Prednisone*] 20 mg PO BID #30 tab 05/07/20 Review of Systems 10-point ROS is otherwise unremarkable Respiratory: Cough, Shortness of Breath, SOB with Excertion Musculoskeletal: Back Pain <Bacilio Nunn - Last Filed: 05/05/20 21:55> Physical Examination - Physical Exam General: Alert, In no apparent distress HEENT: Atraumatic, PERRLA, Mucous membr. moist/pink Neck: Supple, 2+ carotid pulse no bruit, No LAD Respiratory: Clear to auscultation bilaterally, Normal air movement Cardiovascular: Regular rate/rhythm, Normal S1 S2 Gastrointestinal: Normal bowel sounds, No tenderness Musculoskeletal: No tenderness Integumentary: No rashes Neurological: Normal speech, Normal strength at 5/5 x4 extr, Normal tone, Normal affect - Studies Laboratory Data (last 24 hrs) 05/05/20 16:59: PT 13.1 H, INR 1.14, APTT 26.5 05/05/20 16:59: WBC 3.80 L, Hgb 15.1 H, Hct 47.2 H, Plt Count 218 05/05/20 16:59: Sodium 134 L, Potassium 3.7, BUN 11, Creatinine 0.79, Glucose 302 H, Total Bilirubin 1.0, AST 19, ALT 31, Alkaline Phosphatase 88, Lipase 63 L Microbiology Data (last 24 hrs): 05/05/20 17:03 Nasopharnyx Influenza Type A Antigen Screen - Final 05/05/20 17:03 Nasopharnyx Influenza Type B Antigen Screen - Final 05/05/20 17:03 Throat Group A Streptococcus Rapid Screen - Final <Bacilio Nunn - Last Filed: 05/05/20 21:55> - Vital Signs Temperature: 98 F Blood Pressure: 130/70 Pulse: 80 Respirations: 18 Pulse Ox (%): 96 <Alissa Giles - Last Filed: 05/28/20 03:19> Assessment and Plan - Plan Assessment COVID-19 pneumonia with hypoxia Diabetes mellitus type 2 Hypertension Plan COVID-19 pneumonia with hypoxia: Trends CRP, ferritin levels continue with IV steroids, oral supplementation. Daily room air saturations, room air saturations for home O2. government services professional consulted for home oxygen set up. If patient continues to open problem discharged tomorrow home oxygen. Patient reports and pulmonology on outpatient basis is prescribed Dulera and albuterol at home, reports she is being worked up for COPD but that she reportedly did not have COPD and has Very small lungs. Patient previously on home oxygen but has not been on it for years. DVT prophylaxis Lovenox 40 mg subcutaneous once daily. Appreciate further input from pulmonology. Diabetes mellitus type 2: A.c. HS Accu-Cheks and sliding scale insulin therapy. A1c with morning labs. Hypertension: Obtain and continue home meds. Discharge Plan: Home Plan to discharge in: 24 Hours - Advance Directives Does patient have a Living Will: No Does patient have a Durable POA for Healthcare: No - Code Status/Comfort Care Code Status Assessed: Yes (Full code) Critical Care: No Time Spent Managing Pts Care (In Minutes): 55 <Bacilio Nunn - Last Filed: 05/05/20 21:55> - Problems (Diagnosis) (1) Morbid obesity Status: Acute (2) Pneumonia due to COVID-19 virus Status: Acute (3) COPD exacerbation Onset Date: 04/20/18 Status: Acute (4) Hypoxia Onset Date: 04/20/18 Status: Acute <Alissa Giles - Last Filed: 05/28/20 03:19> Date of Service: 05/06/20 Agree with plan of care at this time. Continue with current treatment of pneumonia. <Alissa Giles - Last Filed: 05/28/20 03:19>
[2020-05-05 22:22] VITALS: BMI 51.2
[2020-05-05] MEDS: INSULIN -REGULAR HUMAN 50 UNIT/0.5 ML ML SQ SCH (23:16)
[2020-05-06 04:42] LABS: Absolute Lymphocytes (CBC) 0.3 K/uL (0.7-4.9); Basophils % 0.3 % (0-1.3); Hematocrit 44.5 % (36.0-45.0); Lymphocytes % 14.9 % (15.3-44.8); MPV 9.6 fL (7.6-11.3); RBC Red Blood Cell Count 5.27 M/uL (3.86-4.86)
[2020-05-06 05:00] LABS: C-Reactive Protein 84.6 mg/L (<3.00); Ferritin 563.8 ng/mL (8-388); Magnesium 2.1 mg/dL (1.8-2.4); Potassium 4.2 mmol/L (3.5-5.1); Thyroid Stimulating Hormone 0.453 uIU/mL (0.360-3.740)
[2020-05-06] MEDS ORDERED: GLUCAGON 1 MG/VIAL IM PRN (05:38)
[2020-05-06] MEDS ORDERED: D50W 25 GM/50 ML SYRINGE IV PRN (05:38)
[2020-05-06] MEDS: INSULIN -REGULAR HUMAN 50 UNIT/0.5 ML ML SQ SCH ×4 (05:49→21:22)
[2020-05-06 06:44] LABS: Blood Morphology Comment NOT SEEN (NOT SEEN); Platelet Estimate ADEQ; White Blood Cell Scan OK (OK)
[2020-05-06] MEDS: VITAMIN D 1000 UNIT TAB PO SCH (08:06)
[2020-05-06] MEDS: ZINC SULFATE 220 MG CAP PO SCH (08:07)
[2020-05-06] MEDS: ASCORBIC ACID 500 MG TABLET PO SCH ×4 (08:07→21:16)
[2020-05-06] MEDS: ASPIRIN EC 81 MG TAB PO SCH (08:08)
[2020-05-06] MEDS: INSULIN GLARGINE 100 UNITS/ML SQ SCH (08:08)
[2020-05-06] MEDS ORDERED: METHYLPREDNISOLONE 40 MG INJ IV SCH (09:00)
[2020-05-06] MEDS ORDERED: INSULIN -REGULAR HUMAN 50 UNIT/0.5 ML ML SQ SCH (12:00)
[2020-05-06] MEDS ORDERED: METFORMIN ER 500 MG TAB PO SCH (12:17)
[2020-05-06] MEDS ORDERED: FUROSEMIDE 20 MG/ 2ML VIAL IV ONE (12:19)
--- NOTE | 2020-05-06 12:19 | P.CNS ---
Date of Consult: 05/06/20 Reason for Consult: Shortness of breath Chief Complaint: COVID pneumonia with hypoxia History of Present Illness: Patient is 65 years of age she got a silverio virus on April the triple medical problems started complaining of shortness of breath was found to be hypoxic doing better still feeling weak acquiring minimal oxygen Patient compliant with the bronchodilator Allergies oxycodone HCl [From Percodan] Allergy (Unknown, Verified 04/19/18 14:31) Itching/Hives/Rash oxycodone terephthalate [From Percodan] Allergy (Unknown, Verified 04/19/18 14:31) Itching/Hives/Rash Home Medications: traMADol HCL [Ultram*] 50 mg PO TID PRN #10 tab 04/21/18 Albuterol Sulfate [Proair Respiclick] 1 puff IH TIDP PRN 05/05/20 Aspirin [Aspirin EC 81 MG] 81 mg PO DAILYPRN PRN 05/05/20 Mometasone/Formoterol [Dulera 100 Mcg/5 Mcg Inhaler] 1 puff IH TIDP PRN 05/05/20 - Past Medical/Surgical History Diabetic: No -: COPD -: Chronic back pain -: Obesity, BMI 50 -: Diabetes mellitus type 2 -: Hypertension -: x3 -: foot surgery-gangre abscess* -: "Bleeders" in R. eye that had to be repaired with a laser -: I&D of cysts to the left groin Psychosocial/ Personal History: Patient lives by herself but has a boyfriend. She has 3 children. She does not work. - Family History Mother Medical History: Other (see notes) Notes: [employer] Father Medical History: Heart disease, Hypertension, Lung disease, Other (see notes) Notes: Fibrosis of the lungs Brother Medical History: Stroke - Social History Smoking Status: Former smoker Alcohol use: No CD- Drugs: No Caffeine use: Yes Place of Residence: Home Review of Systems 10-point ROS is otherwise unremarkable General: Weakness Respiratory: Shortness of Breath Physical Examination Temp Pulse Resp BP Pulse Ox 97 F 73 26 H 138/75 95 05/06/20 08:00 05/06/20 08:00 05/06/20 08:00 05/06/20 08:00 05/06/20 08:00 General: Alert, Oriented x3 Respiratory: Clear to auscultation bilaterally, Diminished Cardiovascular: No edema, Normal S1 S2 Laboratory Data (last 24 hrs) 05/05/20 16:59: PT 13.1 H, INR 1.14, APTT 26.5 05/05/20 16:59: WBC 3.80 L, Hgb 15.1 H, Hct 47.2 H, Plt Count 218 05/05/20 16:59: Sodium 134 L, Potassium 3.7, BUN 11, Creatinine 0.79, Glucose 302 H, Total Bilirubin 1.0, AST 19, ALT 31, Alkaline Phosphatase 88, Lipase 63 L - Problems (1) Respiratory failure Current Visit: Yes Status: Acute Plan: Patient is 65 years of age admitted with hypoxemia history of COPD underlying diabetes A1c significantly elevated patient is not on any diabetic medication blood sugars elevated oxygen sat is satisfactory vital signs stable may have underlying some diastolic dysfunction patient is obese add metformin reduce prednisone dosage possible discharge tomorrow ivermectin
[2020-05-06] MEDS ORDERED: IVERMECTIN 3 MG TABLET PO ONE (12:30)
[2020-05-06] MEDS ORDERED: D50W 25 GM/50 ML VIAL IV PRN (21:00)
[2020-05-06] MEDS ORDERED: CEFTRIAXONE 1 GM/NS 50 ML 1 GM/50 ML BAG IV SCH (21:00)
[2020-05-06] MEDS: predniSONE 20 MG TAB PO SCH (21:14)
[2020-05-06] MEDS: CEFTRIAXONE/SWI 1gm 1 GM/10 ML SYR IV SCH (21:16)
[2020-05-06] MEDS: ATORVASTATIN 40 MG TAB PO SCH (21:16)
[2020-05-07] MEDS: ZINC SULFATE 220 MG CAP PO SCH (09:26)
[2020-05-07] MEDS: ASCORBIC ACID 500 MG TABLET PO SCH ×4 (09:26→20:41)
[2020-05-07] MEDS: INSULIN GLARGINE 100 UNITS/ML SQ SCH (09:26)
[2020-05-07] MEDS: VITAMIN D 1000 UNIT TAB PO SCH (09:26)
[2020-05-07] MEDS: predniSONE 20 MG TAB PO SCH ×2 (09:26→20:41)
[2020-05-07] MEDS: ASPIRIN EC 81 MG TAB PO SCH (09:26)
[2020-05-07] MEDS: INSULIN -REGULAR HUMAN 50 UNIT/0.5 ML ML SQ SCH ×4 (09:27→20:58)
--- NOTE | 2020-05-07 09:36 | P.PN ---
Subjective Date of Service: 05/06/20 Subjective: No new changes, No C/O voiced, Improving Patient is slightly hypoxic. Will need to arrange for home oxygen. Blood sugars are so poorly-controlled. Check a hemoglobin A1c. Will need to discuss with the regarding management of her diabetes. Review of Systems 10-point ROS is otherwise unremarkable Physical Examination - Vital Signs Temperature: 97.0 F Blood Pressure: 137/75 Pulse: 58 Respirations: 18 Pulse Ox (%): 92 - Physical Exam General: Alert, In no apparent distress, Oriented x3, Obese Respiratory: Diminished, Expiratory wheezes Cardiovascular: Regular rate/rhythm, Normal S1 S2, No murmurs Gastrointestinal: Normal bowel sounds, Soft and benign, Non-distended, No tenderness, No rebound, No guarding Musculoskeletal: No clubbing, No swelling, No tenderness Neurological: Normal tone, Sensation intact, Cranial nerves 3-12 intact - Studies Microbiology Data (last 24 hrs): 05/05/20 17:03 Throat Culture & Sensitivity - Final NORMAL UPPER RESPIRATORY MALU GROWN. Medications List Reviewed: Yes Assessment & Plan - Problems (Diagnosis) (1) Morbid obesity Current Visit: Yes Status: Acute (2) Pneumonia due to COVID-19 virus Current Visit: Yes Status: Acute (3) COPD exacerbation Onset Date: 04/20/18 Current Visit: No Status: Acute (4) Hypoxia Onset Date: 04/20/18 Current Visit: No Status: Acute - Plan Plan: 1. Continue with IV steroids. Will switch to oral steroids if patient is doing well 2. Diabetic education and needed get strict control of blood sugars 3. Gentle hydration 4. Increase physical activity 4. GI and DVT prophylax Discharge Plan: Home Plan to discharge in: Greater than 2 days - Advance Directives Does patient have a Living Will: No Does patient have a Durable POA for Healthcare: No - Code Status/Comfort Care Code Status Assessed: Yes Code Status: Full Code Critical Care: No Time Spent Managing PTS Care (In Minutes): 45
--- NOTE | 2020-05-07 09:45 | P.DS ---
Discharge Date: 05/07/20 Disposition: ROUTINE DISCHARGE Discharge Condition: GOOD Reason for Admission: COVID pneumonia with hypoxia - Problems (1) Morbid obesity Status: Acute (2) Pneumonia due to COVID-19 virus Status: Acute (3) COPD exacerbation Onset Date: 04/20/18 Status: Acute (4) Hypoxia Onset Date: 04/20/18 Status: Acute Brief History of Present Illness: Patient is a 65-year-old female who came into the hospital with COVID-19 Pneumonia. Patient was given steroids and inhaler therapy. Patient has done well during hospitalization. Hospital Course: Patient is on watered hospital stay. Patient is oxygenating well. Plan to discharge home with outpatient followup. Return to emergency room if symptoms worsen. Vital Signs/Physical Exam: Temp Pulse Resp BP Pulse Ox 97.0 F 58 18 137/75 92 05/07/20 09:35 05/07/20 09:35 05/07/20 09:35 05/07/20 09:35 05/07/20 09:35 General: Alert, In no apparent distress, Oriented x3 Laboratory Data at Discharge: WBC 2.30 K/uL (4.3-10.9) L D 05/06/20 04:14 Hgb 14.3 g/dL (12.0-15.0) 05/06/20 04:14 Hct 44.5 % (36.0-45.0) 05/06/20 04:14 Plt Count 219 K/uL (152-406) 05/06/20 04:14 PT 13.1 SECONDS (9.5-12.5) H 05/05/20 16:59 INR 1.14 05/05/20 16:59 APTT 26.5 SECONDS (24.3-36.9) 05/05/20 16:59 Sodium 136 mmol/L (136-145) 05/06/20 04:14 Potassium 4.2 mmol/L (3.5-5.1) 05/06/20 04:14 BUN 15 mg/dL (7-18) 05/06/20 04:14 Creatinine 0.86 mg/dL (0.55-1.3) 05/06/20 04:14 Glucose 423 mg/dL (74-106) H* 05/06/20 04:14 Magnesium 2.1 mg/dL (1.8-2.4) 05/06/20 04:14 Total Bilirubin 1.0 mg/dL (0.2-1.0) 05/05/20 16:59 AST 19 U/L (15-37) 05/05/20 16:59 ALT 31 U/L (12-78) 05/05/20 16:59 Alkaline Phosphatase 88 U/L (45-117) 05/05/20 16:59 Lipase 63 U/L (73-393) L 05/05/20 16:59 Home Medications: RX: traMADol HCL [Ultram*] 50 mg PO TID PRN #10 tab 04/21/18 RX: Albuterol Sulfate [Proair Respiclick] 1 puff IH TIDP PRN 05/05/20 RX: Aspirin [Aspirin EC 81 MG] 81 mg PO DAILYPRN PRN 05/05/20 RX: Mometasone/Formoterol [Dulera 100 Mcg-5 Mcg Inhaler] 1 puff IH TIDP PRN 05/05/20 Glimepiride [Amaryl] 1 mg PO DAILY #30 tablet 05/07/20 RX: Ascorbic Acid [Vitamin C*] 500 mg PO QID #60 tablet 05/07/20 RX: Atorvastatin Calcium [Lipitor] 40 mg PO BEDTIME #30 tab 05/07/20 RX: Benzonatate [Tessalon Perle*] 100 mg PO TID PRN #60 cap 05/07/20 RX: Cholecalciferol (Vitamin D3) [Vitamin D 1000 Iu Tab*] 4,000 unit PO DAILY #120 tab 05/07/20 RX: Insulin Glargine Human [Lantus*] 15 units SQ DAILY WITH BREAKFAST #2 syr 05/07/20 RX: Melatonin 5 mg PO BEDTIME PRN PRN #20 tablet 05/07/20 RX: Zinc Sulfate [Zinc Sulfate*] 220 mg PO DAILY #30 cap 05/07/20 RX: predniSONE [Prednisone*] 20 mg PO BID #30 tab 05/07/20 New Medications: Glimepiride [Amaryl] 1 mg PO DAILY #30 tablet RX: Insulin Glargine Human [Lantus*] 15 units SQ DAILY WITH BREAKFAST #2 syr RX: Atorvastatin Calcium [Lipitor] 40 mg PO BEDTIME #30 tab RX: Melatonin 5 mg PO BEDTIME PRN PRN #20 tablet PRN Reason: Insomnia RX: predniSONE [Prednisone*] 20 mg PO BID #30 tab RX: Benzonatate [Tessalon Perle*] 100 mg PO TID PRN #60 cap PRN Reason: Cough RX: Ascorbic Acid [Vitamin C*] 500 mg PO QID #60 tablet RX: Cholecalciferol (Vitamin D3) [Vitamin D 1000 Iu Tab*] 4,000 unit PO DAILY #120 tab RX: Zinc Sulfate [Zinc Sulfate*] 220 mg PO DAILY #30 cap Physician Discharge Instructions: OK TO DC IV AND DC HOME FOLLOW-UP WITH PRIMARY CARE PROVIDER IN 1-2 WEEKS RETURN TO THE ER IF symptoms worsens CALL or TEXT DR. LAWRENCE AT [phone] IF ANY QUESTIONS REGARDING HOSPITAL STAY. PLEASE CALL THE FLOOR AT [phone] IF ANY MEDICATION OR NURSING QUESTIONS. Diet: ADA Activity: Fall precautions Followup: OOT,OOT [Primary Care Provider] - 1-2 Weeks (call for appointment ) Time spent managing pt's care (in minutes): 35
[2020-05-07] MEDS: GLIMEPIRIDE 2 MG TABLET PO SCH ×2 (11:20→17:19)
[2020-05-07] MEDS ORDERED: INSULIN 70/30 100 UNITS/ML SQ ONE (13:00)
[2020-05-07] MEDS: CEFTRIAXONE/SWI 1gm 1 GM/10 ML SYR IV SCH (20:41)
[2020-05-07] MEDS: ATORVASTATIN 40 MG TAB PO SCH (20:41)
--- NOTE | 2020-05-08 09:35 | P.PN ---
Subjective Date of Service: 05/07/20 Patient doing well with no new complaints. Awaiting for oxygen to be set up and blood sugars to be stabilized prior to discharge. Review of Systems 10-point ROS is otherwise unremarkable Physical Examination - Vital Signs Temperature: 97.0 F Blood Pressure: 143/76 Pulse: 64 Respirations: 18 Pulse Ox (%): 92 - Physical Exam General: Alert, In no apparent distress, Oriented x3 Respiratory: Clear to auscultation bilaterally, Normal air movement Cardiovascular: Regular rate/rhythm, Normal S1 S2 Gastrointestinal: Normal bowel sounds, No tenderness Musculoskeletal: No tenderness Integumentary: No rashes Neurological: Normal speech, Normal tone, Normal affect Lymphatics: No axilla or inguinal lymphadenopathy - Studies Microbiology Data (last 24 hrs): 05/05/20 17:03 Throat Culture & Sensitivity - Final NORMAL UPPER RESPIRATORY MALU GROWN. Medications List Reviewed: Yes Assessment & Plan - Problems (Diagnosis) (1) Pneumonia due to COVID-19 virus Current Visit: Yes Status: Acute (2) Morbid obesity Current Visit: Yes Status: Acute (3) COPD exacerbation Onset Date: 04/20/18 Current Visit: No Status: Acute (4) Hypoxia Onset Date: 04/20/18 Current Visit: No Status: Acute - Plan Continue with plan of care as mentioned below 1. Switched to oral steroids as patient blood sugar still elevated 2. Diabetic education and needed get strict control of blood sugars 3. Gentle hydration 4. Increase physical activity 4. GI and DVT prophylax - Advance Directives Does patient have a Living Will: No Does patient have a Durable POA for Healthcare: No - Code Status/Comfort Care Code Status: Full Code
[2020-05-08] MEDS: INSULIN -REGULAR HUMAN 50 UNIT/0.5 ML ML SQ SCH (09:47)
[2020-05-08] MEDS: predniSONE 20 MG TAB PO SCH (09:47)
[2020-05-08] MEDS: ASCORBIC ACID 500 MG TABLET PO SCH (09:47)
[2020-05-08] MEDS: ASPIRIN EC 81 MG TAB PO SCH (09:47)
[2020-05-08] MEDS: ZINC SULFATE 220 MG CAP PO SCH (09:47)
[2020-05-08] MEDS: GLIMEPIRIDE 2 MG TABLET PO SCH (09:47)
[2020-05-08] MEDS: VITAMIN D 1000 UNIT TAB PO SCH (09:47)
[2020-05-08] MEDS: INSULIN GLARGINE 100 UNITS/ML SQ SCH (09:48)
[2020-05-08 11:02] VITALS: O2SAT 94
[2020-05-28 03:22] VITALS: BP 143/76; TEMP 97
--- NOTE | 2020-05-28 03:23 | P.DS ---
Discharge Date: 05/08/20 Disposition: ROUTINE DISCHARGE Discharge Condition: GOOD Reason for Admission: COVID pneumonia with hypoxia - Problems (1) Pneumonia due to COVID-19 virus Status: Acute (2) Morbid obesity Status: Acute (3) COPD exacerbation Onset Date: 04/20/18 Status: Acute (4) Hypoxia Onset Date: 04/20/18 Status: Acute Brief History of Present Illness: Patient is a 65-year-old female who came into the hospital with COVID-19 Pneumonia. Patient was given steroids and inhaler therapy. Patient has done well during hospitalization. Hospital Course: Patient is on watered hospital stay. Patient is oxygenating well. Plan to discharge home with outpatient followup. Return to emergency room if symptoms worsen. Vital Signs/Physical Exam: Temp Pulse Resp BP Pulse Ox 97.0 F 64 18 143/76 H 92 05/28/20 03:22 05/28/20 03:22 05/28/20 03:22 05/28/20 03:22 05/28/20 03:22 General: Alert, In no apparent distress, Oriented x3 Laboratory Data at Discharge: WBC 2.30 K/uL (4.3-10.9) L D 05/06/20 04:14 Hgb 14.3 g/dL (12.0-15.0) 05/06/20 04:14 Hct 44.5 % (36.0-45.0) 05/06/20 04:14 Plt Count 219 K/uL (152-406) 05/06/20 04:14 PT 13.1 SECONDS (9.5-12.5) H 05/05/20 16:59 INR 1.14 05/05/20 16:59 APTT 26.5 SECONDS (24.3-36.9) 05/05/20 16:59 Sodium 136 mmol/L (136-145) 05/06/20 04:14 Potassium 4.2 mmol/L (3.5-5.1) 05/06/20 04:14 BUN 15 mg/dL (7-18) 05/06/20 04:14 Creatinine 0.86 mg/dL (0.55-1.3) 05/06/20 04:14 Glucose 423 mg/dL (74-106) H* 05/06/20 04:14 Magnesium 2.1 mg/dL (1.8-2.4) 05/06/20 04:14 Total Bilirubin 1.0 mg/dL (0.2-1.0) 05/05/20 16:59 AST 19 U/L (15-37) 05/05/20 16:59 ALT 31 U/L (12-78) 05/05/20 16:59 Alkaline Phosphatase 88 U/L (45-117) 05/05/20 16:59 Lipase 63 U/L (73-393) L 05/05/20 16:59 Home Medications: RX: traMADol HCL [Ultram*] 50 mg PO TID PRN #10 tab 04/21/18 RX: Albuterol Sulfate [Proair Respiclick] 1 puff IH TIDP PRN 05/05/20 RX: Aspirin [Aspirin EC 81 MG] 81 mg PO DAILYPRN PRN 05/05/20 RX: Mometasone/Formoterol [Dulera 100 Mcg-5 Mcg Inhaler] 1 puff IH TIDP PRN 05/05/20 Glimepiride [Amaryl] 1 mg PO DAILY #30 tablet 05/07/20 RX: Ascorbic Acid [Vitamin C*] 500 mg PO QID #60 tablet 05/07/20 RX: Atorvastatin Calcium [Lipitor] 40 mg PO BEDTIME #30 tab 05/07/20 RX: Benzonatate [Tessalon Perle*] 100 mg PO TID PRN #60 cap 05/07/20 RX: Cholecalciferol (Vitamin D3) [Vitamin D 1000 Iu Tab*] 4,000 unit PO DAILY #120 tab 05/07/20 RX: Insulin Glargine Human [Lantus*] 15 units SQ DAILY WITH BREAKFAST #2 syr 05/07/20 RX: Melatonin 5 mg PO BEDTIME PRN PRN #20 tablet 05/07/20 RX: Zinc Sulfate [Zinc Sulfate*] 220 mg PO DAILY #30 cap 05/07/20 RX: predniSONE [Prednisone*] 20 mg PO BID #30 tab 05/07/20 New Medications: Glimepiride [Amaryl] 1 mg PO DAILY #30 tablet RX: Insulin Glargine Human [Lantus*] 15 units SQ DAILY WITH BREAKFAST #2 syr RX: Atorvastatin Calcium [Lipitor] 40 mg PO BEDTIME #30 tab RX: Melatonin 5 mg PO BEDTIME PRN PRN #20 tablet PRN Reason: Insomnia RX: predniSONE [Prednisone*] 20 mg PO BID #30 tab RX: Benzonatate [Tessalon Perle*] 100 mg PO TID PRN #60 cap PRN Reason: Cough RX: Ascorbic Acid [Vitamin C*] 500 mg PO QID #60 tablet RX: Cholecalciferol (Vitamin D3) [Vitamin D 1000 Iu Tab*] 4,000 unit PO DAILY #120 tab RX: Zinc Sulfate [Zinc Sulfate*] 220 mg PO DAILY #30 cap Physician Discharge Instructions: OK TO DC IV AND DC HOME FOLLOW-UP WITH PRIMARY CARE PROVIDER IN 1-2 WEEKS RETURN TO THE ER IF symptoms worsens CALL or TEXT DR. LAWRENCE AT [phone] IF ANY QUESTIONS REGARDING HOSPITAL STAY. PLEASE CALL THE FLOOR AT [phone] IF ANY MEDICATION OR NURSING QUESTIONS. Diet: ADA Activity: Fall precautions Followup: OOTOOT [Primary Care Provider] - 1-2 Weeks (call for appointment ) Time spent managing pt's care (in minutes): 35
== END 2020-05-08 13:24 | disposition home or self-care (01) ==
LOC: ER 15:55 → ERHOLD 21:25 → 4TH 21:44
PROVIDERS: ADMIT Hospitalist; ATTEND Hospitalist
DX: U07.1 COVID-19 (principal); J12.82 Pneumonia due to coronavirus disease 2019; J96.01 Acute respiratory failure with hypoxia; J44.1 Chronic obstructive pulmonary disease with (acute) exacerbation; N39.0 Urinary tract infection, site not specified; E11.9 Type 2 diabetes mellitus without complications; E78.5 Hyperlipidemia, unspecified; M54.9 Dorsalgia, unspecified; G89.29 Other chronic pain; R05 Cough; G47.00 Insomnia, unspecified; E66.01 Morbid (severe) obesity due to excess calories; Z68.43 Body mass index [BMI] 50.0-59.9, adult; Z79.4 Long term (current) use of insulin; Z79.82 Long term (current) use of aspirin; Z88.6 Allergy status to analgesic agent; Z87.891 Personal history of nicotine dependence; Z82.3 Family history of stroke; Z82.49 Family history of ischemic heart disease and other diseases of the circulatory system
CPT/HCPCS: 87040 ×2; 87070; 85025 ×2; 80048 ×2; 36415; 83735; 85610; 82947 ×10; 85379; 80076; 87081; 83605; 85730; 84443; 83036; 84484; 84439; 82728 ×2; 83690; 84145; 86140 ×2; 87804 ×2; 71045; 99285; J1940; J0696 ×3; G0378 ×5; J2930; J2920; 81003; 81015; J1815; J7512

== ENCOUNTER 2020-06-08 00:56 | Emergency (ER) | payer OTHER ==
--- OUTSIDE RECORDS SUMMARY | 2020-06-08 00:58 | XMS REPORT | Continuity of Care Document ---
:1955 Author Organization [facility] t Address [address] [place] [address] Care Team Providers Name Role Phone Doctor Unassigned, Name Attending Clinician Unavailable Latasha PROCTOR, L Attending Clinician Eliazar PROCTOR Attending Clinician Problems This patient has no known problems. Allergies, Adverse Reactions, Alerts Allergy Allergy Status Severity Reaction(s) Onset Inactive Treating Comm ents Source Name Type Date Date Clinician Metformi Adverse Active diarrhea [facility] Lisinopr Adverse Active Cough [facility] Amlodipi Adverse Active LE Swelling [facility] Reaction [facility] ent Clinics Medications Ordered Filled Start Stop Current Ordering Indication Dosage Frequency Signature Comments Components Source Medication Medication Date Date Medication? Clinician (SIG) Name Name Byrosendo Bydureon Yes [facility] [address] [facility] 8-04 Joy [facility] Bydureon Bydureon 2020- No [facility] as [facility] BCise BCise 7-21 10-19 Joy directed [facility] - 00:[facility]: 00:00 [facility] 00 :00 l [facility] ent Clinics Tramadol Tramadol Yes Main[facility] [address] [address] HCl HCl 7-20 Joy as needed [facility] - [facility]: [facility] 00 [facility] ent Clinics Hydrochloro Hydrochloro Yes Mainor 1 [...] Clinicians Facility Department ID 2020-04-09 2020-04-09 Outpatient [facility] [id number] [facility] 2020-04-03 2020-04-03 Outpatient [facility] [id number] [facility] 2019-10-17 2019-10-17 [facility] [id number] 10:00:00 10:00:00 [facility] Medicine Medicine Outpati ent Clinics 2019-10-06 2019-10-06 [facility] [id number] 13:31:00 13:31:00 [facility] Medicine Medicine Outpati ent Clinics 2019-10-06 2019-10-06 Orders Doctor MONACO [id number] 00:00:00 00:00:00 Only Unassigned, RUPINDER [id number] [place] [facility] [id number] 2019-10-02 2019-10-02 [facility] [id number] 10:15:00 10:15:00 t [facility] 2019-09-29 2019-09-29 [facility] [id number] 08:30:00 08:30:00 t [facility] 2019-09-28 2019-09-28 [facility] [id number] 16:11:00 16:11:00 t [facility] 2019-09-28 2019-09-28 Outpatient [facility] [id number] 16:09:00 16:09:00 t [facility] 2019-09-28 2019-09-28 Outpatient Stephen [facility]t [id number] 11:16:00 11:16:00 t [facility] 2019-09-28 2019-09-28 Telephone MIS Pagan [id number] 00:00:00 00:00:00 [facility] [id number] Surgical [id number] Special [id number] [address] 2019-09-27 2019-09-27 Orders Doctor JACINDA [id number] 00:00:00 00:00:00 Only Unassigned, RUPINDER [id number] [place] [facility] [id number] 2019-09-18 2019-09-18 Outpatient Stephen Pendleton [id number] 15:15:00 15:15:00 t [facility] 2019-06-23 2019-06-23 Refill MIS Pagan [id number] 00:00:00 00:00:00 [facility] [id number] Surgical [id number] Specialti [id number] es [address] [place] 2019-04-17 2019-04-17 [facility] [id number] 00:00:00 00:00:00 [facility] [id number] Surgical [id number] Specialti [id number] es [address] [place] 2018-10-31 2018-10-31 [facility] [id number] 21:12:42 23:51:00 [place] [id number] [place] [id number] [place] [id number] 2018-09-26 2018-09-26 [facility] [id number] 14:49:00 14:49:00 t [facility] ent Clinics 2018-07-19 2018-07-19 [facility] [id number] 14:26:00 14:26:00 t [facility] ent Clinics 2018-07-18 2018-07-18 [facility] [id number] 13:44:00 13:44:00 t [facility] 2018-07-18 2018-07-18 [facility] [id number] 08:30:00 08:30:00 t [facility] 2018-07-04 2018-07-04 [facility] [id number] 09:54:00 09:54:00 t [facility] ent Clinics 2018-06-27 2018-06-27 [facility] [id number] 10:28:00 10:28:00 t [facility] ent Clinics 2018-06-27 2018-06-27 Outpatient Stephen Mitchellt [id number] [facility] 10:15:00 10:15:00 t Satomi [facility] Outpati ent Clinics 2018-06-16 2018-06-16 Outpatient Stephen Mitchellt [id number] 15:35:00 15:35:00 t [facility]omi [facility] Outpati ent Clinics 2018-05-24 2018-05-24 Outpatient Stephen Mitchellt [id number] 12:25:00 12:25:00 t [facility] Results This patient has no known results.
[2020-06-08] MEDS ORDERED: METHYLPREDNISOLONE 125 MG INJ ONE (01:36)
[2020-06-08] MEDS ORDERED: FAMOTIDINE 20 MG TAB ONE (01:37)
[2020-06-08] MEDS ORDERED: DIPHENHYDRAMINE 50 MG/ML VIAL ONE (01:37)
--- NOTE | 2020-06-08 02:29 | EDPHYS ---
Physician Documentation [facility] Name: Nicole Martínez Age: 65 yrs Sex: Female : 1955 Arrival Date: 06/08/2020 Time: 00:58 Bed 14 Private MD: ED Physician Alissa Leal HPI: 06/08 01:59 This 65 yrs old Female presents to ER via Ambulatory with complaints of ma2 Allergic Reaction. 01:59 The patient presents with rash, redness of skin. Onset: The symptoms/episode ma2 began/occurred gradually, 3 day(s) ago. Associated signs and symptoms: Pertinent negatives: dysphagia, hives, Light headed nausea, vomiting. Severity of symptoms: At their worst the symptoms were very mild in the emergency department the symptoms are unchanged. The patient has experienced similar episodes in the past. Historical: - Allergies: 01:04 Percodan; sg 01:33 [place]; cr4 01:33 EGG/POULTRY; cr4 - PMHx: 01:04 Hernández Cyst; Diabetes - NIDDM; Hypertension; sg - PSHx: 01:04 ; Hysterectomy; sg - Immunization history:: Adult Immunizations not up to date. - Social history:: Smoking status: Patient/guardian denies using tobacco, the patient reports quitting approximately 3 years ago, Patient/guardian denies using alcohol, street drugs, The patient lives with family. - Family history:: not pertinent. ROS: 01:59 Constitutional: Negative for fever, chills, and weight loss. ma2 01:59 All other systems are negative. Exam: 01:59 Constitutional: This is a well developed, well nourished patient who is awake, alert, ma2 and in no acute distress. ENT: Nares patent. No nasal discharge, no septal abnormalities noted. Tympanic membranes are normal and external auditory canals are clear. Oropharynx with no redness, swelling, or masses, exudates, or evidence of obstruction, uvula midline. Mucous membranes moist. Neck: Trachea midline, no thyromegaly or masses palpated, and no cervical lymphadenopathy. Supple, full range of motion without nuchal rigidity, or vertebral point tenderness. No Meningismus. Chest/axilla: Normal chest wall appearance and motion. Nontender with no deformity. No lesions are appreciated. Cardiovascular: Regular rate and rhythm with a normal S1 and S2. No gallops, murmurs, or rubs. Normal PMI, no JVD. No pulse deficits. Respiratory: Lungs have equal breath sounds bilaterally, clear to auscultation and percussion. No rales, rhonchi or wheezes noted. No increased work of breathing, no retractions or nasal flaring. Abdomen/GI: Soft, non-tender, with normal bowel sounds. No distension or tympany. No guarding or rebound. No evidence of tenderness throughout. Back: No spinal tenderness. No costovertebral tenderness. Full range of motion. Skin: haves on upper chest and neck, Warm, dry with normal turgor. Normal color with no rashes, no lesions, and no evidence of cellulitis. MS/ Extremity: Pulses equal, no cyanosis. Neurovascular intact. Full, normal range of motion. Neuro: Awake and alert, GCS 15, oriented to person, place, time, and situation. Cranial nerves II-XII grossly intact. Motor strength 5/5 in all extremities. Sensory grossly intact. Cerebellar exam normal. Normal gait. Vital Signs: 01:04 BP 149 / 93; Pulse 80; Resp 18; Temp 97.2; Pulse Ox 94% ; Pain 5/10; cr4 02:00 BP 135 / 66; Pulse 78; Resp 18; Pulse Ox 97% ; Pain 2/10; cr4 03:00 BP 125 / 53; Pulse 79; Resp 18; Temp 97.5; Pulse Ox 96% ; Pain 0/10; cr4 MDM: 01:02 Patient medically screened. [facility] 01:59 Differential diagnosis: urticaria, Vasovagal Reactions allergic reaction. [facility] 02:27 Data reviewed: vital signs, nurses notes. Counseling: I had a detailed discussion with ma2 the patient and/or guardian regarding: the historical points, exam findings, and any diagnostic results supporting the discharge/admit diagnosis, the presence of at least one elevated blood pressure reading (>120/80) during this emergency department visit, the need for outpatient follow up. Response to treatment: the patient's symptoms have markedly improved after treatment. Administered Medications: 01:28 Drug: Benadryl (diphenhydrAMINE) 50 mg Route: IM; Site: right deltoid; cr4 03:03 Follow up: Response: No adverse reaction; Pain is decreased cr4 01:28 Drug: MethylPREDNISolone Sodium Succinate 125 mg Route: IM; Site: left deltoid; cr4 03:03 Follow up: Response: No adverse reaction; Pain is decreased cr4 01:29 Drug: Pepcid (famotidine) 20 mg Route: PO; cr4 03:03 Follow up: Response: No adverse reaction cr4 Disposition: 06/08/20 02:29 Discharged to Home. Impression: Rash and other nonspecific skin eruption - Allergic reaction. - Condition is Stable. - Discharge Instructions: Allergies, [id number]. - Prescriptions for Benadryl 25 mg Oral Capsule - take 1 capsule by ORAL route every 6 hours As needed; 30 tablet. Pepcid 20 mg Oral Tablet - take 1 tablet by ORAL route every 12 hours for 5 days; 10 tablet. Medrol (Sammy) 4 mg Oral Tablets, Dose Pack - take 1 tablet by ORAL route as directed - follow package instructions; 1 packet. - Medication Reconciliation Form, Thank You Letter, Antibiotic Education, Prescription Opioid Use form. - Follow up: Private Physician; When: Tomorrow; Reason: If symptoms return, Continuance of care. Signatures: Hakan Archibald RN RN sg Nel Singh RN RN cr4 Alissa Leal MD MD ma2 Corrections: (The following items were deleted from the chart) 03:05 02:29 06/08/2020 02:29 Discharged to Home. Impression: Rash and other nonspecific skin cr4 eruption - Allergic reaction. Condition is Stable. Prescriptions for Benadryl 25 mg Oral Capsule - take 1 capsule by ORAL route every 6 hours As needed; 30 tablet, Pepcid 20 mg Oral Tablet - take 1 tablet by ORAL route every 12 hours for 5 days; 10 tablet, Medrol (Sammy) 4 mg Oral Tablets, Dose Pack - take 1 tablet by ORAL route as directed - follow package instructions; 1 packet. and Forms are Medication Reconciliation Form, Thank You Letter, Antibiotic Education, Prescription Opioid Use. Follow up: Private Physician; When: Tomorrow; Reason: If symptoms return, Continuance of care. ma2
--- NOTE | 2020-06-08 02:29 | ER ---
Nurse's Notes [facility] Name: Nicole Martínez Age: 65 yrs Sex: Female : 1955 Arrival Date: 06/08/2020 Time: 00:58 Bed 14 Private MD: Diagnosis: Rash and other nonspecific skin eruption-Allergic reaction Presentation: 06/08 01:04 Chief complaint: Patient states: I think im having a reaction to something, feel itchy sg all over. Coronavirus screen: Client denies travel out of the [place] in the last 14 days. At this time, the client does not indicate any symptoms associated with coronavirus-19. Ebola Screen: Patient negative for fever greater than or equal to 101.5 degrees Fahrenheit, and additional compatible Ebola Virus Disease symptoms Patient denies exposure to infectious person. Patient denies travel to an Ebola-affected area in the 21 days before illness onset. No symptoms or risks identified at this time. Onset: The symptoms/episode began/occurred gradually. Anaphylaxis evaluation, no signs or symptoms of anaphylaxis were noted. Initial Sepsis Screen: Does the patient meet any 2 criteria? No. Patient's initial sepsis screen is negative. Does the patient have a suspected source of infection? No. Patient's initial sepsis screen is negative. Risk Assessment: Do you want to hurt yourself or someone else? Patient reports no desire to harm self or others. Onset of symptoms was June 08, 2020. Care prior to arrival: None. Transition of care: patient was not received from another setting of care. 01:04 Method Of Arrival: Ambulatory sg 01:04 Acuity: KAELYN 4 sg Historical: - Allergies: 01:04 Percodan; sg 01:33 [place]; cr4 01:33 EGG/POULTRY; cr4 - PMHx: 01:04 Hernández Cyst; Diabetes - NIDDM; Hypertension; sg - PSHx: 01:04 ; Hysterectomy; sg - Immunization history:: Adult Immunizations not up to date. - Social history:: Smoking status: Patient/guardian denies using tobacco, the patient reports quitting approximately 3 years ago, Patient/guardian denies using alcohol, street drugs, The patient lives with family. - Family history:: not pertinent. Screenin:00 Nutritional screening: No deficits noted. Tuberculosis screening: No symptoms or risk cr4 factors identified. Fall Risk None identified. 03:05 Abuse screen: Denies threats or abuse. cr4 Assessment: 01:36 General: Appears in no apparent distress. obese, well groomed, Behavior is calm, cr4 cooperative, appropriate for age. Pain: Complains of pain in face and neck Pain does not radiate. Pain currently is 5 out of 10 on a pain scale. Quality of pain is described as burning, Pain began Three days ago Is continuous. Neuro: No deficits noted. Level of Consciousness is awake, alert, obeys commands, Oriented to person, place, time. Cardiovascular: Denies chest pain, diaphoresis, lightheadedness, nausea, shortness of breath, syncope, Capillary refill < 3 seconds Respiratory: Airway is patent Trachea midline Respiratory effort is even, unlabored, Respiratory pattern is regular. GI: Patient currently denies nausea, pain, vomiting. : No deficits noted. EENT: Eyes reports itching around eyes.. Oral mucosa is moist. Denies difficulty swallowing. Derm: Skin has lesions on face and neck Skin is dry, Skin is flushed, Skin temperature is warm Rash noted that is itchy, on face and neck Reports burning, itching, pain. 01:36 Respiratory: Breath sounds are clear bilaterally. cr4 02:20 Reassessment: No changes from previously documented assessment. Patient states feeling cr4 better. Patient states symptoms have improved. 03:04 Reassessment: Patient states feeling better. Patient states symptoms have improved. cr4 Vital Signs: 01:04 BP 149 / 93; Pulse 80; Resp 18; Temp 97.2; Pulse Ox 94% ; Pain 5/10; cr4 02:00 BP 135 / 66; Pulse 78; Resp 18; Pulse Ox 97% ; Pain 2/10; cr4 03:00 BP 125 / 53; Pulse 79; Resp 18; Temp 97.5; Pulse Ox 96% ; Pain 0/10; cr4 ED Course: 00:58 Patient arrived in ED. cl3 01:02 Alissa Leal MD is Attending Physician. ma2 01:04 Arm band placed on. sg 01:16 Nel Singh RN is Primary Nurse. cr4 01:19 Triage completed. sg 02:00 Patient has correct armband on for positive identification. Bed in low position. cr4 02:00 No provider procedures requiring assistance completed. cr4 03:00 Patient did not have IV access during this emergency room visit. cr4 Administered Medications: 01:28 Drug: Benadryl (diphenhydrAMINE) 50 mg Route: IM; Site: right deltoid; cr4 03:03 Follow up: Response: No adverse reaction; Pain is decreased cr4 01:28 Drug: MethylPREDNISolone Sodium Succinate 125 mg Route: IM; Site: left deltoid; cr4 03:03 Follow up: Response: No adverse reaction; Pain is decreased cr4 01:29 Drug: Pepcid (famotidine) 20 mg Route: PO; cr4 03:03 Follow up: Response: No adverse reaction cr4 Outcome: :29 Discharge ordered by . erika 03:00 Discharged to home ambulatory. cr4 03:00 Condition: improved 03:00 Discharge instructions given to patient, Instructed on discharge instructions, follow up and referral plans. medication usage, Demonstrated understanding of instructions, follow-up care, medications, Prescriptions given X 3. 03:05 Patient left the ED. cr4 Signatures: Hakan Archibald RN RN Nel Singh RN RN cr4 Alissa Leal MD MD ma2 Lewis, Charde cl3
[2020-06-08 20:13] VITALS: BP 149/93; TEMP 97.2; O2SAT 94
== END 2020-06-08 03:05 | disposition home or self-care (01) ==
LOC: ER 00:56
DX: R21 Rash and other nonspecific skin eruption (principal); I10 Essential (primary) hypertension; Z88.5 Allergy status to narcotic agent; Z91.012 Allergy to eggs; Z91.018 Allergy to other foods
CPT/HCPCS: 96372; 99283; J1200; J2930

== ENCOUNTER 2021-03-13 17:42 | Emergency (ER) | payer OTHER ==
--- OUTSIDE RECORDS SUMMARY | 2021-03-13 17:46 | XMS REPORT | Continuity of Care Document ---
:1955 Author Organization [facility] t Address [address] [place] [address] Care Team Providers Name Role Phone Arcelia JOY Primary Care Physician Unavailable Kayla MACK Attending Clinician Unavailable Doctor Unassigned, Name Attending Clinician Unavailable Latasha PROCTOR, L Attending Clinician Eliazar PROCTOR Attending Clinician Payers Payer Name Policy Type Policy Number Effective Date Expiration Date [facility] [id number] 2015 00:00:00 PLUS Problems Condition Condition Condition Status Onset Resolution Last Treating Co mments Source Name Details Category Date Date Treatment Clinician Date Incisional Incisional Disease Active U nivers abscess, abscess, 4-10 ity of initial initial 00:00: [place] encounter encounter 00 [facility] Branch Acute Acute Disease Active Univers pharyngiti pharyngiti 3-14 it y of s, s, 00:00: [place] unspecifie unspecifie 00 Me dical d d Branch pharyngiti pharyngiti s type s type Exposure Exposure Disease Active Unive rs to to 3-14 ity of Streptococ Streptococ [place] c[place] cus 00 Medical infection infection Bran ch Allergic Allergic Disease Active Unive rs rhinitis, rhinitis, 3-14 ity of unspecifie unspecifie [place] allergic d allergic 00 Me dical rhinitis rhinitis Branch type type Elevated Elevated Disease Active Unive rs blood blood 3-14 ity of pressure pressure 00:00: [place] 00 [facility] Branch Vitamin B Vitamin B Disease Active Uni vers 12 12 3-14 [place] deficiency [place] Morbid Morbid Disease Active Univers obesity obesity 08-12 ity of 00:00: [place] 00 [facility] Branch H/O H/O Disease Active Overview: Univer s hysterecto hysterecto 08-12 She says ity of my for my for 00:00: it was a [place] benign benign 00 partial Medical disease disease but Branch cannot see the cervix. Allergies, Adverse Reactions, Alerts Allergy Allergy Status Severity Reaction(s) Onset Inactive Treating Comm ents Source Name Type Date Date Clinician OXYCODON DRUG Active Hives Univers E 08-12 ity of HCL-OXYC 00:00: [place] ODONE- 00 Medical A Branch Oxycodon Propensi Active Hives Univer s e ty to 08-12 ity of Hcl-Oxyc adverse 00:00: [place] odone-As reaction 00 Medica l a s Branch Metformi Adverse Active diarrhea [facility] Lisinopr Adverse Active Cough [facility] Amlodipi Adverse Active LE Swelling [facility] Social History Social Habit Start Date Stop Date Quantity Comments Source History of tobacco Cigarette Smoker [facility] [place] [facility] Sex Assigned At [facility] of [facility] Cigarettes smoked 2019-02-20 2019-02-20 Univers ity of current (pack per 00:00:00 00:00:00 [facility] ) - Reported Branch Cigarette 2019-02-20 2019-02-20 University of pack-years 00:00:00 00:00:00 [facility] Alcohol intake 2019-02-20 2019-02-20 University of 00:00:00 00:00:00 [facility] Alcohol Comment 2012-08-12 2012-08-12 occasionally Univers ity of 00:00:00 00:00:00 [facility] Smoking Status Start Date Stop Date Source Current every day smoker 2019-02-20 00:00:00 Uni versity of [facility] Medications Ordered Filled Start Stop Current Ordering Indication Dosage Frequency Signature Comments Components Source Medication Medication Date Date Medication? Clinician (SIG) Name Name Saranya Cuevasrosendo Yes [facility] [address] 8[facility]04 [facility] Saranya Villarrealon 2020- No [facility] as [facility] BCise BCise 7- 10-19 Joy directed [facility] - 00:00: 00:00 [facility] Tramadol Tramadol 0 Yes Main[facility] [address] HCl HCl 720 Joy as needed [facility] - 00:[facility] Hydrochloro Hydrochloro Yes Main[facility] [address] thiazide thiazide - Joy in the Luke s - 00:00: morning [facility] 00 [facility] DICLOFENAC 2019-0 Yes [id number] TAKE 1 Univers 75 mg EC 4-10 9104 TABLET BY ity of tablet 00:00: MOUTH [place] 00 TWICE A Medical DAY WITH Branch MEALS DICLOFENAC 2020-0 Yes [id number] TAKE 1 Univers 75 mg EC 4-10 9104 TABLET BY ity of tablet 00:00: MOUTH [place] 00 TWICE A Medical DAY WITH Branch MEALS DICLOFENAC 2020-0 Yes [id number] TAKE 1 Univers 75 mg EC 4-10 9104 TABLET BY ity of tablet 00:00: MOUTH [place] 00 TWICE A Medical DAY WITH Branch MEALS DICLOFENAC 2020-0 Yes [id number] TAKE 1 Univers 75 mg EC 4-10 9104 TABLET BY ity of tablet 00:00: MOUTH [place] 00 TWICE A Medical DAY WITH Branch MEALS DICLOFENAC 2020-0 Yes [id number] TAKE 1 Univers 75 mg EC 2-05 9104 TABLET BY ity of tablet 00:00: MOUTH [place] 00 TWICE A Medical DAY WITH Branch MEALS DICLOFENAC 2020-0 2020- No [id number] TAKE 1 Univers 75 mg EC 2-05 04-10 9104 TABLET BY ity o f tablet 00:00: 00:00 MOUTH [place] 00 :00 TWICE A Medical DAY WITH Branch MEALS diclofenac 2018- 2020- No [id number] 75mg Take 1 Univers 75 mg EC 2-09 02-05 9104 tablet by ity o f tablet 00:00: 00:00 mouth 2 [place] 00 :00 (two) Medical times Branch daily with meals. metFORMIN 2019-0 Yes [id number] 500mg Take 1 Un jimbo 500 mg 8-19 tablet by ity of tablet 00:00: mouth 2 (two) Medical times Branch daily. amoxicillin 2019-0 Yes [id number] 500mg Take 1 Univers 500 mg 8-19 capsule by ity of capsule 00:00: mouth 3 (three) Medical times Branch daily. metFORMIN 2019-0 Yes [id number] 500mg Take 1 Un jimbo 500 mg 8-19 tablet by ity of tablet 00:00: mouth 2 (two) Medical times Branch daily. amoxicillin 2019-0 Yes [id number] 500mg Take 1 Univers 500 mg 8-19 capsule by ity of capsule 00:00: mouth 3 (three) Medical times Branch daily. metFORMIN 2019-0 Yes [id number] 500mg Take 1 Un jimbo 500 mg 8-19 tablet by ity of tablet 00:00: mouth 2 (two) Medical times Branch daily. amoxicillin 2019-0 Yes [id number] 500mg Take 1 Univers 500 mg 8-19 capsule by ity of capsule 00:00: mouth 3 (three) Medical times Branch daily. metFORMIN 2019-0 Yes [id number] 500mg Take 1 Un jimbo 500 mg 8-19 tablet by ity of tablet 00:00: mouth 2 (two) Medical times Branch daily. amoxicillin 2019-0 Yes [id number] 500mg Take 1 Univers 500 mg 8-19 capsule by ity of capsule 00:00: mouth 3 (three) Medical times Branch daily. metFORMIN 2019-0 Yes [id number] 500mg Take 1 Un jimbo 500 mg 8-19 tablet by ity of tablet 00:00: mouth 2 (two) Medical times Branch daily. amoxicillin 2019-0 Yes [id number] 500mg Take 1 Univers 500 mg 8-19 capsule by ity of capsule 00:00: mouth 3 (three) Medical times Branch daily. metFORMIN 2019-0 Yes [id number] 500mg Take 1 Un jimbo 500 mg 8-19 tablet by ity of tablet 00:00: mouth 2 (two) Medical times Branch daily. amoxicillin 2019-0 Yes [id number] 500mg Take 1 Univers 500 mg 8-19 capsule by ity of capsule 00:00: mouth 3 (three) Medical times Branch daily. doxycycline 2019-0 2019- No [id number] 100mg Take 1 Univers 100 mg 8-19 08-30 capsule by ity of capsule 00:00: 04:59 mouth 2 [place] 00 :00 (two) Medical times Branch daily for 10 days. clindamycin 2019- No [id number] 300mg Take 1 Univers 300 mg 8-19 08-30 capsule by ity of capsule 00:00: 04:59 mouth 4 [place] 00 :00 (four) Medical times Branch daily for 10 days. [facility] Yes TAKE 1 Univ ers (SINGULAIR) 9-19 TABLET BY ity of 10 mg 00:00: MOUTH AT [place] tablet 00 BEDTIME. Medical Branch [facility] Yes TAKE 1 Univ ers (SINGULAIR) 9-19 TABLET BY ity of 10 mg 00:00: MOUTH AT [place] tablet 00 BEDTIME. [facility] Yes TAKE 1 Univ ers (SINGULAIR) 9-19 TABLET BY ity of 10 mg 00:00: MOUTH AT [place] tablet 00 BEDTIME. [facility] Yes TAKE 1 Univ ers (SINGULAIR) 9-19 TABLET BY ity of 10 mg 00:00: MOUTH AT [place] tablet 00 BEDTIME. Medical Branch [facility] Yes TAKE 1 Univ ers (SINGULAIR) 9-19 TABLET BY ity of 10 mg 00:00: MOUTH AT [place] tablet 00 BEDTIME. [facility] Yes TAKE 1 Univ ers (SINGULAIR) 9-19 TABLET BY ity of 10 mg 00:00: MOUTH AT [place] tablet 00 BEDTIME. Medical Branch busPIRone Yes 10mg Take 1 Univer s (BUSPAR) 10 8-22 tablet by ity of mg tablet 00:00: mouth 2 [place] 00 (two) Medical times Branch daily. busPIRone Yes 10mg Take 1 Univer s (BUSPAR) 10 8-22 tablet by ity of mg tablet 00:00: mouth 2 [place] 00 (two) Medical times Branch daily. busPIRone Yes 10mg Take 1 Univer s (BUSPAR) 10 8-22 tablet by ity of mg tablet 00:00: mouth 2 00 (two) Medical times Branch daily. busPIRone Yes 10mg Take 1 Univer s (BUSPAR) 10 8-22 tablet by ity of mg tablet 00:00: mouth 2 00 (two) Medical times Branch daily. busPIRone Yes 10mg Take 1 Univer s (BUSPAR) 10 8-22 tablet by ity of mg tablet 00:00: mouth 2 00 (two) Medical times Branch daily. busPIRone Yes 10mg Take 1 Univer s (BUSPAR) 10 8-22 tablet by ity of mg tablet 00:00: mouth 2 (two) Medical times Branch daily. VITAMIN D2 Yes TAKE 1 Unive rs 50,000 unit 5-24 CAPSULE BY it y of capsule 00:00: MOUTH [place] 00 WEEKLY. Medical Branch VITAMIN D2 Yes TAKE 1 Unive rs 50,000 unit 5-24 CAPSULE BY it y of capsule 00:00: MOUTH [place] 00 WEEKLY. Medical Branch VITAMIN D2 Yes TAKE 1 Unive rs 50,000 unit 5-24 CAPSULE BY it y of capsule 00:00: MOUTH 00 WEEKLY. Medical Branch VITAMIN D2 Yes TAKE 1 Unive rs 50,000 unit 5-24 CAPSULE BY it y of capsule 00:00: MOUTH [place] 00 WEEKLY. Medical Branch VITAMIN D2 Yes TAKE 1 Unive rs 50,000 unit 5-24 CAPSULE BY it y of capsule 00:00: MOUTH [place] 00 WEEKLY. Medical Branch VITAMIN D2 Yes TAKE 1 Unive rs 50,000 unit 5-24 CAPSULE BY it y of capsule 00:00: MOUTH [place] 00 WEEKLY. Medical Branch busPIRone Yes [id number] 10mg Take 10 mg Univers (BUSPAR) 10 4-11 by mouth 2 it y of mg tablet 21:12: (two) [place] 25 times Medical daily. Branch busPIRone Yes [id number] 10mg Take 10 mg Univers (BUSPAR) 10 4-11 by mouth 2 it y of mg tablet 21:12: (two) [place] 25 times Medical daily. Branch busPIRone Yes [id number] 10mg Take 10 mg Univers (BUSPAR) 10 4-11 by mouth 2 it y of mg tablet 21:12: (two) [place] 25 times Medical daily. Branch busPIRone Yes [id number] 10mg Take 10 mg Univers (BUSPAR) 10 4-11 by mouth 2 it y of mg tablet 21:12: (two) [place] 25 times Medical daily. Branch busPIRone 2016-0 Yes [id number] 10mg Take 10 mg Univers (BUSPAR) 10 4-11 by mouth 2 it y of mg tablet 21:12: (two) [place] 25 times Medical daily. Branch busPIRone 2016-0 Yes [id number] 10mg Take 10 mg Univers (BUSPAR) 10 4-11 by mouth 2 it y of mg tablet 21:12: (two) [place] 25 times Medical daily. Branch fluticasone Yes [id number] 1 U nivers -salmeterol 4-01 inhalation it y of (ADVAIR 00:00: BI D prn [place] DISKUS) 00 sob rinse Medical 250-50 mouth Branch mcg/dose after inhalation using disk fluticasone Yes [id number] 1 U nivers -salmeterol 4-01 inhalation it y of (ADVAIR 00:00: BI D prn [place] DISKUS) 00 sob rinse Medical 250-50 mouth Branch mcg/dose after inhalation using disk fluticasone Yes [id number] 1 U nivers -salmeterol 4-01 inhalation it y of (ADVAIR 00:00: BI D prn [place] DISKUS) 00 sob rinse Medical 250-50 mouth Branch mcg/dose after inhalation using disk fluticasone 2015- Yes [id number] 1 U nivers -salmeterol 4-01 inhalation it y of (ADVAIR 00:00: BI D prn [place] DISKUS) 00 sob rinse Medical 250-50 mouth Branch mcg/dose after inhalation using disk fluticasone 2015- Yes [id number] 1 U nivers -salmeterol 4-01 inhalation it y of (ADVAIR 00:00: BI D prn [place] DISKUS) 00 sob rinse Medical 250-50 mouth Branch mcg/dose after inhalation using disk fluticasone 2015- Yes [id number] 1 U nivers -salmeterol 4-01 inhalation it y of (ADVAIR 00:00: BI D prn [place] DISKUS) 00 sob rinse Medical 250-50 mouth Branch mcg/dose after inhalation using disk blood sugar Yes Use as Univ ers diagnostic 3-22 directed, ity of (ONETOUCH 00:00: daily. [place] VERIO) 00 DX:E11.9 Medical strip Branch lancets 2016-0 Yes Use as Univers (ONE TOUCH 3-22 directed, ity of DELICA) 33 00:00: daily. [facility] 00 DX:E11.9 Medic al Branch blood sugar 2016-0 Yes Use as Univ ers diagnostic 3-22 directed, ity of (ONETOUCH 00:00: daily. [place] VERIO) 00 DX:E11.9 Medical strip Branch lancets 2016-0 Yes Use as Univers (ONE TOUCH 3-22 directed, ity of DELICA) 33 00:00: daily. [facility] 00 DX:E11.9 Medic al Branch blood sugar 2016-0 Yes Use as Univ ers diagnostic 3-22 directed, ity of (ONETOUCH 00:00: daily. [place] VERIO) 00 DX:E11.9 Medical strip Branch lancets 2016-0 Yes Use as Univers (ONE TOUCH 3-22 directed, ity of DELICA) 33 00:00: daily. [facility] 00 DX:E11.9 Medic al Branch blood sugar 2016-0 Yes Use as Univ ers diagnostic 3-22 directed, ity of (ONETOUCH 00:00: daily. [place] VERIO) 00 DX:E11.9 Medical strip Branch lancets 2016-0 Yes Use as Univers (ONE TOUCH 3-22 directed, ity of DELICA) 33 00:00: daily. [facility] 00 DX:E11.9 Medic al Branch blood sugar 2016-0 Yes Use as Univ ers diagnostic 3-22 directed, ity of (ONETOUCH 00:00: daily. [place] VERIO) 00 DX:E11.9 Medical strip Branch lancets 2016-0 Yes Use as Univers (ONE TOUCH 3-22 directed, ity of DELICA) 33 00:00: daily. [facility] 00 DX:E11.9 Medic al Branch blood sugar 2016-0 Yes Use as Univ ers diagnostic 3-22 directed, ity of (ONETOUCH 00:00: daily. [place] VERIO) 00 DX:E11.9 Medical strip Branch lancets 2016-0 Yes Use as Univers (ONE TOUCH 3-22 directed, ity of DELICA) 33 00:00: daily. [facility] 00 DX:E11.9 Medic al Branch loratadine 2016-0 Yes [id number] 10mg Take 1 Tab Univers (CLARITIN) 3-14 by mouth ity o f 10 mg 00:00: daily. [place] tablet 00 [facility] Branch loratadine Yes [id number] 10mg Take 1 Tab Univers (CLARITIN) 3-14 by mouth ity o f 10 mg 00:00: daily. [place] tablet 00 [facility] Branch loratadine 0 Yes [id number] 10mg Take 1 Tab Univers (CLARITIN) 3-14 by mouth ity o f 10 mg 00:00: daily. [place] tablet [facility] Branch loratadine Yes [id number] 10mg Take 1 Tab Univers (CLARITIN) 3-14 by mouth ity o f 10 mg 00:00: daily. [place] tablet 00 [facility] Branch loratadine Yes [id number] 10mg Take 1 Tab Univers (CLARITIN) 3-14 by mouth ity o f 10 mg 00:00: daily. [place] tablet 00 [facility] loratadine Yes [id number] 10mg Take 1 Tab Univers (CLARITIN) 3-14 by mouth ity o f 10 mg 00:00: daily. [place] tablet [facility] Branch fluticasone Yes [id number] 2{spray Use 2 Univers 50 2-23 } Sprays in ity of mcg/actuati 00:00: each [place] on nasal 00 nostril Medical spray daily. Branch albuterol Yes [id number] 2{puff} Inhale 2 Univers (PROAIR) 90 2-23 Puffs ity of mcg/actuati 00:00: every 6 [place] as on inhaler 00 (six) Medical hours as Branch needed for Wheezing or Shortness of Breath. fluticasone Yes [id number] 2{spray Use 2 Univers 50 2-23 } Sprays in ity of mcg/actuati 00:00: each [place] on nasal 00 nostril Medical spray daily. Branch albuterol Yes [id number] 2{puff} Inhale 2 Univers (PROAIR) 90 2-23 Puffs ity of mcg/actuati 00:00: every 6 [place] as on inhaler 00 (six) Medical hours as Branch needed for Wheezing or Shortness of Breath. fluticasone Yes [id number] 2{spray Use 2 Univers 50 2-23 } Sprays in ity of mcg/actuati 00:00: each [place] on nasal 00 nostril Medical spray daily. Branch albuterol Yes [id number] 2{puff} Inhale 2 Univers (PROAIR) 90 2-23 Puffs ity of mcg/actuati 00:00: every 6 [place] on inhaler 00 (six) Medical hours as Branch needed for Wheezing or Shortness of Breath. fluticasone Yes [id number] 2{spray Use 2 Univers 50 2-23 } Sprays in ity of mcg/actuati 00:00: each [place] on nasal 00 nostril Medical spray daily. Branch albuterol Yes [id number] 2{puff} Inhale 2 Univers (PROAIR) 90 2-23 Puffs ity of mcg/actuati 00:00: every 6 [place] on inhaler 00 (six) Medical hours as Branch needed for Wheezing or Shortness of Breath. fluticasone Yes [id number] 2{spray Use 2 Univers 50 2-23 } Sprays in ity of mcg/actuati 00:00: each [place] on nasal 00 nostril Medical spray daily. Branch albuterol Yes [id number] 2{puff} Inhale 2 Univers (PROAIR) 90 2-23 Puffs ity of mcg/actuati 00:00: every 6 [place] as on inhaler 00 (six) Medical hours as Branch needed for Wheezing or Shortness of Breath. fluticasone Yes [id number] 2{spray Use 2 Univers 50 2-23 } Sprays in ity of mcg/actuati 00:00: each [place] on nasal 00 nostril Medical spray daily. Branch albuterol Yes [id number] 2{puff} Inhale 2 Univers (PROAIR) 90 2-23 Puffs ity of mcg/actuati 00:00: every 6 [place] as on inhaler 00 (six) Medical hours as Branch needed for Wheezing or Shortness of Breath. traMADOL 2015-0 Yes 50mg Take 1 Tab Uni vers (ULTRAM) 50 2-02 by mouth ity of mg tablet 00:00: every 6 [place] 00 (six) Medical hours as Branch needed (prn pain). traMADOL 2016-0 Yes 50mg Take 1 Tab Uni vers (ULTRAM) 50 2-02 by mouth ity of mg tablet 00:00: every 6 [place] 00 (six) Medical hours as Branch needed (prn pain). traMADOL 2016-0 Yes 50mg Take 1 Tab Uni vers (ULTRAM) 50 2-02 by mouth ity of mg tablet 00:00: every 6 [place] 00 (six) Medical hours as Branch needed (prn pain). traMADOL 2016-0 Yes 50mg Take 1 Tab Uni vers (ULTRAM) 50 2-02 by mouth ity of mg tablet 00:00: every 6 [place] 00 (six) Medical hours as Branch needed (prn pain). traMADOL 2016-0 Yes 50mg Take 1 Tab Uni vers (ULTRAM) 50 2-02 by mouth ity of mg tablet 00:00: every 6 [place] 00 (six) Medical hours as Branch needed (prn pain). traMADOL 2016-0 Yes 50mg Take 1 Tab Uni vers (ULTRAM) 50 2-02 by mouth ity of mg tablet 00:00: every 6 [place] 00 (six) Medical hours as Branch needed (prn pain). Tramadol Tramadol Yes [facility] not [facility] Immunizations Ordered Filled Immunization Date Status Comments [facility] e Immunization Name Name Tdap 2012-08-12 Completed University of 00:00:00 [facility] TDAP 2012-08-12 Completed University of :00: [facility] TDAP 2012-08-12 Completed University of :00: [facility] TDAP 2012-08-12 Completed University :00: [facility] Tdap 2012-08-12 Completed 00: [facility] Tdap 2012-08-12 Completed University of 00:00:00 [place] [facility] Td 2002-03-15 Completed University of 00:00:00 [place] [facility] Td 2002-03-15 Completed University of 00:00:00 [place] [facility] Td 2002-03-15 Completed University of 00:00:00 [place] [facility] Td 2002-03-15 Completed University of 00:00:00 [place] [facility] Td 2002-03-15 Completed University of 00:00:00 [place] [facility] Td 2002-03-15 Completed University of 00:00:00 [facility] Branch Vital Signs Vital Name Observation Time Observation Value Comments Source Systolic blood 2018-11-01 04:00:00 171 mm[Hg] Univer sity of pressure [facility] Branch Diastolic blood 2018-11-01 04:00:00 74 mm[Hg] Unive rsity of pressure [facility] Heart rate 2018-11-01 04:00:00 76 /min Universi ty [facility] Respiratory rate 2018-11-01 04:00:00 25 /min Univ ersity of [facility] Oxygen saturation in 2018-11-01 04:00:00 93 /min University of Arterial blood by [facility] Pulse oximetry Branch Body temperature 2018-11-01 02:09:[address] [facility] ersity [facility] Body height 2018-11-01 02:09:00 162.6 cm [facility] Body weight 2018-11-01 02:09:00 138.347 kg [facility] BMI 2018-11-01 02:09:00 52.35 kg/m2 [facility] Systolic blood 2018-11-01 04:00:00 171 mm[Hg] Univer sity of pressure [facility] Branch Diastolic blood 2018-11-01 04:00:00 74 mm[Hg] Unive rsity of pressure [place] [facility] Heart rate 2018-11-01 04:00:00 76 /min [facility] [place] [facility] Respiratory rate 2018-11-01 04:00:00 25 /min Univ ersity of [facility] Branch Oxygen saturation in 2018-11-01 04:00:00 93 /min University of Arterial blood by [facility] Pulse oximetry Branch Body temperature 2018-11-01 02:09:[address] [facility] ersity of [facility] Body height 2018-11-01 02:09:00 162.6 cm [facility] Body weight 2018-11-01 02:09:00 138.347 kg [facility] BMI 2018-11-01 02:09:00 52.35 kg/m2 [facility] Procedures Procedure Date / Time Performing Clinician Source Performed AUTHORIZATION FOR 2019-10-06 05:01:00 Doctor Unassigned, No [facility] Name Medical Branch AUTHORIZATION FOR 2019-09-27 05:01:00 Doctor Unassigned, No [facility] Name Medical Branch XR TOES 2 VW LEFT 2018-11-01 04:16:58 Paul Perea [facility] XR CHEST 1 VW 2018-11-01 03:14:21 Paul Perea [facility] XR FOOT 3+ VW LEFT 2018-11-01 03:14:21 Paul Perea [facility] TROPONIN I 2018-11-01 02:57:00 Paul Perea [facility] HEPATIC FUNCTION PANEL 2018-11-01 02:57:00 Paul Perea [facility] ([id number]) (ALB,T.PRO,BILI [facility] T,BU/BC,ALT,AST,ALK PHOS) BASIC METABOLIC PANEL 2018-11-01 02:57:00 Paul Perea [facility] (NA, K, CL, CO2, Medical Branch GLUCOSE, BUN, CREATININE, CA) CBC WITH DIFFERENTIAL 2018-11-01 02:57:00 Eliazar Paul [facility] GLYCOSYLATED HEMOGLOBIN 2018-11-01 02:57:00 Paul Perea [facility] (A1C) [facility] PROTHROMBIN TIME / INR 2018-11-01 02:57:00 Paul Perea [facility] ACTIVATED PARTIAL 2018-11-01 02:57:00 Paul Perea [facility] THRMPLAS JANEEN [facility] RAPID STREP SCREEN FOR 2018-11-01 02:57:00 Paul Perea [facility] GROUP A [facility] N-TERMINAL PRO-BNP 2018-11-01 02:57:00 Paul Perea [facility] EKG-12 LEAD 2018-11-01 02:42:19 Paul Perea [facility] NOTICE OF PRIVACY 2018-11-01 01:54:18 Doctor Unassigned, No Univ [facility] PRACTICES Name [facility] CONSENT/REFUSAL FOR 2018-11-01 01:53:56 Doctor Unassigned, No [facility] Encounters Start End Encounter Admission Attending Care Care Encounter Source Date/Time Date/Time Type Type Clinicians Facility Department ID 2021-05-21 2021-05-21 Outpatient Jocelynn [facility] [id number] Univers 08:00:00 08:00:00 KYLE [id number] [facility] 2021-05-21 2021-05-21 Outpatient Jocelynn FREDERICK [facility] [id number] Univers 08:00:00 08:00:00 KYLE [facility] 2020-04-09 2020-04-09 [facility] [id number] 2020-04-03 2020-04-03 [facility] [id number] [facility] 2019-10-17 2019-10-17 [facility] [id number] 10:00:00 10:00:00 [facility] 2019-10-06 2019-10-06 [facility] [id number] 13:31:00 13:31:00 [facility] Medicine Outpati ent [facility] 2019-10-06 2019-10-06 Orders Doctor JACINDA [id number] Univers 00:00:00 00:00:00 Only Unassigned, RUPINDER [id number] ity of [place] [facility] [id number] [place] [phone] [address] 2019-10-06 2019-10-06 Orders Doctor JACINDA [id number] 00:00:00 00:00:00 Only Unassigned, RUPINDER [id number] [place] [facility] [id number] 2019-10-02 2019-10-02 [facility] [id number] 10:15:00 10:15:00 [facility] [facility] 2019-09-29 2019-09-29 [facility] [id number] 08:30:00 08:30:00 t [facility] 2019-09-28 2019-09-28 [facility] [id number] 16:11:00 16:11:00 t [facility] 2019-09-28 2019-09-28 [facility] [id number] 16:09:00 16:09:00 t [facility] 2019-09-28 2019-09-28 [facility] [id number] 11:16:00 11:16:00 t [employer] [facility] 2019-09-28 2019-09-28 Telephone MIS Pagan [id number] Univers 00:00:00 00:00:00 [facility] 350.1.13.10 it y of Surgical 4.2.7.2.686 Hector as Specialti [phone] Dc dical es 198 [facility] 2019-09-28 2019-09-28 Telephone Latasha INKATHIE 1.2.840.114 [id number] 00:00:00 00:00:00 [facility] [employer] 350.1.13.10 Surgical 4.2.7.2.686 Specialti [id number] es [address] [place] 2019-09-27 2019-09-27 Orders Doctor JACINDA 1.2.840.114 [id number] Univers 00:00:00 00:00:00 Only Unassigned, RUPINDER 350.1.13.10 ity of [place] [facility] 4.2.7.2.686 Hector as [id number] [facility] [address] [place] 2019-09-27 2019-09-27 Orders Doctor JACINDA 1.2.840.114 [id number] 00:00:00 00:00:00 Only Unassigned, RUPINDER 350.1.13.10 [place] [facility] 4.2.7.2.686 [id number] 009 2019-09-18 2019-09-18 Outpatient Stephen Pendleton [id number] [facility] 15:15:00 15:15:00 [employer] Sidon Jammit [facility] Medicine Outpati ent Clinics 2019-06-23 2019-06-23 [facility] [id number] 8947 [facility] 00:00:00 00:00:00 Dimitrios Werner [employer] 350.1.13.10 it y of Surgical 4.2.7.2.686 Hector as Specialti [id number] [facility] 198 [facility] 2019-06-23 2019-06-23 [facility] [id number] 00:00:00 00:00:00 Dimitrios Werner [employer] 350.1.13.10 Surgical 4.2.7.2.686 Specialti [id number] [address] 2019-04-17 2019-04-17 [facility] [id number] 1278 [facility] 00:00:00 00:00:00 Dimitrios Werner Health 350.1.13.10 it y of Surgical 4.2.7.2.686 Hector as Specialti [phone] Dc dicsc es 198 [facility] 2019-04-17 2019-04-17 [facility] [id number] 00:00:00 00:00:00 Dimitrios Werner [employer] 350.1.13.10 Surgical 4.2.7.2.686 Specialti [id number] es [address] [place] [address] 2018-10-31 2018-10-31 Emergency [facility] [id number] 9593 [facility] 21:12:42 23:51:00 [place] 350.1.13.10 i ty of [place] 4.2.7.2.686 [facility] [id number] [place] 766284 [place] 2018-10-31 2018-10-31 Emergency [place], [facility] [id number] 21:12:42 23:51:00 Paul [place] 350.1.13.10 [place] 4.2.7.2.686 [place] [id number] 084 2018-09-26 2018-09-26 [facility] [id number] 14:49:00 14:49:[address] Luke s - Drive [facility] 2018-07-19 2018-07-19 [facility] [id number] 14:26:00 14:26:[address] Luke s - Drive [facility] Clinics 2018-07-18 2018-07-18 [facility] [id number] 13:44:00 13:44:00 t [facility] 2018-07-18 2018-07-18 [facility] [id number] 08:30:00 08:30:00 t [facility] 2018-07-04 2018-07-04 [facility] [id number] 09:54:00 09:54:[address] Luke s - Drive [facility] ent Clinics 2018-06-27 2018-06-27 [facility] [id number] 10:28:00 10:28:[address] Luke s - Drive [facility] 2018-06-27 2018-06-27 [facility] [id number] 10:15:00 10:15:[address] Luke s - Drive [facility] ent Clinics 2018-06-16 2018-06-16 [facility] [id number] 15:35:00 15:35:00 [facility] 2018-05-24 2018-05-24 [facility] [id number] 12:25:00 12:25:00 [facility] Results Test Description Test Time Test Comments Results Result Comments Source aPTT 2018-11-01 04:30:00 Test Item Value Reference Range Interpretation Comme nts APTT Patient (test code = See_Comment [ Automated message] The 3173-2) system which ge nerated this result tra nsmitted reference range : 23 - 38 Seconds. The re ference range was not u sed to interpret this result as normal/abnormal . CHARITY (test code = CHARITY) The [facility] patient population mean normal value for aPTT is 30 seconds. Lab Interpretation (test Normal code = 63387-2) [facility] / [id number] 04:27:00 Test Item Value Reference Range Interpretation Comments PROTIME PATIENT (test See_Comment [Auto mated message] code = 5964-2) The system wh ich generated this result transmitted ref erence range: 12.0 - 1 4.7 Seconds. The re ference range was not u sed to interpret this result as normal/abnor mal. INR (test code = 6301-6) Nor mal INR <1.1; Warfarin Therap eutic range 2.0 to 3. 0 or 2.5 to 3.5, dep ending upon the indica tions. Lab Interpretation (test Normal code = 17369-5) [facility] 1 [id number] 04:12:59 Right upper lobe consolidation, concerning for pneumonia. Pulmonary vascular congestion. I, MD Devon., have reviewed this study and agree with the abovereport.* * * * * * * * ORIGINAL REPORT * * * * * *EXAM: XR CHEST 1 VW HISTORY: dyspnea COMPARISON: Chest radiograph 06/23/2015 FINDINGS: A consolidation is identified along the inferior right upper lobe, abuttingthe minor fissure. Mild pulmonary vascular congestion is present. Nopleural effusion or pneumothorax is identified. The heart is mildly enlarged. No acute bony abnormalities are noted. [facility], Radiant Results Inft User - 10/31/201811:15 PM CDT* * * * * * * * ORIGINAL REPORT * * * * * * * *EXAM: XR CHEST 1 VWHISTORY: dyspnea COMPARISON: Chest radiograph 06/23/2015FINDINGS:A consolidation is identified along the inferior right upper lobe, abuttingthe minor fissure. Mild pulmonary vascular congestion is present. Nopleural effusion or pneumothorax is identified.The heart is mildly enlarged. No acute bony abnormalities are noted.IMPRESSIONRight upper lobe consolidation, concerning for pneumonia.Pulmonary vascular congestion.I, Hillary Lunsford MD., have reviewed this study and agree with the abovereport.[facility] Hospital[facility]YCOSYLATED HEMOGLOBIN (A1C) 2018-11-01 03:54:00 Test Item Value Reference Interpretation Comments Range HGB A1C (test code = See_Comment H [Autom ated 4548-4) message] The system which generated this result transmitted reference range : 4.0 - 6.0 % NGSP. The reference range was not used to interpret this result as normal/abnormal . CHARITY (test code = %A1C (NGSP) CHARITY) Interpretation (ADA)4.8-5.6? Normal or (Non-Diabetic Range)5.7-6.4? Increased Risk (Pre-Diabetic)>6.5?D iabetes Indicated Lab Interpretation Abnormal (test code = 92013-9) [facility]roponin [id number] 03:29:00 Test Item Value Reference Range Interpretation Comments TROPONIN I (test <0.012 See_Comment [Automated code = 2959303537) message] The system which generated this result transmitted reference range : <=0.034 ng/mL. The reference range was not used to interpr et this result as normal/abnormal . CHARITY (test code = Equal or Less than CHARITY) 0.034 ng/ml---Normal?Not e: Cardiac troponin begins to rise 3-4 hours after the onset of ischemia. Repeat in 4-6 hours if the sample was drawn within 3-4 hours of the onset of the symptom and found normal. Between 0.035 and 0.120 ng/mL--- Borderline. Questionable myocardial injury or necrosis?Note: Serial measurement may be necessary to confirm or exclude the diagnosis of myocardial injury or necrosis; Clinical correlation (symptoms, EKGs, imaging studies, and others) required; Repeat in 4-6 hours if clinically indicated.? Equal or Higher than 0.121 ng/mL---Abnormal. Myocardial Injury or Necrosis Likely? Biotin has been reported to cause a negative bias, interpret results relative to patient's use of biotin.? ? Lab Interpretation Normal (test code = 88564-3) [facility] Hospital[facility]APID STREP SCREEN FOR GROUP [id number] 03:27:00 Test Item Value Reference Range Interpretation Comments Streptococcus pyogenes (group A) Negative Negative antigen (test code = 95812-3) Lab Interpretation (test code = Normal 95858-4) [facility] HospitalN-TERMINAL [id number] 03:26:00 Test Item Value Reference Range Interpretation Comments NT-proBNP (test code 144 pg/mL See_Comment H [Autom ated = 3679681255) message] The system which generated this result transmitted reference range : <=125. The reference range was not used to interpret this result as normal/abnormal . CHARITY (test code = CHARITY) Biotin has been reported to cause a negative bias, interpret results relative to patient's use of biotin. Lab Interpretation Abnormal (test code = 19253-0) [facility] Function Panel (ALB, T.PRO, BILI T, BU/BC, ALT, AST, ALK PHOS)2018-11-01 03:19:00 Test Item Value Reference Range Interpretation Comments TOTAL BILI (test code = 4016145504) 0.5 mg/dL 0.1-1.1 BILI UNCON (test code = 3580554245) 0.4 mg/dL 0.1-1.1 BILI CONJ (test code = 9480092567) 0.0 mg/dL 0-0.3 T PROTEIN (test code = 1229107929) 7.7 g/dL 6.3-8.2 ALBUMIN (test code = 4492275334) 4.2 g/dL 3.5-5 ALK PHOS (test code = 4508498506) 84 U/L 34-122 ALT(SGPT) (test code = 0867652266) 13 U/L 9-51 AST(SGOT) (test code = 5317947265) 17 U/L 13-40 Lab Interpretation (test code = Normal 66168-0) [facility] Metabolic Panel (NA, K, CL, CO2, GLUCOSE, BUN, CREATININE, CA)2018-11-01 03:18:00 Test Item Value Reference Range Interpretation Comments NA (test code = 137 mmol/L 135-145 5360683155) K (test code = 4.2 mmol/L 3.5-5 2118830793) CL (test code = 99 mmol/L 98-108 3106247899) CO2 TOTAL (test code = 28 mmol/L 23-31 4341100784) AGAP (test code = 2-16 0619538802) BUN (test code = 11 mg/dL 7-23 1015643914) GLUCOSE (test code = 192 mg/dL 70-110 H 6777609032) CREATININE (test code = 0.54 mg/dL 0.5-1.04 6691872293) CALCIUM (test code = 9.0 mg/dL 8.6-10.6 3403786551) eGFR Calculation mL/min/1.73m2 (Non-) (test code = 0712338968) eGFR Calculation mL/min/1.73m2 () (test code = 3462094431) CHARITY (test code = CHARITY) Association of Glomerular Filtration Rate (GFR) and Staging of Kidney Disease*+ + + +| GFR (mL/min/1.73 m2)?| With Kidney Damage?|?Without Kidney Damage+ --------+ --------+ +|?>90?|?S tage one?|? Normal?+ ---------+ ---------+ +|?60-89? |?Stage two?|? Decreased GFR? + --+ --+ ------+|?30-59?|?Stage three?|? Stage three? + --+ --+ ------+|?15-29?|?Stage four? |? Stage four?+ -------+ -------+ +|?<15 (or dialysis)?|?Stage five? |? Stage five?+ -------+ -------+ +*Each stage assumes the associated GFR level has been in effect for at least three months.?Stages 1 to 5, with or without kidney disease, indicate chronic kidney disease.Notes: Determination of stages one and two (with eGFR >59mL/min/1.73 m2) requires estimation of kidney damage for at least three months as defined by structural or functional abnormalities of the kidney, manifested by either:Pathological abnormalities or Markers of kidney damage (including abnormalities in the composition of the blood or urine or abnormalities in imaging tests). Lab Interpretation Abnormal (test code = 18481-9) [facility] WITH [id number] 03:07:00 Test Item Value Reference Range Interpretation Comments WBC (test code = See_Comment [Automated message] 6690-2) The system [employer] generated this result transmitted ref erence range: 4.30 - 1 1.10 10*3/?L. The re ference range was not u sed to interpret this result as normal/abnor mal. RBC (test code = See_Comment [Automated message] 789-8) The system [employer] generated this result transmitted ref erence range: 3.93 - 5 .25 10*6/?L. The re ference range was not u sed to interpret this result as normal/abnor mal. HGB (test code = 13.6 g/dL 11.6-15 718-7) HCT (test code = 42.2 % 35.7-45.2 4544-3) MCV (test code = 83.9 fL 80.6-95.5 787-2) MCH (test code = 27.0 pg 25.9-32.8 785-6) MCHC (test code = 32.2 g/dL 31.6-35.1 786-4) RDW-SD (test code 45.5 fL 39-49.9 = 39683-3) RDW-CV (test code 15.0 % 12-15.5 = 788-0) PLT (test code = See_Comment [Automated message] 777-3) The system [employer] generated this result transmitted ref erence range: 166 - 35 8 10*3/?L. The re ference range was not u sed to interpret this result as normal/abnor mal. MPV (test code = 10.5 fL 9.5-12.9 63991-2) NRBC/100 WBC (test See_Comment [Automat ed message] code = 0351385587) The syste m which generated this result transmitted ref erence range: 0.0 - 10 .0 /100 WBCs. The refer ence range was not u sed to interpret this result as normal/abnor mal. NRBC x10^3 (test <0.01 See_Comment [Automated message] code = 6146747060) The syste m which generated this result transmitted ref erence range: 10*3/?L. The reference range was not used to interpr et this result as normal/abnormal . GRAN MAT (NEUT) % 69.5 % (test code = 770-8) IMM GRAN % (test 0.30 % code = 3250918951) LYMPH % (test code 19.8 % = 736-9) MONO % (test code 9.3 % = 5905-5) EOS % (test code = 1.0 % 713-8) BASO % (test code 0.1 % = 706-2) GRAN MAT 4.87 10*3/uL 1.88-7.09 x10^3(ANC) (test code = 0401020726) IMM GRAN x10^3 <0.03 0-0.06 (test code = 6859373492) LYMPH x10^3 (test 1.39 10*3/uL 1.32-3.29 code = 731-0) MONO x10^3 (test 0.65 10*3/uL 0.33-0.92 code = 742-7) EOS x10^3 (test 0.07 10*3/uL 0.03-0.39 code = 711-2) BASO x10^3 (test <0.03 0.01-0.07 code = 704-7) [facility]"
--- NOTE | 2021-03-13 18:22 | EDPHYS ---
Physician Documentation [facility] Name: Nicole Martínez Age: 65 yrs Sex: Female : 1955 Arrival Date: 03/13/2021 Time: 17:46 Bed Waiting Private MD: DAWN Physician Basil Henry HPI: 03/13 18:21 This 65 yrs old Female presents to ER via Ambulatory with complaints of Ear Pain. pm1 18:21 The patient presents with pain. The complaints affect the right ear. pm1 18:21 Onset: The symptoms/episode began/occurred yesterday. Modifying factors: The symptoms pm1 are alleviated by nothing, the symptoms are aggravated by possibly diabetes medications. Associated signs and symptoms: Pertinent negatives: fever, shortness of breath, sore throat. Severity of symptoms: in the emergency department the symptoms are worse. The patient has experienced a previous episode, and the symptoms today are exactly the same, with taking same diabetes medication. Historical: - Allergies: 18:29 EGG/POULTRY; zhao 18:29 Percodan; zhao 18:29 [place]; zhao - Home Meds: 18:29 Dulera inhalation [Active]; Hydrochlorothiazide Oral [Active]; proair [Active]; zhao Tramadol Oral [Active]; - PMHx: 18:29 Hernández Cyst; Diabetes - NIDDM; Hypertension; zhao - Immunization history:: Adult Immunizations up to date. - Social history:: Smoking status: Patient denies any tobacco usage or history of. ROS: 18:21 Constitutional: Negative for fever, chills, and weight loss. pm1 18:21 Neck: Negative for injury, pain, and swelling, Cardiovascular: Negative for chest pain, palpitations, and edema, Respiratory: Negative for shortness of breath, cough, wheezing, and pleuritic chest pain, MS/Extremity: Negative for injury and deformity, Skin: Negative for injury, rash, and discoloration, Neuro: Negative for headache, weakness, numbness, tingling, and seizure. 18:21 ENT: Positive for ear pain, Negative for drainage from ear(s), sore throat, difficulty swallowing, difficulty handling secretions, hoarseness. 18:21 All other systems are negative. Exam: 18:21 Constitutional: This is a well developed, well nourished patient who is awake, alert, pm1 and in no acute distress. Head/Face: Normocephalic, atraumatic. 18:21 Back: No spinal tenderness. No costovertebral tenderness. Full range of motion. Skin: Warm, dry with normal turgor. Normal color with no rashes, no lesions, and no evidence of cellulitis. MS/ Extremity: Pulses equal, no cyanosis. Neurovascular intact. Full, normal range of motion. 18:21 ENT: Exam is negative for acute changes, TM's: bulging, on the right, erythema, that is mild, on the right, Mouth: no acute changes, Lips: normal, moist, Oral mucosa: normal, pink and intact, moist. 18:21 Cardiovascular: Exam negative for acute changes, Rate: normal, Rhythm: regular, Pulses: no pulse deficits are appreciated. 18:21 Respiratory: Exam negative for acute changes, respiratory distress, shortness of breath, Breath sounds: are clear throughout. 18:21 Neuro: Exam negative for acute changes, Orientation: is normal, Mentation: is normal, Motor: is normal, moves all fours, Gait: is steady, at a normal pace, without difficulty. Vital Signs: 18:28 BP 173 / 87; Pulse 79; Resp 20; Pulse Ox 97% ; Weight 136.08 kg; Height 5 ft. 4 in. zhao (162.56 cm); 18:28 Body Mass Index 51.49 (136.08 kg, 162.56 cm) zhao MDM: 18:21 Counseling: I had a detailed discussion with the patient and/or guardian regarding: the pm1 historical points, exam findings, and any diagnostic results supporting the discharge/admit diagnosis, the need for outpatient follow up, a family practitioner, to return to the emergency department if symptoms worsen or persist or if there are any questions or concerns that arise at home. 18:21 Patient medically screened. pm1 18:24 ED course: [place] reviewed. pm1 18:24 Data reviewed: vital signs. Data interpreted: Pulse oximetry: on room air is 97 %. pm1 Interpretation: normal. Administered Medications: 18:33 Not Given (Patient Refused): HYDROcodone-acetaminophen 10 mg-325 mg 1 tabs PO once; zhao RASS on ADMIN: Combtv4, Very Agttd3, Agttd2, Rstlss1, AlertClm0, Drwsy-1, Lt Sdtn-2, Mod Sdtn-3, Dp Sdtn-4, UnArsble-5 Disposition Summary: 03/13/21 18:21 Discharge Ordered Location: Home pm1 Problem: new pm1 Symptoms: have improved pm1 Condition: Stable pm1 Diagnosis - Otitis media, unspecified, right ear pm1 Followup: pm1 - With: Emergency Department - When: As needed - Reason: Worsening of condition Followup: pm1 - With: Private Physician - When: 2 - 3 days - Reason: Recheck today's complaints, Continuance of care, Re-evaluation by your physician Discharge Instructions: - Discharge Summary Sheet pm1 - Otitis Media, Adult pm1 Forms: - Medication Reconciliation Form pm1 - Thank You Letter pm1 - Antibiotic Education pm1 - Prescription Opioid Use pm1 Prescriptions: - Amoxicillin 500 mg Oral Capsule - take 1 capsule by ORAL route every 8 hours for 10 days; 30 tablet; Refills: 0, pm1 Product Selection Permitted - Tylenol-Codeine #3 300 mg-30 mg Oral - take 2 tablet by ORAL route every 6 hours As needed; 20 tablet; Refills: 0, pm1 Product Selection Permitted Addendum: 03/15/2021 09:05 Co-signature as Attending Physician, Basil Henry MD I agree with the assessment and c zhao plan of care. Signatures: Basil Henry MD MD cha Marinas, Patrick, OFFICE INSPECTOR OFFICE INSPECTOR pm1 Renetta-AnarKayla RN RN zhao
--- NOTE | 2021-03-13 18:34 | ER ---
Nurse's Notes [facility] Name: Nicole Martínez Age: 65 yrs Sex: Female : 1955 Arrival Date: 03/13/2021 Time: 17:46 Bed Waiting Private MD: Diagnosis: Otitis media, unspecified, right ear Presentation: 03/13 18:28 Chief complaint: Patient states: right ear pain. Coronavirus screen: Vaccine status: zhao Patient reports receiving the 2nd dose of the covid vaccine. Coronavirus screen: Vaccine status: Patient reports receiving the 1st dose of the Covid vaccine. Ebola Screen: Patient denies travel to an Ebola-affected area in the 21 days before illness onset. Initial Sepsis Screen: Does the patient meet any 2 criteria? No. Patient's initial sepsis screen is negative. Does the patient have a suspected source of infection? No. Patient's initial sepsis screen is negative. Risk Assessment: Do you want to hurt yourself or someone else? Patient reports no desire to harm self or others. Onset of symptoms was March 13, 2021. 18:28 Method Of Arrival: Ambulatory zhao 18:28 Acuity: KAELYN 4 zhao Triage Assessment: 18:29 General: Appears in no apparent distress. Behavior is calm, cooperative. Pain: zhao Complains of pain in right ear. EENT: Reports pain Pain is 10 out of 10 on a pain scale. Historical: - Allergies: 18:29 EGG/POULTRY; zhao 18:29 Percodan; zhao 18:29 [place]; zhao - Home Meds: 18:29 Dulera inhalation [Active]; Hydrochlorothiazide Oral [Active]; proair [Active]; zhao Tramadol Oral [Active]; - PMHx: 18:29 Hernández Cyst; Diabetes - NIDDM; Hypertension; zhao - Immunization history:: Adult Immunizations up to date. - Social history:: Smoking status: Patient denies any tobacco usage or history of. Screenin:30 Abuse screen: Denies threats or abuse. Denies injuries from another. Nutritional zhao screening: No deficits noted. Tuberculosis screening: No symptoms or risk factors identified. Fall Risk None identified. Assessment: 18:30 Pain: Complains of pain in right ear. EENT: Reports pain Pain is 10 out of 10 on a pain zhao scale. right ear pain. Vital Signs: 18:28 BP 173 / 87; Pulse 79; Resp 20; Pulse Ox 97% ; Weight 136.08 kg; Height 5 ft. 4 in. zhao (162.56 cm); 18:28 Body Mass Index 51.49 (136.08 kg, 162.56 cm) zhao ED Course: 17:46 Patient arrived in ED. as 18:20 Harsha Millan NP is PHCP. pm1 18:20 Basil Henry MD is Attending Physician. pm1 18:29 Triage completed. zhao 18:29 Arm band placed on. zhao 18:30 Patient has correct armband on for positive identification. zhao 18:30 No provider procedures requiring assistance completed. zhao 18:32 Patient did not have IV access during this emergency room visit. zhao Administered Medications: 18:33 Not Given (Patient Refused): HYDROcodone-acetaminophen 10 mg-325 mg 1 tabs PO once; zhao RASS on ADMIN: Combtv4, Very Agttd3, Agttd2, Rstlss1, AlertClm0, Drwsy-1, Lt Sdtn-2, Mod Sdtn-3, Dp Sdtn-4, UnArsble-5 Outcome: 18:21 Discharge ordered by . pm1 18:30 Discharged to home ambulatory. zhao 18:30 Condition: good 18:30 Discharge instructions given to patient, Prescriptions given X 2. 18:33 Patient left the ED. zhao Signatures: Lindsay Vega as Harsha Millan, [employer] pm1 Kayla Pruitt RN RN
[2021-03-13 18:38] VITALS: BP 173/87; O2SAT 97
== END 2021-03-13 18:33 | disposition home or self-care (01) ==
LOC: ER 17:42
DX: H66.91 Otitis media, unspecified, right ear (principal); E11.9 Type 2 diabetes mellitus without complications; I10 Essential (primary) hypertension
CPT/HCPCS: 99281

== ENCOUNTER 2021-08-15 21:25 | Emergency (ER) | payer OTHER ==
--- OUTSIDE RECORDS SUMMARY | 2021-08-15 21:30 | XMS REPORT | Continuity of Care Document ---
:1955 Author Organization [facility] t Address [address] [place] [address] Care Team Providers Name Role Phone Arcelia JOY Primary Care Physician Unavailable Arcelia Joy Attending Clinician Unavailable Kayla MACK Attending Clinician Unavailable Doctor Unassigned, Name Attending Clinician Unavailable Latasha PROCTOR, L Attending Clinician Eliazar PROCTOR Attending Clinician Payers Payer Name Policy Type Policy Number Effective Date Expiration Date S wang [facility] [id number] 2015 00:00:00 PLUS Problems Condition Condition Condition Status Onset Resolution Last Treating Co mments Source Name Details Category Date Date Treatment Clinician Date Incisional Incisional Disease Active U nivers abscess, abscess, 4-10 ity of initial initial 00:00: [place] encounter encounter 00 Medi lourdes Branch Acute Acute Disease Active Univers pharyngiti [...] ity of pressure pressure 00:00: [place] 00 [facility] Branch Vitamin B Vitamin B Disease Active Uni vers 12 12 3-14 [place] Morbid Morbid Disease Active Univers obesity obesity 08-12 ity of 00:00: [place] 00 Medical Branch H/O H/O Disease Active Overview: Univer s hysterecto hysterecto 08-12 She says ity of my for my for 00:00: it was a [place] benign benign 00 partial Medical disease disease [...] a s Branch Metformi Adverse Active diarrhea Commo n n HCl Reaction [facility] Lisinopr Adverse Active Cough Common il Reaction [facility] Amlodipi Adverse Active LE Swelling Co mmon ne Reaction Spirit [facility] Social History Social Habit Start Date Stop Date Quantity Comments Source History of tobacco Cigarette Smoker [facility] Sex Assigned At Universit y of [facility] Cigarettes smoked 2019-02-20 2019-02-20 Univers ity of current (pack per 00:00:00 00:00:00 ) - Reported Branch Cigarette 2019-02-20 2019-02-20 University of pack-years 00:00:00 00:00:00 [facility] Alcohol intake 2019-02-20 2019-02-20 University of 00:00:00 00:00:00 [facility] Alcohol Comment 2012-08-12 2012-08-12 occasionally Univers ity of 00:00:00 00:00:00 [facility] Smoking Status Start Date Stop Date Source Current every day smoker 2019-02-20 00:00:00 Uni versity of [facility] Medications Ordered Filled Start Stop Current Ordering Indication Dosage Frequency Signature Comments Components Source Medication Medication Date Date Medication? Clinician (SIG) Name Name Saranya Beaver 2019-0 Yes Mainor 2 mg Com mon 10-16 Joy [facility] 00:00: - [facility] 00 [facility] Saranya Ramseyremasoud 2020-0 2020- No Mainor as Co mmon BCise BCise 10-02 10 Joy directed Spirit 00:00: 00:00 - [facility] 00 :00 [facility] Tramadol Tramadol 2019-0 Yes Mainor 1 tablet Common HCl HCl 10-01 Joy as needed Spirit 00:00: - [facility] 00 [facility] Hydrochloro Hydrochloro 2019-0 Yes Mainor 1 tablet Common thiazide thiazide 09-17 Joy in the Spir it 00:00: morning - [facility] 00 [facility] DICLOFENAC 2020-0 Yes [id number] TAKE 1 Univers 75 mg EC 4-10 9104 TABLET BY ity of tablet 00:00: MOUTH [place] 00 TWICE A Medical DAY WITH Branch MEALS DICLOFENAC 2020-0 Yes [id number] TAKE 1 Univers 75 mg EC 4-10 9104 TABLET BY ity of tablet 00:00: MOUTH [place] 00 TWICE A Medical DAY WITH Branch MEALS DICLOFENAC 2020-0 Yes [id number] TAKE 1 Univers 75 mg EC 4-10 9104 TABLET BY ity of tablet 00:00: MOUTH [place] 00 TWICE A Medical DAY WITH Branch MEALS DICLOFENAC 2020-0 Yes [id number] TAKE 1 Univers 75 mg EC 4-10 9104 TABLET BY ity of tablet 00:00: MOUTH [place] 00 TWICE A Medical DAY WITH Branch MEALS DICLOFENAC 2020-0 Yes [id number] TAKE 1 Univers 75 mg EC 2-05 9104 TABLET BY ity of tablet 00:00: MOUTH [place] 00 TWICE A Medical DAY WITH Branch MEALS DICLOFENAC 2020-0 2020- No [id number] TAKE 1 Univers 75 mg EC 2-05 04-10 9104 TABLET BY ity o f tablet 00:00: 00:00 MOUTH [place] 00 :00 TWICE A Medical DAY WITH Branch MEALS diclofenac 2019- 2020- No [id number] 75mg Take 1 Univers 75 mg EC 2-09 -05 9104 tablet by ity o f tablet 00:00: 00:00 mouth 2 [place] 00 :00 (two) Medical times Branch daily with meals. metFORMIN 2018-0 Yes [id number] 500mg Take 1 Un jimbo 500 mg 8-19 tablet by ity of tablet 00:00: mouth 2 (two) Medical times Branch daily. amoxicillin 2019-0 Yes [id number] 500mg Take 1 Univers 500 mg 8-19 capsule by ity of capsule 00:00: mouth 3 (three) Medical times Branch daily. metFORMIN 2019-0 Yes [id number] 500mg Take 1 Un jimbo 500 mg 8-19 tablet by ity of tablet 00:00: mouth 2 (two) Medical times Branch daily. amoxicillin 2019-0 Yes [id number] 500mg Take 1 Univers 500 mg 8-19 capsule by ity of capsule 00:00: mouth 3 (three) Medical times Branch daily. metFORMIN 2019-0 Yes [id number] 500mg Take 1 Un jimbo 500 mg 8-19 tablet by ity of tablet 00:00: mouth 2 (two) Medical times Branch daily. amoxicillin 2019-0 Yes [id number] 500mg Take 1 Univers 500 mg 8-19 capsule by ity of capsule 00:00: mouth 3 (three) Medical times Branch daily. metFORMIN 2019-0 Yes [id number] 500mg Take 1 Un jimbo 500 mg 8-19 tablet by ity of tablet 00:00: mouth 2 (two) Medical times Branch daily. amoxicillin 2019-0 Yes [id number] 500mg Take 1 Univers 500 mg 8-19 capsule by ity of capsule 00:00: mouth 3 (three) Medical times Branch daily. metFORMIN 2019-0 Yes [id number] 500mg Take 1 Un jimbo 500 mg 8-19 tablet by ity of tablet 00:00: mouth 2 (two) Medical times Branch daily. amoxicillin 2019-0 Yes [id number] 500mg Take 1 Univers 500 mg 8-19 capsule by ity of capsule 00:00: mouth 3 (three) Medical times Branch daily. metFORMIN 2019-0 Yes [id number] 500mg Take 1 Un jimbo 500 mg 8-19 tablet by ity of tablet 00:00: mouth 2 (two) Medical times Branch daily. amoxicillin 2019-0 Yes [id number] 500mg Take 1 Univers 500 mg 8-19 capsule by ity of capsule 00:00: mouth 3 (three) Medical times Branch daily. doxycycline 2019-0 2019- No [id number] 100mg Take 1 Univers 100 mg 8-19 08-30 capsule by ity of capsule 00:00: 04:59 mouth 2 [place] 00 :00 (two) Medical times Branch daily for 10 days. clindamycin 2019-0 2019- No [id number] 300mg Take 1 Univers 300 mg 8-19 08-30 capsule by ity of capsule 00:00: 04:59 mouth 4 [place] 00 :00 (four) Medical times Branch daily for 10 days. [facility] Yes TAKE 1 Univ ers (SINGULAIR) 9-19 TABLET BY ity of 10 mg 00:00: MOUTH AT [place] tablet 00 BEDTIME. Medical Branch [facility] Yes TAKE 1 Univ ers (SINGULAIR) 9-19 TABLET BY ity of 10 mg 00:00: MOUTH AT [place] tablet 00 BEDTIME. [facility] Yes TAKE 1 Univ ers (SINGULAIR) 9-19 TABLET BY ity of 10 mg 00:00: MOUTH AT [place] tablet 00 BEDTIME. [facility] Yes TAKE 1 Univ ers (SINGULAIR) 9-19 TABLET BY ity of 10 mg 00:00: MOUTH AT [place] tablet 00 BEDTIME. Medical Branch [facility] Yes TAKE 1 Univ ers (SINGULAIR) 9-19 TABLET BY ity of 10 mg 00:00: MOUTH AT [place] tablet 00 BEDTIME. [facility] Yes TAKE 1 Univ ers (SINGULAIR) 9-19 [...] 00 (two) Medical times Branch daily. busPIRone 2015- Yes 10mg Take 1 Univer s (BUSPAR) 10 8-22 tablet by ity of mg tablet 00:00: mouth 2 00 (two) Medical times Branch daily. busPIRone 2015- Yes 10mg Take 1 Univer s (BUSPAR) 10 8-22 tablet by ity of mg tablet 00:00: mouth 2 00 (two) Medical times Branch daily. VITAMIN D2 [...] capsule 00:00: MOUTH 00 WEEKLY. Medical Branch busPIRone 2015- Yes [id number] 10mg Take 10 mg Univers (BUSPAR) 10 4-11 by mouth 2 it y of mg tablet 21:12: (two) [place] 25 times Medical daily. Branch busPIRone 2015- Yes [id number] 10mg Take 10 mg Univers (BUSPAR) 10 4-11 by mouth 2 it y of mg tablet 21:12: (two) [place] 25 times Medical daily. Branch busPIRone 2015-0 Yes [id number] 10mg Take 10 mg Univers (BUSPAR) 10 4-11 by mouth 2 it y of mg tablet 21:12: (two) [place] 25 times Medical daily. Branch busPIRone 2015- Yes [id number] 10mg Take 10 mg Univers (BUSPAR) 10 4-11 by mouth 2 it y of mg tablet 21:12: (two) [place] 25 times Medical daily. Branch busPIRone 2016-0 Yes [id number] 10mg Take 10 mg Univers (BUSPAR) 10 4-11 by mouth 2 it y of mg tablet 21:12: (two) [place] 25 times Medical daily. Branch busPIRone 2016-0 Yes [id number] 10mg Take 10 mg Univers (BUSPAR) 10 4-11 by mouth 2 it y of mg tablet 21:12: (two) [place] 25 times Medical daily. Branch fluticasone 2015-0 Yes [id number] 1 U nivers -salmeterol 4-01 inhalation it y of (ADVAIR 00:00: BI D prn [place] DISKUS) 00 sob rinse Medical 250-50 mouth Branch mcg/dose after inhalation using disk fluticasone 2015- Yes [id number] 1 U nivers -salmeterol 4-01 inhalation it y of (ADVAIR 00:00: BI D prn [place] DISKUS) 00 sob rinse Medical 250-50 mouth Branch mcg/dose after inhalation using disk fluticasone 2015- Yes [id number] 1 U nivers -salmeterol 4-01 inhalation it y of (ADVAIR 00:00: BI D prn [place] DISKUS) 00 sob rinse Medical 250-50 mouth Branch mcg/dose after inhalation using disk fluticasone 2015-0 Yes [id number] 1 U nivers -salmeterol 4-01 inhalation it y of (ADVAIR 00:00: BI D prn [place] DISKUS) 00 sob rinse Medical 250-50 mouth Branch mcg/dose after inhalation using disk fluticasone 2015-0 Yes [id number] 1 U nivers -salmeterol 4-01 inhalation it y of (ADVAIR 00:00: BI D prn [place] DISKUS) 00 sob rinse Medical 250-50 mouth Branch mcg/dose after inhalation using disk fluticasone 2016-0 Yes [id number] 1 U nivers -salmeterol 4-01 inhalation it [...] directed, ity of DELICA) 33 00:00: daily. [facility] 00 DX:E11.9 Medic al Branch blood sugar 2016-0 Yes Use as Univ ers diagnostic 3-22 directed, ity of (ONETOUCH 00:00: daily. [place] VERIO) 00 DX:E11.9 Medical strip Branch lancets 2016-0 Yes Use as Univers (ONE TOUCH 3-22 directed, ity of DELICA) 33 00:00: daily. [facility] DX:E11.9 Medic al Branch blood sugar 2016-0 Yes Use as Univ ers diagnostic 3-22 directed, ity of (ONETOUCH 00:00: daily. [place] VERIO) 00 DX:E11.9 Medical strip Branch lancets 2016-0 Yes Use as Univers (ONE TOUCH 3-22 directed, ity of DELICA) 33 00:00: daily. [facility] DX:E11.9 Medic al Branch blood sugar 2016-0 Yes Use as Univ ers diagnostic 3-22 directed, ity of (ONETOUCH 00:00: daily. [place] VERIO) 00 DX:E11.9 Medical strip Branch lancets 2016-0 Yes Use as Univers (ONE TOUCH 3-22 directed, ity of DELICA) 33 00:00: daily. [facility] DX:E11.9 Medic al Branch blood sugar 2016-0 Yes Use as Univ ers diagnostic 3-22 directed, ity of (ONETOUCH 00:00: daily. [place] VERIO) 00 DX:E11.9 Medical strip Branch lancets 2016-0 Yes Use as Univers (ONE TOUCH 3-22 directed, ity of DELICA) 33 00:00: daily. [facility] 00 DX:E11.9 Medic al Branch blood sugar 2016-0 Yes Use as Univ ers diagnostic 3-22 directed, ity of (ONETOUCH 00:00: daily. [place] VERIO) 00 DX:E11.9 Medical strip Branch lancets 2016-0 Yes Use as Univers (ONE TOUCH 3-22 directed, ity of DELICA) 33 00:00: daily. [facility] 00 DX:E11.9 Medic al Branch loratadine 2016-0 Yes [id number] 10mg Take 1 Tab Univers (CLARITIN) 3-14 by mouth ity o f 10 mg 00:00: daily. [place] tablet 00 [facility] Branch loratadine Yes [id number] 10mg Take 1 Tab Univers (CLARITIN) 3-14 by mouth ity o f 10 mg 00:00: daily. [place] tablet 00 [facility] Branch loratadine 0 Yes [id number] 10mg Take 1 Tab Univers (CLARITIN) 3-14 by mouth ity o f 10 mg 00:00: daily. [place] tablet 00 [facility] Branch loratadine Yes [id number] 10mg Take 1 Tab Univers (CLARITIN) 3-14 by mouth ity o f 10 mg 00:00: daily. [place] tablet 00 [facility] Branch loratadine Yes [id number] 10mg Take 1 Tab Univers (CLARITIN) 3-14 by mouth ity o f 10 mg 00:00: daily. [place] tablet 00 [facility] loratadine Yes [id number] 10mg Take 1 Tab Univers (CLARITIN) 3-14 by mouth ity o f 10 mg 00:00: daily. [place] tablet [facility] Branch fluticasone Yes [id number] 2{spray Use 2 Univers 50 2-23 } Sprays in ity of mcg/actuati 00:00: each [place] on nasal 00 nostril Medical spray daily. Branch albuterol Yes [id number] 2{puff} Inhale 2 Univers (PROAIR) 90 2-23 Puffs ity of mcg/actuati 00:00: every 6 [place] on inhaler 00 (six) Medical hours as Branch needed for Wheezing or Shortness of Breath. fluticasone Yes [id number] 2{spray Use 2 Univers 50 2-23 } Sprays in ity of mcg/actuati 00:00: each [place] on nasal 00 nostril Medical spray daily. Branch albuterol Yes [id number] 2{puff} Inhale 2 Univers (PROAIR) 90 2-23 Puffs ity of mcg/actuati 00:00: every 6 [place] on inhaler 00 (six) Medical hours as Branch needed for Wheezing or Shortness of Breath. fluticasone Yes [id number] 2{spray Use 2 Univers 50 2-23 } Sprays in ity of mcg/actuati 00:00: each [place] on nasal 00 nostril Medical spray daily. Branch albuterol Yes [id number] 2{puff} Inhale 2 Univers (PROAIR) 90 2-23 Puffs ity of mcg/actuati 00:00: every 6 [place] on inhaler 00 (six) Medical hours as Branch needed for Wheezing or Shortness of Breath. fluticasone Yes [id number] 2{spray Use 2 Univers 50 2-23 } Sprays in ity of mcg/actuati 00:00: each [place] on nasal 00 nostril Medical spray daily. Branch albuterol Yes [id number] 2{puff} Inhale 2 Univers (PROAIR) 90 2-23 Puffs ity of mcg/actuati 00:00: every 6 [place] on inhaler 00 (six) Medical hours as Branch needed for Wheezing or Shortness of Breath. fluticasone Yes [id number] 2{spray Use 2 Univers 50 2-23 } Sprays in ity of mcg/actuati 00:00: each [place] on nasal 00 nostril Medical spray daily. Branch albuterol Yes [id number] 2{puff} Inhale 2 Univers (PROAIR) 90 2-23 Puffs ity of mcg/actuati 00:00: every 6 [place] on inhaler 00 (six) Medical hours as Branch needed for Wheezing or Shortness of Breath. fluticasone Yes [id number] 2{spray Use 2 Univers 50 2-23 } Sprays in ity of mcg/actuati 00:00: each [place] on nasal 00 nostril Medical spray daily. Branch albuterol Yes [id number] 2{puff} Inhale 2 Univers (PROAIR) 90 2-23 Puffs ity of mcg/actuati 00:00: every 6 [place] on inhaler 00 (six) Medical hours as Branch needed for Wheezing or Shortness of Breath. traMADOL 2015-0 Yes 50mg Take 1 Tab Uni vers (ULTRAM) 50 2-02 by mouth ity of mg tablet 00:00: every 6 [place] 00 (six) Medical hours as Branch needed [...] (prn pain). Tramadol Tramadol Yes Mainor not Commo n HCl HCl Joy defined [facility] Methocarbam Methocarbam Yes Mainor not Common ol ol Joy defined [facility] ProAir HFA ProAir HFA Yes Mainor 2 puffs as Common Joy needed [facility] Robaxin Robaxin Yes Mainor 1.5 Common Joy tablets [facility] Dulera Dulera Yes Mainor 2 puffs Common Joy [facility] Motrin IB Motrin IB Yes Mainor not Com mon Joy defined [facility] Immunizations Ordered Filled Immunization Date Status Comments [facility] e Immunization Name Name [facility] 2012-08-12 Completed University of 00:00:00 [facility] 2012-08-12 Completed University of 00:00:00 [facility] 2012-08-12 Completed University of 00:00:00 [facility] 2012-08-12 Completed University of 00:00:00 [facility] 2012-08-12 Completed University of 00:00:00 [facility] 2012-08-12 Completed University of 00:00:00 [facility] Td 2002-03-15 Completed University of 00:00:00 [facility] 2002-03-15 Completed University of 00:00:00 [place] [facility] Td 2002-03-15 Completed University of 00:00:00 [place] [facility] Td 2002-03-15 Completed University of 00:00:00 [place] [facility] Td 2002-03-15 Completed University of 00:00:00 [place] [facility] Td 2002-03-15 Completed University of 00:00:00 [place] [facility] Vital Signs Vital Name Observation Time Observation Value Comments Source Systolic blood 2018-11-01 04:00:00 171 mm[Hg] Univer sity of pressure [place] [facility] Diastolic blood 2018-11-01 04:00:00 74 mm[Hg] Unive rsity of pressure [place] [facility] Heart rate 2018-11-01 04:00:00 76 /min Universi ty of [place] [facility] Respiratory rate 2018-11-01 04:00:00 25 /min Univ ersity of [place] [facility] Oxygen saturation in 2018-11-01 04:00:00 93 /min University of Arterial blood by [facility] [place] [facility] Pulse oximetry Branch Body temperature 2018-11-01 02:09:[address] [facility] ersity of [place] [facility] Body height 2018-11-01 02:09:00 162.6 cm Universi ty of [place] [facility] Body weight 2018-11-01 02:09:00 138.347 kg Universi ty of [place] [facility] BMI 2018-11-01 02:09:00 52.35 kg/m2 Universi ty of [facility] Branch Systolic blood 2018-11-01 04:00:00 171 mm[Hg] Univer sity of pressure [place] [facility] Diastolic blood 2018-11-01 04:00:00 74 mm[Hg] Unive rsity of pressure [place] [facility] Heart rate 2018-11-01 04:00:00 76 /min Universi ty of [place] [facility] Respiratory rate 2018-11-01 04:00:00 25 /min Univ ersity of [place] [facility] Oxygen saturation in 2018-11-01 04:00:00 93 /min University of Arterial blood by [facility] Pulse oximetry Branch Body temperature 2018-11-01 02:09:[address] [facility] ersity of [place] [facility] Body height 2018-11-01 02:09:00 162.6 cm Universi ty of [place] [facility] Body weight 2018-11-01 02:09:00 138.347 kg [facility] BMI 2018-11-01 02:09:00 52.35 kg/m2 [facility] Procedures Procedure Date / Time Performing Clinician Source Performed AUTHORIZATION FOR 2019-10-06 05:01:00 Doctor Unassigned, No [facility] RELEASE OF [facility] Medical Branch AUTHORIZATION FOR 2019-09-27 05:01:00 Doctor Unassigned, No [facility] RELEASE OF [facility] Medical Branch XR TOES 2 VW LEFT 2018-11-01 04:16:58 Paul Perea [facility] XR CHEST 1 VW 2018-11-01 03:14:21 Paul Perea [facility] XR FOOT 3+ VW LEFT 2018-11-01 03:14:21 Paul Perea [facility] TROPONIN I 2018-11-01 02:57:00 Paul Perea [facility] HEPATIC FUNCTION PANEL 2018-11-01 02:57:00 Paul Perea [facility] ([id number]) (ALB,T.PRO,BILI Medical Branch T,BU/BC,ALT,AST,ALK PHOS) BASIC METABOLIC PANEL 2018-11-01 02:57:00 Eliazar Paul [facility] (NA, K, CL, CO2, Medical Branch GLUCOSE, BUN, CREATININE, CA) CBC WITH DIFFERENTIAL 2018-11-01 02:57[facility] 2018-11-01 [facility]:57[facility] PROTHROMBIN TIME / INR 2018-11-01 02:57:[address] [facility] ACTIVATED PARTIAL 2018-11-01 02:57:00 Paul Perea [facility] THRMPLAS JANEEN [facility] RAPID STREP SCREEN FOR 2018-11-01 02:57:00 Paul Perea [facility] GROUP A Medical [place] N-TERMINAL PRO-BNP 2018-11-01 02:57:00 Paul Perea [facility] EKG-12 LEAD 2018-11-01 02:42:19 Eliazar [facility] NOTICE OF PRIVACY 2018-11-01 01:54:18 Doctor Unassigned, No Univ ersity of [place] PRACTICES Name Medical Branch CONSENT/REFUSAL FOR 2018-11-01 01:53:56 Doctor Unassigned, No Un [facility] of [place] DIAGNOSIS AND TREATMENT Name Medical Branch Encounters Start End Encounter Admission Attending Care Care Encounter Source Date/Time Date/Time Type Type Clinicians Facility Department ID 2021-04-09 Outpatient JoyBEVERLY chunANY [id number] Common 12:26:15 Mainor [id number] [facility] 2021-04-09 [facility] [id number] Common 11:34:37 Mainor [id number] [facility] 2021-04-[address] [facility] [id number] Common 11:31:51 Mainor [id number] [facility] 2021-09-04 2021-09-04 Outpatient Jocelynn MACK [facility] [id number] Univers 11:00:00 11:00:00 KYLE [id number] [facility] 2021-05-21 2021-05-21 Outpatient Jocelynn MCKEEE [facility] [id number] Univers 08:00:00 08:00:00 KYLE [id number] [facility] 2021-05-21 2021-05-21 [id number] Univers 08:00:00 08:00:00 KYLE [facility] 2020-04-09 2020-04-09 Outpatient [facility] [id number] Common 00:00:00 00:00:00 [facility] 2020-04-03 2020-04-03 Outpatient [facility] [id number] Common 00:00:00 00:00:00 [facility] 2019-10-17 2019-10-17 [id number] Common 10:00:00 10:00:[address] [facility] 2019-10-06 2019-10-06 [facility] [id number] Common 13:31:00 13:31:[address] [facility] 2019-10-06 2019-10-06 Orders Doctor JACINDA [id number] Univers 00:00:00 00:00:00 Only Unassigned, RUPINDER [id number] ity of [place] [facility] [id number] [place] as [phone] [address] 2019-10-06 2019-10-06 Orders Doctor JACINDA [id number] 00:00:00 00:00:00 Only Unassigned, RUPINDER [id number] [place] [facility] [id number] [id number] 2019-10-02 2019-10-02 [facility] [id number] Common 10:15:00 10:15:00 [facility] 2019-09-29 2019-09-29 [facility] [id number] Common 08:30:00 08:30:00 t [facility] 2019-09-28 2019-09-28 [facility] [id number] Common 16:11:00 16:11:00 t [facility] t and Joint [facility] 2019-09-28 2019-09-28 [facility] [id number] Common 16:09:00 16:09:00 t [facility] Sp[facility] t and Joint [facility] 2019-09-28 2019-09-28 [facility] [id number] Common 11:16:00 11:16:[address] Family - [facility] Family Medicine [facility] 2019-09-28 2019-09-28 Telephone MIS Pagan [id number] 00:00:00 00:00:00 [facility] [id number] Surgical [id number] Specialti [id number] [address] 2019-09-28 2019-09-28 Telephone MIS Pagan [id number] Univers 00:00:00 00:00:00 [facility] [id number] it y of Surgical [id number] [place] as Specialti [phone] Me dical es 198 [facility] 2019-09-27 2019-09-27 Orders Doctor JACINDA [id number] 00:00:00 00:00:00 Only Unassigned, RUPINDER [id number] [place] [facility] [id number] [id number] [facility] 2019-09-27 2019-09-27 Orders Doctor JACINDA [id number] Univers 00:00:00 00:00:00 Only Unassigned, RUPINDER [id number] ity of [place] [facility] [id number] [place] as [id number] [address] 2019-09-18 2019-09-18 [facility] [id number] Common 15:15:00 15:15:[address] [facility] 2019-06-23 2019-06-23 MIS Mercado [id number] 00:00:00 00:00:00 [facility] [id number] Surgical [id number] Specialti [id number] es [address] 2019-06-23 2019-06-23 MIS Mercado [id number] [facility] 00:00:00 00:00:00 Dimitrios [facility] [id number] it y of Surgical [id number] [place] as Specialti [id number] Me dical es [address] [facility] Center 2019-04-17 2019-04-17 MIS Mercado [id number] 00:00:00 00:00:00 [facility] [id number] Surgical 4.2.7.2.686 Specialti [id number] es 198 [place] 2019-04-17 2019-04-17 MIS Mercado [id number] Univers 00:00:00 00:00:00 [facility] [id number] it y of Surgical 4.2.7.2.686 [place] as Special [id number] Dc dical es 198 [facility] 2018-10-31 2018-10-31 Emergency [place], [facility] [id number] 21:12:42 23:51:00 Paul Gil[place] [id number] [place] 4.2.7.2.686 [place] [id number] [facility] 2018-10-31 2018-10-31 Emergency [place], [facility] [id number] [facility] 21:12:42 23:51:00 Paul [place] [id number] i ty of [place] 4.2.7.2.686 [place] [id number] [place] [id number] [place] 2018-09-26 2018-09-26 Outpatient [facility] [id number] Common 14:49:00 14:49:[address] [facility] 2018-07-19 2018-07-19 [facility] [id number] Common 14:26:00 14:26:[address] [facility] 2018-07-18 2018-07-18 [facility] 25 [id number] Common 13:44:00 13:44:00 t [facility] 2018-07-18 2018-07-18 [facility] 25 [id number] Common 08:30:00 08:30:00 t Bone Bone and Spiri t and [facility] 2018-07-04 2018-07-04 [facility] 25 [id number] Common 09:54:00 09:54:[address] [facility] 2018-06-27 2018-06-27 [facility] 25 [id number] Common 10:28:00 10:28:[address] [facility] 2018-06-27 2018-06-27 Outpatient Stephen Mitchellt 24 [id number] Common 10:15:00 10:15:[address] [facility] 2018-06-16 2018-06-16 Outpatient Stephen Mitchellt 25 [id number] Common 15:35:00 15:35:[address] [facility] 2018-05-24 2018-05-24 Outpatient Stephen Mitchellt 24 [id number] Common 12:25:00 12:25:[address] [facility] Results Test Description Test Time Test Comments [...] . CHARITY (test code = CHARITY) The [facility] patient population mean normal value for aPTT is 30 seconds. Lab Interpretation (test Normal code = 56535-3) [facility] / [id number] 04:27:00 Test Item Value Reference Range Interpretation Comments PROTIME PATIENT (test See_Comment [Auto mated message] code = 5964-2) The system [email or web address] generated this result transmitted ref erence range: 12.0 - 1 4.7 Seconds. The re ference range was not u sed to interpret this result as normal/abnor mal. INR (test code = 6301-6) Nor mal INR <1.1; Warfarin Therap eutic range 2.0 to 3. 0 or 2.5 to 3.5, dep ending upon the indica tions. Lab Interpretation (test Normal code = 75275-8) [facility] 1 [id number] 04:12:59 Right upper lobe consolidation, concerning for pneumonia. Pulmonary vascular congestion. IDevon MD., have reviewed this study and agree [...] enlarged. No acute bony abnormalities are noted. [facility], Radiant Results Inft User - 10/31/201811:15 PM [...] reviewed this study and agree with the abovereport.[facility] CenterGLYCOSYLATED HEMOGLOBIN (A1C) 2018-11-01 03:54:00 Test Item Value [...] Indicated Lab Interpretation Abnormal (test code = 82493-7) [facility] Center[facility] [id number] 03:29:00 Test Item Value Reference Range Interpretation Comments TROPONIN I (test <0.012 See_Comment [Automated code = 3462530393) message] The system which generated this result [...] ? Lab Interpretation Normal (test code = 32055-1) [facility] S[facility]EN FOR GROUP [id number] 03:27:00 Test Item Value Reference Range Interpretation Comments Streptococcus pyogenes (group A) Negative Negative antigen (test code = 94505-9) Lab Interpretation (test code = Normal 50332-8) [facility] CenterN-TERMINAL [id number] 03:26:00 Test Item Value Reference Range Interpretation Comments NT-proBNP (test code 144 pg/mL See_Comment H [Autom ated = 7370720237) message] The system which generated this result transmitted reference range : <=125. The reference range was not used to interpret this result as normal/abnormal . CHARITY (test code = CHARITY) Biotin has been reported to cause a negative bias, interpret results relative to patient's use of biotin. Lab Interpretation Abnormal (test code = 35584-8) [facility] Center[facility] (ALB, T.PRO, BILI T, BU/BC, ALT, AST, ALK PHOS)2018-11-01 03:19:00 Test Item Value Reference Range Interpretation Comments TOTAL BILI (test code = 2782172325) 0.5 mg/dL 0.1-1.1 BILI UNCON (test code = 0309631175) 0.4 mg/dL 0.1-1.1 BILI CONJ (test code = 7933175904) 0.0 mg/dL 0-0.3 T PROTEIN (test code = 6244165899) 7.7 g/dL 6.3-8.2 ALBUMIN (test code = 9055830947) 4.2 g/dL 3.5-5 ALK PHOS (test code = 0484550427) 84 U/L 34-122 ALT(SGPT) (test code = 6554553292) 13 U/L 9-51 AST(SGOT) (test code = 5880153531) 17 U/L 13-40 Lab Interpretation (test code = Normal 02518-3) [facility] Metabolic Panel (NA, K, CL, CO2, GLUCOSE, BUN, CREATININE, CA)2018-11-01 03:18:00 Test Item Value Reference Range Interpretation Comments NA (test code = 137 mmol/L 135-145 8810524018) K (test code = 4.2 mmol/L 3.5-5 5386931202) CL (test code = 99 mmol/L 98-108 4616540516) CO2 TOTAL (test code = 28 mmol/L 23-31 2475793012) AGAP (test code = 2-16 8838526084) BUN (test code = 11 mg/dL 7-23 0660214598) GLUCOSE (test code = 192 mg/dL 70-110 H 0420838574) CREATININE (test code = 0.54 mg/dL 0.5-1.04 4890098029) CALCIUM (test code = 9.0 mg/dL 8.6-10.6 4772066754) eGFR Calculation mL/min/1.73m2 (Non-) (test code = 2088410405) eGFR Calculation mL/min/1.73m2 () (test code = 9357365350) CHARITY (test code = CHARITY) Association of [...] tests). Lab Interpretation Abnormal (test code = 67322-4) [facility] WITH [id number] 03:07:00 Test Item Value Reference Range Interpretation Comments WBC (test code = See_Comment [Automated message] 6690-2) The system [employer] generated this result transmitted ref erence range: 4.30 - 1 1.10 10*3/?L. The re ference range was not u sed to interpret this result as normal/abnor mal. RBC (test code = See_Comment [Automated message] 019-8) The system [employer] generated this result transmitted ref erence range: [...] RDW-SD (test code 45.5 fL 39-49.9 = 26157-3) RDW-CV (test code 15.0 % 12-15.5 = 788-0) PLT (test code = See_Comment [Automated message] 777-3) The system [employer] generated this result transmitted ref erence range: 166 - 35 8 10*3/?L. The re ference range was not u sed to interpret this result as normal/abnor mal. MPV (test code = 10.5 fL 9.5-12.9 93156-0) NRBC/100 WBC (test See_Comment [Automat ed message] code = 8012592702) The syste m which generated this result transmitted ref erence range: 0.0 - 10 .0 /100 WBCs. The refer ence range was not u sed to interpret this result as normal/abnor mal. NRBC x10^3 (test <0.01 See_Comment [Automated message] code = 1677906904) The syste m which generated this result transmitted ref erence range: 10*3/?L. The reference range was not used to interpr et this result as normal/abnormal . GRAN MAT (NEUT) % 69.5 % (test code = 770-8) IMM GRAN % (test 0.30 % code = 5927057345) LYMPH % (test code 19.8 % = 736-9) MONO % (test code 9.3 % = 5905-5) EOS % (test code = 1.0 % 713-8) BASO % (test code 0.1 % = 706-2) GRAN MAT 4.87 10*3/uL 1.88-7.09 x10^3(ANC) (test code = 8577218328) IMM GRAN x10^3 <0.03 0-0.06 (test code = 9964363871) LYMPH x10^3 (test 1.39 10*3/uL 1.32-3.29 code = 731-0) MONO x10^3 (test 0.65 10*3/uL 0.33-0.92 code = 742-7) EOS x10^3 (test 0.07 10*3/uL 0.03-0.39 code = 711-2) BASO x10^3 (test <0.03 0.01-0.07 code = 704-7) [facility]"
[2021-08-15] MEDS ORDERED: ONDANSETRON 4 MG/2 ML VIAL ONE (23:24)
[2021-08-15 23:51] LABS: Urine Specific Gravity/Preg 1.025 (1.005-1.030)
[2021-08-15] MEDS ORDERED: hydrOXYzine HCL 25 MG TAB ONE (23:52)
[2021-08-15 23:54] LABS: Absolute Lymphocytes (CBC) 2.2 K/uL (0.7-4.9); Hematocrit 42.7 % (36.0-45.0); Lymphocytes % 26.2 % (15.3-44.8); MPV 8.7 fL (7.6-11.3); RBC Red Blood Cell Count 5.11 M/uL (3.86-4.86)
[2021-08-16 00:10] LABS: Bilirubin Total 0.3 mg/dL (0.2-1.0); Potassium 3.9 mmol/L (3.5-5.1); Protein, Total 7.1 g/dL (6.4-8.2)
--- NOTE | 2021-08-16 01:36 | EDPHYS ---
Physician Documentation [facility] Name: Nicole Martínez Age: 66 yrs Sex: Female : 1955 Arrival Date: 08/15/2021 Time: 21:35 Bed 7 Private MD: ED Physician Kirit Quijano HPI: 08/15 22:34 This 66 yrs old Female presents to ER via Ambulatory with complaints of Rash, Hives. [facility] 22:34 The patient's rash thought to be caused by an unknown cause. The rash is located on the jmm body diffusely. The rash can be described as papular, urticarial. Onset: The symptoms/episode began/occurred acutely, 3 day(s) ago. Associated signs and symptoms: Pertinent positives: itching. this is a 66 year old female that presents to the ED with complaints of diffuse rash beginning approx 3 days ago. Patient attributes this to a new dm medication. Also complains of periumbilical abdominal pain. Denies vomiting, states having intermittent episodes of watery stools. . Historical: - Allergies: 22:38 EGG/POULTRY; bb 22:38 Percodan; bb 22:38 [place]; bb 22:38 rybellus; bb 22:38 Lovastatin; bb 22:38 Hydrochlorothiazide; bb - Immunization history:: Client reports receiving the Robert \T\ Robert single-dose vaccine. - Social history:: Smoking status: Patient denies any tobacco usage or history of. ROS: 22:34 Constitutional: Negative for fever, chills, and weight loss, Cardiovascular: Negative jmm for chest pain, palpitations, and edema, Respiratory: Negative for shortness of breath, cough, wheezing, and pleuritic chest pain. 22:34 Abdomen/GI: Positive for abdominal pain. 22:34 Skin: Positive for rash. 22:34 All other systems are negative. Exam: 22:34 Constitutional: This is a well developed, well nourished patient who is awake, alert, jmm and in no acute distress. Head/Face: atraumatic. Eyes: EOMI, no conjunctival erythema appreciated ENT: Moist Mucus Membranes Neck: Trachea midline, Supple Chest/axilla: Normal chest wall appearance and motion. Cardiovascular: Regular rate and rhythm. No edema appreciated Respiratory: Normal respirations, no respiratory distress appreciated 22:34 Abdomen/GI: Inspection: abdomen appears normal, Bowel sounds: normal, Palpation: soft, moderate abdominal tenderness, in the umbilical area. 22:34 Skin: urticaria noted to the back, face and the arms bilaterally. 22:34 Neuro: Orientation: is normal, Mentation: is normal, Memory: is normal. 22:34 Psych: Behavior/mood is pleasant, cooperative. Vital Signs: 22:33 BP 164 / 58; Pulse 71; Resp 16 S; Temp 98.4(O); Pulse Ox 98% on R/A; Weight 136.08 kg bb (R); Height 5 ft. 4 in. (162.56 cm) (R); Pain 0/10; 23:41 BP 107 / 97; Pulse 70; Resp 20; Pulse Ox 96% on R/A; tw5 08/16 01:57 Pulse 75; Resp 20; Pulse Ox 96% ; tw5 08/15 22:33 Body Mass Index 51.49 (136.08 kg, 162.56 cm) bb MDM: 08/15 22:34 Patient medically screened. [facility] 08/16 00:43 Transition of care: Care assumed from Danilo WAGNER. ms3 01:36 Data reviewed: vital signs, nurses notes, lab test result(s), radiologic studies. ms3 Counseling: I had a detailed discussion with the patient and/or guardian regarding: the historical points, exam findings, and any diagnostic results supporting the discharge/admit diagnosis, lab results, radiology results, the need for outpatient follow up, to return to the emergency department if symptoms worsen or persist or if there are any questions or concerns that arise at home. ED course: Discussed labs, CT, physical exam findings with patient. Patient to follow-up with primary care physician in 2 to 3 days. Patient understands and agrees with plan. All questions were answered. Return precautions discussed include worsening symptoms, or any other concerns. On reevaluation patient is improved, alert and oriented x4, in no apparent distress, nontoxic-appearing, speaking full sentences, ambulatory in emergency department.. 08/15 22:50 Order name: CBC with Diff; Complete Time: 23:59 [facility] 08/15 22:50 Order name: CMP; Complete Time: 00:16 [facility] 08/15 22:50 Order name: Lipase; Complete Time: 00:16 [facility] 08/15 22:50 Order name: CT Abd/Pelvis - IV Contrast Only [facility] 08/15 23:48 Order name: Urine --Ancillary (enter results); Complete Time: 23:59 wm 08/16 00:42 Order name: CREATININE WHOLE BLOOD; Complete Time: 01:17 EDMS 08/15 22:50 Order name: IV Saline Lock; Complete Time: 23:37 [facility] 08/15 22:50 Order name: Labs collected and sent; Complete Time: 23:37 [facility] Administered Medications: 08/15 23:37 Not Given (Patient Refused): Zofran (Ondansetron) 4 mg IVP once; over 2 minutes tw5 23:57 Drug: hydrOXYzine 25 mg Route: PO; tw5 08/16 01:57 Follow up: Response: No adverse reaction tw5 Disposition: 05:49 Co-signature as Attending Physician, Kirit Quijano DO. ms3 Disposition Summary: 08/16/21 01:36 Discharge Ordered Location: Home ms3 Condition: Stable ms3 Diagnosis - Pruritus, unspecified ms3 - Abdominal pain, Generalized ms3 Followup: ms3 - With: Private Physician - When: 2 - 3 days - Reason: Re-evaluation by your physician Discharge Instructions: - Discharge Summary Sheet ms3 - Abdominal Pain, Adult ms3 - Pruritus ms3 Forms: - Medication Reconciliation Form ms3 - Thank You Letter ms3 - Antibiotic Education ms3 - Prescription Opioid Use ms3 Prescriptions: - Hydroxyzine HCl 25 mg Oral Tablet - take 1 tablet by ORAL route every 6 hours As needed; 12 tablet; Refills: 0, ms3 Product Selection Permitted - Prednisone 20 mg Oral Tablet - take 3 tablets by ORAL route once daily for 5 days; 15 tablet; Refills: 0, ms3 Product Selection Permitted Signatures: Dispatcher [employer] [facility] Danilo Downs PA PA jmm Ballard, Brenda RN RN Kirit Dixon DO DO ms3 Elsa Armijo tw5
--- NOTE | 2021-08-16 01:36 | ER ---
Nurse's Notes [facility] Name: Nicole Martínez Age: 66 yrs Sex: Female : 1955 Arrival Date: 08/15/2021 Time: 21:35 Bed 7 Private MD: Diagnosis: Pruritus, unspecified;Abdominal pain, Generalized Presentation: 08/15 22:33 Chief complaint: Patient states: she started taking Rybellus around 3 weeks ago started bb having abdominal pain then she broke out in a rash which is itchy. Coronavirus screen: At this time, the client does not indicate any symptoms associated with coronavirus-19. Ebola Screen: No symptoms or risks identified at this time. Onset: The symptoms/episode began/occurred suddenly. Anaphylaxis evaluation, no signs or symptoms of anaphylaxis were noted. Initial Sepsis Screen: Does the patient meet any 2 criteria? No. Patient's initial sepsis screen is negative. Does the patient have a suspected source of infection? No. Patient's initial sepsis screen is negative. Risk Assessment: Do you want to hurt yourself or someone else? Patient reports no desire to harm self or others. Onset of symptoms was August 15, 2021. 22:33 Method Of Arrival: Ambulatory bb 22:33 Acuity: KAELYN 4 bb Triage Assessment: 08/16 01:57 General: Appears in no apparent distress. Behavior is calm, cooperative, appropriate tw5 for age. Historical: - Allergies: 08/15 22:38 EGG/POULTRY; bb 22:38 Percodan; bb 22:38 [place]; bb 22:38 rybellus; bb 22:38 Lovastatin; bb 22:38 Hydrochlorothiazide; bb - Immunization history:: Client reports receiving the Robert \\T\\ Robert single-dose vaccine. - Social history:: Smoking status: Patient denies any tobacco usage or history of. Screenin:37 Abuse screen: Denies threats or abuse. Denies injuries from another. Nutritional tw5 screening: No deficits noted. Tuberculosis screening: No symptoms or risk factors identified. Fall Risk None identified. Assessment: 23:37 General: Reports "I am itchy. I. The rash is on my back and my shoulder. I have done tw5 bendadryl and other things. It is like a burning itchy.". Pain: Complains of pain in left upper quadrant and left lower quadrant Pain currently is 2 out of 10 on a pain scale. Respiratory: Airway is patent Trachea midline Respiratory effort is even, unlabored, Respiratory pattern is regular, Breath sounds are clear bilaterally. Derm: Rash noted that is itchy, red, raised, on left clavicle and anterior aspect of left upper chest. Vital Signs: 22:33 BP 164 / 58; Pulse 71; Resp 16 S; Temp 98.4(O); Pulse Ox 98% on R/A; Weight 136.08 kg bb (R); Height 5 ft. 4 in. (162.56 cm) (R); Pain 0/10; 23:41 BP 107 / 97; Pulse 70; Resp 20; Pulse Ox 96% on R/A; tw5 08/16 01:57 Pulse 75; Resp 20; Pulse Ox 96% ; tw5 08/15 22:33 Body Mass Index 51.49 (136.08 kg, 162.56 cm) ED Course: 08/15 21:35 Patient arrived in ED. jaEly 22:07 Danilo Downs PA is PHCP. [facility] 22:07 Kirit Quijano DO is Attending Physician. [facility] 22:38 Triage completed. bb 22:38 Arm band placed on Patient placed in an exam room, on a stretcher, on pulse oximetry. bb Family accompanied patient. 23:17 Elsa Armijo is Primary Nurse. tw5 23:37 Patient has correct armband on for positive identification. Side rails up X 1. Client tw5 placed on continuous cardiac and pulse oximetry monitoring. NIBP monitoring applied. Door closed. Noise minimized. Lights dimmed. Moved to private room. Warm blanket given. Verbal reassurance given. 23:37 CBC with Diff Sent. tw5 23:37 CMP Sent. tw5 23:37 Lipase Sent. tw5 23:37 Initial lab(s) drawn, by me, sent to lab. Inserted saline lock: 20 gauge in left tw5 antecubital area, using aseptic technique. Blood collected. 08/16 00:37 CT Abd/Pelvis - IV Contrast Only In Process Unspecified. EDMS 01:57 No provider procedures requiring assistance completed. IV discontinued, intact, tw5 bleeding controlled, No redness/swelling at site. Pressure dressing applied. Administered Medications: 08/15 23:37 Not Given (Patient Refused): Zofran (Ondansetron) 4 mg IVP once; over 2 minutes tw5 23:57 Drug: hydrOXYzine 25 mg Route: PO; tw5 08/16 01:57 Follow up: Response: No adverse reaction Medication: 08/15 23:37 VIS not applicable for this client. Outcome: 08/16 01:36 Discharge ordered by . ms3 01:57 Discharged to home ambulatory. 01:57 Condition: stable 01:57 Discharge instructions given to patient, Instructed on discharge instructions, follow up and referral plans. Demonstrated understanding of instructions, follow-up care, medications, Prescriptions given X 2. 01:57 No charge visit due to 02:00 Patient left the ED. Signatures: Dispatcher [employer] EDMS Danilo Downs PA PA jmm Ballard, Brenda, RN RN Kirit Dixon DO DO ms3 DelbertFelecia Tiffany tw5
[2021-08-16 02:21] VITALS: TEMP 98.4
[2021-08-16 02:23] VITALS: BP 107/97; O2SAT 96
--- NOTE | 2021-08-18 12:49 | RAD REPORT ---
EXAM DESCRIPTION: CT - Abdomen Pelvis W Contrast - 08/16/2021 6:35 am CLINICAL HISTORY: Abdominal pain. COMPARISON: None. TECHNIQUE: CT of the abdomen and pelvis was performed following intravenous administration of iodina bita contrast. Arterial phase images through the abdomen, and portal venous phase images through the a bdomen and pelvis were obtained. Oral contrast was not administered. Axial, coronal, and sagittal sof t tissue window reconstructions were created and sent to PACS. This exam was performed according to our departmental dose-optimization program, which includes autom ated exposure control, adjustment of the mA and/or kV according to patient size and/or use of iterati ve reconstruction technique. FINDINGS: Thoracic: No significant abnormality. Hepatobiliary: No concerning hepatic lesion identified. The portal veins are patent. The gallbladder is unremarkable. No biliary ductal dilatation. Pancreas: Unremarkable. Spleen: Unremarkable. Gastrointestinal: No evidence of bowel obstruction or perienteric inflammation. The appendix is ángel l. Small amount of fecal material throughout the colon. Adrenals: No abnormality identified in either adrenal gland. Renal: Medial interpolar right renal 3 cm hypodensity measuring 20 Hounsfield units. No concerning pa renchymal abnormality in the left kidney. No hydronephrosis or ureteral calculi bilaterally. Punctate nonobstructive calculus in the mid left kidney. Bladder/Reproductive: Unremarkable appearance of the urinary bladder by CT technique. Hysterectomy. Vascular/Lymphatics: No lymphadenopathy identified by CT size criteria. Abdominal aorta is normal in caliber. Musculoskeletal: No concerning osseous lesion identified. Fluid / peritoneum: No significant free fluid. No free intraperitoneal air identified. IMPRESSION 1. No acute abnormality identified in the abdomen or pelvis by CT. 2. Punctate nonobstructive left renal calculus. 3. Right renal hypodensity, possibly indeterminate. Recommend correlation with nonemergent renal ul trasound. Electronically signed by: Aniya Kincaid MD 08/16/2021 12:50 AM CDT Due to temporary technical issues with the PACS/Fluency reporting system, reports are being signed by the in house radiologist without review as a courtesy to ensure prompt reporting. The interpreting r adiologist is fully responsible for the content of the report.
== END 2021-08-16 02:00 | disposition home or self-care (01) ==
LOC: ER 21:25
DX: L29.9 Pruritus, unspecified (principal); R10.84 Generalized abdominal pain; Z88.5 Allergy status to narcotic agent; Z88.8 Allergy status to other drugs, medicaments and biological substances; Z91.012 Allergy to eggs; Z91.018 Allergy to other foods
CPT/HCPCS: 85025; 36415; 81025; 82565; 83690; 80053; 74177; Q9967; J2405

== ENCOUNTER 2021-10-12 17:54 | Emergency (ER) | payer OTHER ==
[2021-10-12 19:00] LABS: Absolute Lymphocytes (CBC) 0.8 K/uL (0.7-4.9); Hematocrit 41.8 % (36.0-45.0); MCV 83.6 fL (80-100); MPV 8.6 fL (7.6-11.3)
[2021-10-12 19:12] LABS: Potassium 3.8 mmol/L (3.5-5.1)
--- NOTE | 2021-10-12 19:50 | RAD REPORT ---
EXAM DESCRIPTION: RAD - Chest Single View - 10/12/2021 7:17 pm CLINICAL HISTORY: COUGH COMPARISON: Chest Single View dated 05/05/2020; Chest Single View dated 04/28/2020; Chest Pa And Lat ( 2 Views) dated 05/10/2018; Chest Pa And Lat (2 Views) dated 04/20/2018Chest Single View dated 05/05/2020; Chest Single View dated 04/28/2020; Chest Pa And Lat (2 Views) dated 05/10/2018; Chest Pa And Lat (2 V iews) dated 04/20/2018; Abdomen Pelvis W Contrast dated 08/16/2021 FINDINGS: Lines: None. Lungs: No evidence of edema or pneumonia. Relative opacities at the lung bases favored to represent u nderpenetration. Pleural: No significant pleural effusions or pneumothorax. Cardiac: Cardiomegaly. Bones: No acute fractures. Other: IMPRESSION: No definite acute cardiopulmonary disease. Apparent opacities at the lung bases favored to be due to underpenetration.
--- NOTE | 2021-10-12 20:33 | EDPHYS ---
Physician Documentation [facility] Name: Nicole Martínez Age: 66 yrs Sex: Female : 1955 Arrival Date: 10/12/2021 Time: 17:56 Bed 8 Private MD: ED Physician Kinjal Hernandez Historical: - Allergies: 10/12 18:21 EGG/POULTRY; ll1 18:21 hydrochlorothiazide; ll1 18:21 Lovastatin; ll1 18:21 Percodan; ll1 18:21 rybellus; ll1 18:21 [place]; ll1 - PMHx: 18:21 Hernández Cyst; Diabetes - NIDDM; Hypertension; ll1 - Immunization history:: Client reports receiving the 1st dose of the Covid vaccine. - Social history:: Smoking status: Patient denies any tobacco usage or history of. Patient/guardian denies using tobacco. Vital Signs: 18:21 BP 180 / 82; Pulse 89; Resp 20; Temp 99.2; Pulse Ox 98% on R/A; Weight 136.08 kg; ll1 Height 5 ft. 4 in. (162.56 cm); Pain 7/10; 19:34 BP 178 / 88; Pulse 92; Resp 20; Pulse Ox 96% on R/A; lp1 20:23 BP 174 / 74; Pulse 91; Resp 20; Pulse Ox 97% on R/A; lp1 18:21 Body Mass Index 51.49 (136.08 kg, 162.56 cm) ll1 MDM: 18:01 Patient medically screened. kb 20:49 Data reviewed: vital signs, nurses notes. Data interpreted: Pulse oximetry: on room air kb is 97 %. Interpretation: normal. Counseling: I had a detailed discussion with the patient and/or guardian regarding: the historical points, exam findings, and any diagnostic results supporting the discharge/admit diagnosis, lab results, radiology results, the need for outpatient follow up, a family practitioner, to return to the emergency department if symptoms worsen or persist or if there are any questions or concerns that arise at home. 10/12 18:12 Order name: COVID-19 SARS RT PCR (Document "Date of Onset" if Symptomatic) kb 10/12 19:03 Order name: CBC with Automated Diff; Complete Time: 19:03 EDMS 10/12 18:12 Order name: IV Start; Complete Time: 18:52 kb 10/12 18:12 Order name: Chest Single View XRAY; Complete Time: 19:56 kb 10/12 18:12 Order name: EKG; Complete Time: 19:05 kb 10/12 18:12 Order name: EKG - Nurse/Tech; Complete Time: 18:52 kb 10/12 19:06 Order name: Basic Metabolic Panel; Complete Time: 19:14 EDMS 10/12 19:06 Order name: Troponin High Sensitivity; Complete Time: 19:14 EDMS 10/12 19:06 Order name: Influenza Screen (A ; Complete Time: 19:20 EDMS 10/12 19:06 Order name: SARS-COV-2 RT PCR; Complete Time: 20:29 EDMS Administered Medications: No medications were administered Disposition Summary: 10/12/21 20:33 Discharge Ordered Location: Home kb Condition: Stable kb Diagnosis - SARS-associated coronavirus as the cause of diseases classified elsewhere kb Followup: kb - With: Emergency Department - When: As needed - Reason: Worsening of condition Followup: kb - With: Private Physician - When: 2 - 3 days - Reason: Recheck today's complaints, Continuance of care, Re-evaluation by your physician Discharge Instructions: - Discharge Summary Sheet kb - COVID-19 kb - Viral Illness, Adult kb Forms: - Medication Reconciliation Form kb - Thank You Letter kb - Antibiotic Education kb - Prescription Opioid Use kb Signatures: Dispatcher [employer] EDNC Amanda Ruelas, MARKET RESEARCH MANAGER-C MARKET RESEARCH MANAGER-Sujatha Castillo, RN RN ll1 Corrections: (The following items were deleted from the chart) 19:16 19:05 CBC+H.LAB.BRZ ordered. EDNC EDMS 19:16 19:05 BASIC METABOLIC PANEL+C.LAB.BRZ ordered. EDNC EDMS 19:16 19:05 Influenza Screen (A \\T\\ B)+BA.LAB.BRZ ordered. EDNC EDMS 19:16 19:05 Troponin High Sensitivity+C.LAB.BRZ ordered. EDNC EDMS
--- NOTE | 2021-10-12 20:33 | ER ---
Nurse's Notes [facility] Name: Nicole Martínez Age: 66 yrs Sex: Female : 1955 Arrival Date: 10/12/2021 Time: 17:56 Bed 8 Private MD: Diagnosis: SARS-associated coronavirus as the cause of diseases classified elsewhere Presentation: 10/12 18:21 Chief complaint: Patient states: Cough, congestion, SOB, back pain, GARRISON for 1 week. ll1 Radhaance currently has covid. Coronavirus screen: Vaccine status: Patient reports receiving the 1st dose of the Covid vaccine. Client denies travel out of the [place] in the last 14 days. congestion, cough unrelated to allergies, difficulty breathing, fatigue, fever, headache, muscle pain, Client presents with at least one sign or symptom that may indicate coronavirus-19. Standard/surgical mask placed on the client. Ebola Screen: Patient denies travel to an Ebola-affected area in the 21 days before illness onset. Resp Distress? No respiratory distress is noted at this time. Initial Sepsis Screen: Does the patient meet any 2 criteria? No. Patient's initial sepsis screen is negative. Does the patient have a suspected source of infection? Yes: Productive cough/pneumonia. Risk Assessment: Do you want to hurt yourself or someone else? Patient reports no desire to harm self or others. Onset of symptoms was October 06, 2021. 18:21 Method Of Arrival: Wheelchair ll1 18:21 Acuity: KAELYN 3 ll1 Triage Assessment: 18:23 General: Appears ill, Behavior is cooperative, appropriate for age. Pain: Complains of ll1 pain in head Quality of pain is described as aching. Neuro: Reports headache weakness. Respiratory: Reports shortness of breath cough that is. Historical: - Allergies: 18:21 EGG/POULTRY; ll1 18:21 hydrochlorothiazide; ll1 18:21 Lovastatin; ll1 18:21 Percodan; ll1 18:21 rybellus; ll1 18:21 [place]; ll1 - PMHx: 18:21 Hernández Cyst; Diabetes - NIDDM; Hypertension; ll1 - Immunization history:: Client reports receiving the 1st dose of the Covid vaccine. - Social history:: Smoking status: Patient denies any tobacco usage or history of. Patient/guardian denies using tobacco. Screenin:53 Abuse screen: Denies threats or abuse. Denies injuries from another. Nutritional jh6 screening: No deficits noted. Tuberculosis screening: No symptoms or risk factors identified. Fall Risk IV access (20 points). Assessment: 18:45 Cardiovascular: Capillary refill < 3 seconds Clubbing of nail beds is absent JVD is jh6 absent Patient's skin is warm and dry. Rhythm is regular. Respiratory: Airway is patent Trachea midline Respiratory effort is even, unlabored, Respiratory pattern is regular, symmetrical, Breath sounds are clear. 19:33 Reassessment: Patient appears in no apparent distress at this time. Patient aware of lp1 waiting for lab results. Neuro: Level of Consciousness is awake, alert, obeys commands, Oriented to person, place, time, situation. Cardiovascular: Patient's skin is warm and dry. Respiratory: Respiratory effort is even, unlabored, Breath sounds are clear bilaterally. GI: Abdomen is obese. : No signs and/or symptoms were reported regarding the genitourinary system. EENT: No signs and/or symptoms were reported regarding the EENT system. Derm: Skin is intact, Skin is dry, Skin is normal. Musculoskeletal: No deficits noted. Vital Signs: 18:21 BP 180 / 82; Pulse 89; Resp 20; Temp 99.2; Pulse Ox 98% on R/A; Weight 136.08 kg; ll1 Height 5 ft. 4 in. (162.56 cm); Pain 7/10; 19:34 BP 178 / 88; Pulse 92; Resp 20; Pulse Ox 96% on R/A; lp1 20:23 BP 174 / 74; Pulse 91; Resp 20; Pulse Ox 97% on R/A; lp1 18:21 Body Mass Index 51.49 (136.08 kg, 162.56 cm) ll1 ED Course: 17:56 Patient arrived in ED. mr 17:58 Arm band placed on Patient placed in an exam room, on a stretcher. ll1 18:01 Amanda Ruelas FNP-C is PHCP. kb 18:01 Kinjal Hernandez MD is Attending Physician. kb 18:23 Triage completed. ll1 18:30 Ju Kurtz, JENNI is Primary Nurse. 6 18:40 Bed in low position. Call light in reach. Side rails up X 1. jh6 18:45 Inserted saline lock: 22 gauge in left antecubital area, using aseptic technique. Blood jh6 collected. 18:56 No provider procedures requiring assistance completed. jh6 19:19 Chest Single View XRAY In Process Unspecified. EDMS 20:50 IV discontinued, No redness/swelling at site. Pressure dressing applied. lp1 Administered Medications: No medications were administered Medication: 18:56 VIS not applicable for this client. jh6 Outcome: 20:33 Discharge ordered by MD. rizo 20:50 Discharged to home via wheelchair, with significant other. lp1 20:50 Condition: good 20:50 Discharge instructions given to patient, Instructed on discharge instructions, follow up and referral plans. Demonstrated understanding of instructions, follow-up care. 20:50 Patient left the ED. lp1 Signatures: Dispatcher [employer] EDMS Amanda Ruelas, EXPLOSIVE ORDNANCE MANAGER-C EXPLOSIVE ORDNANCE MANAGER-CkBrooke Hale mr CespedesEmily RN RN lp1 Sujatha Connell RN RN 1 Ju Kurtz RN RN jh6
[2021-10-12 22:54] VITALS: TEMP 99.2
[2021-10-12 23:06] VITALS: BP 174/74; O2SAT 97
--- NOTE | 2021-10-13 12:21 | EKG ---
Test Date: 2021-10-12 Test Time: 18:52:43 Die Setter: CROW MEASUREMENT RESULTS: Intervals: Rate: 86 OH: 134 QRSD: 88 QT: 354 QTc: 423 [place]: P: 68 OH: 134 QRS: -10 T: 66 INTERPRETIVE STATEMENTS: Sinus rhythm with premature supraventricular complexes Otherwise normal ECG Compared to ECG 05/05/2020 18:39:53 Atrial premature complex(es) now present Electronically Signed On 10-13-21 12:20:04 CDT by David Stewart
== END 2021-10-12 20:50 | disposition home or self-care (01) ==
LOC: ER 17:54
DX: U07.1 COVID-19 (principal); E11.9 Type 2 diabetes mellitus without complications; I10 Essential (primary) hypertension; Z88.8 Allergy status to other drugs, medicaments and biological substances; Z91.012 Allergy to eggs; Z91.018 Allergy to other foods
CPT/HCPCS: 93005; 85025; 80048; 36415; 84484; 87804 ×2; 71045; 99283; U0003

== ENCOUNTER 2022-05-30 02:11 | Emergency (ER) | payer OTHER ==
--- OUTSIDE RECORDS SUMMARY | 2022-05-30 02:16 | XMS REPORT | Continuity of Care Document ---
:1955 Author Organization [facility] t Address [address] [facility] [address] [place] [address] Care Team Providers Name Role Phone OMEGA JOY Primary Care Physician Unavailable Omega Joy Attending Clinician Unavailable KYLE MACK Attending Clinician Unavailable Doctor Unassigned, [place] Attending Clinician Unavailable Latasha PROCTOR, Dimitrios Werner Attending Clinician Paul Perea MD Attending Clinician Payers Payer Name Policy Type Policy Number Effective Date Expiration Date [facility] [id number] 2015 PLUS 00:00:00 [place] [id number] 2018 [facility] 00:00:00 [facility] Problems Condition Condition Condition Status Onset Resolution [...] blood 3-14 ity of pressure pressure 00:00: [address] Branch Vitamin B Vitamin B Disease Active Uni vers 12 12 3-14 [place] Morbid Morbid Disease Active Univers obesity obesity 08-12 ity of 00:00: [place] 00 Medical Branch H/O H/O Disease Active Overview: Jannjulia s hysterecto hysterecto 08-12 She says ity of my for my for 00:00: it was a [place] benign benign 00 partial Medical disease disease but Branch cannot see the cervix. [id number] Low back Problem Active Comm on pain [facility] [id number] Tobacco Problem Active Commo n use Spirit disorder [facility] [id number] Mixed Problem Active Common hyperlipid [facility] emia [facility] [id number] Type 2 Problem Active Common diabetes [facility] mellitus [facility] with other [facility] kidney Medical complicati Center on [id number] Primary Problem Active Comm on osteoarthr [facility] itis of [facility] right knee [facility] [id number] Asymptomat Problem Active Co mmon ic Spirit hypertensi - [facility] ve urgency [facility] [id number] Other Problem Active Common chronic [facility] pain [facility] [id number] Chronic Problem Active Common obstructiv Spirit e - [facility] pulmonary [facility]ifie Medica l d COPD Center type [id number] Noncomplia Problem Active Co mmon nce with [facility] dietary [facility] restrictio [facility] [id number] HTN, goal Problem Active Comm on below [facility] 130/80 [facility] [id number] Osteoarthr Problem Active 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 - [facility] bar spine[facility] Center itis complicati on status [id number] Depression Problem Active Com mon with Spirit anxiety [facility] Allergies, Adverse Reactions, Alerts Allergy Allergy Status Severity Reaction(s) Onset Inactive Treating Comm ents Source Name Type Date Date Clinician OXYCODON DRUG Active Hives Univers E 08-12 ity of HCL-OXYC 00:00: [place] ODONE- 00 Medical A Branch Oxycodon Propensi Active Hives Univer s e ty to 08-12 ity of Hcl-Oxyc adverse 00:00: [place] odone-As reaction 00 Medica l a s Branch lisinopr lisinopr Active Cough Common il il [facility] amlodipi amlodipi Active LE Swelling C ommon ne ne [facility] metformi metformi Active diarrhea Comm on n n [facility] Social History Social Habit Start Date Stop Date Quantity Comments Source History of Tobacco Common [facility] - Use [facility] Sex Assigned At Common Sp birgit - [facility] Cigarettes smoked 2019-02-20 2019-02-20 Univers ity of current (pack per 00:00:00 00:00:00 [facility] ) - Reported Branch Cigarette 2019-02-20 2019-02-20 University of pack-years 00:00:00 00:00:00 [facility] Alcohol intake 2019-02-20 2019-02-20 University of 00:00:00 00:00:00 [facility] Alcohol Comment 2012-08-12 2012-08-12 occasionally Univers ity of 00:00:00 00:00:00 [facility] Smoking Status Start Date Stop Date Source Former Smoker 2020-04-09 00:00:00 2020-04-09 00:00:00 [facility] pirit [facility] Ce nter Current every day 2019-02-20 00:00:00 [facility] smoker [facility] Medications Ordered Filled Start Stop Current Ordering Indication Dosage Frequency Signature Comments Components Source Medication Medication Date Date Medication? Clinician (SIG) Name Name Tramadol Tramadol No 1{table Tramadol HCl 50 MG HCl 50 MG 04-09 t_as_ne HCl 50 MG 00:00: eded} 00 Bydureon Bydureon Yes Omega 2 mg Com mon 10-16 Joy Spirit 00:00: - [facility] Bydureon 2 Bydureon 2 No Bydureon 2 MG MG 8-04 MG 00:00: 00 Bydureon 2 Bydureon 2 2020-0 No Bydureon 2 MG MG 8-04 MG 00:00: 00 Bydureon Bydureon 2020-0 2020- No Omega as Co mmon BCise BCise 10-02 10 Joy directed Spirit 00:00: 00:00 - [facility] :00 [facility] Tramadol Tramadol 2020-0 Yes Omega 1 tablet Common HCl HCl 7-20 Joy as needed Spirit 00:00: - [facility] 00 [facility] Tramadol Tramadol 2020-0 No 1{table QID Tramadol HCl 50 MG HCl 50 MG 7-20 t_as_ne HCl 50 MG 00:00: eded} 00 Tramadol Tramadol 2020-0 No 1{table QID Tramadol HCl 50 MG HCl 50 MG 7-20 t_as_ne HCl 50 MG 00:00: eded} 00 Hydrochloro Hydrochloro 2020-0 Yes Omega 1 tablet Common thiazide thiazide 09-17 Joy in the Spir it 00:00: morning - [facility] 00 [facility] DICLOFENAC 2020-0 Yes [id number] TAKE 1 Univers 75 mg EC 4-10 9104 TABLET BY ity of tablet 00:00: MOUTH [place] 00 TWICE A Medical DAY WITH Branch MEALS DICLOFENAC 2020-0 Yes [id number] TAKE 1 Univers 75 mg EC 4-10 9104 TABLET BY ity of tablet 00:00: MOUTH [place] 00 TWICE A Medical DAY WITH Branch MEALS DICLOFENAC 2020-0 Yes [id number] TAKE 1 Univers 75 mg EC 4-10 9104 TABLET BY ity of tablet 00:00: MOUTH [place] 00 TWICE A Medical DAY WITH Branch MEALS DICLOFENAC 2020-0 Yes [id number] TAKE 1 Univers 75 mg EC 4-10 9104 TABLET BY ity of tablet 00:00: MOUTH [place] 00 TWICE A Medical DAY WITH Branch MEALS DICLOFENAC 2020-0 Yes [id number] TAKE 1 Univers 75 mg EC 2-05 9104 TABLET BY ity of tablet 00:00: MOUTH [place] 00 TWICE A Medical DAY WITH Branch MEALS DICLOFENAC 2020-0 2020- No [id number] TAKE 1 Univers 75 mg EC 2-05 04-10 9104 TABLET BY ity o f tablet 00:00: 00:00 MOUTH [place] 00 :00 TWICE A Medical DAY WITH Branch MEALS diclofenac 2019-1 2020- No [id number] 75mg Take 1 Univers 75 mg EC 04-23 9104 tablet by ity o f tablet 00:00: 00:00 mouth 2 00 :00 (two) Medical times Branch daily with meals. metFORMIN 2019-0 Yes [id number] 500mg Take 1 Un jimbo 500 mg 8-19 tablet by ity of tablet 00:00: mouth 2 (two) Medical times Branch daily. amoxicillin 2019-0 Yes [id number] 500mg Take 1 Univers 500 mg 8-19 capsule by ity of capsule 00:00: mouth 3 (three) Medical times Branch daily. metFORMIN 2019-0 Yes [id number] 500mg Take 1 Un jimbo 500 mg 8-19 tablet by ity of tablet 00:00: mouth 2 (two) Medical times Branch daily. amoxicillin 2019-0 Yes [id number] 500mg Take 1 Univers 500 mg 8-19 capsule by ity of capsule 00:00: mouth 3 (three) Medical times Branch daily. metFORMIN 2019-0 Yes [id number] 500mg Take 1 Un jimbo 500 mg 8-19 tablet by ity of tablet 00:00: mouth 2 (two) Medical times Branch daily. amoxicillin 2019-0 Yes [id number] 500mg Take 1 Univers 500 mg 8-19 capsule by ity of capsule 00:00: mouth (three) Medical times Branch daily. metFORMIN 2019-0 Yes [id number] 500mg Take 1 Un jimbo 500 mg 8-19 tablet by ity of tablet 00:00: mouth (two) Medical times Branch daily. amoxicillin 2019-0 Yes [id number] 500mg Take 1 Univers 500 mg 8-19 capsule by ity of capsule 00:00: mouth 3 (three) Medical times Branch daily. metFORMIN 2019-0 Yes [id number] 500mg Take 1 Un jimbo 500 mg 8-19 tablet by ity of tablet 00:00: mouth 2 (two) Medical times Branch daily. amoxicillin 2019-0 Yes [id number] 500mg Take 1 Univers 500 mg 8-19 capsule by ity of capsule 00:00: mouth 3 (three) Medical times Branch daily. metFORMIN 2019-0 Yes [id number] 500mg Take 1 Un jimbo 500 mg 8-19 tablet by ity of tablet 00:00: mouth 2 (two) Medical times Branch daily. amoxicillin Yes [id number] 500mg Take 1 Univers 500 mg 8-19 capsule by ity of capsule 00:00: mouth 3 [place] 00 (three) Medical times Branch daily. doxycycline 2019- No [id number] 100mg Take 1 Univers 100 mg 8-19 08-30 capsule by ity of capsule 00:00: 04:59 mouth 2 [place] 00 :00 (two) Medical times Branch daily for 10 days. clindamycin 2019- No [id number] 300mg Take 1 Univers 300 mg 8-19 08-30 capsule by ity of capsule 00:00: 04:59 mouth 4 [place] 00 :00 (four) Medical times Branch daily for 10 days. montelukast Yes TAKE 1 Univ ers (SINGULAIR) 9-19 TABLET BY ity of 10 mg 00:00: MOUTH AT [place] tablet 00 BEDTIME. Medical Branch montelukast Yes TAKE 1 Univ ers (SINGULAIR) 9-19 TABLET BY ity of 10 mg 00:00: MOUTH AT [place] tablet 00 BEDTIME. Medical Branch montelukast Yes TAKE 1 Univ ers (SINGULAIR) 9-19 TABLET BY ity of 10 mg 00:00: MOUTH AT [place] tablet 00 BEDTIME. Medical Branch montelukast Yes TAKE 1 Univ ers (SINGULAIR) 9-19 TABLET BY ity of 10 mg 00:00: MOUTH AT [place] tablet 00 BEDTIME. Medical Branch montelukast Yes TAKE 1 Univ ers (SINGULAIR) 9-19 TABLET BY ity of 10 mg 00:00: MOUTH AT [place] tablet 00 BEDTIME. Medical Branch montelukast Yes TAKE 1 Univ ers (SINGULAIR) 9-19 [...] 00 (two) Medical times Branch daily. busPIRone 2016-0 Yes 10mg Take 1 Univer s (BUSPAR) 10 8-22 tablet by ity of mg tablet 00:00: mouth 2 00 (two) Medical times Branch daily. busPIRone 2015-0 Yes 10mg Take 1 Univer s (BUSPAR) 10 8-22 tablet by ity of mg tablet 00:00: mouth 2 00 (two) Medical times Branch daily. busPIRone 2015-0 Yes 10mg Take 1 Univer s (BUSPAR) 10 8-22 tablet by ity of mg tablet 00:00: mouth 2 00 (two) Medical times Branch daily. busPIRone 2015-0 Yes 10mg Take 1 Univer s (BUSPAR) [...] MOUTH [place] 00 WEEKLY. Medical Branch busPIRone 2015- Yes [id number] 10mg Take 10 mg Univers (BUSPAR) 10 4-11 by mouth 2 it y of mg tablet 21:12: (two) [place] 25 times Medical daily. Branch busPIRone Yes [id number] 10mg Take 10 mg Univers (BUSPAR) 10 4-11 by mouth 2 it y of mg tablet 21:12: (two) [place] 25 times Medical daily. Branch busPIRone Yes [id number] 10mg Take 10 mg Univers (BUSPAR) 10 4-11 by mouth 2 it y of mg tablet 21:12: (two) [place] 25 times Medical daily. Branch busPIRone 2016-0 Yes [id number] 10mg Take 10 mg Univers (BUSPAR) 10 4-11 by mouth 2 it y of mg tablet 21:12: (two) [place] 25 times Medical daily. Branch busPIRone 2016-0 Yes [id number] 10mg Take 10 mg Univers (BUSPAR) 10 4-11 by mouth 2 it y of mg tablet 21:12: (two) [place] 25 times Medical daily. Branch busPIRone 2015- Yes [id number] 10mg Take 10 mg Univers (BUSPAR) 10 4-11 by mouth 2 it y of mg tablet 21:12: (two) [place] 25 times Medical daily. Branch fluticasone Yes [id number] 1 U nivers -salmeterol 4-01 inhalation it y of (ADVAIR 00:00: BI D prn [place] DISKUS) 00 sob rinse Medical 250-50 mouth Branch mcg/dose after inhalation using disk fluticasone Yes [id number] 1 U nivers -salmeterol 4-01 inhalation it y of (ADVAIR 00:00: BI D prn [place] DISKUS) 00 sob rinse Medical 250-50 mouth Branch mcg/dose after inhalation using disk fluticasone 2015- Yes [id number] 1 U nivers -salmeterol 4-01 inhalation it y of (ADVAIR 00:00: BI D prn [place] DISKUS) 00 sob rinse Medical 250-50 mouth Branch mcg/dose after inhalation using disk fluticasone 2015- Yes [id number] 1 U nivers -salmeterol 4-01 inhalation it y of (ADVAIR 00:00: BI D prn [place] DISKUS) 00 sob rinse Medical 250-50 mouth Branch mcg/dose after inhalation using disk fluticasone 2015-0 Yes [id number] 1 U nivers -salmeterol 4-01 inhalation it y of (ADVAIR 00:00: BI D prn [place] DISKUS) 00 sob rinse Medical 250-50 mouth Branch mcg/dose after inhalation using disk fluticasone 2015- Yes [id number] 1 U nivers -salmeterol 4-01 inhalation it y of (ADVAIR 00:00: BI D prn [place] DISKUS) 00 sob rinse Medical 250-50 mouth Branch mcg/dose after inhalation using disk blood sugar 2016-0 Yes Use as Univ ers diagnostic 3-22 directed, ity of (ONETOUCH 00:00: daily. [place] VERIO) 00 DX:E11.9 Medical strip Branch lancets 2016-0 Yes Use as Univers (ONE TOUCH 3-22 directed, ity of DELICA) 33 00:00: daily. [facility] 00 DX:E11.9 Medic al Branch blood sugar 2016-0 Yes Use as Univ ers diagnostic 3-22 directed, ity of (ONETOUCH 00:00: daily. [place] VERIO) 00 DX:E11.9 Medical strip Branch lancets 2016-0 Yes Use as Univers (ONE TOUCH 3-22 directed, ity of DELICA) 33 00:00: daily. [facility] 00 DX:E11.9 Medic al Branch blood sugar 2016-0 Yes Use as Univ ers diagnostic 3-22 directed, ity of (ONETOUCH 00:00: daily. [place] VERIO) 00 DX:E11.9 Medical strip Branch lancets 2016-0 Yes Use as Univers (ONE TOUCH 3-22 directed, ity of DELICA) 33 00:00: daily. [facility] 00 DX:E11.9 Medic al Branch blood sugar 2016-0 Yes Use as Univ ers diagnostic 3-22 directed, ity of (ONETOUCH 00:00: daily. [place] VERIO) 00 DX:E11.9 Medical strip Branch lancets 2016-0 Yes Use as Univers (ONE TOUCH 3-22 directed, ity of DELICA) 33 00:00: daily. [facility] 00 DX:E11.9 Medic al Branch blood sugar 2016-0 Yes Use as Univ ers diagnostic 3-22 directed, ity of (ONETOUCH 00:00: daily. [place] VERIO) 00 DX:E11.9 Medical strip Branch lancets 2016-0 Yes Use as Univers (ONE TOUCH 3-22 directed, ity of DELICA) 33 00:00: daily. [facility] 00 DX:E11.9 Medic al Branch blood sugar 2016-0 Yes Use as Univ ers diagnostic 3-22 directed, ity of (ONETOUCH 00:00: daily. [place] VERIO) 00 DX:E11.9 Medical strip Branch lancets 2016-0 Yes Use as Univers (ONE TOUCH 3-22 directed, ity of DELICA) 33 00:00: daily. [facility] 00 DX:E11.9 Medic al Branch loratadine Yes [id number] 10mg Take 1 Tab Univers (CLARITIN) 3-14 by mouth ity o f 10 mg 00:00: daily. [place] tablet 00 Medical Branch loratadine Yes [id number] 10mg Take 1 Tab Univers (CLARITIN) 3-14 by mouth ity o f 10 mg 00:00: daily. [place] tablet 00 Medical Branch loratadine Yes [id number] 10mg Take 1 Tab Univers (CLARITIN) 3-14 by mouth ity o f 10 mg 00:00: daily. [place] tablet 00 Medical Branch loratadine Yes [id number] 10mg Take 1 Tab Univers (CLARITIN) 3-14 by mouth ity o f 10 mg 00:00: daily. [place] tablet 00 Medical Branch loratadine Yes [id number] 10mg Take 1 Tab Univers (CLARITIN) 3-14 by mouth ity o f 10 mg 00:00: daily. [place] tablet 00 Medical Branch loratadine Yes [id number] 10mg Take 1 Tab Univers (CLARITIN) 3-14 by mouth ity o f 10 mg 00:00: daily. [place] tablet 00 [facility] Branch fluticasone Yes [id number] 2{spray Use 2 Univers 50 2-23 } Sprays in ity of mcg/actuati 00:00: each [place] on nasal 00 nostril Medical spray daily. Branch albuterol Yes [id number] 2{puff} Inhale 2 Univers (PROAIR) 90 2-23 Puffs ity of mcg/actuati 00:00: every 6 [place] as on inhaler 00 (six) Medical hours as Branch needed for Wheezing or Shortness of Breath. fluticasone Yes [id number] 2{spray Use 2 Univers 50 2-23 } Sprays in ity of mcg/actuati 00:00: each [place] on nasal 00 nostril Medical spray daily. Branch albuterol Yes [id number] 2{puff} Inhale 2 Univers (PROAIR) 90 2-23 Puffs ity of mcg/actuati 00:00: every 6 [place] as on inhaler 00 (six) Medical hours as Branch needed for Wheezing or Shortness of Breath. fluticasone Yes [id number] 2{spray Use 2 Univers 50 2-23 } Sprays in ity of mcg/actuati 00:00: each [place] on nasal 00 nostril Medical spray daily. Branch albuterol Yes [id number] 2{puff} Inhale 2 Univers (PROAIR) 90 2-23 Puffs ity of mcg/actuati 00:00: every 6 [place] as on inhaler 00 (six) Medical hours as Branch needed for Wheezing or Shortness of Breath. fluticasone Yes [id number] 2{spray Use 2 Univers 50 2-23 } Sprays in ity of mcg/actuati 00:00: each [place] on nasal 00 nostril Medical spray daily. Branch albuterol Yes [id number] 2{puff} Inhale 2 Univers (PROAIR) 90 2-23 Puffs ity of mcg/actuati 00:00: every 6 [place] as on inhaler 00 (six) Medical hours as Branch needed for Wheezing or Shortness of Breath. fluticasone Yes [id number] 2{spray Use 2 Univers 50 2-23 } Sprays in ity of mcg/actuati 00:00: each [place] on nasal 00 nostril Medical spray daily. Branch albuterol Yes [id number] 2{puff} Inhale 2 Univers (PROAIR) 90 2-23 Puffs ity of mcg/actuati 00:00: every 6 [place] as on inhaler 00 (six) Medical hours as Branch needed for Wheezing or Shortness of Breath. fluticasone Yes [id number] 2{spray Use 2 Univers 50 2-23 } Sprays in ity of mcg/actuati 00:00: each [place] on nasal 00 nostril Medical spray daily. Branch albuterol Yes [id number] 2{puff} Inhale 2 Univers (PROAIR) 90 2-23 Puffs ity of mcg/actuati 00:00: every 6 [place] as on inhaler 00 (six) Medical hours as Branch needed for Wheezing or Shortness of Breath. traMADOL Yes 50mg Take 1 Tab Uni vers [...] Branch needed (prn pain). Tramadol Tramadol Yes Omega not Commo n HCl HCl Joy defined [facility] Methocarbam Methocarbam Yes Omega not Common ol ol Joy defined [facility] ProAir HFA ProAir HFA Yes Omega 2 puffs as Common Joy needed [facility] Robaxin Robaxin Yes Omega 1.5 Common Joy tablets [facility] Dulera Dulera Yes Omega 2 puffs Common Joy [facility] Motrin IB Motrin IB Yes Omega not Com mon Joy defined [facility] Hydrochloro Hydrochloro No 1{table QD Hydrochlor thiazide 25 thiazide 25 t_in_th othiazide MG MG e_morni 25 MG ng} Tramadol Tramadol No Tramadol HCl HCl HCl Dulera Dulera No 2{puffs BID Dulera 200-5 200-5 } 200-5 MCG/ACT MCG/ACT MCG/ACT Methocarbam Methocarbam No Methocarba ol ol mol ProAir HFA ProAir HFA No 2{puffs QID ProAir HFA 108 (90 108 (90 _as_nee 108 (90 Base) Base) ded} Base) MCG/ACT MCG/ACT MCG/ACT Robaxin 500 Robaxin 500 No 1.5{tab 6xD Robaxin MG MG lets} 500 MG Motrin IB Motrin IB No Motrin IB Bydureon Bydureon No Bydureon BCise 2 BCise 2 BCise 2 MG/0.85ML MG/0.85ML MG/0.85ML Dulera Dulera No 2{puffs BID Dulera 200-5 200-5 } 200-5 MCG/ACT MCG/ACT MCG/ACT Ibuprofen Ibuprofen No Ibuprofen Tylenol Tylenol No Tylenol clindamycin clindamycin No clindamyci n ProAir HFA ProAir HFA No 2{puffs QID ProAir HFA 108 (90 108 (90 _as_nee 108 (90 Base) Base) ded} Base) MCG/ACT MCG/ACT MCG/ACT Tramadol Tramadol No Tramadol HCl HCl HCl Motrin IB Motrin IB No Motrin IB Bydureon Bydureon No Bydureon BCise 2 BCise 2 BCise 2 MG/0.85ML MG/0.85ML MG/0.85ML Methocarbam Methocarbam No Methocarba ol ol mol Hydrochloro Hydrochloro No 1{table QD Hydrochlor thiazide 25 thiazide 25 t_in_th othiazide MG MG e_morni 25 MG ng} Robaxin 500 Robaxin 500 No 1.5{tab 6xD Robaxin MG MG lets} 500 MG Immunizations Ordered Filled Immunization Date Status Comments Sour e Immunization Name Name Bupivicaine Commerce Bupivicaine Commerce 2019-09-29 Completed [facility] - 09:18:00 [facility] Bupivicaine Commerce Bupivicaine Commerce 2019-09-29 Completed [facility] - 09:18:00 [facility] Kenalog Kenalog 2019-09-29 Completed [facility] - (Triamcinolone) (Triamcinolone) 09:17:00 [facility] Kenalog Kenalog 2019-09-29 Completed [facility] - (Triamcinolone) (Triamcinolone) 09:17:00 [facility] Tdap 2012-08-12 Completed University of 00:00:00 [facility] TDAP 2012-08-12 Completed University of 00:00:00 [facility] TDAP 2012-08-12 Completed University of 00:00:00 [facility] TDAP 2012-08-12 Completed University of 00:00:00 [facility] Tdap 2012-08-12 Completed University of 00:00:00 [facility] Tdap 2012-08-12 Completed University of 00:00:00 [facility] Td 2002-03-15 Completed University of 00:00:00 [facility] Td 2002-03-15 Completed University of 00:00:00 [facility] Td 2002-03-15 Completed University of 00:00:00 [facility] Td 2002-03-15 Completed University of 00:00:00 [facility] Td 2002-03-15 Completed University of 00:00:00 [facility] Td 2002-03-15 Completed University of 00:00:00 [facility] Vital Signs Vital Name Observation Time Observation Value Comments Source height 2020-04-09 08:30:00 64 [in_i] [facility] weight 2020-04-09 08:30:00 320 [lb_av] [facility] temperature 2020-04-09 08:30:00 97.1 [degF] [facility] bmi 2020-04-09 08:30:00 54.92 kg/m2 [facility] blood pressure 2020-04-09 08:30:00 142 mm[Hg] [facility] - systolic [facility] blood pressure 2020-04-09 08:30:00 92 mm[Hg] [facility] - diastolic [facility] Systolic blood 2018-11-01 04:00:00 171 mm[Hg] Univer sity of pressure [facility] Diastolic blood 2018-11-01 04:00:00 74 mm[Hg] Unive rsity of pressure [facility] Heart rate 2018-11-01 04:00:00 76 /min Universi ty of [facility] Respiratory rate 2018-11-01 04:00:00 25 /min [facility] Oxygen saturation in 2018-11-01 04:00:00 93 /min University of Arterial blood by [facility] Pulse oximetry Branch Body temperature 2018-11-01 02:09:[address] [facility] [place] Body height 2018-11-01 02:09:00 162.6 cm Universi ty of [place] [facility] [place] Body weight 2018-11-01 02:09:00 138.347 kg Universi ty of [place] Medical Branch BMI 2018-11-01 02:09:00 52.35 kg/m2 [facility] Systolic blood 2018-11-01 04:00:00 171 mm[Hg] Univer sity of pressure [place] [facility] [place] Diastolic blood 2018-11-01 04:00:00 74 mm[Hg] Unive rsity of pressure [facility] Heart rate 2018-11-01 04:00:00 76 /min [facility]i [facility] Respiratory rate 2018-11-01 04:00:00 25 /min [facility] Oxygen saturation in 2018-11-01 04:00:00 93 /min University of Arterial blood by [facility] Pulse oximetry Branch Body temperature 2018-11-01 02:09:[address] [facility] ers[facility] Body height 2018-11-01 02:09:00 162.6 cm Universi ty [facility] [place] Body weight 2018-11-01 02:09:00 138.347 kg Universi ty [facility] [place] BMI 2018-11-01 02:09:00 52.35 kg/m2 [facility] Procedures Procedure Date / Time Performing Clinician Source Performed AUTHORIZATION FOR 2019-10-06 05:01:00 Doctor Unassigned, No Univ ersity [facility] Name Medical Branch AUTHORIZATION FOR 2019-09-27 05:01:00 Doctor Unassigned, No [facility] Name Medical Branch XR TOES 2 VW LEFT 2018-11-01 04:16:58 Paul Perea [facility] XR CHEST 1 VW 2018-11-01 03:14:21 Paul Perea o f [facility] XR FOOT 3+ VW LEFT 2018-11-01 03:14:21 Paul Perea [facility] TROPONIN I 2018-11-01 02:57:00 Paul Perea [place] [facility] HEPATIC FUNCTION PANEL 2018-11-01 02:57:00 Paul Perea [facility] ([id number]) (ALB,T.PRO,BILI Medical Branch T,BU/BC,ALT,AST,ALK PHOS) BASIC METABOLIC PANEL 2018-11-01 02:57:00 Paul Perea [facility] (NA, K, CL, CO2, Medical Branch GLUCOSE, BUN, CREATININE, CA) CBC WITH DIFFERENTIAL 2018-11-01 02:57:00 Paul Perea [facility] GLYCOSYLATED HEMOGLOBIN 2018-11-01 02:57[facility] PROTHROMBIN TIME / INR 2018-11-01 02:57:00 Paul [facility] ACTIVATED PARTIAL 2018-11-01 02:57:00 [facility] RAPID STREP SCREEN FOR 2018-11-01 02:57:00 Paul Perea [facility] GROUP A [facility] N-TERMINAL PRO-BNP 2018-11-01 02:57:00 Paul Perea [facility] EKG-12 LEAD 2018-11-01 02:42:19 Paul [facility] NOTICE OF PRIVACY 2018-11-01 01:54:18 Doctor Unassigned, No [facility] PRACTICES Name [facility] CONSENT/REFUSAL FOR 2018-11-01 01:53:56 [facility] Name [facility] [place] Encounters Start End Encounter Admission Attending Care Care Encounter Source Date/Time Date/Time Type Type Clinicians Facility Department ID 2021-04-09 Outpatient JoyBEVERLY chun [facility] [id number] Common 12:26:15 Omega [id number] [facility] 2021-04-09 Outpatient JoyBEVERLY chun [facility] [id number] Common 11:34:37 Omega [id number] [facility] 2021-04-09 Outpatient JoyBEVERLY chun [facility] [id number] Common 11:31:51 Omega [id number] [facility] 2021-09-04 2021-09-04 Outpatient R MACK, [facility] [id number] Univers 11:00:00 11:00:00 [facility] 2021-05-21 2021-05-21 Outpatient Jocelynn MACK [facility] [id number] Univers 08:00:00 08:00:00 [facility] 2020-04-09 2020-04-09 [facility] [id number] Co mmon 00:00:00 00:00:00 VISIT EST Spir it PT LEVEL 3 - [facility] 2020-04-03 2020-04-03 (TEL) STLMLC STLMLC [id number] Co mmon 00:00:00 00:00:00 [facility] 2019-10-17 2019-10-17 Outpatient Stephen Pendleton [id number] Common 10:00:00 10:00:[email or web address] [address] [facility] 2019-10-06 2019-10-06 Outpatient Stephen Pendleton [id number] Common 13:31:00 13:31:[email or web address] [facility] 2019-10-06 2019-10-06 Orders Doctor JACINDA [id number] Univers 00:00:00 00:00:00 Only Unassigned, RUPINDER [id number] [facility] [place] [facility] 4.2.7.2.686 Hector as [phone] [address] 2019-10-06 2019-10-06 Orders Doctor JACINDA [id number] 00:00:00 00:00:00 Only Unassigned, RUPINDER [id number] [place] [facility] 4.2.7.2.686 [id number] [facility] 2019-10-02 2019-10-02 Outpatient Stephen Pendleton [id number] Common 10:15:00 10:15:00 t [facility] 2019-09-29 2019-09-29 Outpatient Stephen Pendleton [id number] Common 08:30:00 08:30:00 t Bone Bone and Spiri t and Joint [facility] 2019-09-28 2019-09-28 Outpatient Stephen Mitchellt [id number] Common 16:11:00 16:11:00 t Bone Bone and Spiri t and Joint [facility] - [facility] 2019-09-28 2019-09-28 Outpatient Brazmeaghan Mitchellt [id number] Common 16:09:00 16:09:00 t Bone Bone and Spiri t and Joint [facility] - [facility] 2019-09-28 2019-09-28 Outpatient Brazmeaghan Mitchellt [id number] Common 11:16:00 11:16:00 t [email or web address] Spir [employer] [facility] 2019-09-28 2019-09-28 Telephone [facility] [id number] Univers 00:00:00 00:00:00 [facility] [id number] it y of Surgical 4.2.7.2.686 [place] as Specialti [phone] Vt dical es 198 [facility] 2019-09-28 2019-09-28 Telephone Latasha [facility] [id number] 00:00:00 00:00:00 [facility] [id number] Surgical 4.2.7.2.686 Specialti [id number] es [address] [place] 2019-09-27 2019-09-27 Orders Doctor JACINDA [id number] Univers 00:00:00 00:00:00 Only Unassigned, RUPINDER [id number] [facility] [place] [facility] 4.2.7.2.686 Hector as [id number] [address] 2019-09-27 2019-09-27 Orders Doctor JACINDA [id number] 00:00:00 00:00:00 Only Unassigned, RUPINDER [id number] [place] [facility] 4.2.7.2.686 [id number] [facility] 2019-09-18 2019-09-18 Outpatient Stephen Mitchellt [id number] Common 15:15:00 15:15:[email or web address] [facility] 2019-06-23 2019-06-23 [facility] [id number] Univers 00:00:00 00:00:00 Dimit[facility] [id number] it y of Surgical 4.2.7.2.686 [place] Specialti [phone] Me dical es 198 [facility] 2019-06-23 2019-06-23 [facility] [id number] 00:00:00 00:00:00 Dimitrios [facility] [id number] Surgical 4.2.7.2.686 Specialti [id number] es [address] [place] [address] 2019-04-17 2019-04-17 [facility] [id number] [facility] 00:00:00 00:00:00 Dimitrios [facility] [id number] it y of Surgical 4.2.7.2.686 [place] Specialti [phone] Me dical es 198 [facility] 2019-04-17 2019-04-17 [facility] [id number] 00:00:00 00:00:00 Dimitrios [facility] [id number] Surgical 4.2.7.2.686 Specialti [id number] es [address] [place] [address] 2018-10-31 2018-10-31 Emergency [facility] [id number] [facility] 21:12:42 23:51:00 Paul Knapp 350.1.13.10 i [place].7.2.[place] [phone] [address] 2018-10-31 2018-10-31 Emergency [facility] [id number] 21:12:42 23:51:00 Paul Knapp 350.1.13.10 [place] 4.2.7.2.686 [place] [id number] [facility] 2018-09-26 2018-09-26 Outpatient [facility] [id number] Common 14:49:00 14:49:[address] [facility] 2018-07-19 2018-07-19 Outpatient [facility] [id number] Common 14:26:00 14:26:[address] [facility] 2018-07-18 2018-07-18 Outpatient [facility] [id number] Common 13:44:00 13:44:00 t Bone Bone and Spiri t and Joint [facility] 2018-07-18 2018-07-18 Outpatient [facility] [id number] Common 08:30:00 08:30:00 t Bone Bone and Spiri t and Joint [facility] 2018-07-04 2018-07-04 Outpatient [facility] [id number] Common 09:54:00 09:54:[address] [facility] 2018-06-27 2018-06-27 Outpatient [facility] [id number] Common 10:28:00 10:28:[address] [facility] 2018-06-27 2018-06-27 Outpatient [facility] [id number] Common 10:15:00 10:15:[address] [facility] 2018-06-16 2018-06-16 Outpatient [facility] [id number] Common 15:35:00 15:35:[address] [facility] 2018-05-24 2018-05-24 Outpatient [facility] [id number] Common 12:25:00 12:25:[address] [facility] Results Test Description Test Time Test Comments [...] . CHARITY (test code = CHARITY) The [facility] patient population mean normal value for aPTT is 30 seconds. Lab Interpretation (test Normal code = 69397-8) [facility] (PT[facility] / [id number] 04:27:00 Test Item Value Reference Range Interpretation Comments PROTIME PATIENT (test See_Comment [Auto mated message] code = 5964-2) The system [employer] generated this result transmitted ref erence range: 12.0 - 1 4.7 Seconds. The re ference range was not u sed to interpret this result as normal/abnor mal. INR (test code = 6301-6) Nor mal INR <1.1; Warfarin Therap eutic range 2.0 to 3. 0 or 2.5 to 3.5, dep ending upon the indica tions. Lab Interpretation (test Normal code = 88124-7) [facility] 1 [id number] 04:12:59 Right upper lobe consolidation, concerning for pneumonia. Pulmonary vascular congestion. Devon Christian MD., have reviewed this study and agree [...] enlarged. No acute bony abnormalities are noted. [facility], Radiant Results Inft User - 10/31/2018 11:15 PM CDT* * * * * * * * ORIGINAL REPORT * * * * * * * *EXAM: XR CHEST 1 VWHISTORY: dyspnea COMPARISON: Chest radiograph 06/23/2015FINDINGS:A consolidation is identified along the inferior right upper lobe, abuttingthe minor fissure. Mild pulmonary vascular congestion is present. Nopleural effusion orpneumothorax is identified.The heart is mildly enlarged. No acute bony abnormalities are noted.IMPRESSIONRight upper lobe consolidation, concerning for pneumonia.Pulmonary vascular congestion.Hillary Christian MD., have reviewed this study and agree with the abovereport. [facility] Clinic[facility]YCOSYLATED HEMOGLOBIN (A1C)2018-11-01 03:54:00 Test Item Value Reference Interpretation Comments [...] Indicated Lab Interpretation Abnormal (test code = 92838-1) [facility] Clinic[facility]roponin [id number] 03:29:00 Test Item Value Reference Range Interpretation Comments TROPONIN I (test <0.012 See_Comment [Automated code = 0090654872) message] The system which generated this result [...] ? Lab Interpretation Normal (test code = 03688-2) [facility] STREP SCREEN FOR GROUP [id number] 03:27:00 Test Item Value Reference Range Interpretation Comments Streptococcus pyogenes (group A) Negative Negative antigen (test code = 41505-5) Lab Interpretation (test code = Normal 96893-5) [facility] Clinic[facility]MINAL [id number] 03:26:00 Test Item Value Reference Range Interpretation Comments NT-proBNP (test code 144 pg/mL See_Comment H [Autom ated = 4803461783) message] The system which generated this result transmitted reference range : <=125. The reference range was not used to interpret this result as normal/abnormal . CHARITY (test code = CHARITY) Biotin has been reported to cause a negative bias, interpret results relative to patient's use of biotin. Lab Interpretation Abnormal (test code = 01287-8) [facility] (ALB, T.PRO, BILI T, BU/BC, ALT, AST, ALK PHOS)2018-11-01 03:19:00 Test Item Value Reference Range Interpretation Comments TOTAL BILI (test code = 9148611235) 0.5 mg/dL 0.1-1.1 BILI UNCON (test code = 8934082231) 0.4 mg/dL 0.1-1.1 BILI CONJ (test code = 0109879077) 0.0 mg/dL 0-0.3 T PROTEIN (test code = 4781836438) 7.7 g/dL 6.3-8.2 ALBUMIN (test code = 1559810558) 4.2 g/dL 3.5-5 ALK PHOS (test code = 1282917881) 84 U/L 34-122 ALT(SGPT) (test code = 8558505667) 13 U/L 9-51 AST(SGOT) (test code = 8589606493) 17 U/L 13-40 Lab Interpretation (test code = Normal 87421-1) [facility] Met[facility] (NA, K, CL, CO2, GLUCOSE, BUN, CREATININE, CA)2018-11-01 03:18:00 Test Item Value Reference Range Interpretation Comments NA (test code = 137 mmol/L 135-145 7296244902) K (test code = 4.2 mmol/L 3.5-5 9275448386) CL (test code = 99 mmol/L 98-108 1494620116) CO2 TOTAL (test code = 28 mmol/L 23-31 2413483343) AGAP (test code = 2-16 9918700916) BUN (test code = 11 mg/dL 7-23 9992677400) GLUCOSE (test code = 192 mg/dL 70-110 H 1350700110) CREATININE (test code = 0.54 mg/dL 0.5-1.04 5240490273) CALCIUM (test code = 9.0 mg/dL 8.6-10.6 6768749050) eGFR Calculation mL/min/1.73m2 (Non-) (test code = 1553907882) eGFR Calculation mL/min/1.73m2 () (test code = 2183531025) CHARITY (test code = CHARITY) Association of [...] tests). Lab Interpretation Abnormal (test code = 12568-0) [facility] WITH [id number] 03:07:00 Test Item Value Reference Range Interpretation Comments WBC (test code = See_Comment [Automated message] 6690-2) The system [employer] generated this result transmitted ref erence range: 4.30 - 1 1.10 10*3/?L. The re ference range was not u sed to interpret this result as normal/abnor mal. RBC (test code = See_Comment [Automated message] 789-8) The system [employer] generated this result transmitted ref erence range: [...] RDW-SD (test code 45.5 fL 39-49.9 = 31563-3) RDW-CV (test code 15.0 % 12-15.5 = 788-0) PLT (test code = See_Comment [Automated message] 777-3) The system [employer] generated this result transmitted ref erence range: 166 - 35 8 10*3/?L. The re ference range was not u sed to interpret this result as normal/abnor mal. MPV (test code = 10.5 fL 9.5-12.9 87509-7) NRBC/100 WBC (test See_Comment [Automat ed message] code = 2337001413) The syste m which generated this result transmitted ref erence range: 0.0 - 10 .0 /100 WBCs. The refer ence range was not u sed to interpret this result as normal/abnor mal. NRBC x10^3 (test <0.01 See_Comment [Automated message] code = 0522877336) The syste m which generated this result transmitted ref erence range: 10*3/?L. The reference range was not used to interpr et this result as normal/abnormal . GRAN MAT (NEUT) % 69.5 % (test code = 770-8) IMM GRAN % (test 0.30 % code = 0382730409) LYMPH % (test code 19.8 % = 736-9) MONO % (test code 9.3 % = 5905-5) EOS % (test code = 1.0 % 713-8) BASO % (test code 0.1 % = 706-2) GRAN MAT 4.87 10*3/uL 1.88-7.09 x10^3(ANC) (test code = 6522117649) IMM GRAN x10^3 <0.03 0-0.06 (test code = 0813283624) LYMPH x10^3 (test 1.39 10*3/uL 1.32-3.29 code = 731-0) MONO x10^3 (test 0.65 10*3/uL 0.33-0.92 code = 742-7) EOS x10^3 (test 0.07 10*3/uL 0.03-0.39 code = 711-2) BASO x10^3 (test <0.03 0.01-0.07 code = 704-7) [facility]"
[2022-05-30 03:49] LABS: SARS-COV-2 RT PCR NEGATIVE (NEGATIVE)
--- NOTE | 2022-05-30 03:56 | EDPHYS ---
Physician Documentation [facility] Name: Nicole Martínez Age: 67 yrs Sex: Female : 1955 Arrival Date: 05/30/2022 Time: 02:16 Bed 8 Private MD: ED Physician Kirit Quijano HPI: 05/30 03:11 This 67 yrs old Female presents to ER via Wheelchair with complaints of Congestion. ms3 03:11 67-year-old female with past medical history of diabetes, hypertension, COPD presents ms3 for 4 to 5 days of sneezing, cough. Patient states after taking her inhaler she notices the mucus breaks. Patient denies pain, fevers, chills, nausea, vomiting, diarrhea.. Historical: - Allergies: 02:31 EGG/POULTRY; kl 02:31 hydrochlorothiazide; kl 02:31 Lovastatin; kl 02:31 Percodan; kl 02:31 rybellus; kl 02:31 [place]; kl - Home Meds: 02:31 Dulera inhalation [Active]; Hydrochlorothiazide Oral [Active]; proair [Active]; kl Tramadol Oral [Active]; - PMHx: 02:31 Hernández Cyst; Diabetes - NIDDM; Hypertension; kl 02:34 Chronic obstructive lung disease; kl - Immunization history:: Adult Immunizations not up to date. - Social history:: Smoking status: Patient/guardian denies using tobacco, the patient reports quitting approximately 4 years ago. ROS: 03:11 Constitutional: Negative for fever, and chills. Eyes: Negative for injury, pain, ms3 redness, and discharge, Cardiovascular: Negative for chest pain, and palpitations. 03:11 Abdomen/GI: Negative for abdominal pain, nausea, vomiting, diarrhea, and constipation, MS/Extremity: Negative for injury and deformity, Neuro: Negative for headache, weakness, numbness, tingling. 03:11 ENT: Positive for sinus congestion. 03:11 Respiratory: Positive for cough. 03:11 All other systems are negative. Exam: 03:11 Constitutional: This is a well developed, well nourished patient who is awake, alert, ms3 and in no acute distress. Head/Face: Normocephalic, atraumatic. Neck: Trachea midline, no cervical lymphadenopathy. Supple, full range of motion without nuchal rigidity, or vertebral point tenderness. No Meningismus. Chest/axilla: Normal chest wall appearance and motion. Nontender with no deformity. Cardiovascular: Regular rate and rhythm with a normal S1 and S2. No gallops, murmurs, or rubs. Normal PMI, no JVD. No pulse deficits. Respiratory: Lungs have equal breath sounds bilaterally, clear to auscultation and percussion. No rales, rhonchi or wheezes noted. No increased work of breathing, no retractions or nasal flaring. Abdomen/GI: Soft, non-tender, with normal bowel sounds. No distension or tympany. No guarding or rebound. No evidence of tenderness throughout. Skin: Warm, dry with normal turgor. Normal color with no rashes, no lesions, and no evidence of cellulitis. MS/ Extremity: Pulses equal, no cyanosis. Neurovascular intact. Full, normal range of motion. Vital Signs: 02:29 BP 180 / 80; Pulse 75; Resp 18; Temp 98.8; Pulse Ox 99% on R/A; kl MDM: 02:38 Patient medically screened. ms3 03:11 Differential diagnosis: bronchitis, flu, URI. ms3 05/30 02:39 Order name: Chest Pa And Lat (2 Views) XRAY ms3 03/ 02:39 Order name: COVID-19/FLU A+B/RSV; Complete Time: 03:53 ms3 Administered Medications: No medications were administered Disposition Summary: 05/30/22 03:56 Discharge Ordered Location: Home ms3 Condition: Stable ms3 Diagnosis - Cough ms3 - Nasal congestion ms3 - History of COPD ms3 Followup: ms3 - With: Mainor Joy DO - When: 2 - 3 days - Reason: Recheck today's complaints Forms: - Medication Reconciliation Form ms3 - Thank You Letter ms3 - Antibiotic Education ms3 - Prescription Opioid Use ms3 Signatures: Dispatcher [employer] Jen Loera RN RN kl Sims, Marcus, DO DO ms3
--- NOTE | 2022-05-30 03:56 | ER ---
Nurse's Notes [facility] Name: Nicole Martínez Age: 67 yrs Sex: Female : 1955 Arrival Date: 05/30/2022 Time: 02:16 Bed 8 Private MD: Diagnosis: Cough;Nasal congestion;History of COPD Presentation: 05/30 02:29 Chief complaint: Patient states: congestion x 4 days. Coronavirus screen: Vaccine kl status: Patient reports receiving the 2nd dose of the covid vaccine. Ebola Screen: Patient negative for fever greater than or equal to 101.5 degrees Fahrenheit, and additional compatible Ebola Virus Disease symptoms. Initial Sepsis Screen: Does the patient meet any 2 criteria? No. Patient's initial sepsis screen is negative. Does the patient have a suspected source of infection? No. Patient's initial sepsis screen is negative. Risk Assessment: Do you want to hurt yourself or someone else? Patient reports no desire to harm self or others. 02:29 Method Of Arrival: Wheelchair kl 02:29 Acuity: KAELYN 4 kl Triage Assessment: 02:32 General: Appears in no apparent distress. comfortable, obese, Behavior is calm, kl cooperative. Pain: Denies pain. Respiratory: No deficits noted. Reports cough that is productive, Airway is patent Trachea midline Respiratory effort is even, unlabored. Historical: - Allergies: 02:31 EGG/POULTRY; kl 02:31 hydrochlorothiazide; kl 02:31 Lovastatin; kl 02:31 Percodan; kl 02:31 rybellus; kl 02:31 [place]; kl - Home Meds: 02:31 Dulera inhalation [Active]; Hydrochlorothiazide Oral [Active]; proair [Active]; kl Tramadol Oral [Active]; - PMHx: 02:31 Hernández Cyst; Diabetes - NIDDM; Hypertension; kl 02:34 Chronic obstructive lung disease; kl - Immunization history:: Adult Immunizations not up to date. - Social history:: Smoking status: Patient/guardian denies using tobacco, the patient reports quitting approximately 4 years ago. Screenin:05 [facility] ED Fall Risk Assessment (Adult) History of falling in the last 3 months, jb4 including since admission No falls in past 3 months (0 pts) Confusion or Disorientation No (0 pts) Score/Fall Risk Level 0 - 2 = Low Risk Oriented to surroundings, Maintained a safe environment. Abuse screen: Denies threats or abuse. Nutritional screening: No deficits noted. Tuberculosis screening: No symptoms or risk factors identified. Assessment: 03:05 General: Appears in no apparent distress. comfortable, Behavior is calm, cooperative, jb4 appropriate for age. Pain: Denies pain. Neuro: Level of Consciousness is awake, alert, obeys commands, Oriented to person, place, time, situation. Cardiovascular: Patient's skin is warm and dry. Respiratory: Airway is patent Respiratory effort is even, unlabored, Respiratory pattern is regular, symmetrical. GI: No signs and/or symptoms were reported involving the gastrointestinal system. : No signs and/or symptoms were reported regarding the genitourinary system. EENT: No signs and/or symptoms were reported regarding the EENT system. Derm: Skin is intact, Skin is pink, warm \T\ dry. Musculoskeletal: Circulation, motion, and sensation intact. Range of motion: intact in all extremities. Vital Signs: 02:29 BP 180 / 80; Pulse 75; Resp 18; Temp 98.8; Pulse Ox 99% on R/A; kl ED Course: 02:16 Patient arrived in ED. jj6 02:26 Kirit Quijano DO is Attending Physician. ms3 02:31 Triage completed. 02:58 Chest Pa And Lat (2 Views) XRAY In Process Unspecified. EDMS 03:03 COVID-19/FLU A+B/RSV Sent. jb4 03:05 Patient has correct armband on for positive identification. Bed in low position. Call jb4 light in reach. Side rails up X 1. Client placed on continuous cardiac and pulse oximetry monitoring. NIBP monitoring applied. 03:55 Mainor Joy DO is Referral Physician. ms3 Administered Medications: No medications were administered Medication: 03:05 VIS not applicable for this client. jb4 Outcome: 03:56 Discharge ordered by . ms3 Signatures: Dispatcher [employer] EDJen Ignacio RN RN kl Bryson, James, RN RN jb4 iKrit Quijano DO DO ms3 Ju Simpson jj6
[2022-05-30 09:57] VITALS: TEMP 98.8
[2022-05-30 09:58] VITALS: BP 159/65; O2SAT 98
--- NOTE | 2022-05-30 20:57 | RAD REPORT ---
EXAM DESCRIPTION: RAD - Chest Pa And Lat (2 Views) - 05/30/2022 2:56 am CLINICAL HISTORY: 67 years Female COUGH COMPARISON: None FINDINGS: Lung volumes adequate. Cardiac silhouette is normal in size. No pneumothorax. No large pleural effusion. No focal consolidation. Mild bilateral interstitial thickening. No acute bony finding. IMPRESSION: Mild bilateral interstitial thickening. No focal consolidation. Electronically signed by: Jimmy Hunt MD 05/30/2022 3:08 AM CDT Due to temporary technical issues with the PACS/Fluency reporting system, reports are being signed by the in house radiologists without review as a courtesy to insure prompt reporting. The interpreting radiologist is fully responsible for the content of the report.
== END 2022-05-30 04:25 | disposition home or self-care (01) ==
LOC: ER 02:11
DX: R05.9 Cough, unspecified (principal); R09.81 Nasal congestion; J44.9 Chronic obstructive pulmonary disease, unspecified; E11.9 Type 2 diabetes mellitus without complications; I10 Essential (primary) hypertension; Z20.822 Contact with and (suspected) exposure to COVID-19; Z88.5 Allergy status to narcotic agent; Z88.8 Allergy status to other drugs, medicaments and biological substances; Z91.012 Allergy to eggs; Z91.018 Allergy to other foods
CPT/HCPCS: 0241U; 71046; 99283

== ENCOUNTER 2022-08-20 01:03 | Emergency (ER) | payer OTHER ==
--- OUTSIDE RECORDS SUMMARY | 2022-08-20 01:09 | XMS REPORT | Continuity of Care Document ---
:1955 Author Organization [facility] t Address [address] [facility] [address] [place] [address] Care Team Providers Name Role Phone OMEGA JOY Primary Care Physician Unavailable Omega Joy Attending Clinician Unavailable KLYE MACK Attending Clinician Unavailable Doctor Unassigned, Sparkman Attending Clinician Unavailable Latasha PROCTOR, Dimitrios Werner Attending Clinician Paul Perea MD Attending Clinician Payers Payer Name Policy Type Policy Number Effective Date Expiration Date S wang [facility] STAR [id number] 2015 PLUS 00:00:00 [place] [id number] 2018 [facility] 00:00:00 [facility] Problems Condition Condition Condition Status Onset [...] blood 3-14 ity of pressure pressure 00:00: [place] 00 Medical Branch Vitamin B Vitamin B Disease Active Uni vers 12 12 3-14 [place]y [place] Morbid Morbid Disease Active Univers obesity obesity 08-12 ity of 00:00: [place] 00 Medical Branch H/O H/O Disease Active Overview: Jannjulia s hysterecto hysterecto 08-12 She says ity of my for my for 00:00: it was a [place] benign benign 00 partial Medical disease disease but Branch cannot see the cervix. [id number] HTN, goal Problem Active Comm on below [facility] 130/80 - [facility] [id number] Osteoarthr Problem Active Comm on itis of [facility] thoracolum - [facility], [facility] itis complicati on status [id number] Depression Problem Active Com mon with [facility] anxiety [facility] [id number] Low back Problem Active Comm on pain [facility] [id number] Tobacco Problem Active Commo n use [facility] disorder [facility] [id number] Mixed Problem Active Common hyperlipid Spirit emia [facility] [id number] Type 2 Problem Active Common diabetes [facility] mellitus - [facility] with other [facility] kidney Medical complicati Center on [id number] Primary Problem Active Comm on osteoarthr [facility] itis of [facility] right knee [facility] [id number] Asymptomat Problem Active Co mmon ic Spirit hypertensi - [facility] ve urgency [facility] [id number] Other Problem Active Common chronic Spirit pain [facility] [id number] Chronic Problem Active Common obstructiv Spirit e - [facility] pulmonary [facility] unspecifie Medica l d COPD Center type [id number] Noncomplia Problem Active Co mmon nce with [facility] dietary - [facility] restrictio [facility] Allergies, Adverse Reactions, Alerts Allergy Allergy Status Severity Reaction(s) Onset Inactive Treating Comm ents Source Name Type Date Date Clinician OXYCODON DRUG Active Hives Univers E 08-12 ity of HCL-OXYC 00:00: [place] ODONE- 00 Medical A Branch Oxycodon Propensi Active Hives Univer s e ty to 08-12 ity of Hcl-Oxyc adverse 00:00: [place] odone-As reaction 00 Medica l a s Branch lisinopr lisinopr Active Cough Common il il [facility] amlodipi amlodipi Active LE Swelling C ommon ne ne [facility] metformi metformi Active diarrhea Comm on n n [facility] Social History Social Habit Start Date Stop Date Quantity Comments Source History of Tobacco Common [facility] - Use [facility] Sex Assigned At Common Sp birgit - [facility] Cigarettes smoked 2019-02-20 2019-02-20 Univers ity of current (pack per 00:00:00 00:00:00 [facility] ) - Reported Branch Cigarette 2019-02-20 2019-02-20 University of pack-years 00:00:00 00:00:00 [facility] Alcohol intake 2019-02-20 2019-02-20 University of 00:00:00 00:00:00 [facility] Alcohol Comment 2012-08-12 2012-08-12 occasionally Univers ity of 00:00:00 00:00:00 [facility] Smoking Status Start Date Stop Date Source Former Smoker 2020-04-09 00:00:00 2020-04-09 00:00:00 [facility] pirit [facility] nter Current every day 2019-02-20 00:00:00 [facility] smoker [facility] Medications Ordered Filled Start Stop Current Ordering Indication Dosage Frequency Signature Comments Components Source Medication Medication Date Date Medication? Clinician (SIG) Name Name Tramadol Tramadol No 1{table Tramadol HCl 50 MG HCl 50 MG 04-09 t_as_ne HCl 50 MG 00:00: eded} 00 Bydureon Bydureon Yes Omega 2 mg Com mon 10-16 Joy Spirit 00:00: - [facility] 00 [facility] Bydureon 2 Bydureon 2 2020-0 No Bydureon 2 MG MG 8-04 MG 00:00: 00 Bydureon 2 Bydureon 2 2020-0 No Bydureon 2 MG MG 8-04 MG 00:00: 00 Bydureon Bydureon 2020-0 2020- No Omega as Co mmon BCise BCise 10-02 10 Joy directed Spirit 00:00: 00:00 - [facility]I 00 :00 [facility] Tramadol Tramadol 2020-0 Yes Omega 1 tablet Common HCl HCl 7-20 Joy as needed Spirit 00:00: - [facility]I 00 [facility] Tramadol Tramadol 2020-0 No 1{table QID Tramadol HCl 50 MG HCl 50 MG 7-20 t_as_ne HCl 50 MG 00:00: eded} 00 Tramadol Tramadol 2020-0 No 1{table QID Tramadol HCl 50 MG HCl 50 MG 7-20 t_as_ne HCl 50 MG 00:00: eded} 00 Hydrochloro Hydrochloro 2020-0 Yes Omega 1 tablet Common thiazide thiazide 09-17 Joy in the Spir it 00:00: morning - [facility]I 00 [facility] DICLOFENAC 2020-0 Yes [id number] TAKE 1 Univers 75 mg EC 4-10 9104 TABLET BY ity of tablet 00:00: MOUTH [place] 00 TWICE A Medical DAY WITH Branch MEALS DICLOFENAC 2020-0 Yes [id number] TAKE 1 Univers 75 mg EC 4-10 9104 TABLET BY ity of tablet 00:00: MOUTH [place] 00 TWICE A Medical DAY WITH Branch MEALS DICLOFENAC 2020-0 Yes [id number] TAKE 1 Univers 75 mg EC 4-10 9104 TABLET BY ity of tablet 00:00: MOUTH [place] 00 TWICE A Medical DAY WITH Branch MEALS DICLOFENAC 2020-0 Yes [id number] TAKE 1 Univers 75 mg EC 4-10 9104 TABLET BY ity of tablet 00:00: MOUTH [place] 00 TWICE A Medical DAY WITH Branch MEALS DICLOFENAC 2020-0 Yes [id number] TAKE 1 Univers 75 mg EC 2-05 9104 TABLET BY ity of tablet 00:00: MOUTH [place] 00 TWICE A Medical DAY WITH Branch MEALS DICLOFENAC 2020-0 2020- No [id number] TAKE 1 Univers 75 mg EC 2-05 04-10 9104 TABLET BY ity o f tablet 00:00: 00:00 MOUTH [place] 00 :00 TWICE A Medical DAY WITH Branch MEALS diclofenac 2018-03 2020- No [id number] 75mg Take 1 Univers 75 mg EC 04-2304 tablet by ity o f tablet 00:00: 00:00 mouth 2 00 :00 (two) Medical times Branch daily with meals. metFORMIN 2019-0 Yes [id number] 500mg Take 1 Un jimbo 500 mg 8-19 tablet by ity of tablet 00:00: mouth 2 (two) Medical times Branch daily. amoxicillin 2019-0 Yes [id number] 500mg Take 1 Univers 500 mg 8-19 capsule by ity of capsule 00:00: mouth 3 (three) Medical times Branch daily. metFORMIN 2019-0 Yes [id number] 500mg Take 1 Un jimbo 500 mg 8-19 tablet by ity of tablet 00:00: mouth 2 (two) Medical times Branch daily. amoxicillin 2019-0 Yes [id number] 500mg Take 1 Univers 500 mg 8-19 capsule by ity of capsule 00:00: mouth 3 (three) Medical times Branch daily. metFORMIN 2019-0 Yes [id number] 500mg Take 1 Un jimbo 500 mg 8-19 tablet by ity of tablet 00:00: mouth 2 (two) Medical times Branch daily. amoxicillin 2019-0 Yes [id number] 500mg Take 1 Univers 500 mg 8-19 capsule by ity of capsule 00:00: mouth 3 (three) Medical times Branch daily. metFORMIN 2019-0 Yes [id number] 500mg Take 1 Un jimbo 500 mg 8-19 tablet by ity of tablet 00:00: mouth 2 (two) Medical times Branch daily. amoxicillin 2019-0 Yes [id number] 500mg Take 1 Univers 500 mg 8-19 capsule by ity of capsule 00:00: mouth 3 (three) Medical times Branch daily. metFORMIN 2019-0 Yes [id number] 500mg Take 1 Un jimbo 500 mg 8-19 tablet by ity of tablet 00:00: mouth 2 (two) Medical times Branch daily. amoxicillin 2019-0 Yes [id number] 500mg Take 1 Univers 500 mg 8-19 capsule by ity of capsule 00:00: mouth 3 (three) Medical times Branch daily. metFORMIN 2019-0 Yes [id number] 500mg Take 1 Un jimbo 500 mg 8-19 tablet by ity of tablet 00:00: mouth 2 (two) Medical times Branch daily. amoxicillin Yes [id number] 500mg Take 1 Univers 500 mg 8-19 capsule by ity of capsule 00:00: mouth 3 [place] 00 (three) Medical times Branch daily. doxycycline 2019- No [id number] 100mg Take 1 Univers 100 mg 8-19 08-30 capsule by ity of capsule 00:00: 04:59 mouth 2 [place] 00 :00 (two) Medical times Branch daily for 10 days. clindamycin 2019- No [id number] 300mg Take 1 Univers 300 mg 8-19 08-30 capsule by ity of capsule 00:00: 04:59 mouth 4 [place] 00 :00 (four) Medical times Branch daily for [facility] Yes TAKE 1 Univ ers (SINGULAIR) 9-19 TABLET BY ity of 10 mg 00:00: MOUTH AT [place] tablet 00 BEDTIME. Medical Branch [facility] Yes TAKE 1 Univ ers (SINGULAIR) 9-19 TABLET BY ity of 10 mg 00:00: MOUTH AT [place] tablet 00 BEDTIME. Medical Branch [facility] Yes TAKE 1 Univ ers (SINGULAIR) 9-19 TABLET BY ity of 10 mg 00:00: MOUTH AT [place] tablet 00 BEDTIME. Medical Branch [facility] Yes TAKE 1 Univ ers (SINGULAIR) 9-19 TABLET BY ity of 10 mg 00:00: MOUTH AT [place] tablet 00 BEDTIME. Medical Branch [facility] Yes TAKE 1 Univ ers (SINGULAIR) 9-19 TABLET BY ity of 10 mg 00:00: MOUTH AT [place] tablet 00 BEDTIME. Medical Branch [facility] Yes TAKE 1 Univ ers (SINGULAIR) 9-19 [...] 00 (two) Medical times Branch daily. busPIRone 0 Yes 10mg Take 1 Univer s (BUSPAR) [...] by ity of mg tablet 00:00: mouth (two) Medical times Branch daily. VITAMIN D2 [...] 00 WEEKLY. Medical Branch busPIRone 2015- Yes [id number] 10mg Take 10 mg Univers (BUSPAR) 10 4-11 by mouth 2 it y of mg tablet 21:12: (two) [place] 25 times Medical daily. Branch busPIRone 2015- Yes [id number] 10mg Take 10 mg Univers (BUSPAR) 10 4-11 by mouth 2 it y of mg tablet 21:12: (two) [place] 25 times Medical daily. Branch busPIRone 2015-0 Yes [id number] 10mg Take 10 mg Univers (BUSPAR) 10 4-11 by mouth 2 it y of mg tablet 21:12: (two) [place] 25 times Medical daily. Branch busPIRone 2016-0 Yes [id number] 10mg Take 10 mg Univers (BUSPAR) 10 4-11 by mouth 2 it y of mg tablet 21:12: (two) [place] 25 times Medical daily. Branch busPIRone 2016-0 Yes [id number] 10mg Take 10 mg Univers (BUSPAR) 10 4-11 by mouth 2 it y of mg tablet 21:12: (two) [place] 25 times Medical daily. Branch busPIRone 2015-0 Yes [id number] 10mg Take 10 mg Univers (BUSPAR) 10 4-11 by mouth 2 it y of mg tablet 21:12: (two) [place] 25 times Medical daily. Branch fluticasone Yes [id number] 1 U nivers -salmeterol 4-01 inhalation it y of (ADVAIR 00:00: BI D prn [place] DISKUS) 00 sob rinse Medical 250-50 mouth Branch mcg/dose after inhalation using disk fluticasone 2015- Yes [id number] 1 U nivers -salmeterol 4-01 inhalation it y of (ADVAIR 00:00: BI D prn [place] DISKUS) 00 sob rinse Medical 250-50 mouth Branch mcg/dose after inhalation using disk fluticasone 2015- Yes [id number] 1 U nivers -salmeterol 4-01 inhalation it y of (ADVAIR 00:00: BI D prn [place] DISKUS) 00 sob rinse Medical 250-50 mouth Branch mcg/dose after inhalation using disk fluticasone 2015- Yes [id number] 1 U nivers -salmeterol 4-01 inhalation it y of (ADVAIR 00:00: BI D prn [place] DISKUS) 00 sob rinse Medical 250-50 mouth Branch mcg/dose after inhalation using disk fluticasone 2015- Yes [id number] 1 U nivers -salmeterol 4-01 inhalation it y of (ADVAIR 00:00: BI D prn [place] DISKUS) 00 sob rinse Medical 250-50 mouth Branch mcg/dose after inhalation using disk fluticasone 2015- Yes [id number] 1 U nivers -salmeterol 4-01 inhalation it [...] directed, ity of DELICA) 33 00:00: daily. [facility] 00 DX:E11.9 Medic al Branch blood sugar 2016-0 Yes Use as Univ ers diagnostic 3-22 directed, ity of (ONETOUCH 00:00: daily. [place] VERIO) 00 DX:E11.9 Medical strip Branch lancets 2016-0 Yes Use as Univers (ONE TOUCH 3-22 directed, ity of DELICA) 33 00:00: daily. [facility] 00 DX:E11.9 Medic al Branch blood sugar 2016-0 Yes Use as Univ ers diagnostic 3-22 directed, ity of (ONETOUCH 00:00: daily. [place] VERIO) 00 DX:E11.9 Medical strip Branch lancets 2016-0 Yes Use as Univers (ONE TOUCH 3-22 directed, ity of DELICA) 33 00:00: daily. [facility] 00 DX:E11.9 Medic al Branch blood sugar 2016-0 Yes Use as Univ ers diagnostic 3-22 directed, ity of (ONETOUCH 00:00: daily. [place] VERIO) 00 DX:E11.9 Medical strip Branch lancets 2016-0 Yes Use as Univers (ONE TOUCH 3-22 directed, ity of DELICA) 33 00:00: daily. [facility] 00 DX:E11.9 Medic al Branch blood sugar 2016-0 Yes Use as Univ ers diagnostic 3-22 directed, ity of (ONETOUCH 00:00: daily. [place] VERIO) 00 DX:E11.9 Medical strip Branch lancets 2016-0 Yes Use as Univers (ONE TOUCH 3-22 directed, ity of DELICA) 33 00:00: daily. [place] gauge Mis 00 DX:E11.9 Medic al Branch blood sugar 2016-0 Yes Use as Univ ers diagnostic 3-22 directed, ity of (ONETOUCH 00:00: daily. [place] VERIO) 00 DX:E11.9 Medical strip Branch lancets 2016-0 Yes Use as Univers (ONE TOUCH 3-22 directed, ity of DELICA) 33 00:00: daily. [facility] 00 DX:E11.9 Medic al Branch loratadine Yes [id number] 10mg Take 1 Tab Univers (CLARITIN) 3-14 by mouth ity o f 10 mg 00:00: daily. [place] tablet 00 Medical Branch loratadine Yes [id number] 10mg Take 1 Tab Univers (CLARITIN) 3-14 by mouth ity o f 10 mg 00:00: daily. [place] tablet 00 Medical Branch loratadine Yes [id number] 10mg Take 1 Tab Univers (CLARITIN) 3-14 by mouth ity o f 10 mg 00:00: daily. [place] tablet 00 Medical Branch loratadine Yes [id number] 10mg Take 1 Tab Univers (CLARITIN) 3-14 by mouth ity o f 10 mg 00:00: daily. [place] tablet 00 Medical Branch loratadine Yes [id number] 10mg Take 1 Tab Univers (CLARITIN) 3-14 by mouth ity o f 10 mg 00:00: daily. [place] tablet 00 Medical Branch loratadine Yes [id number] 10mg Take 1 Tab Univers (CLARITIN) 3-14 by mouth ity o f 10 mg 00:00: daily. [place] tablet 00 Medical Branch fluticasone Yes [id number] 2{spray Use 2 Univers 50 2-23 } Sprays in ity of mcg/actuati 00:00: each [place] on nasal 00 nostril Medical spray daily. Branch albuterol Yes [id number] 2{puff} Inhale 2 Univers (PROAIR) 90 2-23 Puffs ity of mcg/actuati 00:00: every 6 [place] as on inhaler 00 (six) Medical hours as Branch needed for Wheezing or Shortness of Breath. fluticasone Yes [id number] 2{spray Use 2 Univers 50 2-23 } Sprays in ity of mcg/actuati 00:00: each [place] on nasal 00 nostril Medical spray daily. Branch albuterol Yes [id number] 2{puff} Inhale 2 Univers (PROAIR) 90 2-23 Puffs ity of mcg/actuati 00:00: every 6 [place] as on inhaler 00 (six) Medical hours as Branch needed for Wheezing or Shortness of Breath. fluticasone 2015- Yes [id number] 2{spray Use 2 Univers 50 2-23 } Sprays in ity of mcg/actuati 00:00: each [place] on nasal 00 nostril Medical spray daily. Branch albuterol Yes [id number] 2{puff} Inhale 2 Univers (PROAIR) 90 2-23 Puffs ity of mcg/actuati 00:00: every 6 [place] as on inhaler 00 (six) Medical hours as Branch needed for Wheezing or Shortness of Breath. fluticasone Yes [id number] 2{spray Use 2 Univers 50 2-23 } Sprays in ity of mcg/actuati 00:00: each [place] on nasal 00 nostril Medical spray daily. Branch albuterol Yes [id number] 2{puff} Inhale 2 Univers (PROAIR) 90 2-23 Puffs ity of mcg/actuati 00:00: every 6 [place] as on inhaler 00 (six) Medical hours as Branch needed for Wheezing or Shortness of Breath. fluticasone 2015- Yes [id number] 2{spray Use 2 Univers 50 2-23 } Sprays in ity of mcg/actuati 00:00: each [place] on nasal 00 nostril Medical spray daily. Branch albuterol Yes [id number] 2{puff} Inhale 2 Univers (PROAIR) 90 2-23 Puffs ity of mcg/actuati 00:00: every 6 [place] as on inhaler 00 (six) Medical hours as Branch needed for Wheezing or Shortness of Breath. fluticasone Yes [id number] 2{spray Use 2 Univers 50 2-23 } Sprays in ity of mcg/actuati 00:00: each [place] on nasal 00 nostril Medical spray daily. Branch albuterol Yes [id number] 2{puff} Inhale 2 Univers (PROAIR) 90 2-23 Puffs ity of mcg/actuati 00:00: every 6 [place] as on inhaler 00 (six) Medical hours as Branch needed for Wheezing or Shortness of Breath. traMADOL 2016-0 Yes 50mg Take 1 Tab [...] Commo n HCl HCl Joy defined [facility] Methocarbam Methocarbam Yes Omega not Common ol ol Joy defined [facility] ProAir HFA ProAir HFA Yes Omega 2 puffs as Common Joy needed [facility] Robaxin Robaxin Yes Omega 1.5 Common Joy tablets [facility] Dulera Dulera Yes Omega 2 puffs Common Joy [facility] Motrin IB Motrin IB Yes Omega not Com mon Joy defined [facility] Hydrochloro Hydrochloro No 1{table QD Hydrochlor thiazide [...] Immunizations Ordered Filled Immunization Date Status Comments Sourc e Immunization Name Name Bupivicaine [place] Bupivicaine [place] 2019-09-29 Completed [facility] - 09:18:00 [facility] Bupivicaine [place] Bupivicaine [place] 2019-09-29 Completed [facility] - 09:18:00 [facility] MDJunctionalog Kenalog 2019-09-29 Completed [facility] - (Triamcinolone) (Triamcinolone) 09:17:00 [facility] Kenalog Kenalog 2019-09-29 Completed [facility] - (Triamcinolone) (Triamcinolone) 09:17:00 [facility] Tdap 2012-08-12 Completed University of 00:00:00 [facility] TDAP 2012-08-12 Completed University of 00:00:00 [facility] TDAP 2012-08-12 Completed University of 00:00:00 [facility] TDAP 2012-08-12 Completed University of 00:00:00 [facility] Branch Tdap 2012-08-12 Completed University of 00:00:00 [facility] Tdap 2012-08-12 Completed University of 00:00:00 [facility] Td 2002-03-15 Completed University of 00:00:00 [facility] Td 2002-03-15 Completed University of 00:00:00 [facility] Td 2002-03-15 Completed University of 00:00:00 [facility] Td 2002-03-15 Completed University of 00:00:00 [facility] Td 2002-03-15 Completed University of 00:00:00 [facility] Td 2002-03-15 Completed University of 00:00:00 [facility] Vital Signs Vital Name Observation Time Observation Value Comments Source height 2020-04-09 08:30:00 64 [in_i] [facility] weight 2020-04-09 08:30:00 320 [lb_av] [facility] temperature 2020-04-09 08:30:00 97.1 [degF] [facility] bmi 2020-04-09 08:30:00 54.92 kg/m2 [facility] blood pressure 2020-04-09 08:30:00 142 mm[Hg] [facility] - systolic [facility] blood pressure 2020-04-09 08:30:00 92 mm[Hg] [facility] - diastolic [facility] Systolic blood 2018-11-01 04:00:00 171 mm[Hg] Univer sity of pressure [facility] Diastolic blood 2018-11-01 04:00:00 74 mm[Hg] Unive rsity of pressure [facility] Heart rate 2018-11-01 04:00:00 76 /min Universi ty of [facility] Respiratory rate 2018-11-01 04:00:00 25 /min [facility] ersity of [place] Medical [place] Oxygen saturation in 2018-11-01 04:00:00 93 /min University of Arterial blood by [facility] Pulse oximetry Branch Body temperature 2018-11-01 02:09:00 37.11 [facility] ersity of [place] [facility] [place] Body height 2018-11-01 02:09:00 162.6 cm Universi ty of [place] [facility] [place] Body weight 2018-11-01 02:09:00 138.347 kg Universi ty of [place] [facility] Branch BMI 2018-11-01 02:09:00 52.35 kg/m2 Universi ty of [facility] Branch Systolic blood 2018-11-01 04:00:00 171 mm[Hg] Univer sity of pressure [place] [facility] [place] Diastolic blood 2018-11-01 04:00:00 74 mm[Hg] Unive rsity of pressure [facility] Heart rate 2018-11-01 04:00:00 76 /min Universi ty of [facility] Respiratory rate 2018-11-01 04:00:00 25 /min [facility] saturation in 2018-11-01 04:00:00 93 /min University of Arterial blood by [facility] Pulse oximetry Branch Body temperature 2018-11-01 02:09:00 37.11 [facility] Body height 2018-11-01 02:09:00 162.6 cm Universi ty of [place] [facility] [place] Body weight 2018-11-01 02:09:00 138.347 kg Universi ty [facility] Medical [place] BMI 2018-11-01 02:09:00 52.35 kg/m2 Universi [facility] Procedures Procedure Date / Time Performing Clinician Source Performed AUTHORIZATION FOR 2019-10-06 05:01:00 Doctor Unassigned, No Univ ersity [facility] RELEASE OF [facility] Name Medical Branch AUTHORIZATION FOR 2019-09-27 05:01:00 Doctor Unassigned, No Univ ersity [facility] RELEASE OF PHI Name Medical Branch XR TOES 2 VW LEFT 2018-11-01 04:16:58 Paul Perea [facility] XR CHEST 1 VW 2018-11-01 03:14:21 Paul Perea o f [facility] XR FOOT 3+ VW LEFT 2018-11-01 03:14:21 Paul Perea [facility] TROPONIN I 2018-11-01 02:57:00 Paul Perea [place] [facility] HEPATIC FUNCTION PANEL 2018-11-01 02:57:00 Paul Perea [facility] ([id number]) (ALB,T.PRO,BILI Medical Branch T,BU/BC,ALT,AST,ALK PHOS) BASIC METABOLIC PANEL 2018-11-01 02:57:00 Paul Perea [facility] (NA, K, CL, CO2, Medical Branch GLUCOSE, BUN, CREATININE, CA) CBC WITH DIFFERENTIAL 2018-11-01 02:57:00 Paul Perea [facility] GLYCOSYLATED HEMOGLOBIN 2018-11-01 02:57:00 [facility] PROTHROMBIN TIME / INR 2018-11-01 02:57:[address] [facility] ACTIVATED PARTIAL 2018-11-01 02:57:00 Paul Perea [facility] THRMPLAS JANEEN [facility] RAPID STREP SCREEN FOR 2018-11-01 02:57:00 Paul Perea [facility] GROUP A [facility] N-TERMINAL PRO-BNP 2018-11-01 02:57:00 Paul Perea [facility] EKG-12 LEAD 2018-11-01 02:42:19 Paul Perea [facility] NOTICE OF PRIVACY 2018-11-01 01:54:18 Doctor Unassigned, No [facility] PRACTICES Name [facility] Branch CONSENT/REFUSAL FOR 2018-11-01 01:53:56 [facility] Name Medical [place] Encounters Start End Encounter Admission Attending Care Care Encounter Source Date/Time Date/Time Type Type Clinicians Facility Department ID 2021-04-09 Outpatient JoyBEVERLY chun [facility] [id number] Common 12:26:15 Omega [id number] [facility] 2021-04-09 Outpatient JoyBEVERLY chun [facility] [id number] Common 11:34:37 Omega [id number] [facility] 2021-04-09 Outpatient JoyBEVERLY chun [facility] [id number] Common 11:31:51 Omega [id number] [facility] 2021-09-04 2021-09-04 Outpatient Jocelynn FREDERICK [facility] [id number] Univers 11:00:00 11:00:00 KYLE spencer [facility] 2021-05-21 2021-05-21 Outpatient Jocelynn MACK, [facility] [id number] Univers 08:00:00 08:00:00 KYLE spencer [facility] 2020-04-09 2020-04-09 OFFICE [facility] [id number] Co mmon 00:00:00 00:00:00 VISIT EST Spir it PT LEVEL 3 - [facility] 2020-04-03 2020-04-03 (TEL) [facility] [facility] [id number] Co mmon 00:00:00 00:00:[address] [facility] 2019-10-17 2019-10-17 Outpatient Stephen Pendleton [id number] Common 10:00:00 10:00:[address] [facility] 2019-10-06 2019-10-06 Outpatient Stephen Pendleton 31 [id number] Common 13:31:00 13:31:[address] [facility] 2019-10-06 2019-10-06 Orders Doctor JACINDA [id number] Univers 00:00:00 00:00:00 Only Unassigned, RUPINDER 350.1.13.10 ity of [place] [facility] 4.2.7.2.686 Hector as [phone] [address] 2019-10-06 2019-10-06 Orders Doctor JACINDA Iglesias2.840.114 [id number] 00:00:00 00:00:00 Only Unassigned, RUPINDER 350.1.13.10 [place] [facility] 4.2.7.2.686 [id number] [facility] 2019-10-02 2019-10-02 Outpatient Stephen Pendleton 31 [id number] Common 10:15:00 10:15:00 t [facility] Bone [facility] Sp[facility] t [facility] 2019-09-29 2019-09-29 Outpatient Stephen Mitchellt 31 [id number] Common 08:30:00 08:30:00 t Bone Bone and Spiri t and Joint [facility] - [facility] 2019-09-28 2019-09-28 Outpatient Stephen Pendleton 31 [id number] Common 16:11:00 16:11:00 t Bone Bone and Spiri t and Joint Joint - [facility] 2019-09-28 2019-09-28 Outpatient Stephen Pendleton [id number] Common 16:09:00 16:09:00 t Bone Bone and Spiri t and Joint [facility] - [facility] 2019-09-28 2019-09-28 Outpatient Stephen Pendleton [id number] Common 11:16:00 11:16:00 t [employer] [address] Spir it [address] Family [facility] Family Medicine [facility] 2019-09-28 2019-09-28 Telephone [facility] [id number] Univers 00:00:00 00:00:00 [facility] [employer] [id number] it y of Surgical 4.2.7.2.686 [place] as Specialti [phone] Il dical es 198 [facility] 2019-09-28 2019-09-28 Telephone [facility] 1.2.840.114 [id number] 00:00:00 00:00:00 [facility] [employer] [id number] Surgical 4.2.7.2.686 Specialti [id number] es 198 [facility] 2019-09-27 2019-09-27 Orders Doctor JACINDA 1.2.840.114 [id number] Univers 00:00:00 00:00:00 Only Unassigned, RUPINDER 350.1.13.10 ity of [place] [facility] 4.2.7.2.686 [place] as [id number] [address] 2019-09-27 2019-09-27 Orders Doctor JACINDA 1.2.840.114 [id number] 00:00:00 00:00:00 Only Unassigned, RUPINDER 350.1.13.10 [facility] 4.2.7.2.686 [id number] [facility] 2019-09-18 2019-09-18 [facility] [id number] Common 15:15:00 15:15:00 [place] [facility] it [facility] 2019-06-23 2019-06-23 Chiqui [facility] [id number] [facility] 00:00:00 00:00:00 [facility] 350.1.13.10 it y of Surgical 4.2.7.2.686 [place] as Specialti [phone] Il dical es 198 [facility] 2019-06-23 2019-06-23 [facility]iqui [facility] [id number] 00:00:00 00:00:00 [facility] 350.1.13.10 Surgical 4.2.7.2.686 Specialti [phone] es [address] [place] [address] 2019-04-17 2019-04-17 [facility] [id number] 1278 [facility] 00:00:00 00:00:00 [facility] 350.1.13.10 it y of Surgical 4.2.7.2.686 [place] as Specialti [phone] Il dical es 198 [facility] 2019-04-17 2019-04-17 [facility] [id number] 00:00:00 00:00:00 [facility] [id number] Surgical 4.2.7.2.686 Specialti [phone] es [address] [place] [address] 2018-10-31 2018-10-31 Emergency [facility] [id number] [facility] 21:12:42 23:51:00 Paul Knapp 350.1.13.10 i [place].2.[place] [phone] [address] 2018-10-31 2018-10-31 Emergency [facility] [id number] 21:12:42 23:51:00 Paul Knapp 350.1.13.10 [place] 4.2.7.2.686 [place] [id number] [facility] 2018-09-26 2018-09-26 Out[facility] [id number] Common 14:49:00 14:49:[address] [facility] 2018-07-19 2018-07-19 [facility] [id number] Common 14:26:00 14:26:[address] [place] [facility] 2018-07-18 2018-07-18 Out[facility] [id number] Common 13:44:00 13:44:00 t Bone Bone and Spiri t and Joint [facility] 2018-07-18 2018-07-18 Out[facility] [id number] Common 08:30:00 08:30:00 t Bone Bone and Spiri t and Joint [facility] - [facility] 2018-07-04 2018-07-04 [facility] [id number] Common 09:54:00 09:54:[address] [facility] 2018-06-27 2018-06-27 Out[facility] [id number] Common 10:28:00 10:28:[address] [facility] 2018-06-27 2018-06-27 Out[facility] [id number] Common 10:15:00 10:15:[address] [facility] 2018-06-16 2018-06-16 [facility] [id number] Common 15:35:00 15:35:[address] [facility] 2018-05-24 2018-05-24 [facility] [id number] Common 12:25:00 12:25:[address] [facility] Results Test Description Test Time Test [...] . CHARITY (test code = CHARITY) The RUST patient population mean normal value for aPTT is 30 seconds. Lab Interpretation (test Normal code = 41149-5) [facility] / [id number] 04:27:00 Test Item Value Reference Range Interpretation Comments PROTIME PATIENT (test See_Comment [Auto mated message] code = 5964-2) The system [employer] generated this result transmitted ref erence range: 12.0 - 1 4.7 Seconds. The re ference range was not u sed to interpret this result as normal/abnor mal. INR (test code = 6301-6) Nor mal INR <1.1; Warfarin Therap eutic range 2.0 to 3. 0 or 2.5 to 3.5, dep ending upon the indica tions. Lab Interpretation (test Normal code = 31665-7) [facility] 1 [id number] 04:12:59 Right upper lobe consolidation, concerning for [...] enlarged. No acute bony abnormalities are noted. [facility], Radiant Results Inft User - 10/31/2018 11:15 PM CDT* * * * * * * * ORIGINAL REPORT * * * * * * * *EXAM: XR CHEST 1 VWHISTORY: dyspnea COMPARISON: Chest radiograph 06/23/2015FINDINGS:A consolidation is identified along the inferior right upperlobe, abuttingthe minor fissure. Mild pulmonary vascular congestion is present. Nopleural effusion or pneumothorax is identified.The heart is mildly enlarged. No acute bony abnormalities are noted.IMPRESSIONRight upper lobe consolidation, concerning for pneumonia.Pulmonary vascular congestion.Hillary Christian MD., have reviewed this study and agree with the abovereport.[facility]leGLYCOSYLATED HEMOGLOBIN (A1C) 2018-11-01 03:54:00 Test Item Value [...] Indicated Lab Interpretation Abnormal (test code = 84502-0) [facility]leTroponin [id number] 03:29:00 Test Item Value Reference Range Interpretation Comments TROPONIN I (test <0.012 See_Comment [Automated code = 6248675267) message] The system which generated this result [...] ? Lab Interpretation Normal (test code = 61146-8) [facility] GROUP [id number] 03:27:00 Test Item Value Reference Range Interpretation Comments Streptococcus pyogenes (group A) Negative Negative antigen (test code = 16448-1) Lab Interpretation (test code = Normal 79133-7) [facility]le[facility]-TERMINAL [id number] 03:26:00 Test Item Value Reference Range Interpretation Comments NT-proBNP (test code 144 pg/mL See_Comment H [Autom ated = 4861732067) message] The system which generated this result transmitted reference range : <=125. The reference range was not used to interpret this result as normal/abnormal . CHARITY (test code = CHARITY) Biotin has been reported to cause a negative bias, interpret results relative to patient's use of biotin. Lab Interpretation Abnormal (test code = 90409-0) [facility]le[facility] Function Panel (ALB, T.PRO, BILI T, BU/BC, ALT, AST, ALK PHOS)2018-11-01 03:19:00 Test Item Value Reference Range Interpretation Comments TOTAL BILI (test code = 9251349508) 0.5 mg/dL 0.1-1.1 BILI UNCON (test code = 7945716275) 0.4 mg/dL 0.1-1.1 BILI CONJ (test code = 8772706401) 0.0 mg/dL 0-0.3 T PROTEIN (test code = 2605859226) 7.7 g/dL 6.3-8.2 ALBUMIN (test code = 0351058569) 4.2 g/dL 3.5-5 ALK PHOS (test code = 3111767246) 84 U/L 34-122 ALT(SGPT) (test code = 2975125901) 13 U/L 9-51 AST(SGOT) (test code = 4781419712) 17 U/L 13-40 Lab Interpretation (test code = Normal 32960-7) [facility] Metabolic Panel (NA, K, CL, CO2, GLUCOSE, BUN, CREATININE, CA)2018-11-01 03:18:00 Test Item Value Reference Range Interpretation Comments NA (test code = 137 mmol/L 135-145 2906527438) K (test code = 4.2 mmol/L 3.5-5 7446654200) CL (test code = 99 mmol/L 98-108 2933600443) CO2 TOTAL (test code = 28 mmol/L 23-31 6511128721) AGAP (test code = 2-16 6835826517) BUN (test code = 11 mg/dL 7-23 9736342544) GLUCOSE (test code = 192 mg/dL 70-110 H 1545067474) CREATININE (test code = 0.54 mg/dL 0.5-1.04 8307088142) CALCIUM (test code = 9.0 mg/dL 8.6-10.6 2373437760) eGFR Calculation mL/min/1.73m2 (Non-) (test code = 6419599358) eGFR Calculation mL/min/1.73m2 () (test code = 1595884762) CHARITY (test code = CHARITY) Association of [...] tests). Lab Interpretation Abnormal (test code = 03123-7) [facility] WITH [id number] 03:07:00 Test Item Value Reference Range Interpretation Comments WBC (test code = See_Comment [Automated message] 6690-2) The system [employer] generated this result transmitted ref erence range: 4.30 - 1 1.10 10*3/?L. The re ference range was not u sed to interpret this result as normal/abnor mal. RBC (test code = See_Comment [Automated message] 789-8) The system whic h generated this result transmitted ref erence [...] RDW-SD (test code 45.5 fL 39-49.9 = 88751-7) RDW-CV (test code 15.0 % 12-15.5 = 788-0) PLT (test code = See_Comment [Automated message] 777-3) The system Joinity h generated this result transmitted ref erence range: 166 - 35 8 10*3/?L. The re ference range was not u sed to interpret this result as normal/abnor mal. MPV (test code = 10.5 fL 9.5-12.9 42666-4) NRBC/100 WBC (test See_Comment [Automat ed message] code = 0020855786) The syste m which generated this result transmitted ref erence range: 0.0 - 10 .0 /100 WBCs. The refer ence range was not u sed to interpret this result as normal/abnor mal. NRBC x10^3 (test <0.01 See_Comment [Automated message] code = 6640385109) The syste m which generated this result transmitted ref erence range: 10*3/?L. The reference range was not used to interpr et this result as normal/abnormal . GRAN MAT (NEUT) % 69.5 % (test code = 770-8) IMM GRAN % (test 0.30 % code = 0629149052) LYMPH % (test code 19.8 % = 736-9) MONO % (test code 9.3 % = 5905-5) EOS % (test code = 1.0 % 713-8) BASO % (test code 0.1 % = 706-2) GRAN MAT 4.87 10*3/uL 1.88-7.09 x10^3(ANC) (test code = 1758989267) IMM GRAN x10^3 <0.03 0-0.06 (test code = 9298054379) LYMPH x10^3 (test 1.39 10*3/uL 1.32-3.29 code = 731-0) MONO x10^3 (test 0.65 10*3/uL 0.33-0.92 code = 742-7) EOS x10^3 (test 0.07 10*3/uL 0.03-0.39 code = 711-2) BASO x10^3 (test <0.03 0.01-0.07 code = 704-7) [facility]"
[2022-08-20] MEDS ORDERED: ONDANSETRON 4 MG/2 ML VIAL ONE (01:37)
[2022-08-20] MEDS ORDERED: METOCLOPRAMIDE 10 MG/2mL INJ ONE (01:37)
[2022-08-20] MEDS ORDERED: KETOROLAC 30 MG/ML INJ ONE (01:37)
[2022-08-20] MEDS ORDERED: DIPHENOX/ATROP SULF 1 TAB PO ONE (01:37)
[2022-08-20] MEDS ORDERED: NA CHLORIDE 0.9% 1,000 ML ONE (01:38)
[2022-08-20] MEDS ORDERED: DICYCLOMINE HCL 10 MG CAP ONE (01:38)
[2022-08-20] MEDS ORDERED: FAMOTIDINE 20 MG/2 ML VIAL IV ONE (01:38)
[2022-08-20 02:15] LABS: Renal Epithelial <5 /HPF (None Seen); Specific Gravity 1.019 (1.005-1.030); Urine Bacteria <20 /HPF (<20); Urine Bilirubin NEGATIVE (Negative); Urine Blood Negative (Negative); Urine Clarity Extremely Turbid (Clear); Urine Color Light-Yellow (Yellow); Urine Glucose NEGATIVE (Negative); Urine Mucus Slight /HPF (None Seen); Urine Protein TRACE (Negative); Urine RBC None Seen /HPF (None Seen); Urine Urobilinogen Normal (Normal); Urine pH 5.5 (5.0-7.0)
[2022-08-20 02:18] LABS: Absolute Lymphocytes (CBC) 2.1 K/uL (0.7-4.9); Hematocrit 42.8 % (36.0-45.0); Lymphocytes % 30.7 % (15.3-44.8); MCV 85.3 fL (80-100); MPV 8.9 fL (7.6-11.3); RBC Red Blood Cell Count 5.01 M/uL (3.86-4.86)
[2022-08-20 02:29] LABS: Albumin 3.3 g/dL (3.4-5.0); Bilirubin Total 0.4 mg/dL (0.2-1.0); Potassium 3.6 mEq/L (3.5-5.1); Protein, Total 7.4 g/dL (6.4-8.2)
--- NOTE | 2022-08-20 03:55 | EDPHYS ---
Physician Documentation [facility] Name: Nicole Martínez Age: 67 yrs Sex: Female : 1955 Arrival Date: 08/20/2022 Time: 01:03 Bed 6 Private MD: ED Physician Carlos Enrique Carnes HPI: 08/20 01:11 This 67 yrs old Female presents to ER via Unassigned with complaints of sp4 Diarrhea, Nausea, Abdominal Pain. 03:50 Very pleasant 67-year-old female with history of COPD, diabetes, presents with 5 days sp4 of nausea vomiting and watery diarrhea that is nonbloody. Also abdominal cramps. Patient states she has sick contact in the family her son has had similar symptoms. . Historical: - Allergies: 01:19 EGG/POULTRY; kd3 01:19 hydrochlorothiazide; kd3 01:19 Lovastatin; kd3 01:19 Percodan; kd3 01:19 Giddings; kd3 01:19 rybellus; kd3 - PMHx: 01:19 Hernández Cyst; Chronic obstructive lung disease; Diabetes - NIDDM; Hypertension; kd3 - Immunization history:: Adult Immunizations up to date. - Social history:: Smoking status: unknown. - Family history:: not pertinent. ROS: 03:50 Constitutional: Negative for fever, chills, and weight loss, positive for feeling sp4 unwell and fatigued Eyes: Negative for injury, pain, redness, and discharge, ENT: Negative for injury, pain, and discharge, Neck: Negative for injury, pain, and swelling, Cardiovascular: Negative for chest pain, palpitations, and edema, Respiratory: Negative for shortness of breath, cough, wheezing, and pleuritic chest pain, Abdomen/GI: Positive for nausea, vomiting, diarrhea, watery diarrhea. Negative constipation Back: Negative for injury and pain, : Negative for injury, bleeding, discharge, and swelling, MS/Extremity: Negative for injury and deformity, Skin: Negative for injury, rash, and discoloration, Neuro: Negative for headache, weakness, numbness, tingling, and seizure, Psych: Negative for depression, anxiety, Allergy/Immunology: Negative for hives, rash, and allergies Endocrine: Negative for neck swelling, polydipsia, polyuria, polyphagia, and weight changes Hematologic/Lymphatic: Negative for swollen nodes, abnormal bleeding, and unusual bruising Exam: 03:50 Constitutional: This is a well developed, well nourished patient who is awake, alert, sp4 and in no acute distress. Overweight female Head/Face: Normocephalic, atraumatic. Eyes: Pupils equal round and reactive to light, extra-ocular motions intact. Lids and lashes normal. Conjunctiva and sclera are not injected. Cornea within normal limits. Periorbital areas with no swelling, redness, or edema. ENT: Nares patent. No nasal discharge, no septal abnormalities noted. Tympanic membranes are normal and external auditory canals are clear. Oropharynx with no redness, swelling, or masses, exudates, or evidence of obstruction, uvula midline. Mucous membranes moist. Neck: Trachea midline, no thyromegaly or masses palpated, and no cervical lymphadenopathy. Supple, full range of motion without nuchal rigidity, or vertebral point tenderness. Chest/axilla: Normal chest wall appearance and motion. Nontender with no deformity. No lesions are appreciated. Cardiovascular: Regular rate and rhythm with a normal S1 and S2. No gallops, murmurs, or rubs. Normal PMI, no JVD. No pulse deficits. Respiratory: Lungs have equal breath sounds bilaterally, clear to auscultation and percussion. No rales, rhonchi or wheezes noted. No increased work of breathing, no retractions or nasal flaring. Abdomen/GI: Soft, with normal bowel sounds. No distension or tympany. No guarding or rebound. Upper abdominal tenderness without rebound without signs of peritonitis, obese abdomen Back: No spinal tenderness. No costovertebral tenderness. Skin: Warm, dry with normal turgor. Normal color with no rashes, no lesions, and no evidence of cellulitis. MS/ Extremity: Pulses equal, no cyanosis. Neurovascular intact. Full, normal range of motion. Neuro: Awake and alert, GCS 15, oriented to person, place, time, and situation. Cranial nerves II-XII grossly intact. Motor strength 5/5 in all extremities. Sensory grossly intact. Psych: Awake, alert, with orientation to person, place and time. Behavior, mood, and affect are within normal limits Vital Signs: 01:16 BP 154 / 47; Pulse 75; Resp 20; Temp 97.9(O); Pulse Ox 97% on R/A; kd3 01:21 Weight 144.24 kg; Height 5 ft. 3 in. ; kd3 02:03 BP 155 / 86; Pulse 68; Resp 20 S; Pulse Ox 97% on R/A; lg3 03:00 BP 149 / 79; Pulse 63; Resp 18; Pulse Ox 98% ; jj7 04:00 BP 147 / 81; Pulse 69; Resp 19; Pulse Ox 97% ; Pain 0/10; jj7 01:21 Body Mass Index 56.33 (144.24 kg, 160.02 cm) kd3 04:00 Pain Scale: Adult jj7 MDM: 01:20 Patient medically screened. sp4 03:50 Differential diagnosis: Nonspecific abd pain, gastritis, appendicitis, diverticulitis, sp4 viral gastroenteritis, gastroenteritis. Data reviewed: vital signs, nurses notes, old medical records, lab test result(s), CBC, electrolytes, hepatic panel, urinalysis. Consideration of Admission/Observation Escalation of care including admission/observation considered. ED course: Mild elevation of blood sugar 150 , otherwise blood labs , positive leukocyte esterase on urinalysis. 08/20 01:20 Order name: CBC with Diff; Complete Time: 03:46 sp4 08/20 01:20 Order name: CMP; Complete Time: 03:46 sp4 08/20 01:20 Order name: Lipase; Complete Time: 03:46 sp4 08/20 01:20 Order name: Urinalysis w/ reflexes; Complete Time: 03:46 sp4 08/20 02:20 Order name: Urine Culture EDCO 08 01:20 Order name: IV Saline Lock; Complete Time: 01:57 sp4 08/20 01:20 Order name: Labs collected and sent; Complete Time: 01:57 sp4 Administered Medications: 01:57 Drug: NS 0.9% IV 1000 ml Route: IV; Rate: 1 bolus; Site: right forearm; lg3 03:00 Follow up: IV Status: Completed infusion jj7 01:57 Drug: Famotidine IVP 20 mg Route: IVP; Site: right forearm; lg3 04:10 Follow up: Response: Marked relief of symptoms jj7 01:57 Drug: Diphenoxylate-Atropine PO 2 tabs Route: PO; lg3 04:10 Follow up: Response: Marked relief of symptoms jj7 :57 Drug: Dicyclomine PO 20 mg Route: PO; lg3 04:10 Follow up: Response: Marked relief of symptoms jj7 :57 Drug: metoCLOPramide IVP 10 mg Route: IVP; Site: right forearm; lg3 04:10 Follow up: Response: Marked relief of symptoms jj7 :58 Drug: TORadol - Ketorolac IVP 15 mg Route: IVP; Site: right forearm; lg3 04:10 Follow up: Response: Marked relief of symptoms jj7 :58 Drug: Ondansetron IVP 4 mg Route: IVP; Site: right forearm; lg3 04:10 Follow up: Response: Marked relief of symptoms jj7 Disposition Summary: 08/20/22 03:54 Discharge Ordered Location: Home sp4 Problem: new sp4 Symptoms: have improved sp4 Condition: Stable sp4 Diagnosis - Acute UTI, nausea vomiting diarrhea, acute viral gastroenteritis sp4 Followup: sp4 - With: Private Physician - When: 5 - 6 days - Reason: Recheck today's complaints Discharge Instructions: - Discharge Summary Sheet sp4 - Viral Gastroenteritis, Adult, Kcpr-xz-Zufp sp4 - Urinary Tract Infection, Adult, Gojb-cy-Cpfd sp4 Prescriptions: - Macrobid 100 mg Oral Capsule - take 1 capsule by ORAL route every 12 hours for 10 days; 20 capsule; Refills: sp4 0, Product Selection Permitted - Levsin 0.125 mg Oral Tablet - take 1 tablet by ORAL route every 6 hours PRN crampy pain; 30 tablet; Refills: sp4 0, Product Selection Permitted - Lomotil 2.5-0.025 mg Oral Tablet - take 1 tablet by ORAL route every 6 hours As needed PRN diarrhea; 30 tablet; sp4 Refills: 0, Product Selection Permitted - ondansetron 8 mg Oral tablet,disintegrating - take 1 tablet by ORAL route every 8 hours PRN nausea; 30 tablet; Refills: 0, sp4 Product Selection Permitted Signatures: Dispatcher [employer] Sita Drake, RN RN lg3 Esther Casper RN RN kd3 Carlos Enrique Carnes MD MD sp4 Lexi Jones RN jj7
--- NOTE | 2022-08-20 03:55 | ER ---
Nurse's Notes [facility] Name: Nicole Martínez Age: 67 yrs Sex: Female : 1955 Arrival Date: 08/20/2022 Time: 01:03 Bed 6 Private MD: Diagnosis: Acute UTI, nausea vomiting diarrhea, acute viral gastroenteritis Presentation: 08/20 01:16 Chief complaint: Patient states: I have had diarrhea on and off for the past 5 days. I kd3 have not had a fever and I have not vomited but I feel nauseous. There is one other person in my home who is sick with the same symptoms. Today I felt really dizzy and i am not urinating as much as i usually do. Coronavirus screen: Vaccine status:. Ebola Screen: No symptoms or risks identified at this time. Initial Sepsis Screen: Does the patient meet any 2 criteria? No. Patient's initial sepsis screen is negative. Does the patient have a suspected source of infection? No. Patient's initial sepsis screen is negative. Risk Assessment: Do you want to hurt yourself or someone else? Patient reports no desire to harm self or others. Onset of symptoms was August 20, 2022. 01:16 Method Of Arrival: Wheelchair kd3 01:16 Acuity: KAELYN 3 kd3 01:21 Coronavirus screen: Vaccine status: Patient reports receiving the 2nd dose of the covid kd3 vaccine. Triage Assessment: 01:19 General: Appears uncomfortable, Behavior is calm, cooperative. Pain: Complains of pain kd3 in abdomen. GI: Reports diarrhea, nausea. Historical: - Allergies: 01:19 EGG/POULTRY; kd3 01:19 hydrochlorothiazide; kd3 01:19 Lovastatin; kd3 01:19 Percodan; kd3 01:19 [place]; kd3 01:19 rybellus; kd3 - PMHx: 01:19 Hernández Cyst; Chronic obstructive lung disease; Diabetes - NIDDM; Hypertension; kd3 - Immunization history:: Adult Immunizations up to date. - Social history:: Smoking status: unknown. - Family history:: not pertinent. Screenin:03 [facility] ED Fall Risk Assessment (Adult) History of falling in the last 3 months, lg3 including since admission No falls in past 3 months (0 pts). Abuse screen: Denies threats or abuse. Denies injuries from another. Nutritional screening: No deficits noted. Tuberculosis screening: No symptoms or risk factors identified. Assessment: 02:03 General: Appears in no apparent distress. comfortable, Behavior is calm, cooperative. lg3 Pain: Complains of pain in abdomen. Neuro: No deficits noted. Herrera Agitation-Sedation Scale (RASS): 0 - Alert and Calm Level of Consciousness is awake, alert, obeys commands, Oriented to person, place, time, situation. Cardiovascular: No deficits noted. Denies chest pain, shortness of breath, Capillary refill < 3 seconds Clubbing of nail beds is absent JVD is absent Patient's skin is warm and dry. Respiratory: No deficits noted. Airway is patent Respiratory effort is even, unlabored, Respiratory pattern is regular, symmetrical. GI: Abdomen is round non-distended, obese, Reports lower abdominal pain, upper abdominal pain, diarrhea, nausea. : No deficits noted. No signs and/or symptoms were reported regarding the genitourinary system. EENT: No deficits noted. No signs and/or symptoms were reported regarding the EENT system. Derm: No deficits noted. No signs and/or symptoms reported regarding the dermatologic system. Skin is intact, is healthy with good turgor, Skin is dry, Skin is normal, Skin temperature is warm. Musculoskeletal: No deficits noted. No signs and/or symptoms reported regarding the musculoskeletal system. Circulation, motion, and sensation intact. Range of motion: intact in all extremities. Vital Signs: 01:16 BP 154 / 47; Pulse 75; Resp 20; Temp 97.9(O); Pulse Ox 97% on R/A; kd3 01:21 Weight 144.24 kg; Height 5 ft. 3 in. ; kd3 02:03 BP 155 / 86; Pulse 68; Resp 20 S; Pulse Ox 97% on R/A; lg3 03:00 BP 149 / 79; Pulse 63; Resp 18; Pulse Ox 98% ; jj7 04:00 BP 147 / 81; Pulse 69; Resp 19; Pulse Ox 97% ; Pain 0/10; jj7 01:21 Body Mass Index 56.33 (144.24 kg, 160.02 cm) kd3 04:00 Pain Scale: Adult j7 ED Course: 01:08 Patient arrived in ED. ja2 01:11 Carlos Enrique Carnes MD is Attending Physician. sp4 01:16 Esther Casper, JENNI is Primary Nurse. kd3 01:19 Triage completed. kd3 01:19 Arm band placed on right wrist. kd3 01:57 Inserted saline lock: 22 gauge in right forearm, using aseptic technique. Blood lg3 collected. 01:57 CBC with Diff Sent. lg3 01:57 CMP Sent. lg3 01:57 Lipase Sent. lg3 01:57 Urinalysis w/ reflexes Sent. lg3 02:03 Patient has correct armband on for positive identification. Placed in gown. Bed in low lg3 position. Call light in reach. Side rails up X 1. Client placed on continuous cardiac and pulse oximetry monitoring. NIBP monitoring applied. Door closed. Noise minimized. Warm blanket given. Family accompanied patient. 04:10 No provider procedures requiring assistance completed. IV discontinued, intact, jj7 bleeding controlled, No redness/swelling at site. Pressure dressing applied. Administered Medications: 01:57 Drug: NS 0.9% IV 1000 ml Route: IV; Rate: 1 bolus; Site: right forearm; lg3 03:00 Follow up: IV Status: Completed infusion jj7 01:57 Drug: Famotidine IVP 20 mg Route: IVP; Site: right forearm; lg3 04:10 Follow up: Response: Marked relief of symptoms jj7 01:57 Drug: Diphenoxylate-Atropine PO 2 tabs Route: PO; lg3 04:10 Follow up: Response: Marked relief of symptoms jj7 01:57 Drug: Dicyclomine PO 20 mg Route: PO; lg3 04:10 Follow up: Response: Marked relief of symptoms jj7 01:57 Drug: metoCLOPramide IVP 10 mg Route: IVP; Site: right forearm; lg3 04:10 Follow up: Response: Marked relief of symptoms jj7 01:58 Drug: TORadol - Ketorolac IVP 15 mg Route: IVP; Site: right forearm; lg3 04:10 Follow up: Response: Marked relief of symptoms jj7 01:58 Drug: Ondansetron IVP 4 mg Route: IVP; Site: right forearm; lg3 04:10 Follow up: Response: Marked relief of symptoms jj7 Medication: 04:10 VIS not applicable for this client. jj7 Outcome: 03:54 Discharge ordered by . sp4 04:10 Discharged to home ambulatory, with family. jj7 04:10 Condition: improved 04:10 Discharge instructions given to patient, Instructed on discharge instructions, follow up and referral plans. medication usage, Demonstrated understanding of instructions, follow-up care, medications, Prescriptions given X 4. 04:14 Patient left the ED. jj7 Addendum: 08/23/2022 07:21 Addendum: Culture Results: Positive urine culture. No further action required. Bacteria e b sensitive to prescribed antibiotic. Signatures: Katia Wolfe Lacie, RN RN lg3 Felecia Mandujano Kyli, RN RN kd3 Lexi Jones RN RN jj7 Carlos Enrique Carnes MD MD sp4
[2022-08-20 04:34] VITALS: TEMP 97.9
[2022-08-20 04:42] VITALS: BP 147/81; O2SAT 97
== END 2022-08-20 04:14 | disposition home or self-care (01) ==
LOC: ER 01:03
DX: N39.0 Urinary tract infection, site not specified (principal); A08.39 Other viral enteritis; E11.9 Type 2 diabetes mellitus without complications; I10 Essential (primary) hypertension; J44.9 Chronic obstructive pulmonary disease, unspecified; Z88.5 Allergy status to narcotic agent; Z88.8 Allergy status to other drugs, medicaments and biological substances; Z91.012 Allergy to eggs; Z91.018 Allergy to other foods
CPT/HCPCS: 96361; 87088; 85025; 81001; 87086; 36415; 87077; 87186; 83690; 80053; 96375; 96374; 99284; J2765; J2405; J7030

== ENCOUNTER 2023-01-09 22:52 | Emergency (ER) | payer OTHER ==
--- OUTSIDE RECORDS SUMMARY | 2023-01-09 22:56 | XMS REPORT | Continuity of Care Document ---
:1955 Author Organization [facility] t Address [address] [facility] [address] [place] [address] Care Team Providers Name Role Phone OMEGA JOY Primary Care Physician Unavailable Omega Joy Attending Clinician Unavailable KYLE MACK Attending Clinician Unavailable Doctor Unassigned, [place] Attending Clinician Unavailable Latasha PROCTOR, Dimitrios Werner Attending Clinician Paul Perea MD Attending Clinician Payers Payer Name Policy Type Policy Number Effective Date Expiration Date S wang [facility] [id number] 2015 PLUS 00:00:00 [place] [id number] 2018 [facility] 00:00:00 [facility] Problems Condition Condition Condition Status Onset Resolution [...] blood 3-14 ity of pressure pressure 00:00: [place] 00 Medical Branch Vitamin B Vitamin B Disease Active Uni vers 12 12 3-14 [place]y of [place] Morbid Morbid Disease Active Univers obesity obesity 08-12 ity of 00:00: [place] [facility] H/O H/O Disease Active Overview: Jannjulia s hysterecto hysterecto 08-12 She says ity of my for my for 00:00: it was a [place] benign benign 00 partial Medical disease disease but Branch cannot see the cervix. [id number] HTN, goal Problem Active Comm on below [facility] 130/80 - [facility] [id number] Osteoarthr Problem Active Comm on itis of [facility] thoracolum - [facility], [facility] Center itis complicati on status [id number] Depression Problem Active Com mon with [facility] anxiety [facility] [id number] Low back Problem Active Comm on pain [facility] [id number] Tobacco Problem Active Commo n use [facility] disorder [facility] [id number] Mixed Problem Active Common hyperlipid Spirit emia [facility] [id number] Type 2 Problem Active Common diabetes [facility] mellitus - [facility] with other [facility] kidney Medical complicati Center on [id number] Primary Problem Active Comm on osteoarthr Spirit itis of [facility] right knee [facility] [id number] Asymptomat Problem Active Co mmon ic Spirit hypertensi - CHI ve urgency [facility] [id number] Other Problem Active Common chronic Spirit pain [facility] [id number] Chronic Problem Active Common obstructiv Spirit e - [facility] pulmonary [facility] unspecifie Medica l d COPD Center type [id number] Noncomplia Problem Active Co mmon nce with Spirit dietary - [facility] restrictio [facility] Allergies, Adverse Reactions, Alerts Allergy Allergy Status [...] lisinopr lisinopr Active Cough Common il il [facility] amlodipi amlodipi Active LE Swelling C ommon ne ne [facility] metformi metformi Active diarrhea Comm on n n [facility] Social History Social Habit Start Date Stop Date Quantity Comments Source History of Tobacco Common [facility] - Use [facility] Sex Assigned At Common Sp birgit - [facility] Cigarettes smoked 2019-02-20 2019-02-20 Univers ity of current (pack per 00:00:00 00:00:00 [facility] ) - Reported Branch Cigarette 2019-02-20 2019-02-20 University of pack-years 00:00:00 00:00:00 [facility] Alcohol intake 2019-02-20 2019-02-20 University of 00:00:00 00:00:00 [facility] Alcohol Comment 2012-08-12 2012-08-12 occasionally Univers ity of 00:00:00 00:00:00 [facility] Smoking Status Start Date Stop Date Source Former Smoker 2020-04-09 00:00:00 2020-04-09 00:00:00 Common pirit [facility] Current every day 2019-02-20 00:00:00 [facility] smoker [facility] Medications Ordered Filled Start Stop Current Ordering Indication Dosage Frequency Signature Comments Components Source Medication Medication Date Date Medication? Clinician (SIG) Name Name Tramadol Tramadol No 1{table Tramadol HCl 50 MG HCl 50 MG 04-09 t_as_ne HCl 50 MG 00:00: eded} 00 Bydureon Bydureon Yes Omega 2 mg Com mon 10-16 Joy Spirit 00:00: - [facility] 00 [facility] Bydureon 2 Bydureon 2 2020-0 No Bydureon 2 MG MG 8-04 MG 00:00: 00 Bydureon 2 Bydureon 2 2020-0 No Bydureon 2 MG MG 8-04 MG 00:00: 00 Bydureon Bydureon 2020-0 2020- No Omega as Co mmon BCise BCise 10-02 Joy directed Spirit 00:00: 00:00 - [facility]I 00 :00 [facility] Tramadol Tramadol 2020-0 Yes Omega 1 tablet Common HCl HCl 7-20 Joy as needed Spirit 00:00: - [facility] 00 [facility] Tramadol Tramadol 2020-0 No 1{table [...] Spir it 00:00: morning - [facility] 00 [facility] DICLOFENAC 2020-0 Yes [id number] TAKE 1 Univers 75 mg EC 4-10 9104 TABLET BY ity of tablet 00:00: MOUTH [place] 00 TWICE A Medical DAY WITH Branch MEALS DICLOFENAC 2020-0 Yes [id number] TAKE 1 Univers 75 mg EC 4-10 9104 TABLET BY ity of tablet 00:00: MOUTH [place] 00 TWICE A Medical DAY WITH Branch MEALS DICLOFENAC 2020-0 Yes [id number] TAKE 1 Univers 75 mg EC 4-10 9104 TABLET BY ity of tablet 00:00: MOUTH [place] 00 TWICE A Medical DAY WITH Branch MEALS DICLOFENAC 2020-0 Yes [id number] TAKE 1 Univers 75 mg EC 4-10 9104 TABLET BY ity of tablet 00:00: MOUTH [place] 00 TWICE A Medical DAY WITH Branch MEALS DICLOFENAC 2020-0 Yes [id number] TAKE 1 Univers 75 mg EC 2-05 9104 TABLET BY ity of tablet 00:00: MOUTH [place] 00 TWICE A Medical DAY WITH Branch MEALS DICLOFENAC 2020-0 2020- No [id number] TAKE 1 Univers 75 mg EC 2-05 04-10 9104 TABLET BY ity o f tablet 00:00: 00:00 MOUTH [place] 00 :00 TWICE A Medical DAY WITH Branch MEALS diclofenac 2019-1 2020- No [id number] 75mg Take 1 Univers 75 mg EC 04-23 9104 tablet by ity o f tablet 00:00: 00:00 mouth 2 00 :00 (two) Medical times Branch daily with meals. metFORMIN 2019-0 Yes [id number] 500mg Take 1 Un jimbo 500 mg 8-19 tablet by ity of tablet 00:00: mouth 2 (two) Medical times Branch daily. amoxicillin 2019-0 Yes [id number] 500mg Take 1 Univers 500 mg 8-19 capsule by ity of capsule 00:00: mouth 3 (three) Medical times Branch daily. metFORMIN 2019-0 Yes [id number] 500mg Take 1 Un jimbo 500 mg 8-19 tablet by ity of tablet 00:00: mouth 2 (two) Medical times Branch daily. amoxicillin 2019-0 Yes [id number] 500mg Take 1 Univers 500 mg 8-19 capsule by ity of capsule 00:00: mouth 3 (three) Medical times Branch daily. metFORMIN 2019-0 Yes [id number] 500mg Take 1 Un jimbo 500 mg 8-19 tablet by ity of tablet 00:00: mouth 2 (two) Medical times Branch daily. amoxicillin 2019-0 Yes [id number] 500mg Take 1 Univers 500 mg 8-19 capsule by ity of capsule 00:00: mouth 3 (three) Medical times Branch daily. metFORMIN 2019-0 Yes [id number] 500mg Take 1 Un jimbo 500 mg 8-19 tablet by ity of tablet 00:00: mouth 2 (two) Medical times Branch daily. amoxicillin 2019-0 Yes [id number] 500mg Take 1 Univers 500 mg 8-19 capsule by ity of capsule 00:00: mouth 3 (three) Medical times Branch daily. metFORMIN 2019-0 Yes [id number] 500mg Take 1 Un jimbo 500 mg 8-19 tablet by ity of tablet 00:00: mouth 2 (two) Medical times Branch daily. amoxicillin 2019-0 Yes [id number] 500mg Take 1 Univers 500 mg 8-19 capsule by ity of capsule 00:00: mouth 3 (three) Medical times Branch daily. metFORMIN 2019-0 Yes [id number] 500mg Take 1 Un jimbo 500 mg 8-19 tablet by ity of tablet 00:00: mouth 2 (two) Medical times Branch daily. amoxicillin Yes [id number] 500mg Take 1 Univers 500 mg 8-19 capsule by ity of capsule 00:00: mouth 3 [place] 00 (three) Medical times Branch daily. doxycycline 2019- No [id number] 100mg Take 1 Univers 100 mg 8-19 08-30 capsule by ity of capsule 00:00: 04:59 mouth 2 [place] 00 :00 (two) Medical times Branch daily for 10 days. clindamycin 2019- No [id number] 300mg Take 1 Univers 300 mg 8-19 08-30 capsule by ity of capsule 00:00: 04:59 mouth 4 [place] 00 :00 (four) Medical times Branch daily for 10 days. montekast Yes TAKE 1 Univ ers (SINGULAIR) 9-19 TABLET BY ity of 10 mg 00:00: MOUTH AT [place] tablet 00 BEDTIME. Medical Branch [facility] Yes TAKE 1 Univ ers (SINGULAIR) 9-19 TABLET BY ity of 10 mg 00:00: MOUTH AT [place] tablet 00 BEDTIME. [facility] TAKE 1 Univ ers (SINGULAIR) 9-19 TABLET BY ity of 10 mg 00:00: MOUTH AT [place] tablet 00 BEDTIME. Medical Branch [facility] Yes TAKE 1 Univ ers (SINGULAIR) 9-19 TABLET BY ity of 10 mg 00:00: MOUTH AT [place] tablet 00 BEDTIME. Medical Branch [facility] Yes TAKE 1 Univ ers (SINGULAIR) 9-19 TABLET BY ity of 10 mg 00:00: MOUTH AT [place] tablet 00 BEDTIME. Medical Branch [facility] Yes TAKE 1 Univ ers (SINGULAIR) [...] 00 WEEKLY. Medical Branch busPIRone 2015- Yes [id number] 10mg Take 10 mg Univers (BUSPAR) 10 4-11 by mouth 2 it y of mg tablet 21:12: (two) [place] 25 times Medical daily. Branch busPIRone 2015- Yes [id number] 10mg Take 10 mg Univers (BUSPAR) 10 4-11 by mouth 2 it y of mg tablet 21:12: (two) [place] 25 times Medical daily. Branch busPIRone 2015- Yes [id number] 10mg Take 10 mg Univers (BUSPAR) 10 4-11 by mouth 2 it y of mg tablet 21:12: (two) [place] 25 times Medical daily. Branch busPIRone 2015- Yes [id number] 10mg Take 10 mg Univers (BUSPAR) 10 4-11 by mouth 2 it y of mg tablet 21:12: (two) [place] 25 times Medical daily. Branch busPIRone 2015- Yes [id number] 10mg Take 10 mg Univers (BUSPAR) 10 4-11 by mouth 2 it y of mg tablet 21:12: (two) [place] 25 times Medical daily. Branch busPIRone Yes [id number] 10mg Take 10 mg Univers (BUSPAR) 10 4-11 by mouth 2 it y of mg tablet 21:12: (two) [place] 25 times Medical daily. Branch fluticasone Yes [id number] 1 U nivers -salmeterol 4-01 inhalation it y of (ADVAIR 00:00: BI D prn [place] DISKUS) 00 sob rinse Medical 250-50 mouth Branch mcg/dose after inhalation using disk fluticasone Yes [id number] 1 U nivers -salmeterol 4-01 inhalation it y of (ADVAIR 00:00: BI D prn [place] DISKUS) 00 sob rinse Medical 250-50 mouth Branch mcg/dose after inhalation using disk fluticasone 2015- Yes [id number] 1 U nivers -salmeterol 4-01 inhalation it y of (ADVAIR 00:00: BI D prn [place] DISKUS) 00 sob rinse Medical 250-50 mouth Branch mcg/dose after inhalation using disk fluticasone 2015- Yes [id number] 1 U nivers -salmeterol 4-01 inhalation it y of (ADVAIR 00:00: BI D prn [place] DISKUS) 00 sob rinse Medical 250-50 mouth Branch mcg/dose after inhalation using disk fluticasone 2015- Yes [id number] 1 U nivers -salmeterol 4-01 inhalation it y of (ADVAIR 00:00: BI D prn [place] DISKUS) 00 sob rinse Medical 250-50 mouth Branch mcg/dose after inhalation using disk fluticasone 2015- Yes [id number] 1 U nivers -salmeterol 4-01 inhalation it [...] directed, ity of DELICA) 33 00:00: daily. [facility] 00 DX:E11.9 Medic al Branch blood sugar 2016-0 Yes Use as Univ ers diagnostic 3-22 directed, ity of (ONETOUCH 00:00: daily. [place] VERIO) 00 DX:E11.9 Medical strip Branch lancets 2016-0 Yes Use as Univers (ONE TOUCH 3-22 directed, ity of DELICA) 33 00:00: daily. [facility] 00 DX:E11.9 Medic al Branch blood sugar 2016-0 Yes Use as Univ ers diagnostic 3-22 directed, ity of (ONETOUCH 00:00: daily. [place] VERIO) 00 DX:E11.9 Medical strip Branch lancets 2016-0 Yes Use as Univers (ONE TOUCH 3-22 directed, ity of DELICA) 33 00:00: daily. [facility] 00 DX:E11.9 Medic al Branch blood sugar 2016-0 Yes Use as Univ ers diagnostic 3-22 directed, ity of (ONETOUCH 00:00: daily. [place] VERIO) 00 DX:E11.9 Medical strip Branch lancets 2016-0 Yes Use as Univers (ONE TOUCH 3-22 directed, ity of DELICA) 33 00:00: daily. [facility] 00 DX:E11.9 Medic al Branch blood sugar 2016-0 Yes Use as Univ ers diagnostic 3-22 directed, ity of (ONETOUCH 00:00: daily. [place] VERIO) 00 DX:E11.9 Medical strip Branch lancets 2016-0 Yes Use as Univers (ONE TOUCH 3-22 directed, ity of DELICA) 33 00:00: daily. [place] gauge Mis 00 DX:E11.9 Medic al Branch blood sugar 2016-0 Yes Use as Univ ers diagnostic 3-22 directed, ity of (ONETOUCH 00:00: daily. [place] VERIO) 00 DX:E11.9 Medical strip Branch lancets 2016-0 Yes Use as Univers (ONE TOUCH 3-22 directed, ity of DELICA) 33 00:00: daily. [facility] 00 DX:E11.9 Medic al Branch loratadine Yes [id number] 10mg Take 1 Tab Univers (CLARITIN) 3-14 by mouth ity o f 10 mg 00:00: daily. [place] tablet 00 Medical Branch loratadine Yes [id number] 10mg Take 1 Tab Univers (CLARITIN) 3-14 by mouth ity o f 10 mg 00:00: daily. [place] tablet 00 Medical Branch loratadine Yes [id number] 10mg Take 1 Tab Univers (CLARITIN) 3-14 by mouth ity o f 10 mg 00:00: daily. [place] tablet 00 Medical Branch loratadine Yes [id number] 10mg Take 1 Tab Univers (CLARITIN) 3-14 by mouth ity o f 10 mg 00:00: daily. [place] tablet 00 Medical Branch loratadine Yes [id number] 10mg Take 1 Tab Univers (CLARITIN) 3-14 by mouth ity o f 10 mg 00:00: daily. [place] tablet 00 Medical Branch loratadine Yes [id number] 10mg Take 1 Tab Univers (CLARITIN) 3-14 by mouth ity o f 10 mg 00:00: daily. [place] tablet 00 Medical Branch fluticasone Yes [id number] 2{spray Use 2 Univers 50 2-23 } Sprays in ity of mcg/actuati 00:00: each [place] on nasal 00 nostril Medical spray daily. Branch albuterol Yes [id number] 2{puff} Inhale 2 Univers (PROAIR) 90 2-23 Puffs ity of mcg/actuati 00:00: every 6 [place] as on inhaler 00 (six) Medical hours as Branch needed for Wheezing or Shortness of Breath. fluticasone Yes [id number] 2{spray Use 2 Univers 50 2-23 } Sprays in ity of mcg/actuati 00:00: each [place] on nasal 00 nostril Medical spray daily. Branch albuterol Yes [id number] 2{puff} Inhale 2 Univers (PROAIR) 90 2-23 Puffs ity of mcg/actuati 00:00: every 6 [place] as on inhaler 00 (six) Medical hours as Branch needed for Wheezing or Shortness of Breath. fluticasone 2015- Yes [id number] 2{spray Use 2 Univers 50 2-23 } Sprays in ity of mcg/actuati 00:00: each [place] on nasal 00 nostril Medical spray daily. Branch albuterol Yes [id number] 2{puff} Inhale 2 Univers (PROAIR) 90 2-23 Puffs ity of mcg/actuati 00:00: every 6 [place] as on inhaler 00 (six) Medical hours as Branch needed for Wheezing or Shortness of Breath. fluticasone 2015- Yes [id number] 2{spray Use 2 Univers 50 2-23 } Sprays in ity of mcg/actuati 00:00: each [place] on nasal 00 nostril Medical spray daily. Branch albuterol Yes [id number] 2{puff} Inhale 2 Univers (PROAIR) 90 2-23 Puffs ity of mcg/actuati 00:00: every 6 [place] as on inhaler 00 (six) Medical hours as Branch needed for Wheezing or Shortness of Breath. fluticasone 2015- Yes [id number] 2{spray Use 2 Univers 50 2-23 } Sprays in ity of mcg/actuati 00:00: each [place] on nasal 00 nostril Medical spray daily. Branch albuterol Yes [id number] 2{puff} Inhale 2 Univers (PROAIR) 90 2-23 Puffs ity of mcg/actuati 00:00: every 6 [place] as on inhaler 00 (six) Medical hours as Branch needed for Wheezing or Shortness of Breath. fluticasone Yes [id number] 2{spray Use 2 Univers 50 2-23 } Sprays in ity of mcg/actuati 00:00: each [place] on nasal 00 nostril Medical spray daily. Branch albuterol Yes [id number] 2{puff} Inhale 2 Univers (PROAIR) 90 2-23 [...] not Commo n HCl HCl Joy defined [facility] Methocarbam Methocarbam Yes Omega not Common ol ol Joy defined [facility] ProAir HFA ProAir HFA Yes Omega 2 puffs as Common Joy needed [facility] Robaxin Robaxin Yes Omega 1.5 Common Joy tablets [facility] Dulera Dulera Yes Omega 2 puffs Common Joy [facility] Motrin IB Motrin IB Yes Omega not Com mon Joy defined [facility] Hydrochloro Hydrochloro No 1{table QD Hydrochlor [...] 6xD Robaxin MG MG lets} 500 MG Vital Signs Vital Name Observation Time Observation Value Comments Source height 2020-04-09 08:30:00 64 [in_i] [facility] weight 2020-04-09 08:30:00 320 [lb_av] [facility] temperature 2020-04-09 08:30:00 97.1 [degF] [facility] bmi 2020-04-09 08:30:00 54.92 kg/m2 [facility] blood pressure 2020-04-09 08:30:00 142 mm[Hg] [facility] - systolic [facility] blood pressure 2020-04-09 08:30:00 92 mm[Hg] [facility] - diastolic [facility] Systolic blood 2018-11-01 04:00:00 171 mm[Hg] Univer sity of pressure [facility] Diastolic blood 2018-11-01 04:00:00 74 mm[Hg] Unive rsity of pressure [facility] Heart rate 2018-11-01 04:00:00 76 /min Universi ty of [facility] Respiratory rate 2018-11-01 04:00:00 25 /min Univ ersity of [facility] Oxygen saturation in 2018-11-01 04:00:00 93 /min University of Arterial blood by [facility] Pulse oximetry Branch Body temperature 2018-11-01 02:09:00 37.11 [facility] ersity [facility] [place] Body height 2018-11-01 02:09:00 162.6 cm Universi ty of [place] [facility] Body weight 2018-11-01 02:09:00 138.347 kg Universi ty of [place] [facility] BMI 2018-11-01 02:09:00 52.35 kg/m2 Universi ty of [place] [facility] Systolic blood 2018-11-01 04:00:00 171 mm[Hg] Univer sity of [facility] Diastolic blood 2018-11-01 04:00:00 74 mm[Hg] Unive rsity of [facility] Heart rate 2018-11-01 04:00:00 76 /min Universi ty of [place] [facility] Respiratory rate 2018-11-01 04:00:00 25 /min Univ ersity of [place] [facility] Oxygen saturation in 2018-11-01 04:00:00 93 /min University of Arterial blood by [facility] Pulse oximetry Branch Body temperature 2018-11-01 02:09:00 37.11 [facility] ersity [facility] [place] Body height 2018-11-01 02:09:00 162.6 cm Universi ty of [place] [facility] Body weight 2018-11-01 02:09:00 138.347 kg Universi ty of [place] [facility] BMI 2018-11-01 02:09:00 52.35 kg/m2 Universi ty of [place] [facility] Procedures Procedure Date / Time Performing Clinician Source Performed AUTHORIZATION FOR 2019-10-06 05:01:00 Doctor Unassigned, No [facility] Name Medical Branch AUTHORIZATION FOR 2019-09-27 05:01:00 Doctor Unassigned, No [facility] Name Medical Branch XR TOES 2 VW LEFT 2018-11-01 04:16:58 Paul Perea [facility] [place] XR CHEST 1 VW 2018-11-01 03:14:21 Paul Perea [facility] XR FOOT 3+ VW LEFT 2018-11-01 03:14:21 Paul Perea [facility] TROPONIN I 2018-11-01 02:57:00 Paul Perea [facility] HEPATIC FUNCTION PANEL 2018-11-01 02:57:00 Paul Perea [facility] ([id number]) (ALB,T.PRO,BILI Medical Branch T,BU/BC,ALT,AST,ALK PHOS) BASIC METABOLIC PANEL 2018-11-01 02:57:00 Paul Perea [facility] (NA, K, CL, CO2, Medical Branch GLUCOSE, BUN, CREATININE, CA) CBC WITH DIFFERENTIAL 2018-11-01 02:57[facility]00 [facility]OGLOBIN 2018-11-01 02:57:00 EliazarReplaced by [facility] (A1C) [facility] PROTHROMBIN TIME / INR 2018-11-01 02:57:00 [facility] ACTIVATED PARTIAL 2018-11-01 02:57:00 Paul Perea [facility] THRMPLAS JANEEN [facility] RAPID STREP SCREEN FOR 2018-11-01 02:57:00 Paul Perea [facility] GROUP A Medical Branch N-TERMINAL PRO-BNP 2018-11-01 02:57:00 Paul Perea [facility] EKG-12 LEAD 2018-11-01 02:42:19 Paul Perea [facility] NOTICE OF PRIVACY 2018-11-01 01:54:18 Doctor Unassigned, No [facility] Name Medical Branch CONSENT/REFUSAL FOR 2018-11-01 01:53:56 [facility] Name Medical Branch Encounters Start End Encounter Admission Attending Care Care Encounter Source Date/Time Date/Time Type Type Clinicians Facility Department ID 2021-04-09 Outpatient JoyBEVERLY chun [id number] Common 12:26:15 Omega [id number] [facility] 2021-04-09 Outpatient JoyBEVERLY chun [id number] Common 11:34:37 Omega [id number] [facility] 2021-04-09 Outpatient JoyBEVERLY chun STDANIS [id number] Common 11:31:51 Omega [id number] [facility] 2021-09-04 2021-09-04 Outpatient Jocelynn [facility] [id number] Univers 11:00:00 11:00:00 KYLE kortney [facility] [place] 2021-05-21 2021-05-21 Outpatient Jocelynn [facility] [id number] Univers 08:00:00 08:00:00 KYLE kortney [facility] [place] 2020-04-09 2020-04-09 OFFICE STANY [facility] [id number] Co mmon 00:00:00 00:00:00 VISIT EST Spir it PT LEVEL 3 [facility] 2020-04-03 2020-04-03 (TEL) [facility] [id number] Co mmon 00:00:00 00:00:00 [facility] 2019-10-17 2019-10-17 [facility] [id number] Common 10:00:00 10:00:00 J.G. ink [facility] it Drive [facility] 2019-10-06 2019-10-06 [facility] [id number] Common 13:31:00 13:31:00 J.G. ink [facility] it Drive [facility] 2019-10-06 2019-10-06 Orders Doctor MONACO [id number] 00:00:00 00:00:00 Only Unassigned, RUPINDER [id number] [place] [facility] [id number] 009 2019-10-06 2019-10-06 Orders Doctor JACINDA [id number] [facility] 00:00:00 00:00:00 Only Unassigned, RUPINDER [id number] ity of [place] [facility] [id number] [place] as [phone] [address] 2019-10-02 2019-10-02 Outpatient [facility] [id number] Common 10:15:00 10:15:00 [facility] 2019-09-29 2019-09-29 [facility] [id number] Common 08:30:00 08:30:00 t [facility] 2019-09-28 2019-09-28 [facility] [id number] Common 16:11:00 16:11:00 t [facility] 2019-09-28 2019-09-28 Outpatient [facility] [id number] Common 16:09:00 16:09:00 t [facility] 2019-09-28 2019-09-28 Outpatient [facility] [place] [id number] Common 11:16:00 11:16:[address] Family - [facility] Family Medicine [facility] 2019-09-28 2019-09-28 [facility] [id number] 00:00:00 00:00:00 [place] [employer] [id number] Surgical [id number] Specialti [phone] es [address] [place] 2019-09-28 2019-09-28 [facility] [id number] Univers 00:00:00 00:00:00 [place] [employer] [id number] it y of Surgical [id number] [place] as Specialti [id number] Vt dical es [address] [facility] 2019-09-27 2019-09-27 Orders Doctor JACINDA [id number] 00:00:00 00:00:00 Only Unassigned, RUPINDER [id number] [place] [facility] [id number] [id number] 2019-09-27 2019-09-27 Orders Doctor JACINDA [id number] Univers 00:00:00 00:00:00 Only Unassigned, RUPINDER [id number] ity of [place] [facility] [id number] [place] as [phone] [address] 2019-09-18 2019-09-18 [facility] [id number] Common 15:15:00 15:15:00 J.G. ink [facility] [employer]in [facility] 2019-06-23 2019-06-23 [facility] [id number] 00:00:00 00:00:00 Dimitrios [facility] [id number] Surgical 4.2.7.2.686 Specialti [id number] es [address] [place] [address] 2019-06-23 2019-06-23 [facility] [id number] [facility] 00:00:00 00:00:00 Dimitrios L Audingo 350.1.13.10 it y of Surgical 4.2.7.2.686 Hector as Specialti [id number] Vt dical es 198 [facility] 2019-04-17 2019-04-17 [facility] [id number] 00:00:00 00:00:00 Dimitiros Werner Audingo 350.1.13.10 Surgical 4.2.7.2.686 Specialti [id number] es [address] [place] [address] 2019-04-17 2019-04-17 [facility] [id number] [facility] 00:00:00 00:00:00 Dimitrios Werner [place]ingo 350.1.13.10 it y of Surgical 4.2.7.2.686 Hector as Specialti [id number] Vt dical es 198 [facility] 2018-10-31 2018-10-31 Emergency [facility] [id number] 21:12:42 23:51:00 Paul Knapp 350.1.13.10 [place] 4.2.7.2.686 [place] [id number] [facility] 2018-10-31 2018-10-31 Emergency [facility] [id number] [facility] 21:12:42 23:51:00 Paul Knapp 350.1.13.10 i ty of [place] 4.2.7.2.686 [facility] [id number] [address] 2018-09-26 2018-09-26 [facility] [id number] Common 14:49:00 14:49:00 [place] [address] [facility] 2018-07-19 2018-07-19 [facility] [id number] Common 14:26:00 14:26:00 [place] [address] [facility] 2018-07-18 2018-07-18 [facility] [id number] Common 13:44:00 13:44:00 [facility] 2018-07-18 2018-07-18 [facility] 25 [id number] Common 08:30:00 08:30:00 t [facility] Sp[facility] t and [facility] 2018-07-04 2018-07-04 [facility] [id number] Common 09:54:00 09:54:00 [place] [address] [facility] 2018-06-27 2018-06-27 [facility] 25 [id number] Common 10:28:00 10:28:00 [place] [address] [facility] 2018-06-27 2018-06-27 [facility] [id number] Common 10:15:00 10:15:00 [place] [address] [facility] 2018-06-16 2018-06-16 [facility] [id number] Common 15:35:00 15:35:00 [place] [employer] [address] [facility] 2018-05-24 2018-05-24 Outpatient Stephen Pendleton 24 [id number] Common 12:25:00 12:25:00 [place] [employer] [address] [facility] Results Test Description Test Time Test [...] . CHARITY (test code = CHARITY) The [facility] patient population mean normal value for aPTT is 30 seconds. Lab Interpretation (test Normal code = 78076-3) [facility] (PT[facility] / [id number] 04:27:00 Test Item Value Reference Range Interpretation [...] tions. Lab Interpretation (test Normal code = 18821-5) [facility]lake[facility] 1 [id number] 04:12:59 Right upper lobe consolidation, concerning for [...] enlarged. No acute bony abnormalities are noted. [facility], Radiant Results Inft User - 10/31/2018 11:15 [...] this study and agree with the abovereport. [facility]lakeGLYCOSYLATED HEMOGLOBIN (A1C)2018-11-01 03:54:00 Test Item Value Reference [...] Indicated Lab Interpretation Abnormal (test code = 22381-4) [facility]lakeTroponin [id number] 03:29:00 Test Item Value Reference Range Interpretation Comments TROPONIN I (test <0.012 See_Comment [Automated code = 4254790092) message] The system which generated this result [...] ? Lab Interpretation Normal (test code = 69895-5) [facility]lakeRAPID STREP SCREEN FOR GROUP [id number] 03:27:00 Test Item Value Reference Range Interpretation Comments Streptococcus pyogenes (group A) Negative Negative antigen (test code = 29458-2) Lab Interpretation (test code = Normal 48288-2) [facility]lakeN-TERMINAL [id number] 03:26:00 Test Item Value Reference Range Interpretation Comments NT-proBNP (test code 144 pg/mL See_Comment H [Autom ated = 8226347597) message] The system which generated this result transmitted reference range : <=125. The reference range was not used to interpret this result as normal/abnormal . CHARITY (test code = CHARITY) Biotin has been reported to cause a negative bias, interpret results relative to patient's use of biotin. Lab Interpretation Abnormal (test code = 94631-5) [facility]lakeHepatic Function Panel (ALB, T.PRO, BILI T, BU/BC, ALT, AST, ALK PHOS)2018-11-01 03:19:00 Test Item Value Reference Range Interpretation Comments TOTAL BILI (test code = 6746280801) 0.5 mg/dL 0.1-1.1 BILI UNCON (test code = 4689904824) 0.4 mg/dL 0.1-1.1 BILI CONJ (test code = 1534244039) 0.0 mg/dL 0-0.3 T PROTEIN (test code = 4139210017) 7.7 g/dL 6.3-8.2 ALBUMIN (test code = 1207258927) 4.2 g/dL 3.5-5 ALK PHOS (test code = 4318381109) 84 U/L 34-122 ALT(SGPT) (test code = 1706654333) 13 U/L 9-51 AST(SGOT) (test code = 5734588267) 17 U/L 13-40 Lab Interpretation (test code = Normal 28479-8) [facility] (NA, K, CL, CO2, GLUCOSE, BUN, CREATININE, CA)2018-11-01 03:18:00 Test Item Value Reference Range Interpretation Comments NA (test code = 137 mmol/L 135-145 6123429535) K (test code = 4.2 mmol/L 3.5-5 3126581648) CL (test code = 99 mmol/L 98-108 2558514706) CO2 TOTAL (test code = 28 mmol/L 23-31 6624523205) AGAP (test code = 2-16 4674284495) BUN (test code = 11 mg/dL 7-23 9446671549) GLUCOSE (test code = 192 mg/dL 70-110 H 3836315654) CREATININE (test code = 0.54 mg/dL 0.5-1.04 8171248938) CALCIUM (test code = 9.0 mg/dL 8.6-10.6 2084860758) eGFR Calculation mL/min/1.73m2 (Non-) (test code = 7434624380) eGFR Calculation mL/min/1.73m2 () (test code = 2916079143) CHARITY (test code = CHARITY) Association of [...] tests). Lab Interpretation Abnormal (test code = 92366-1) [facility] WITH [id number] 03:07:00 Test Item Value Reference Range Interpretation Comments WBC (test code = See_Comment [Automated message] 6690-2) The system [employer] generated this result transmitted ref erence range: 4.30 - 1 1.10 10*3/?L. The re ference range was not u sed to interpret this result as normal/abnor mal. RBC (test code = See_Comment [Automated message] 789-8) The system [employer] generated this result transmitted ref erence range: [...] RDW-SD (test code 45.5 fL 39-49.9 = 81733-6) RDW-CV (test code 15.0 % 12-15.5 = 788-0) PLT (test code = See_Comment [Automated message] 777-3) The system [employer] generated this result transmitted ref erence range: 166 - 35 8 10*3/?L. The re ference range was not u sed to interpret this result as normal/abnor mal. MPV (test code = 10.5 fL 9.5-12.9 12327-4) NRBC/100 WBC (test See_Comment [Automat ed message] code = 1297294728) The [email or web address] which generated this result transmitted ref erence range: 0.0 - 10 .0 /100 WBCs. The refer ence range was not u sed to interpret this result as normal/abnor mal. NRBC x10^3 (test <0.01 See_Comment [Automated message] code = 3003882396) The syste m which generated this result transmitted ref erence range: 10*3/?L. The reference range was not used to interpr et this result as normal/abnormal . GRAN MAT (NEUT) % 69.5 % (test code = 770-8) IMM GRAN % (test 0.30 % code = 7483455321) LYMPH % (test code 19.8 % = 736-9) MONO % (test code 9.3 % = 5905-5) EOS % (test code = 1.0 % 713-8) BASO % (test code 0.1 % = 706-2) GRAN MAT 4.87 10*3/uL 1.88-7.09 x10^3(ANC) (test code = 4238102714) IMM GRAN x10^3 <0.03 0-0.06 (test code = 3466436401) LYMPH x10^3 (test 1.39 10*3/uL 1.32-3.29 code = 731-0) MONO x10^3 (test 0.65 10*3/uL 0.33-0.92 code = 742-7) EOS x10^3 (test 0.07 10*3/uL 0.03-0.39 code = 711-2) BASO x10^3 (test <0.03 0.01-0.07 code = 704-7) [facility]"
--- NOTE | 2023-01-09 23:23 | EDPHYS ---
Physician Documentation [facility] Name: Nicole Martínez Age: 67 yrs Sex: Female : 1955 Arrival Date: 01/09/2023 Time: 22:52 Bed IW3 Private MD: ED Physician Patricio Burks HPI: 01/10 02:14 This 67 yrs old Female presents to ER via Wheelchair with complaints of TONSILLITIS. rt 02:14 Patient presents to the ED with a sore throat on the left side. She states that she has rt had multiple episodes of tonsillitis, states that this consistent with that. Denies of difficulty swallowing. Denies other acute complaints at this time, symptoms are moderate in severity, no other aggravating relieving factors.. Historical: - Allergies: 01/09 23:06 EGG/POULTRY; iw 23:06 hydrochlorothiazide; iw 23:06 Lovastatin; iw 23:06 Percodan; iw 23:06 rybellus; iw 23:06 [place]; iw - PMHx: 23:06 Hernández Cyst; Chronic obstructive lung disease; Diabetes - NIDDM; Hypertension; iw - Immunization history:: Adult Immunizations unknown. - Social history:: Smoking status: unknown. - Family history:: not pertinent. ROS: 01/10 02:14 Constitutional: Negative for fever, chills, and weight loss, Cardiovascular: Negative rt for chest pain, palpitations, and edema, Respiratory: Negative for shortness of breath, cough, wheezing, and pleuritic chest pain, Abdomen/GI: Negative for abdominal pain, nausea, vomiting, diarrhea, and constipation, Skin: Negative for injury, rash, and discoloration, Neuro: Negative for headache, weakness, numbness, tingling, and seizure, Psych: Negative for depression, anxiety, suicide ideation, homicidal ideation, and hallucinations, ENT: Positive for sore throat, Negative for rhinorrhea, Exam: 02:14 Constitutional: This is a well developed, well nourished patient who is awake, alert, rt and in no acute distress. Head/Face: Normocephalic, atraumatic. Chest/axilla: Normal chest wall appearance and motion. Nontender with no deformity. No lesions are appreciated. Cardiovascular: Regular rate and rhythm with a normal S1 and S2. No gallops, murmurs, or rubs. Normal PMI, no JVD. No pulse deficits. Respiratory: Lungs have equal breath sounds bilaterally, clear to auscultation and percussion. No rales, rhonchi or wheezes noted. No increased work of breathing, no retractions or nasal flaring. Abdomen/GI: Soft, non-tender, with normal bowel sounds. No distension or tympany. No guarding or rebound. No evidence of tenderness throughout. Skin: Warm, dry with normal turgor. Normal color with no rashes, no lesions, and no evidence of cellulitis. MS/ Extremity: Pulses equal, no cyanosis. Neurovascular intact. Full, normal range of motion. Neuro: Awake and alert, GCS 15, oriented to person, place, time, and situation. Cranial nerves II-XII grossly intact. Motor strength 5/5 in all extremities. Sensory grossly intact. Cerebellar exam normal. Normal gait. 02:14 ENT: Posterior pharyngeal erythema without exudates, 1+ tonsils bilaterally, uvula is midline. Vital Signs: 01/09 23:04 BP 155 / 68; Pulse 77; Resp 16; Temp 97.4; Pulse Ox 95% on R/A; Weight 140.61 kg; iw Height 5 ft. 3 in. ; 23:04 Body Mass Index 54.91 (140.61 kg, 160.02 cm) iw MDM: 23:18 Patient medically screened. rt 01/10 02:14 Differential Diagnosis Pharyngitis, viral syndrome, tonsillitis. Data reviewed: vital rt signs, nurses notes. I considered the following discharge prescriptions or medication management in the emergency department Medications were administered in the Emergency Department. See MAR. Test considered but Not performed: CT: Symptoms not consistent with a peritonsillar abscess, CT scan is not indicated. Care significantly affected by the following chronic conditions: Chronic Obstructive Pulmonary Disease. Counseling: I had a detailed discussion with the patient and/or guardian regarding the historical points, exam findings, and any diagnostic results supporting the discharge/admit diagnosis, the need for outpatient follow up. Administered Medications: 01/09 23:23 Not Given (Physician Discretion): [id number] mg PO once iw 23:27 Drug: Amoxicillin-Clavulanate PO 875 mg PO once Route: PO; iw 23:27 Follow up: Response: No adverse reaction iw Disposition Summary: 01/09/23 23:23 Discharge Ordered Notes: Location: Home rt Problem: new rt Symptoms: are unchanged rt Condition: Stable rt Diagnosis - Acute tonsillitis, unspecified rt Followup: rt - With: Private Physician - When: 2 - 3 days - Reason: Discharge Instructions: - Discharge Summary Sheet rt - Tonsillitis rt Forms: - Medication Reconciliation Form rt - Thank You Letter rt - Antibiotic Education rt - Prescription Opioid Use rt - Patient Portal Instructions rt - Leadership Thank You Letter rt Signatures: Tiffany Messina RN RN iw Sita Garcia RN RN [id number] Patricio Burks MD MD rt
--- NOTE | 2023-01-09 23:23 | ER ---
Nurse's Notes [facility] Name: Nicole Martínez Age: 67 yrs Sex: Female : 1955 Arrival Date: 01/09/2023 Time: 22:52 Bed IW3 Private MD: Diagnosis: Acute tonsillitis, unspecified Presentation: 01/09 23:04 Chief complaint: Patient states: has tonsil stone on left side, is hoarse , started 3 iw weeks ago. Coronavirus screen: Client presents with at least one sign or symptom that may indicate coronavirus-19. Ebola Screen: Patient negative for fever greater than or equal to 101.5 degrees Fahrenheit, and additional compatible Ebola Virus Disease symptoms Patient denies exposure to infectious person. Patient denies travel to an Ebola-affected area in the 21 days before illness onset. No symptoms or risks identified at this time. Initial Sepsis Screen: Does the patient meet any 2 criteria? No. Patient's initial sepsis screen is negative. Does the patient have a suspected source of infection? No. Patient's initial sepsis screen is negative. Risk Assessment: Do you want to hurt yourself or someone else? Patient reports no desire to harm self or others. Onset of symptoms was December 19, 2022. 23:04 Method Of Arrival: Wheelchair iw 23:04 Acuity: KAELYN 4 iw Triage Assessment: 23:00 General: Appears in no apparent distress. Behavior is calm, cooperative. iw Historical: - Allergies: 23:06 EGG/POULTRY; iw 23:06 hydrochlorothiazide; iw 23:06 Lovastatin; iw 23:06 Percodan; iw 23:06 rybellus; iw 23:06 [place]; iw - PMHx: 23:06 Hernández Cyst; Chronic obstructive lung disease; Diabetes - NIDDM; Hypertension; iw - Immunization history:: Adult Immunizations unknown. - Social history:: Smoking status: unknown. - Family history:: not pertinent. Screenin:25 [facility] ED Fall Risk Assessment (Adult) Score/Fall Risk Level 0 - 2 = Low Risk. Abuse iw screen: Denies threats or abuse. Denies injuries from another. Nutritional screening: No deficits noted. Tuberculosis screening: No symptoms or risk factors identified. Assessment: 23:00 General: Appears in no apparent distress. Behavior is calm, cooperative. Pain: iw Complains of pain in throat. Neuro: Level of Consciousness is awake, alert, obeys commands, Oriented to person, place, time, situation, Moves all extremities. Full function. Cardiovascular: Patient's skin is warm and dry. Respiratory: Respiratory effort is even, unlabored, Respiratory pattern is regular. Derm: Skin is fragile, is thin. Vital Signs: 23:04 BP 155 / 68; Pulse 77; Resp 16; Temp 97.4; Pulse Ox 95% on R/A; Weight 140.61 kg; iw Height 5 ft. 3 in. ; 23:04 Body Mass Index 54.91 (140.61 kg, 160.02 cm) iw ED Course: 22:56 Patient arrived in ED. kj1 23:06 Triage completed. iw 23:06 Arm band placed on. iw 23:11 Patricio Burks MD is Attending Physician. rt 23:23 Tiffany Messina RN is Primary Nurse. iw 23:26 Patient has correct armband on for positive identification. Provided Education on: iw antibiotics. 23:27 No provider procedures requiring assistance completed. Patient did not have IV access iw during this emergency room visit. Administered Medications: 23:23 Not Given (Physician Discretion): [id number] mg PO once iw 23:27 Drug: Amoxicillin-Clavulanate PO 875 mg PO once Route: PO; iw 23:27 Follow up: Response: No adverse reaction iw Medication: 23:00 VIS not applicable for this client. iw Outcome: 23:23 Discharge ordered by MD. rt 23:26 Discharged to home via wheelchair, iw 23:26 Condition: good 23:26 Discharge instructions given to patient, Instructed on discharge instructions, follow up and referral plans. medication usage, Demonstrated understanding of instructions, follow-up care, medications, Prescriptions given X 1, 23:27 Patient left the ED. iw Signatures: Tiffany Messina RN RN iw Marjan Ruelas [email or web address] Patricio Burks MD MD rt Corrections: (The following items were deleted from the chart) 23:06 23:04 Pulse 77bpm; Resp 16bpm; Pulse Ox 95% RA; Temp 97.4F; 140.61 kg; Height 5 ft. 3 iw in.; BMI: 54.9; iw 23:06 23:04 Pulse 77bpm; Resp 16bpm; Pulse Ox 95% RA; Temp 97.4F; 140.61 kg; Height 5 ft. 3 iw in.; BMI: 54.9; iw
[2023-01-09] MEDS ORDERED: AMOX/K CLAV 875 MG TAB ONE (23:32)
[2023-01-10] VITALS: BP 155/68; TEMP 97.4; O2SAT 95
== END 2023-01-09 23:27 | disposition home or self-care (01) ==
LOC: ER 22:52
DX: J03.90 Acute tonsillitis, unspecified (principal); Z88.5 Allergy status to narcotic agent; Z88.8 Allergy status to other drugs, medicaments and biological substances; Z91.012 Allergy to eggs; Z91.018 Allergy to other foods
CPT/HCPCS: 99283

== ENCOUNTER 2023-06-24 04:05 | Emergency (ER) | payer OTHER ==
--- OUTSIDE RECORDS SUMMARY | 2023-06-24 04:10 | XMS REPORT | Continuity of Care Document ---
Author Name Unknown Address [address] [facility] [address] [place] [address] [facility] thconnect Address [address] [facility]. [address] [place] [address] Care Team Providers Care Electrical Installation Inspector Name Role Phone OMEGA JOY Primary Care Physician Unavailab Omega Gabriel Attending Clinician Unavailable KYLE MACK Attending Clinician Unavaila ble Doctor Unassigned, [place] Attending Clinician U ha Pagan MD, Dimitrios Werner Attending Clinician Paul Perea MD Attending Clinician Payers Payer Name Policy Type Policy Number Effective Date Expirati on Date Source [facility] [id number] 2015 00:00:00 [place] [address] [id number] 2018 00:00:00 [facility] Problems Condition Name Condition Details Condition Category Status Onset Date Resolution Date Last Treatment Date Treating Clinician Comments Source Incisional abscess, initial encounter Incisional abscess, initial encounter Disease Active 06-22 00:00: 00 [facility] Acute pharyngiti s, unspecifie d pharyngiti s type Acute pharyngiti s, unspecifie d pharyngiti s type Disease Active -14 00:00: 00 [facility] Exposure to Streptococ cus infection Exposure to Streptococ cus infection Disease Active 05-26 00:00: 00 [facility] Allergic rhinitis, unspecifie d allergic rhinitis type Allergic rhinitis, unspecifie d allergic rhinitis type Disease Active 05-26 00:00: 00 [facility] Elevated blood pressure Elevated blood pressure Disease Active 05-26 00:00: 00 [facility] Vitamin B 12 deficiency Vitamin B 12 deficiency Disease Active 05-26 00:00: 00 [facility] Morbid obesity Morbid obesity Disease Active 08-12 00:00: 00 [facility] H/O hysterecto my for benign disease H/O hysterecto my for benign disease Disease Active 08-12 00:00: 00 Overview: She says it was a partial but cannot see the cervix. [facility] [id number] HTN, goal below 130/80 Problem Active [facility] [id number] Osteoarthr itis of thoracolum bar spine, unspecifie d spinal osteoarthr itis complicati on status Problem Active [facility] [id number] Depression with anxiety Problem Active [facility] [id number] Low back pain Problem Active [facility] [id number] Tobacco use disorder Problem Active [facility] [id number] Mixed hyperlipid emia Problem Active [facility] [id number] Type 2 diabetes mellitus with other diabetic kidney complicati on Problem Active [facility] [id number] Primary osteoarthr itis of right knee Problem Active [facility] [id number] Asymptomat ic hypertensi ve urgency Problem Active [facility] 19489026 Other chronic pain Problem Active [facility] 73146342 Chronic obstructiv e pulmonary disease, unspecifie d COPD type Problem Active [facility] [id number] Noncomplia nce with dietary restrictio n Problem Active [facility] Allergies, Adverse Reactions, Alerts Allergy Name Allergy Type Status Severity Reaction(s) Onset Date Inactive Date Treating Clinician Comments Source OXYCODON E HCL-OXYC ODONE- A DRUG Active Hives 08-12 00:00: 00 [facility] Oxycodon e Hcl-Oxyc odone-As a Propensi ty to adverse reaction s Active Hives 08-12 00:00: 00 [facility] lisinopr il lisinopr il Active Cough [facility] amlodipi ne amlodipi ne Active LE Swelling [facility] metformi n metformi n Active diarrhea [facility] Social History Social Habit Start Date Stop Date Quantity Comments Source History of Tobacco Use [facility] Sex Assigned At [facility] Cigarettes smoked current (pack per day) - Reported 2019-02-20 00:00:00 2019-02-20 00:00:00 [facility] Cigarette pack-years 2019-02-20 00:00:00 2019-02-20 00:00:00 [facility] Alcohol intake 2019-02-20 00:00:00 2019-02-20 00:00:00 [facility] Alcohol Comment 2012-08-12 00:00:00 2012-08-12 00:00:00 occasionally [facility] Smoking Status Start Date Stop Date Source Former Smoker 2020-04-09 00:00:00 2020-04-09 00:00:00 [facility] Current every day smoker 2019-02-20 00:00:00 [facility] Medications Ordered Medication Name Filled Medication Name Start Date Stop Date Current Medication? Ordering Clinician Indication Dosage Frequency Signature (SIG) Comments Components Source Tramadol HCl 50 MG Tramadol HCl 50 MG 04-09 00:00: 00 No 1{table t_as_ne eded} Tramadol HCl 50 MG Bydureon Bydureon 10-16 00:00: 00 Yes Omega Joy 2 mg [facility] Bydureon 2 MG Bydureon 2 MG 10-16 00:00: 00 No Bydureon 2 MG Bydureon BCise Bydureon BCise 10-02 00:00: 12-31 00:00 :00 No Omega Joy as directed [facility] Tramadol HCl Tramadol HCl 10-01 00:00: 00 Yes Omega Joy 1 tablet as needed [facility] Tramadol HCl 50 MG Tramadol HCl 50 MG 10-01 00:00: 00 No 1{table t_as_ne eded} QID Tramadol HCl 50 MG Hydrochloro thiazide Hydrochloro thiazide 09-17 00:00: 00 Yes Omega Joy 1 tablet in the morning [facility] DICLOFENAC 75 mg EC tablet 06-22 00:00: 00 Yes [id number] 9104 TAKE 1 TABLET BY MOUTH TWICE A DAY WITH MEALS [facility] DICLOFENAC 75 mg EC tablet 04-19 00:00: 00 06-22 00:00 :00 No [id number] 9104 TAKE 1 TABLET BY MOUTH TWICE A DAY WITH MEALS [facility] diclofenac 75 mg EC tablet 2018-03 00:00: 00 04-19 00:00 :00 No [id number] 9104 75mg Take 1 tablet by mouth 2 (two) times daily with meals. [facility] metFORMIN 500 mg tablet 10-31 00:00: 00 Yes [id number] 500mg Take 1 tablet by mouth 2 (two) times daily. [facility] amoxicillin 500 mg capsule 10-31 00:00: 00 Yes [id number] 500mg Take 1 capsule by mouth 3 (three) times daily. [facility] doxycycline 100 mg capsule 10-31 00:00: 00 11-11 04:59 :00 No [id number] 100mg Take 1 capsule by mouth 2 (two) times daily for 10 days. [facility] clindamycin 300 mg capsule 10-31 00:00: 00 11-11 04:59 :00 No [id number] 300mg Take 1 capsule by mouth 4 (four) times daily for 10 days. [facility] montelukast (SINGULAIR) 10 mg tablet 12-01 00:00: 00 Yes TAKE 1 TABLET BY MOUTH AT BEDTIME. [facility] busPIRone (BUSPAR) 10 mg tablet 11-03 00:00: 00 Yes 10mg Take 1 tablet by mouth 2 (two) times daily. [facility] VITAMIN D2 50,000 unit capsule 08-05 00:00: 00 Yes TAKE 1 CAPSULE BY MOUTH WEEKLY. [facility] busPIRone (BUSPAR) 10 mg tablet 06-23 21:12: 25 Yes [id number] 10mg Take 10 mg by mouth 2 (two) times daily. [facility] fluticasone -salmeterol (ADVAIR DISKUS) 250-50 mcg/dose inhalation disk 06-13 00:00: 00 Yes [id number] 1 inhalation BI D prn sob rinse mouth after using [facility] blood sugar diagnostic (ONETOUCH VERIO) strip 06-03 00:00: 00 Yes Use as directed, daily. DX:E11.9 [facility] lancets (ONE TOUCH DELICA) 33 gauge Misc 06-03 00:00: 00 Yes Use as directed, daily. DX:E11.9 [facility] loratadine (CLARITIN) 10 mg tablet 05-26 00:00: 00 Yes [id number] 10mg Take 1 Tab by mouth daily. [facility] fluticasone 50 mcg/actuati on nasal spray 05-07 00:00: 00 Yes [id number] 2{spray } Use 2 Sprays in each nostril daily. [facility] albuterol (PROAIR) 90 mcg/actuati on inhaler 05-07 00:00: 00 Yes [id number] 2{puff} Inhale 2 Puffs every 6 (six) hours as needed for Wheezing or Shortness of Breath. [facility] traMADOL (ULTRAM) 50 mg tablet 04-16 00:00: 00 Yes 50mg Take 1 Tab by mouth every 6 (six) hours as needed (prn pain). [facility] Tramadol HCl Tramadol HCl Yes Omega Joy not defined [facility] Methocarbam ol Methocarbam ol Yes Omega Joy not defined [facility] ProAir HFA ProAir HFA Yes Omega Joy 2 puffs as needed [facility] Robaxin Robaxin Yes Omega Joy 1.5 tablets [facility] Dulera Dulera Yes Omega Joy 2 puffs [facility] Motrin IB Motrin IB Yes Omega Joy not defined [facility] Hydrochloro thiazide 25 MG Hydrochloro thiazide 25 MG No 1{table t_in_ e_morni ng} QD Hydrochlor othiazide 25 MG Tramadol HCl Tramadol HCl No Tramadol HCl Dulera 200-5 MCG/ACT Dulera 200-5 MCG/ACT No 2{puffs } BID Dulera 200-5 MCG/ACT ProAir HFA 108 (90 Base) MCG/ACT ProAir HFA 108 (90 Base) MCG/ACT No 2{puffs _as_nee ded} QID ProAir HFA 108 (90 Base) MCG/ACT Bydureon BCise 2 MG/0.85ML Bydureon BCise 2 MG/0.85ML No Bydureon BCise 2 MG/0.85ML Vital Signs Vital Name Observation Time Observation Value Comments S ource height 2020-04-09 08:30:00 64 [in_i] Commo n [facility] weight 2020-04-09 08:30:00 320 [lb_av] Comm on [facility] temperature 2020-04-09 08:30:00 97.1 [degF] Com mon [facility] bmi 2020-04-09 08:30:00 54.92 kg/m2 [facility] blood pressure systolic 2020-04-09 08:30:00 142 mm[Hg] [facility] blood pressure diastolic 2020-04-09 08:30:00 92 mm[Hg] [facility] Systolic blood pressure 2018-11-01 04:00:00 171 mm[Hg] [facility] Diastolic blood pressure 2018-11-01 04:00:00 74 mm[Hg] [facility] Heart rate 2018-11-01 04:00:00 76 /min Unive [facility] Respiratory rate 2018-11-01 04:00:00 25 /min [facility] Oxygen saturation in Arterial blood by Pulse oximetry 2018-11-01 04:00:00 93 /min [facility] Body temperature 2018-11-01 02:09:00 37.11 [facility] Body height 2018-11-01 02:09:00 162.6 cm [facility] Body weight 2018-11-01 02:09:00 138.347 kg [facility] BMI 2018-11-01 02:09:00 52.35 kg/m2 [facility] Systolic blood pressure 2018-11-01 04:00:00 171 mm[Hg] [facility] Diastolic blood pressure 2018-11-01 04:00:00 74 mm[Hg] [facility] Heart rate 2018-11-01 04:00:00 76 [facility] 2018-11-01 04:00:00 25 /min [facility] Oxygen saturation in Arterial blood by Pulse oximetry 2018-11-01 04:00:00 93 /min [facility] Body temperature 2018-11-01 02:09:00 37.11 [facility] Body height 2018-11-01 02:09:00 162.6 cm [facility] Body weight 2018-11-01 02:09:00 138.347 kg [facility] BMI 2018-11-01 02:09:00 52.35 kg/m2 [facility] Procedures Procedure Date / Time Performed Performing Clinician Source AUTHORIZATION FOR RELEASE OF PHI 2019-10-06 05:01:00 Doctor Unassigned, [place] [facility] AUTHORIZATION FOR RELEASE OF PHI 2019-09-27 05:01:00 Doctor Unassigned, [place] [facility] XR TOES 2 VW LEFT 2018-11-01 04:16:58 Paul Perea [facility] XR CHEST 1 VW 2018-11-01 03:14:21 Paul Perea [facility] XR FOOT 3+ VW LEFT 2018-11-01 03:14:21 Paul Perea [facility] TROPONIN I 2018-11-01 02:57:00 [facility] HEPATIC FUNCTION PANEL ([id number]) (ALB,T.PRO,BILI T,BU/BC,ALT,AST,ALK PHOS) 2018-11-01 02:57:00 Paul Perea [facility] BASIC METABOLIC PANEL (NA, K, CL, CO2, GLUCOSE, BUN, CREATININE, CA) 2018-11-01 02:57:00 Paul Perea [facility] CBC WITH DIFFERENTIAL 2018-11-01 02:57:00 Ned Perea [facility] GLYCOSYLATED HEMOGLOBIN (A1C) 2018-11-01 02:57:00 Paul Perea [facility] PROTHROMBIN TIME / INR 2018-11-01 02:57:00 Storm Perea [facility] ACTIVATED PARTIAL THRMPLAS JANEEN 2018-11-01 02:57:00 Paul Perea [facility] RAPID STREP SCREEN FOR GROUP A 2018-11-01 02:57:[address] [facility] PRO-BNP 2018-11-01 02:57:[address] [facility]AD 2018-11-01 02:42:19 Paul Perea [facility] NOTICE OF PRIVACY PRACTICES 2018-11-01 01:54:18 Doctor Unassigned, [place] [facility] CONSENT/REFUSAL FOR DIAGNOSIS AND TREATMENT 2018-11-01 01:53:56 Doctor Unassigned, [place] [facility] Encounters Start Date/Time End Date/Time Encounter Type Admission Type Attending Clinicians Care Facility Care Department Encounter ID Source 2021-04-09 12:26:15 [facility] [id number] [facility] 2021-04-09 11:34:37 Outpatient Joy, [facility] [id number] [facility] 2021-04-09 11:31:51 Outpatient Joy, [facility] [id number] [facility] 2021-09-04 11:00:00 2021-09-04 11:00:00 Outpatient KYLE ROCHE [facility] [id number] [facility] 2021-05-21 08:00:00 2021-05-21 08:00:00 Outpatient KYLE ROCHE [facility] [id number] [facility] 2020-04-09 00:00:00 2020-04-09 00:00:00 OFFICE VISIT EST [facility] [id number] 2020-04-03 00:00:00 2020-04-03 00:00:00 [facility] [id number] [facility] 2019-10-17 10:00:00 2019-10-17 10:00:00 [facility] [id number] [facility] 2019-10-06 13:31:00 2019-10-06 13:31:00 [facility] [id number] [facility] 2019-10-06 00:00:00 2019-10-06 00:00:00 Orders Only Doctor Unassigned, [place] [id number] 4.2.7.2.686 [id number] [id number] [facility] 2019-10-06 00:00:00 2019-10-06 00:00:00 Orders Only Doctor Unassigned, [place] [id number] 4.2.7.2.686 [id number] 2019-10-02 10:15:00 2019-10-02 10:15:00 [facility] [id number] [facility] 2019-09-29 08:30:00 2019-09-29 08:30:00 [facility] [id number] [facility] 2019-09-28 16:11:00 2019-09-28 16:11:00 [facility] [id number] [facility] 2019-09-28 16:09:00 2019-09-28 16:09:00 [facility] [id number] [facility] 2019-09-28 11:16:00 2019-09-28 11:16:00 [facility] [place] [facility] [id number] [facility] 2019-09-28 00:00:00 2019-09-28 00:00:00 Telephone Dimitrios Pagan [facility] [id number] [id number] 4.2.7.2.686 [id number] [facility] 2019-09-28 00:00:00 2019-09-28 00:00:00 Telephone LatashaCristelig [facility] Surgical [facility] [id number] 350.1.13.10 4.2.7.2.686 [id number] 2019-09-27 00:00:00 2019-09-27 00:00:00 Orders Only Doctor Unassigned, [place] [facility] [id number] 350.1.13.10 4.2.7.2.686 [id number] [id number] [facility] 2019-09-27 00:00:00 2019-09-27 00:00:00 Orders Only Doctor Unassigned, [place] [facility] [id number] 350.1.13.10 4.2.7.2.686 [id number] 2019-09-18 15:15:00 2019-09-18 15:15:00 Outpatient [facility] Medicine [facility] [id number] [facility] 2019-06-23 00:00:00 2019-06-23 00:00:00 Refill Dimitrios Pagan [facility] [place] [id number] 350.1.13.10 4.2.7.2.686 [id number] [facility] 2019-06-23 00:00:00 2019-06-23 00:00:00 Refill Dimitrios Pagan [facility] [place] [id number] 350.1.13.10 4.2.7.2.686 [id number] 2019-04-17 00:00:00 2019-04-17 00:00:00 Refill Dimitrios Pagan [facility] [place] [id number] 350.1.13.10 4.2.7.2.686 [id number] [facility] 2019-04-17 00:00:00 2019-04-17 00:00:00 Refill Dimitrios Pagan [facility] [place] [id number] 350.1.13.10 4.2.7.2.686 [id number] 2018-10-31 21:12:42 2018-10-31 23:51:00 Emergency Paul Perea [facility] 1.2.840.114 350.1.13.10 4.2.7.2.686 [id number] [facility] 2018-10-31 21:12:42 2018-10-31 23:51:00 Emergency Eliazar [facility] [id number] 350.1.13.10 4.2.7.2.686 [id number] 2018-09-26 14:49:00 2018-09-26 14:49:[address] [facility] [address] [place] [facility] [id number] [facility] 2018-07-19 14:26:00 2018-07-19 14:26:00 [facility] [address] [address] [facility] [place] [address] [id number] [facility] 2018-07-18 13:44:00 2018-07-18 13:44:00 [facility] [id number] [facility] 2018-07-18 08:30:00 2018-07-18 08:30:00 [facility] [id number] [facility] 2018-07-04 09:54:00 2018-07-04 09:54:00 [facility] [address] [facility] [id number] [facility] 2018-06-27 10:28:00 2018-06-27 10:28:00 [facility] [address] [facility] [place] [facility] [id number] [facility] 2018-06-27 10:15:00 2018-06-27 10:15:00 [facility] [address] [facility] [place] [facility] [id number] [facility] 2018-06-16 15:35:00 2018-06-16 15:35:00 [facility] [address] [address] [facility] [place] [facility] [id number] [facility] 2018-05-24 12:25:00 2018-05-24 12:25:00 [facility] [address] [facility] [place] [facility] [id number] [facility] Results Test Description Test Time Test Comments Results Result Co mments Source [facility]th[facility] Time (PT) / [id number] 04:27:00 * Test Item Value Reference Range Interpretation Comme nts PROTIME PATIENT (test code = 5964-2) See_Comment [Automated messa ge] The system which generated this result transmitted reference range: 12.0 - 14.7 Seconds. The reference range was not used to interpret this result as normal/abnormal. INR (test code = 6301-6) Normal INR <1.1; Warfarin Therapeutic range 2.0 to 3.0 or 2.5 to 3.5, depending upon the indications. Lab Interpretation (test code = 50308-0) Normal [facility] 1 [id number] 04:12:59Right upper lobe consolidation, concerning for pneumonia. Pulmonary vascular congestion. Devon Christian MD., have reviewed this study and agree with the abovereport.* * * * * * * * ORIGINAL REPORT * * * * * * * *EXAM: XR CHEST 1 VW HISTORY: dyspnea COMPARISON: Chest radiograph 06/23/2015 FINDINGS: Aconsolidation is identified along the inferior right upper lobe, abuttingthe minor fissure. Mild pulmonary vascular congestion is present. Nopleural effusion or pneumothorax is identified. The heart is mildly enlarged. No acute bony abnormalities are noted. [facility], Radiant Results Inft User - 10/31/2018 11:15 PM CDT* * * * * * * * ORIGINAL REPORT * * * * * * * *EXAM: XR CHEST 1 VWHISTORY: dyspnea COMPARISON: Chest radiograph 06/23/2015FINDINGS:A consolidation is identified along the inferior rightupper lobe, abuttingthe minor fissure. Mild pulmonary vascular congestion is present. Nopleural effusion or pneumothorax is identified.The heart is mildly enlarged. No acute bony abnormalities are noted.IMPRESSIONRight upper lobe consolidation, concerning for pneumonia.Pulmonary vascular congestion.Hillary Christian MD., have reviewed this study and agree with the abovereport.[facility] HospitalGLYCOSYLATED HEMOGLOBIN (A1C) 2018-11-01 03:54:00* Test Item Value Reference Range Interpretation Comments HGB A1C (test code = 4548-4) See_Comment H [Automated message] The system which generated this result transmitted reference range: 4.0 - 6.0 % NGSP. The reference range was not used to interpret this result as normal/abnormal. CHARITY (test code = CHARITY) %A1C (NGSP) Interpretation (ADA)4.8-5.6? Normal or (Non-Diabetic Range)5.7-6.4? Increased Risk (Pre-Diabetic)>6.5?D iabetes Indicated Lab Interpretation (test code = 90829-4) Abnormal [facility] Hospital[facility]roponin [id number] 03:29:00* Test Item Value Reference Range Interpretation Comme nts TROPONIN I (test code = 5563860179) <0.012 See_Comment [Automated message] The system which generated this result transmitted reference range: <=0.034 ng/mL. The reference range was not used to interpret this result as normal/abnormal. CHARITY (test code = CHARITY) Equal or Less than 0.034 ng/ml---Normal?Not e: Cardiac troponin begins to [...] patient's use of biotin.? ? Lab Interpretation (test code = 94082-7) Normal [facility] [id number] 03:27:00* Test Item Value Reference Range Interpretation Comme nts Streptococcus pyogenes (grou p A) antigen (test code = 44377-3) Negative Negative Lab Interpretation (test cod e = 36947-4) Normal [facility]AL [id number] 03:26:00* Test Item Value Reference Range Interpretation Comme nts NT-proBNP (test code = 5388091781) 144 pg/mL See_Comment H [Automated message] The system which generated this result transmitted reference range: <=125. The reference range was not used to interpret this result as normal/abnormal. CHARITY (test code = CHARITY) Biotin has been reported to cause a negative bias, interpret results relative to patient's use of biotin. Lab Interpretation (test code = 44153-0) Abnormal [facility] Panel (ALB, T.PRO, BILI T, BU/BC, ALT, AST, ALK PHOS)2018-11-01 03:19:00* Test Item Value Reference Range Interpretation Comme nts TOTAL BILI (test code = 9991096303) 0.5 mg/dL 0.1-1.1 BILI UNCON (test code = 6513819889) 0.4 mg/dL 0.1-1.1 BILI CONJ (test code = 7960938898) 0.0 mg/dL 0-0.3 T PROTEIN (test code = 9629573048) 7.7 g/dL 6.3-8.2 ALBUMIN (test code = 4015058033) 4.2 g/dL 3.5-5 ALK PHOS (test code = 9524182992) 84 U/L 34-122 ALT(SGPT) (test code = 7944990728) 13 U/L 9-51 AST(SGOT) (test code = 2577852794) 17 U/L 13-40 Lab Interpretation (test cod e = 43009-5) Normal [facility] Metabolic Panel (NA, K, CL, CO2, GLUCOSE, BUN, CREATININE, CA)2018-11-01 03:18:00* Test Item Value Reference Range Interpretation Comme nts NA (test code = 4951342526) 137 mmol/L 135-145 K (test code = 2780997154) 4.2 mmol/L 3.5-5 CL (test code = 1845422725) 99 mmol/L 98-108 CO2 TOTAL (test code = 6516355244) 28 mmol/L 23-31 AGAP (test code = 0947070810) 2-16 BUN (test code = 8533033609) 11 mg/dL 7-23 GLUCOSE (test code = 5250438619) 192 mg/dL 70-110 H CREATININE (test code = 4469018049) 0.54 mg/dL 0.5-1.04 CALCIUM (test code = 1131759069) 9.0 mg/dL 8.6-10.6 eGFR Calculation (Non-) (test code = 8473531106) mL/min/1.73m2 eGFR Calculation () (test code = 4020471757) mL/min/1.73m2 CHARITY (test code = CHARITY) Association of [...] or abnormalities in imaging tests). Lab Interpretation (test code = 40641-0) Abnormal [facility] WITH [id number] 03:07:00* Test Item Value Reference Range Interpretation Comme nts WBC (test code = 6690-2) See_Comment [VeriWave] The system which generated this result transmitted reference range: 4.30 - 11.10 10*3/?L. The reference range was not used to interpret this result as normal/abnormal. RBC (test code = 789-8) See_Comment [VeriWave] The system which generated this result transmitted reference range: 3.93 - 5.25 10*6/?L. The reference range was not used to interpret this result as normal/abnormal. HGB (test code = 718-7) 13.6 g/dL 11.6-15 HCT (test code = 4544-3) 42.2 % 35.7-45.2 MCV (test code = 787-2) 83.9 fL 80.6-95.5 MCH (test code = 785-6) 27.0 pg 25.9-32.8 MCHC (test code = 786-4) 32.2 g/dL 31.6-35.1 RDW-SD (test code = 30029-4) 45.5 fL 39-49.9 RDW-CV (test code = 788-0) 15.0 % 12-15.5 PLT (test code = 777-3) See_Comment [Automated messa ge] The system which generated this result transmitted reference range: 166 - 358 10*3/?L. The reference range was not used to interpret this result as normal/abnormal. MPV (test code = 78003-6) 10.5 fL 9.5-12.9 NRBC/100 WBC (test code = 8432979279) See_Comment [Automated me ssage] The system which generated this result transmitted reference range: 0.0 - 10.0 /100 WBCs. The reference range was not used to interpret this result as normal/abnormal. NRBC x10^3 (test code = 0518994164) <0.01 See_Comment [Automated me ssage] The system which generated this result transmitted reference range: 10*3/?L. The reference range was not used to interpret this result as normal/abnormal. GRAN MAT (NEUT) % (test code = 770-8) 69.5 % IMM GRAN % (test code = 5232499375) 0.30 % LYMPH % (test code = 736-9) 19.8 % MONO % (test code = 5905-5) 9.3 % EOS % (test code = 713-8) 1.0 % BASO % (test code = 706-2) 0.1 % GRAN MAT x10^3(ANC) (test code = 3118672543) 4.87 10*3/uL 1.88-7.09 IMM GRAN x10^3 (test code = 8775064802) <0.03 0-0.06 LYMPH x10^3 (test code = 731-0) 1.39 10*3/uL 1.32-3.29 MONO x10^3 (test code = 742-7) 0.65 10*3/uL 0.33-0.92 EOS x10^3 (test code = 711-2) 0.07 10*3/uL 0.03-0.39 BASO x10^3 (test code = 704-7) <0.03 0.01-0.07 [facility]"
[2023-06-24] MEDS ORDERED: HYDROCODONE/APAP 10/325 TAB ONE (05:50)
[2023-06-24] MEDS ORDERED: WATER FOR INJ,STERILE 10 ML ONE (05:50)
[2023-06-24] MEDS ORDERED: CEFTRIAXONE 1000 MG/VIAL ONE (05:50)
--- NOTE | 2023-06-24 06:47 | ER ---
Nurse's Notes [facility] Name: Nicole Martínez Age: 68 yrs Sex: Female : 1955 Arrival Date: 06/24/2023 Time: 04:05 Bed 8 Private MD: Diagnosis: Acute tonsillitis, unspecified;Other specified arthritis, left knee;Other specified arthritis, right knee;Osteoarthritis of knee, unspecified Presentation: 06/23 04:21 Chief complaint: Patient states: sore throat for 2 days and right knee pain starting 2 km8 days without recent injury. Coronavirus screen: Client denies travel out of the [place] in the last 14 days. Ebola Screen: No symptoms or risks identified at this time. Initial Sepsis Screen: Does the patient meet any 2 criteria? No. Patient's initial sepsis screen is negative. Does the patient have a suspected source of infection? No. Patient's initial sepsis screen is negative. Risk Assessment: Do you want to hurt yourself or someone else? Patient reports no desire to harm self or others. Onset of symptoms was June 22, 2023. 04:21 Method Of Arrival: Wheelchair km8 04:21 Acuity: KAELYN 3 km8 Triage Assessment: 04:22 General: Appears in no apparent distress. comfortable, Behavior is calm, cooperative, km8 appropriate for age. Pain: Complains of pain in throat and right knee. EENT: Reports sore throat. Neuro: Level of Consciousness is awake, alert, obeys commands, Oriented to person, place, time, situation. Cardiovascular: Denies chest pain, shortness of breath, Patient's skin is warm and dry. Respiratory: Airway is patent Respiratory effort is even, unlabored, Respiratory pattern is regular, symmetrical. GI: No signs and/or symptoms were reported involving the gastrointestinal system. : No signs and/or symptoms were reported regarding the genitourinary system. Derm: No signs and/or symptoms reported regarding the dermatologic system. Skin is intact, is healthy with good turgor, Skin is dry, Skin is pink, warm \T\ dry. normal, Skin temperature is warm. Musculoskeletal: Range of motion: intact in all extremities, Reports pain in right knee. Historical: - Allergies: 04:22 EGG/POULTRY; km8 04:22 hydrochlorothiazide; km8 04:22 Lovastatin; km8 04:22 Percodan; km8 04:22 rybellus; km8 04:22 Moosic; km8 - PMHx: 04:22 Hernández Cyst; Chronic obstructive lung disease; Diabetes - NIDDM; Hypertension; km8 - PSHx: 04:22 section; right foot; km8 - Immunization history:: Adult Immunizations up to date. - Infectious Disease History:: Denies. - Social history:: Smoking status: Patient denies any tobacco usage or history of. Patient/guardian denies using alcohol, street drugs. - Family history:: not pertinent. Screenin:[address] [facility] ED Fall Risk Assessment (Adult) History of falling in the last 3 months, jb4 including since admission No falls in past 3 months (0 pts) Confusion or Disorientation No (0 pts) Intoxicated or Sedated No (0 pts) Impaired Gait No (0 pts) Mobility Assist Device Used No (0 pt) Altered Elimination No (0 pt) Score/Fall Risk Level 0 - 2 = Low Risk Oriented to surroundings, Maintained a safe environment. Abuse screen: Denies threats or abuse. Nutritional screening: No deficits noted. Tuberculosis screening: No symptoms or risk factors identified. Assessment: 04:30 General: Appears in no apparent distress. comfortable, Behavior is calm, cooperative, jb4 appropriate for age. Pain: Complains of pain in right leg Pain does not radiate. Pain currently is 6 out of 10 on a pain scale. Neuro: Level of Consciousness is awake, alert, obeys commands, Oriented to person, place, time, situation. Cardiovascular: Patient's skin is warm and dry. Respiratory: Airway is patent Respiratory effort is even, unlabored, Respiratory pattern is regular, symmetrical. GI: No signs and/or symptoms were reported involving the gastrointestinal system. : No signs and/or symptoms were reported regarding the genitourinary system. EENT: Throat is clear is reddened has patchy exudate on left with gag reflex present. Derm: Skin is intact, Skin is pink, warm \T\ dry. Musculoskeletal: Circulation, motion, and sensation intact. Range of motion: intact in all extremities. 06:00 Reassessment: Patient appears in no apparent distress at this time. Patient and/or jb4 family updated on plan of care and expected duration. Pain level reassessed. Patient is alert, oriented x 3, equal unlabored respirations, skin warm/dry/pink. Vital Signs: 04:21 BP 102 / 84; Pulse 63; Resp 16; Temp 96.9(TE); Pulse Ox 98% on R/A; Weight 140.61 kg km8 (R); Height 5 ft. 3 in. (R); Pain 9/10; 07:01 BP 198 / 89; Pulse 59; Resp 16; Pulse Ox 97% on R/A; jb4 04:21 Body Mass Index 54.91 (140.61 kg, 160.02 cm) km8 04:21 Pain Scale: Adult km8 07:01 Pt reports having white coat syndrome and being anxious and under a lot of stress. Is jb4 resquesting to have something for anxiety and report blood pressure will decrease when she leaves. [place] Coma Score: 06:48 Eye Response: spontaneous(4). Motor Response: obeys commands(6). Verbal Response: sp4 oriented(5). Total: 15. ED Course: 04:12 Patient arrived in ED. gm2 04:20 Carlos Enrique Carnes MD is Attending Physician. sp4 04:22 Triage completed. km8 04:22 Arm band placed on right wrist. km8 05:37 Knee Right 3 View XRAY In Process Unspecified. EDMS 05:37 Knee Left 3 View XRAY In Process Unspecified. EDMS 06:08 Jaun Diego Yung, RN is Primary Nurse. jb4 06:29 Patient has correct armband on for positive identification. Bed in low position. Call jb4 light in reach. Side rails up X 1. Provided Education on: plan of care. 06:29 No provider procedures requiring assistance completed. Patient did not have IV access jb4 during this emergency room visit. 06:44 Eben Stephens MD is Referral Physician. sp4 Administered Medications: 06:03 Drug: [place] PO 10 mg-325 mg 1 tabs PO once Route: PO; jb4 06:03 Drug: Rocephin (cefTRIAXone) IM 1 grams IM once Route: IM; Site: left gluteus; jb4 07:01 Drug: Diazepam PO 5 mg PO once Route: PO; jb4 Medication: 07:01 VIS not applicable for this client. jb4 Outcome: 06:46 Discharge ordered by . sp4 07:01 Discharged to home via wheelchair, with family, jb4 07:01 Condition: stable 07:01 Discharge instructions given to patient, Instructed on discharge instructions, follow up and referral plans. medication usage, Demonstrated understanding of instructions, follow-up care, medications, Prescriptions given X 2, 07:05 Patient left the ED. jb4 Signatures: Dispatcher [employer] EDMS Juan Diego Yung RN RN jb4 Carlos Enrique Carnes MD MD sp4 Tracy Lyons 2 Marclele Gonsalves RN RN km8
--- NOTE | 2023-06-24 06:47 | EDPHYS ---
Physician Documentation [facility] Name: Nicole Martínez Age: 68 yrs Sex: Female : 1955 Arrival Date: 06/24/2023 Time: 04:05 Bed 8 Private MD: ED Physician Carlos Enrique Carnes HPI: 06/23 04:20 This 68 yrs old Female presents to ER via Unassigned with complaints of Sore sp4 Throat, Knee Pain. 06:48 60-year-old female with history of COPD, diabetes, osteoarthritis, presents with sp4 complaint of acute onset left-sided sore throat and chronic bilateral knee pain. . Historical: - Allergies: 04:22 EGG/POULTRY; km8 04:22 hydrochlorothiazide; km8 04:22 Lovastatin; km8 04:22 Percodan; km8 04:22 rybellus; km8 04:22 Manquin; km8 - PMHx: 04:22 Hernández Cyst; Chronic obstructive lung disease; Diabetes - NIDDM; Hypertension; km8 - PSHx: 04:22 section; right foot; km8 - Immunization history:: Adult Immunizations up to date. - Infectious Disease History:: Denies. - Social history:: Smoking status: Patient denies any tobacco usage or history of. Patient/guardian denies using alcohol, street drugs. - Family history:: not pertinent. ROS: 06:48 Constitutional: Negative for fever, chills, and weight loss, positive sore throat , sp4 positive bilateral knee pain 06:48 All other systems are negative, Exam: 06:48 Constitutional: This is a well developed, well nourished patient who is awake, alert, sp4 and in no acute distress. Head/Face: Normocephalic, atraumatic. Eyes: Pupils equal round and reactive to light, extra-ocular motions intact. Lids and lashes normal. Conjunctiva and sclera are not injected. Cornea within normal limits. Periorbital areas with no swelling, redness, or edema. ENT: Nares patent. No nasal discharge, no septal abnormalities noted. Tympanic membranes are normal and external auditory canals are clear. Oropharynx with mild left-sided erythema with tonsillar exudate Neck: Trachea midline, no thyromegaly or masses palpated, and no cervical lymphadenopathy. Supple, full range of motion without nuchal rigidity, or vertebral point tenderness. Chest/axilla: Normal chest wall appearance and motion. Nontender with no deformity. No lesions are appreciated. Cardiovascular: Regular rate and rhythm with a normal S1 and S2. No gallops, murmurs, or rubs. Normal PMI, no JVD. No pulse deficits. Respiratory: Lungs have equal breath sounds bilaterally, clear to auscultation and percussion. No rales, rhonchi or wheezes noted. No increased work of breathing, no retractions or nasal flaring. Abdomen/GI: Soft, with normal bowel sounds. No distension or tympany. No guarding or rebound. No evidence of tenderness throughout. Back: No spinal tenderness. No costovertebral tenderness. Skin: Warm, dry with normal turgor. Normal color with no rashes, no lesions, and no evidence of cellulitis. MS/ Extremity: Pulses equal, no cyanosis. Neurovascular intact. Full, normal range of motion. Neuro: Awake and alert, GCS 15, oriented to person, place, time, and situation. Cranial nerves II-XII grossly intact. Motor strength 5/5 in all extremities. Sensory grossly intact. Psych: Awake, alert, with orientation to person, place and time. Behavior, mood, and affect are within normal limits Vital Signs: 04:21 BP 102 / 84; Pulse 63; Resp 16; Temp 96.9(TE); Pulse Ox 98% on R/A; Weight 140.61 kg km8 (R); Height 5 ft. 3 in. (R); Pain 9/10; 07:01 BP 198 / 89; Pulse 59; Resp 16; Pulse Ox 97% on R/A; jb4 04:21 Body Mass Index 54.91 (140.61 kg, 160.02 cm) [facility] 04:21 Pain Scale: Adult [facility] 07:01 Pt reports having white coat syndrome and being anxious and under a lot of stress. Is jb4 resquesting to have something for anxiety and report blood pressure will decrease when she leaves. [place] Coma Score: 06:48 Eye Response: spontaneous(4). Motor Response: obeys commands(6). Verbal Response: sp4 oriented(5). Total: 15. MDM: 04:21 Patient medically screened. sp4 06:43 ED course: EXAM DESCRIPTION: Knee Left 3 View CLINICAL HISTORY: left knee pain sp4 COMPARISON: None. FINDINGS: 3 views of the left knee. No acute fracture or dislocation. Osteopenia. 3 compartment joint space narrowing and marginal osteophytosis. No definite joint effusion. IMPRESSION: 1. No acute fracture or dislocation. 2. 3 compartment osteoarthritic change.. ED course: EXAM DESCRIPTION: Knee Right 3 View CLINICAL HISTORY: right knee pain COMPARISON: None. FINDINGS: 3 views of the right knee. No acute fracture or dislocation. Osteopenia. 3 compartment joint space narrowing and marginal osteophytosis. No definite joint effusion. IMPRESSION: 1. No acute fracture or dislocation. 2. 3 compartment osteoarthritic change. 06:48 Differential diagnosis: Allergic rhinitis, apthous ulcer, bronchitis, sp4 gingivostomatitis. Data reviewed: vital signs, nurses notes, radiologic studies, plain films. ED course: Charged home with cephalexin for tonsillitis. Also will advised to see her orthopedist Dr. Eben Stephens for evaluation for worsening chronic bilateral knee arthritis. 06/23 04:48 Order name: Knee Right 3 View XRAY sp4 06/23 04:48 Order name: Knee Left 3 View XRAY sp4 Administered Medications: 06:03 Drug: [place] PO 10 mg-325 mg 1 tabs PO once Route: PO; jb4 06:03 Drug: Rocephin (cefTRIAXone) IM 1 grams IM once Route: IM; Site: left gluteus; jb4 07:01 Drug: Diazepam PO 5 mg PO once Route: PO; jb4 Disposition Summary: 06/24/23 06:46 Discharge Ordered Notes: Location: Home sp4 Problem: new sp4 Symptoms: have improved sp4 Condition: Stable sp4 Diagnosis - Acute tonsillitis, unspecified sp4 - Other specified arthritis, left knee sp4 - Other specified arthritis, right knee sp4 - Osteoarthritis of knee, unspecified sp4 Followup: sp4 - With: Private Physician - When: 7 - 10 days - Reason: Recheck today's complaints Followup: sp4 - With: Eben Stephens MD - When: 7 - 10 days - Reason: Recheck today's complaints Discharge Instructions: - Discharge Summary Sheet sp4 - Tonsillitis, Fckb-of-Pcun sp4 Forms: - Patient Portal Instructions sp4 Prescriptions: - Cephalexin 500 mg Oral Capsule - take 1 capsule ORAL route every 12 hours for 10 days; 20 capsule; Refills: 0, sp4 Product Selection Permitted - Tramadol 50 mg Oral Tablet - take 1 tablet ORAL route every 8 hours as needed; 12 tablet; Refills: 0, sp4 Product Selection Permitted Signatures: Dispatcher [employer] Juan Diego Peters, RN RN jb4 Carlos Enrique Carnes MD MD sp4 Marcelle Gonsalves RN RN km8 Corrections: (The following items were deleted from the chart) 04:49 04:49 Knee Left 3 View+[email or web address] ordered. EDMS EDMS
[2023-06-24] MEDS ORDERED: DIAZEPAM 5 MG TABLET ONE (06:58)
[2023-06-24 08:56] VITALS: BP 198/89; TEMP 96.9; O2SAT 97
--- NOTE | 2023-06-24 10:55 | RAD REPORT ---
EXAM DESCRIPTION: RAD - Knee Right 3 View - 06/24/2023 6:07 am CLINICAL HISTORY: Right knee pain COMPARISON: None. FINDINGS: 3 views of the right knee. No acute fracture or dislocation. Osteopenia. 3 compar tment joint space narrowing and marginal osteophytosis. No definite joint effusion. IMPRESSION: 1. No acute fracture or dislocation. 2. 3 compartment osteoarthritic change. Electronically signed by: Abe Nunez DO 06/24/2023 05:57 AM CDT M Due to temporary technical issues with the PACS/Fluency reporting system, reports are being signed by the in house radiologist without review as a courtesy to ensure prompt reporting. The interpreting r adiologist is fully responsible for the content of the report.
--- NOTE | 2023-06-24 11:10 | RAD REPORT ---
EXAM DESCRIPTION: RAD - Knee Left 3 View - 06/24/2023 6:07 am CLINICAL HISTORY: Left knee pain COMPARISON: None. FINDINGS: 3 views of the left knee. No acute fracture or dislocation. Osteopenia. 3 compart ment joint space narrowing and marginal osteophytosis. No definite joint effusion. IMPRESSION: 1. No acute fracture or dislocation. 2. 3 compartment osteoarthritic change. Electronically signed by: Abe Nunez DO 06/24/2023 05:58 AM CDT M Due to temporary technical issues with the PACS/Fluency reporting system, reports are being signed by the in house radiologist without review as a courtesy to ensure prompt reporting. The interpreting r adiologist is fully responsible for the content of the report.
== END 2023-06-24 07:05 | disposition home or self-care (01) ==
LOC: ER 04:05
DX: J03.90 Acute tonsillitis, unspecified (principal); M17.0 Bilateral primary osteoarthritis of knee; Z88.8 Allergy status to other drugs, medicaments and biological substances; Z91.012 Allergy to eggs; Z91.018 Allergy to other foods
CPT/HCPCS: 73562 ×2; 96372; 99284; J0696

== ENCOUNTER 2023-07-23 19:16 | Emergency (ER) | payer OTHER ==
--- OUTSIDE RECORDS SUMMARY | 2023-07-23 19:20 | XMS REPORT | Continuity of Care Document ---
Author Name Unknown Address [address] [facility] [address] [place] [address] [facility] thconnect Address [address] 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 Name Role Phone OMEGA JOY Primary Care Physician Unavailab Omega Gabriel Attending Clinician Unavailable KYLE MACK Attending Clinician Unavaila ble Doctor Unassigned, [place] Attending Clinician U ha Pagan MD, Dimitrios Werner Attending Clinician Paul Perea MD Attending Clinician [phone] Payers Payer Name Policy Type Policy Number Effective Date Expirati on Date Source [facility] PLUS [id number] 2015 00:00:00 [place] [address] [id number] 2018 00:00:00 [facility] Problems Condition Name Condition Details Condition Category Status Onset Date Resolution Date Last Treatment Date Treating Clinician Comments Source Incisional abscess, initial encounter Incisional abscess, initial encounter Disease Active 06-22 00:00: 00 [facility] Acute pharyngiti s, unspecifie d pharyngiti s type Acute pharyngiti s, unspecifie d pharyngiti s type Disease Active 05-26 00:00: 00 [facility] Exposure to Streptococ cus infection Exposure to Streptococ cus infection Disease Active 05-26 00:00: 00 [facility] Allergic rhinitis, unspecifie d allergic rhinitis type Allergic rhinitis, unspecifie d allergic rhinitis type Disease Active 05-26 00:00: 00 [facility] Elevated blood pressure Elevated blood pressure Disease Active 05-26 00:00: 00 [facility] Vitamin B 12 deficiency Vitamin B 12 deficiency Disease Active 05-26 00:00: 00 [facility] Morbid obesity Morbid obesity Disease Active 08-12 00:00: 00 [facility] H/O hysterecto my for benign disease H/O hysterecto my for benign disease Disease Active 08-12 00:00: 00 Overview: She says it was a partial but cannot see the cervix. [facility] [id number] HTN, goal below 130/80 Problem Active [facility] [id number] Osteoarthr itis of thoracolum bar spine, unspecifie d spinal osteoarthr itis complicati on status Problem Active [facility] [id number] Depression with anxiety Problem Active [facility] [id number] Low back pain Problem Active [facility] [id number] Tobacco use disorder Problem Active [facility] [id number] Mixed hyperlipid emia Problem Active [facility] [id number] Type 2 diabetes mellitus with other diabetic kidney complicati on Problem Active [facility] [id number] Primary osteoarthr itis of right knee Problem Active [facility] [id number] Asymptomat ic hypertensi ve urgency Problem Active [facility] [id number] Other chronic pain Problem Active [facility] [id number] Chronic obstructiv e pulmonary disease, unspecifie d COPD type Problem Active [facility] [id number] Noncomplia nce with dietary restrictio n Problem Active [facility] Allergies, Adverse Reactions, Alerts Allergy Name Allergy Type Status Severity Reaction(s) Onset Date Inactive Date Treating Clinician Comments Source OXYCODON E HCL-OXYC ODONE- A DRUG Active Hives 08-12 00:00: 00 [facility] Oxycodon e Hcl-Oxyc odone-As a Propensi ty to adverse reaction s Active Hives 08-12 00:00: 00 [facility] lisinopr il lisinopr il Active Cough [facility] amlodipi ne amlodipi ne Active LE Swelling [facility] metformi n metformi n Active diarrhea [facility] Social History Social Habit Start Date Stop Date Quantity Comments Source History of Tobacco Use [facility] Sex Assigned At [facility] Cigarettes smoked current (pack per day) - Reported 2019-02-20 00:00:00 2019-02-20 00:00:00 [facility] Cigarette pack-years 2019-02-20 00:00:00 2019-02-20 00:00:00 [facility] Alcohol intake 2019-02-20 00:00:00 2019-02-20 00:00:00 [facility] Alcohol Comment 2012-08-12 00:00:00 2012-08-12 00:00:00 occasionally [facility] Smoking Status Start Date Stop Date Source Former Smoker 2023-07-06 00:00:00 2023-07-06 00:00:00 [facility] Current every day smoker 2019-02-20 00:00:00 [facility] Medications Ordered Medication Name Filled Medication Name Start Date Stop Date Current Medication? Ordering Clinician Indication Dosage Frequency Signature (SIG) Comments Components Source BUPivacaine HCl BUPivacaine HCl 07-05 00:00: 00 No 4mL [facility] Kenalog (Triamcinol one) Kenalog (Triamcinol one) 07-05 00:00: 00 No 1mL [facility] Tramadol HCl 50 MG Tramadol HCl 50 MG 04-09 00:00: 00 No 1{table t_as_ne eded} Tramadol HCl 50 MG Bydureon Bydureon 8 00:00: 00 Yes Omega Joy 2 mg [facility] Bydureon 2 MG Bydureon 2 MG 10-16 00:00: 00 No Bydureon 2 MG Bydureon BCise Bydureon BCise 10-02 00:00: 00 12-31 00:00 :00 No Omega Joy as directed [facility] Tramadol HCl Tramadol HCl 10-01 00:00: 00 Yes Omega Joy 1 tablet as needed [facility] traMADol HCl 50 MG traMADol HCl 50 MG 10-01 00:00: 00 No 1{table t_as_ne eded} QD traMADol HCl 50 MG Bupivicaine Isaban Bupivicaine Isaban 09-28 00:00: 00 No 4mL [facility] Kenalog (Triamcinol one) Kenalog (Triamcinol one) 09-28 00:00: 00 No 40mg [facility] Hydrochloro thiazide Hydrochloro thiazide 09-17 00:00: 00 Yes Omega Joy 1 tablet in the morning [facility] DICLOFENAC 75 mg EC tablet 06-22 00:00: 00 Yes [id number] 9104 TAKE 1 TABLET BY MOUTH TWICE A DAY WITH MEALS [facility] DICLOFENAC 75 mg EC tablet 205 00:00: 00 06-22 00:00 :00 No [id number] 9104 TAKE 1 TABLET BY MOUTH TWICE A DAY WITH MEALS [facility] diclofenac 75 mg EC tablet 2018-03 00:00: 00 04-19 00:00 :00 No [id number] 9104 75mg Take 1 tablet by mouth 2 (two) times daily with meals. [facility] metFORMIN 500 mg tablet 10-31 00:00: 00 Yes [id number] 500mg Take 1 tablet by mouth 2 (two) times daily. [facility] amoxicillin 500 mg capsule 10-31 00:00: 00 Yes [id number] 500mg Take 1 capsule by mouth 3 (three) times daily. [facility] doxycycline 100 mg capsule 10-31 00:00: 00 11-11 04:59 :00 No [id number] 100mg Take 1 capsule by mouth 2 (two) times daily for 10 days. [facility] clindamycin 300 mg capsule 10-31 00:00: 00 11-11 04:59 :00 No [id number] 300mg Take 1 capsule by mouth 4 (four) times daily for 10 days. [facility] montelukast (SINGULAIR) 10 mg tablet 12-01 00:00: 00 Yes TAKE 1 TABLET BY MOUTH AT BEDTIME. [facility] busPIRone (BUSPAR) 10 mg tablet 11-03 00:00: 00 Yes 10mg Take 1 tablet by mouth 2 (two) times daily. [facility] VITAMIN D2 50,000 unit capsule 08-05 00:00: 00 Yes TAKE 1 CAPSULE BY MOUTH WEEKLY. [facility] busPIRone (BUSPAR) 10 mg tablet 06-23 21:12: 25 Yes [id number] 10mg Take 10 mg by mouth 2 (two) times daily. [facility] fluticasone -salmeterol (ADVAIR DISKUS) 250-50 mcg/dose inhalation disk 06-13 00:00: 00 Yes [id number] 1 inhalation BI D prn sob rinse mouth after using [facility] blood sugar diagnostic (ONETOUCH VERIO) strip 06-03 00:00: 00 Yes Use as directed, daily. DX:E11.9 [facility] lancets (ONE TOUCH DELICA) 33 gauge Misc 06-03 00:00: 00 Yes Use as directed, daily. DX:E11.9 [facility] loratadine (CLARITIN) 10 mg tablet 05-26 00:00: 00 Yes [id number] 10mg Take 1 Tab by mouth daily. [facility] fluticasone 50 mcg/actuati on nasal spray 05-07 00:00: 00 Yes [id number] 2{spray } Use 2 Sprays in each nostril daily. [facility] albuterol (PROAIR) 90 mcg/actuati on inhaler 05-07 00:00: 00 Yes [id number] 2{puff} Inhale 2 Puffs every 6 (six) hours as needed for Wheezing or Shortness of Breath. [facility] traMADOL (ULTRAM) 50 mg tablet 04-16 00:00: 00 Yes 50mg Take 1 Tab by mouth every 6 (six) hours as needed (prn pain). [facility] Tramadol HCl Tramadol HCl Yes Omega Joy not defined [facility] Methocarbam ol Methocarbam ol Yes Omega Joy not defined [facility] ProAir HFA ProAir HFA Yes Omega Joy 2 puffs as needed [facility] Robaxin Robaxin Yes Omega Joy 1.5 tablets [facility] Dulera Dulera Yes Omega Joy 2 puffs [facility] Motrin IB Motrin IB Yes Omega Joy not defined [facility] Hydrochloro thiazide 25 MG Hydrochloro thiazide [...] Time Observation Value Comments S ource height 2023-07-06 11:00:00 64 [in_i] Commo n [facility] weight 2023-07-06 11:00:00 317 [lb_av] Comm on [facility] temperature 2023-07-06 11:00:00 98.2 [degF] Com mon [facility] bmi 2023-07-06 11:00:00 54.41 kg/m2 Comm on [facility] blood pressure systolic 2023-07-06 11:00:00 142 mm[Hg] [facility] blood pressure diastolic 2023-07-06 11:00:00 86 mm[Hg] [facility] height 2020-04-09 08:30:00 64 [in_i] Commo n [facility] weight 2020-04-09 08:30:00 320 [lb_av] Comm on [facility] temperature 2020-04-09 08:30:00 97.1 [degF] Com mon [facility] bmi 2020-04-09 08:30:00 54.92 kg/m2 Comm on [facility] blood pressure systolic 2020-04-09 08:30:00 142 mm[Hg] [facility] blood pressure diastolic 2020-04-09 08:30:00 92 mm[Hg] [facility] Systolic blood pressure 2018-11-01 04:00:00 171 mm[Hg] [facility] Diastolic blood pressure 2018-11-01 04:00:00 74 mm[Hg] [facility] Heart rate 2018-11-01 04:00:00 76 /min [facility] Respiratory rate 2018-11-01 04:00:00 25 /min [facility] Oxygen saturation in Arterial blood by Pulse oximetry 2018-11-01 04:00:00 93 /min [facility] Body temperature 2018-11-01 02:09:00 37.11 Princess [facility] Body height 2018-11-01 02:09:00 162.6 cm [facility] Body weight 2018-11-01 02:09:00 138.347 kg [facility] BMI 2018-11-01 02:09:00 52.35 kg/m2 [facility] Systolic blood pressure 2018-11-01 04:00:00 171 mm[Hg] [facility] Diastolic blood pressure 2018-11-01 04:00:00 74 mm[Hg] [facility] Heart rate 2018-11-01 04:00:00 76 /min [facility] Respiratory rate 2018-11-01 04:00:00 25 /min [facility] Oxygen saturation in Arterial blood by Pulse oximetry 2018-11-01 04:00:00 93 /min [facility] Body temperature 2018-11-01 02:09:00 37.11 Princess [facility] Body height 2018-11-01 02:09:00 162.6 cm [facility] Body weight 2018-11-01 02:09:00 138.347 kg [facility] BMI 2018-11-01 02:09:00 52.35 kg/m2 [facility] Procedures Procedure Date / Time Performed Performing Clinician Source AUTHORIZATION FOR RELEASE OF PHI 2019-10-06 05:01:00 Doctor Unassigned, [place] [facility] AUTHORIZATION FOR RELEASE OF PHI 2019-09-27 05:01:00 Doctor Unassigned, [place] [facility] XR TOES 2 VW LEFT 2018-11-01 04:16:58 Eliazar Paul [facility] XR CHEST 1 VW 2018-11-01 03:14:21 Paul Perea [facility] XR FOOT 3+ VW LEFT 2018-11-01 03:14:21 Eliaz[facility] TROPONIN I 2018-11-01 02:57:00 Paul Perea [facility] HEPATIC FUNCTION PANEL ([id number]) (ALB,T.PRO,BILI T,BU/BC,ALT,AST,ALK PHOS) 2018-11-01 02:57:00 Paul Perea [facility] BASIC METABOLIC PANEL (NA, K, CL, CO2, GLUCOSE, BUN, CREATININE, CA) 2018-11-01 02:57:00 Paul Perea [facility] CBC WITH DIFFERENTIAL 2018-11-01 02:57:00 Ned Perea [facility] GLYCOSYLATED HEMOGLOBIN (A1C) 2018-11-01 02:57:00 Paul Perea [facility] PROTHROMBIN TIME / INR 2018-11-01 02:57:00 Storm Perea [facility] ACTIVATED PARTIAL THRMPLAS JANEEN 2018-11-01 02:57:00 Paul Perea [facility] RAPID STREP SCREEN FOR GROUP A 2018-11-01 02:57:00 Paul Perea [facility] N-TERMINAL PRO-BNP 2018-11-01 02:57:00 Paul Perea [facility] EKG-12 LEAD 2018-11-01 02:42:19 Paul Perea [facility] NOTICE OF PRIVACY PRACTICES 2018-11-01 01:54:18 Doctor Unassigned, [place] [facility] CONSENT/REFUSAL FOR DIAGNOSIS AND TREATMENT 2018-11-01 01:53:56 Doctor Unassigned, [place] [facility] Encounters Start Date/Time End Date/Time Encounter Type Admission Type Attending [facility] Care Department Encounter ID Source 2023-07-06 13:32:00 [facility] [id number] [facility] 2023-06-24 14:41:00 [facility] [id number] [facility] 2021-04-09 12:26:15 [facility] [id number] [facility] 2021-04-09 11:34:37 [facility] [id number] [facility] 2021-04-09 11:31:51 [facility] [id number] [facility] 2023-07-06 00:00:00 2023-07-06 00:00:00 [facility] [id number] 2021-09-04 11:00:2021-09-04 11:00:00 Outpatient KYLE ROCHE [facility] [id number] [facility] 2021-05-21 08:00:00 2021-05-21 08:00:00 Outpatient KYLE ROCHE [facility] [id number] [facility] 2020-04-09 00:00:00 2020-04-09 00:00:00 OFFICE VISIT EST PT LEVEL 3 [facility] [id number] [facility] 2020-04-03 00:00:00 2020-04-03 00:00:00 (TEL) [facility] [id number] [facility] 2019-10-17 10:00:00 2019-10-17 10:00:00 [facility] [id number] [facility] 2019-10-06 13:31:00 2019-10-06 13:31:00 Outpatient [facility] [id number] [facility] 2019-10-06 00:00:00 2019-10-06 00:00:00 Orders Only Doctor Unassigned, [place] [id number] [id number] [facility] 2019-10-06 00:00:00 2019-10-06 00:00:00 Orders Only Doctor Unassigned, [place] [id number] [id number] [id number] 2019-10-02 10:15:00 2019-10-02 10:15:00 [facility] [id number] [facility] 2019-09-29 08:30:00 2019-09-29 08:30:00 [facility] [id number] [facility] 2019-09-28 16:11:00 2019-09-28 16:11:00 [facility] [id number] [facility] 2019-09-28 16:09:00 2019-09-28 16:09:00 [facility] [id number] [facility] 2019-09-28 11:16:00 2019-09-28 11:16:00 [facility] [id number] [facility] 2019-09-28 00:00:00 2019-09-28 00:00:00 Telephone Dimitrios Pagan [facility] [id number] [id number] [facility] 2019-09-28 00:00:00 2019-09-28 00:00:00 Telephone Diimtrios Pagan [facility] [id number] 350.1.13.10 4.2.7.2.686 [id number] 2019-09-27 00:00:00 2019-09-27 00:00:00 Orders Only Doctor Unassigned, [place] [facility] [id number] 350.1.13.10 4.2.7.2.686 [id number] [facility] 2019-09-27 00:00:00 2019-09-27 00:00:00 Orders Only Doctor Unassigned, [place] [facility] [id number] 350.1.13.10 4.2.7.2.686 [id number] 2019-09-18 15:15:00 2019-09-18 15:15:00 [facility] [id number] [facility] 2019-06-23 00:00:00 2019-06-23 00:00:00 Dimitrios Mercado [facility] leticia Knapp [id number] 350.1.13.10 4.2.7.2.686 [id number] [facility] 2019-06-23 00:00:00 2019-06-23 00:00:00 Dimitrios Mercado [facility] leticia Walford [id number] 350.1.13.10 4.2.7.2.686 [id number] 2019-04-17 00:00:00 2019-04-17 00:00:00 Dimitrios Mercado [facility] leticia Knapp [id number] 350.1.13.10 4.2.7.2.686 [id number] [facility] 2019-04-17 00:00:00 2019-04-17 00:00:00 Dimitrios Mercado [facility] leticia Knapp [id number] 350.1.13.10 4.2.7.2.686 [id number] 2018-10-31 21:12:42 2018-10-31 23:51:00 [facility] [id number] 350.1.13.10 4.2.7.2.686 [id number] [facility] 2018-10-31 21:12:42 2018-10-31 23:51:00 [facility] [id number] 350.1.13.10 4.2.7.2.686 [id number] 2018-09-26 14:49:00 2018-09-26 14:49:00 [facility] [id number] [facility] 2018-07-19 14:26:00 2018-07-19 14:26:00 [facility] [facility] [facility] [id number] [facility] 2018-07-18 13:44:00 2018-07-18 13:44:00 [facility] [id number] [facility] 2018-07-18 08:30:00 2018-07-18 08:30:00 [facility] [id number] [facility] 2018-07-04 09:54:00 2018-07-04 09:54:00 [facility] [address] [facility] Medicine [id number] [facility] 2018-06-27 10:28:00 2018-06-27 10:28:00 [facility] [address] [facility] Medicine [id number] [facility] 2018-06-27 10:15:00 2018-06-27 10:15:00 [facility] [address] [facility] Medicine [id number] [facility] 2018-06-16 15:35:00 2018-06-16 15:35:00 Outpatient [facility] Medicine [id number] [facility] 2018-05-24 12:25:00 2018-05-24 12:25:00 Outpatient [facility] [id number] [facility] Results Test Description Test Time Test Comments Results Result Co mments Source [facility] Time (PT) / [id number] 04:27:00 * Test Item Value Reference Range [...] the indications. Lab Interpretation (test code = 31516-6) Normal [facility] 1 [id number] 04:12:59Right upper lobe consolidation, concerning for pneumonia. [...] reviewed this study and agree with the abovereport.[facility]YCOSYLATED HEMOGLOBIN (A1C) 2018-11-01 03:54:00* Test Item Value [...] iabetes Indicated Lab Interpretation (test code = 90622-5) Abnormal [facility]rop[facility] [id number] 03:29:00* Test Item Value Reference Range Interpretation Comme nts TROPONIN I (test code = 1962312751) <0.012 See_Comment [Automated message] The system which [...] biotin.? ? Lab Interpretation (test code = 04888-2) Normal [facility]REP SCREEN FOR GROUP [id number] 03:27:00* Test Item Value Reference Range Interpretation Comme nts Streptococcus pyogenes (grou p A) antigen (test code = 27897-7) Negative Negative Lab Interpretation (test cod e = 26521-1) Normal [facility]-TERMINAL [id number] 03:26:00* Test Item Value Reference Range Interpretation Comme nts NT-proBNP (test code = 9195140134) 144 pg/mL See_Comment H [Automated message] The system which generated this result transmitted reference range: <=125. The reference range was not used to interpret this result as normal/abnormal. CHARITY (test code = CHARITY) Biotin has been reported to cause a negative bias, interpret results relative to patient's use of biotin. Lab Interpretation (test code = 54852-5) Abnormal [facility] Function Panel (ALB, T.PRO, BILI T, BU/BC, ALT, AST, ALK PHOS)2018-11-01 03:19:00* Test Item Value Reference Range Interpretation Comme nts TOTAL BILI (test code = 2461373581) 0.5 mg/dL 0.1-1.1 BILI UNCON (test code = 1892934292) 0.4 mg/dL 0.1-1.1 BILI CONJ (test code = 5315688222) 0.0 mg/dL 0-0.3 T PROTEIN (test code = 6988095146) 7.7 g/dL 6.3-8.2 ALBUMIN (test code = 4207756223) 4.2 g/dL 3.5-5 ALK PHOS (test code = 9932116583) 84 U/L 34-122 ALT(SGPT) (test code = 7217222652) 13 U/L 9-51 AST(SGOT) (test code = 5096126776) 17 U/L 13-40 Lab Interpretation (test cod e = 98639-7) Normal [facility] Metabolic Panel (NA, K, CL, CO2, GLUCOSE, BUN, CREATININE, CA)2018-11-01 03:18:00* Test Item Value Reference Range Interpretation Comme nts NA (test code = 3732843459) 137 mmol/L 135-145 K (test code = 3048043500) 4.2 mmol/L 3.5-5 CL (test code = 1273626571) 99 mmol/L 98-108 CO2 TOTAL (test code = 5425456982) 28 mmol/L 23-31 AGAP (test code = 6835896988) 2-16 BUN (test code = 6570882100) 11 mg/dL 7-23 GLUCOSE (test code = 0101002583) 192 mg/dL 70-110 H CREATININE (test code = 6976593240) 0.54 mg/dL 0.5-1.04 CALCIUM (test code = 4247016306) 9.0 mg/dL 8.6-10.6 eGFR Calculation (Non-) (test code = 0377412853) mL/min/1.73m2 eGFR Calculation () (test code = 9448902551) mL/min/1.73m2 CHARITY (test code = CHARITY) Association [...] imaging tests). Lab Interpretation (test code = 40385-5) Abnormal [facility] WITH [id number] 03:07:00* Test Item Value Reference Range Interpretation Comme nts WBC (test code = 6690-2) See_Comment [Automated [employer]] The system which generated this result transmitted reference range: 4.30 - 11.10 10*3/?L. The reference range was not used to interpret this result as normal/abnormal. RBC (test code = 789-8) See_Comment [[employer]] The system which generated this result transmitted [...] 32.2 g/dL 31.6-35.1 RDW-SD (test code = 12255-0) 45.5 fL 39-49.9 RDW-CV (test code = 788-0) 15.0 % 12-15.5 PLT (test code = 777-3) See_Comment [Automated messa ge] The system which generated this result transmitted reference range: 166 - 358 10*3/?L. The reference range was not used to interpret this result as normal/abnormal. MPV (test code = 64997-0) 10.5 fL 9.5-12.9 NRBC/100 WBC (test code = 7108576691) See_Comment [Automated me ssage] The system which generated this result transmitted reference range: 0.0 - 10.0 /100 WBCs. The reference range was not used to interpret this result as normal/abnormal. NRBC x10^3 (test code = 7086032332) <0.01 See_Comment [Automated me ssage] The system which generated this result transmitted reference range: 10*3/?L. The reference range was not used to interpret this result as normal/abnormal. GRAN MAT (NEUT) % (test code = 770-8) 69.5 % IMM GRAN % (test code = 3554606654) 0.30 % LYMPH % (test code = 736-9) 19.8 % MONO % (test code = 5905-5) 9.3 % EOS % (test code = 713-8) 1.0 % BASO % (test code = 706-2) 0.1 % GRAN MAT x10^3(ANC) (test code = 9845325252) 4.87 10*3/uL 1.88-7.09 IMM GRAN x10^3 (test code = 6327471516) <0.03 0-0.06 LYMPH x10^3 (test code = 731-0) 1.39 10*3/uL 1.32-3.29 MONO x10^3 (test code = 742-7) 0.65 10*3/uL 0.33-0.92 EOS x10^3 (test code = 711-2) 0.07 10*3/uL 0.03-0.39 BASO x10^3 (test code = 704-7) <0.03 0.01-0.07 [facility]"
[2023-07-23] MEDS ORDERED: IPRATROPIUM BROM 0.5MG/2.5ML ONE (19:41)
[2023-07-23] MEDS ORDERED: ALBUTEROL 2.5 MG/3 ML NEB SOL ONE (19:41)
[2023-07-23 20:08] LABS: SARS-CoV-2 Antigen CONTROL BLUE LINE VIS/BG OK; SARS-CoV-2 Antigen Rapid Res Negative (Negative)
--- NOTE | 2023-07-23 20:21 | RAD REPORT ---
EXAM DESCRIPTION: Susie Single View07/23/2023 7:59 pm CLINICAL HISTORY: sob COMPARISON: 2022 FINDINGS: The lungs appear clear of acute infiltrate. The heart is probably mildly enlarged IMPRESSION: No acute abnormalities displayed
--- NOTE | 2023-07-23 21:25 | ER ---
Nurse's Notes [facility] Name: Nicole Martínez Age: 68 yrs Sex: Female : 1955 Arrival Date: 07/23/2023 Time: 19:16 Bed 14 Private MD: Diagnosis: Acute sinusitis, unspecified Presentation: 07/22 19:30 Chief complaint: Patient states: redness to right eye,onset yesterday with cough, me1 congestion with SOB,onset today. 19:30 Coronavirus screen: Vaccine status: Patient reports receiving the 1st dose of the Covid pf1 vaccine. Client denies travel out of the [place] in the last 14 days. Client presents with at least one sign or symptom that may indicate coronavirus-19. Ebola Screen: Patient negative for fever greater than or equal to 101.5 degrees Fahrenheit, and additional compatible Ebola Virus Disease symptoms. Initial Sepsis Screen: Does the patient meet any 2 criteria? No. Patient's initial sepsis screen is negative. Does the patient have a suspected source of infection? No. Patient's initial sepsis screen is negative. Risk Assessment: Do you want to hurt yourself or someone else? Patient reports no desire to harm self or others. Onset of symptoms was July 22, 2023. 19:30 Method Of Arrival: Wheelchair pf1 19:30 Acuity: KAELYN 3 pf1 Triage Assessment: 19:30 General: Appears in no apparent distress. comfortable, obese, well groomed, well pf1 developed, Behavior is calm, cooperative, appropriate for age, quiet. 19:30 EENT: Reports redness to right eye with nasal congestion.. Respiratory: Reports pf1 shortness of breath cough that is Airway is patent Respiratory effort is even, unlabored, Respiratory pattern is regular, symmetrical, Breath sounds are clear bilaterally. Historical: - Allergies: 19:45 EGG/POULTRY; pf1 19:45 hydrochlorothiazide; pf1 19:45 Lovastatin; pf1 19:45 Percodan; pf1 19:45 rybellus; pf1 19:45 [place]; pf1 - PMHx: 19:45 Hernández Cyst; Chronic obstructive lung disease; Diabetes - NIDDM; Hypertension; pf1 - PSHx: 19:45 section; right foot; pf1 - Immunization history:: Adult Immunizations up to date, Client reports receiving the 1st dose of the Covid vaccine, Client reports receiving the Robert \T\ Robert single-dose vaccine. Last tetanus immunization: < 10 years ago Flu vaccine is not up to date. - Infectious Disease History:: Denies. - Social history:: Smoking status: Patient/guardian denies using tobacco, the patient reports quitting approximately 4 years ago, Patient/guardian denies using alcohol, street drugs. Screenin:[address] [facility] ED Fall Risk Assessment (Adult) History of falling in the last 3 months, me1 including since admission No falls in past 3 months (0 pts) Confusion or Disorientation No (0 pts) Intoxicated or Sedated No (0 pts) Impaired Gait No (0 pts) Mobility Assist Device Used No (0 pt) Altered Elimination No (0 pt) Score/Fall Risk Level 0 - 2 = Low Risk Maintained a safe environment, Provided non-skid footwear, Hourly rounding (assess needs \T\ fall precautionary measures) done. Abuse screen: Denies threats or abuse. Nutritional screening: No deficits noted. Tuberculosis screening: No symptoms or risk factors identified. Assessment: 19:54 General: Appears uncomfortable, obese, well groomed, well developed, well nourished, me1 Behavior is calm, cooperative, appropriate for age, Reports redness to right eye,onset yesterday with cough, congestion with SOB,onset today. Pain: Denies pain. Neuro: Level of Consciousness is awake, alert, obeys commands, Oriented to person, place, time, situation, Appropriate for age. Cardiovascular: Capillary refill < 3 seconds Patient's skin is warm and dry. Respiratory: Reports shortness of breath cough that is congestion Airway is patent Respiratory effort is even, unlabored, Respiratory pattern is regular, symmetrical. GI: No signs and/or symptoms were reported involving the gastrointestinal system. : No signs and/or symptoms were reported regarding the genitourinary system. EENT: Eyes redness to right eye. Derm: Skin is intact, is healthy with good turgor, Skin is pink, warm \T\ dry. Musculoskeletal: No signs and/or symptoms reported regarding the musculoskeletal system. Vital Signs: 19:30 BP 187 / 93; Pulse 83; Resp 20; Temp 98.3; Pulse Ox 98% on R/A; Weight 143.79 kg; pf1 Height 5 ft. 3 in. ; 19:30 BP 196 / 83; Pulse 81; Resp 18; Pulse Ox 96% on R/A; me1 20:00 BP 133 / 65; Pulse 76; Resp 16; Pulse Ox 100% on R/A; me1 21:00 BP 143 / 57; Pulse 92; Resp 16; Pulse Ox 96% on R/A; me1 21:43 BP 126 / 79; Pulse 86; Resp 18; Pulse Ox 99% on R/A; me1 19:30 Body Mass Index 56.15 (143.79 kg, 160.02 cm) pf1 ED Course: 19:26 Patient arrived in ED. mg5 19:27 Amanda Ruelas FNP-C [facility]. kb 19:27 Basil Henry MD is Attending Physician. kb 19:37 Ev Swain, JENNI is Primary Nurse. me1 19:45 Triage completed. pf1 19:50 Strep Sent. me1 19:50 SARS-COV-2 Antigen Rapid Sent. me1 19:50 Flu Sent. me1 19:50 COVID swab sent to lab. Flu and/or RSV swab sent to lab. Strep swab sent to lab. me1 19:54 No provider procedures requiring assistance completed. Patient did not have IV access me1 during this emergency room visit. 19:54 Patient has correct armband on for positive identification. Bed in low position. Call me1 light in reach. Side rails up X2. Provided Education on: POC. Verbalized understanding.. Client placed on continuous cardiac and pulse oximetry monitoring. NIBP monitoring applied. Pulse ox on. NIBP on. 19:54 Arm band placed on Patient placed in an exam room. me1 20:01 Chest Single View XRAY In Process Unspecified. EDMS Administered Medications: 19:58 Drug: Albuterol Inhalation 2.5 mg Inhalation once Route: Inhalation; me1 20:36 Follow up: Response: No adverse reaction; Wheezing diminished me1 19:59 Drug: Ipratropium Inhalation Aerosol 0.5 mg Inhalation once Route: Inhalation; me1 20:36 Follow up: Response: No adverse reaction; Wheezing diminished me1 21:35 Drug: Dexamethasone IM 4 mg IM once Route: IM; Site: right deltoid; me1 21:43 Follow up: Response: No adverse reaction me1 Medication: 19:54 VIS not applicable for this client. me1 Outcome: 21:24 Discharge ordered by MD. rizo 21:44 Discharged to home ambulatory, with significant other, me1 21:44 Condition: stable 21:44 Discharge instructions given to patient, significant other, Instructed on discharge instructions, follow up and referral plans. medication usage, Demonstrated understanding of instructions, follow-up care, medications, Prescriptions given X 2, 21:45 Patient left the ED. me1 Signatures: Dispatcher [employer] EDAmanda Escobedo, ROSAURA-Alberta KAPLAN-Patricia Cantrell RN RN pf1 Ev Swain RN RN me1 Alice Pool mg5 Corrections: (The following items were deleted from the chart) 19:54 19:30 Chief complaint: Patient states: redness to right eye,onset yesterday with cough, me1 congestion with SOB,onset today. pf1
--- NOTE | 2023-07-23 21:26 | EDPHYS ---
Physician Documentation [facility] Name: Nicole Martínez Age: 68 yrs Sex: Female : 1955 Arrival Date: 07/23/2023 Time: 19:16 Bed 14 Private MD: ED Physician Basil Henry HPI: 07/22 19:33 This 68 yrs old Female presents to ER via Unassigned with complaints of Flu Symptoms. kb 19:33 Pt is a 68 year old female who presents for cough, shortness of breath, congestion, kb redness/drainage from right eye for 4 days. Denies fever. States she normally uses an inhaler, but is out.. Historical: - Allergies: 19:45 EGG/POULTRY; pf1 19:45 hydrochlorothiazide; pf1 19:45 Lovastatin; pf1 19:45 Percodan; pf1 19:45 rybellus; pf1 19:[address] [place]; pf1 - PMHx: 19:45 Hernández Cyst; Chronic obstructive lung disease; Diabetes - NIDDM; Hypertension; pf1 - PSHx: 19:45 section; right foot; pf1 - Immunization history:: Adult Immunizations up to date, Client reports receiving the 1st dose of the Covid vaccine, Client reports receiving the Robert \T\ Robert single-dose vaccine. Last tetanus immunization: < 10 years ago Flu vaccine is not up to date. - Infectious Disease History:: Denies. - Social history:: Smoking status: Patient/guardian denies using tobacco, the patient reports quitting approximately 4 years ago, Patient/guardian denies using alcohol, street drugs. ROS: 19:33 Constitutional: As per HPI kb Exam: 19:33 Constitutional: This is a well developed, well nourished patient who is awake, alert, kb and in no acute distress. Head/Face: Normocephalic, atraumatic. ENT: Moist Mucous membranes Cardiovascular: Regular rate Respiratory: Respirations even and unlabored. No increased work of breathing. Talking in full sentences Skin: Warm, dry with normal turgor. Normal color. MS/ Extremity: Pulses equal, no cyanosis. Neurovascular intact. Full, normal range of motion. Neuro: Awake and alert, GCS 15, oriented to person, place, time, and situation. Moves all extremities. Normal gait. 19:36 ENT: Posterior pharynx: erythema, that is mild, kb Vital Signs: 19:30 BP 187 / 93; Pulse 83; Resp 20; Temp 98.3; Pulse Ox 98% on R/A; Weight 143.79 kg; pf1 Height 5 ft. 3 in. ; 19:30 BP 196 / 83; Pulse 81; Resp 18; Pulse Ox 96% on R/A; me1 20:00 BP 133 / 65; Pulse 76; Resp 16; Pulse Ox 100% on R/A; me1 21:00 BP 143 / 57; Pulse 92; Resp 16; Pulse Ox 96% on R/A; me1 21:43 BP 126 / 79; Pulse 86; Resp 18; Pulse Ox 99% on R/A; me1 19:30 Body Mass Index 56.15 (143.79 kg, 160.02 cm) pf1 MDM: 19:27 Patient medically screened. kb 19:33 Data reviewed: vital signs, nurses notes. kb 21:24 Differential Diagnosis: Bronchitis Influenza Upper Respiratory Infection Sinusitis kb Allergic Rhinitis Viral Syndrome Pneumonia. I considered the following discharge prescriptions or medication management in the emergency department I discussed and recommended Over The Counter medications, Antibiotics: At this time antibiotics are not recommended. Counseling: I had a detailed discussion with the patient and/or guardian regarding the historical points, exam findings, and any diagnostic results supporting the discharge/admit diagnosis, lab results, radiology results, the need for outpatient follow up, a family practitioner, to return to the emergency department if symptoms worsen or persist or if there are any questions or concerns that arise at home. 07/22 19:36 Order name: Flu; Complete Time: 20:24 kb 07/22 19:36 Order name: SARS-COV-2 Antigen Rapid; Complete Time: 20:10 kb 07/22 19:36 Order name: Strep; Complete Time: 20:10 kb 07/22 20:11 Order name: Throat Culture EDMS 07/22 19:36 Order name: Chest Single View XRAY; Complete Time: 20:22 kb Administered Medications: 19:58 Drug: Albuterol Inhalation 2.5 mg Inhalation once Route: Inhalation; me1 20:36 Follow up: Response: No adverse reaction; Wheezing diminished me1 19:59 Drug: Ipratropium Inhalation Aerosol 0.5 mg Inhalation once Route: Inhalation; me1 20:36 Follow up: Response: No adverse reaction; Wheezing diminished me1 21:35 Drug: Dexamethasone IM 4 mg IM once Route: IM; Site: right deltoid; me1 21:43 Follow up: Response: No adverse reaction me1 Disposition Summary: 07/23/23 21:24 Discharge Ordered Notes: Location: Home kb Condition: Stable kb Diagnosis - Acute sinusitis, unspecified kb Followup: kb - With: Emergency Department - When: As needed - Reason: Worsening of condition Followup: kb - With: Private Physician - When: 2 - 3 days - Reason: Recheck today's complaints, Continuance of care, Re-evaluation by your physician Discharge Instructions: - Discharge Summary Sheet kb - Sinusitis, Adult, [id number] kb Forms: - Medication Reconciliation Form kb - Antibiotic Education kb - Prescription Opioid Use kb - Patient Portal Instructions kb - Leadership Thank You Letter kb Prescriptions: - albuterol sulfate 90 mcg/actuation Inhalation HFA Aerosol Inhaler - inhale 2 puff INHALATION route every 4-6 hours As needed; 1 unit; Refills: 0, kb Product Selection Permitted - Vigamox 0.5 % Ophthalmic Drops - instill 1 drop OPHTHALMIC route every 8 hours for 7 days; 5 milliliter; kb Refills: 0, Product Selection Permitted Signatures: Dispatcher [employer] EDAmanda Escobedo, X RAY SERVICE TECHNICIAN-C X RAY SERVICE TECHNICIAN-Patricia Cantrell, RN RN pf1 Ev Swain RN RN me1 Corrections: (The following items were deleted from the chart) 19:37 19:37 Influenza Screen (A \T\ B)+BA.LAB.BRZ ordered. EDMS EDMS 19:37 19:37 SARS-COV-2 Antigen Rapid+I.LAB.BRZ ordered. EDMS EDMS 19:37 19:37 Group A Streptococcus Rapid Sc+BA.LAB.BRZ ordered. EDMS EDMS
[2023-07-23] MEDS ORDERED: dexAMETHasone 4 MG/ML VIAL ONE (21:33)
[2023-07-23 21:51] VITALS: TEMP 98.3
[2023-07-23 22:20] VITALS: BP 126/79; O2SAT 99
== END 2023-07-23 21:45 | disposition home or self-care (01) ==
LOC: ER 19:16
DX: J01.90 Acute sinusitis, unspecified (principal); Z11.52 Encounter for screening for COVID-19; J44.9 Chronic obstructive pulmonary disease, unspecified; I10 Essential (primary) hypertension; Z88.5 Allergy status to narcotic agent; Z88.8 Allergy status to other drugs, medicaments and biological substances; Z91.012 Allergy to eggs; Z91.018 Allergy to other foods
CPT/HCPCS: 87070; 36415; 87081; 87804 ×2; 71045; 96372; 99285; 87811; J1100; J7613; J7644